=== PATIENT | male | born 1985 | race African-American/Black ===

== ENCOUNTER 2017-01-19 02:21 | Inpatient (IN) | payer BC ==
[2017-01-19] MEDS ORDERED: Nitroglycerin 0.4 MG TAB (25 Tab Bottle) ONE (02:57)
[2017-01-19 03:07] LABS: #Basophils 0.1 thou/uL (0.0-0.2); #Eosinphils 0.1 thou/uL (0.0-0.7); #Lymphocytes 1.9 thou/uL (1.20-3.40); #Monocytes 0.7 thou/uL (0.11-0.59); #Neutrophils 6.7 thou/uL (1.40-6.50); %Eosinophils 1.2 % (0.0-10.0); %Lymphocytes 19.7 % (21.0-51.0); %Monocytes 7.1 % (0.0-10.0); Hematocrit 46.8 % (42.0-52.0); Mean Platelet Volume 9.6 fL (7.4-10.4); White Blood Cell (WBC) Count 9.4 thou/uL (4.8-10.8)
[2017-01-19 03:28] LABS: ALT (SGPT) 50 U/L (8-55); AST (SGOT) 22 U/L (5-34); Alkaline Phosphatase 79 U/L (40-150); Anion Gap 8 mmol/L (10-20); BUN (Urea Nitrogen) 13 mg/dL (8.9-20.6); Bilirubin, Total 0.3 mg/dL (0.2-1.2); CK (CPK) 98 U/L (30-200); Calc. Creatinine Clearance 0 mL/min (70-130); Calcium 8.4 mg/dL (7.8-10.44); Carbon Dioxide 33 mmol/L (22-29); Chloride 99 mmol/L (98-107); Estimated GFR-MDRD Greater than 90; Globulin 3.1 g/dL (2.4-3.5); Lipase 34 U/L (8-78); Magnesium 1.1 mg/dL (1.6-2.6); Protein, Total 6.3 g/dL (6.0-8.3)
[2017-01-19 03:30] LABS: Troponin I 0.067 ng/mL (< 0.028)
[2017-01-19] MEDS ORDERED: Ondansetron HCl/PF 4 MG/2 ML Vial ONE (04:20)
[2017-01-19] MEDS ORDERED: Nitroglycerin 2% Ointment 1 INCH/1 GM Packet ONE (04:20)
[2017-01-19] MEDS ORDERED: Morphine 2 MG/ML SYRINGE ONE (04:20)
[2017-01-19] MEDS ORDERED: Labetalol HCl 100 MG/20 ML VIAL ONE (05:11)
[2017-01-19] MEDS ORDERED: hydrALAZINE 20 MG/ML VIAL ONE (06:16)
--- NOTE | 2017-01-19 06:25 | HP ---
DATE OF ADMISSION: 01/19/2017 PRIMARY CARE PHYSICIAN: Sharron head. CHIEF COMPLAINT: Chest pain and shortness of breath. HISTORY OF PRESENT ILLNESS: This is a 31-year-old -Palest[place] male, who presents to [facility] complaining of chest pain and shortness of breath over the last several days . Patient with a significant history of systolic congestive heart failure with ejection fraction in the 20%-25% range by 2D transthoracic echocardiogram in 2013. The patient previously had been plac ed on carvedilol, Lasix, and Zaroxolyn, and had been followed by the Heart Failure [facility] at [facility]. According to the girlfriend, patient has not been following up with the Heart Failure Clinic and actually he has been out of all of his medications over the last 4-5 months prior to thi s evaluation. The patient has noted increasing lower extremity swelling, increased shortness of niraj ath, and decreased exercise tolerance. 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 Patient admits to some chest pain, pressure-like in the central portion of the chest. No specific jaw or le ft arm discomfort. The patient denied any recent fever, chills, or travel history. Patient denies any specific change to his bowel habits, dysuria, recent trauma or injury. In the emergency room, t he patient underwent general evaluation including chest imaging showing cardiomegaly as well as pulm onary vascular congestion. The patient was also noted with mild elevated troponin I at 0.067. The patient received IV morphine sulfate, Zofran, topical nitroglycerin, as well as sublingual nitroglyc lee, intravenous normal saline x500 mL, and aspirin. The patient was referred to the Hospitalist Dory mitchell for admission. PAST MEDICAL HISTORY: 1. Systolic congestive heart failure with ejection fraction of 20%-25%. 2. Dilated cardiomyopathy. 3. Hypertension. 4. Morbid obesity. 5. Noncompliance. 6. History of undescended testicle. PAST SURGICAL HISTORY: 1. Status post orchiopexy for undescended testicle. 2. Status post inguinal hernia repair. 3. Status post circumcision. CURRENT MEDICATIONS: 1. Reviewed and negative. The patient previously was noted on aspirin 81 mg daily, carvedilol 12.5 mg p.o. b.i.d., Lasix 80 mg p.o. b.i.d. 2. Lisinopril 20 mg p.o. daily. 3. Zaroxolyn 5 mg p.o. daily. 4. Aldactone 25 mg p.o. daily. The patient currently out of all medications. ALLERGIES: No known drug allergies. FAMILY HISTORY: Positive for hypertension. SOCIAL HISTORY: The patient resides in the [facility] area. 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 Positive alcohol use every other week. No tobacco or illicit drug us e. REVIEW OF SYSTEMS: The following complete review of systems was negative, unless otherwise mentione d in the HPI or below: Constitutional: Weight loss or gain, ability to conduct usual activities. Skin: Rash, itching. Eyes: Double vision, pain. ENT/Mouth: Nose bleeding, neck stiffness, pain, tenderness. Cardiovascular: Palpitations, dyspnea on exertion, orthopnea. Respiratory: Shortnes s of breath, wheezing, cough, hemoptysis, fever or night sweats. Gastrointestinal: Poor appetite, abdominal pain, heartburn, nausea, vomiting, constipation, or diarrhea. Genitourinary: Urgency, fr equency, dysuria, nocturia. Musculoskeletal: Pain, swelling. Neurologic/Psychiatric: Anxiety, de pression. Allergy/Immunologic: Skin rash, bleeding tendency. PHYSICAL EXAMINATION: VITAL SIGNS: On admission, blood pressure 195/109, pulse 105, respiratory rate 24, temperature 98.5 degrees Fahrenheit, O2 saturation 88% on room air. GENERAL APPEARANCE: This is a 31-year-old -Palestinian male, morbidly obese, somnolent, but ope ns eyes to name and direct questioning. HEENT: Pupils are equal, round, and reactive to light and accommodation. Extraocular muscles are i ntact. No scleral icterus, no conjunctival injection. Nares patent. OP is clear. NECK: Supple, no cervical adenopathy, no thyromegaly, no JVD appreciated. Cervical spine with full active and passive range of motion. CHEST: Diminished breath sounds in the bases bilaterally. CARDIOVASCULAR: S1, S2 with distant heart sounds. ABDOMEN: Obese, landmarks are difficult to palpate due to patient's body habitus. No palpable mass , rebound, or guarding. EXTREMITIES: Pitting edema to the knees bilaterally. Pulses palpable distally at the dorsalis pedi s, posterior tibial, and popliteal arteries bilaterally. Capillary refill less than 2 seconds. NEUROLOGIC: Lethargic, but opens eyes to direct questioning and name. The rest of the cranial nerv es II through XII are grossly intact. No other focal or lateralizing signs appreciated. PERTINENT LABORATORY AND X-RAY FINDINGS: Sodium 136, potassium 3.9, chloride 99, CO2 of 33, anion g ap of 8, BUN 13, creatinine 1.09 with estimated GFR greater than 90, glucose 210, calcium 8.4, magne sium 1.1. LFTs within normal limits. Troponin I 0.067. BNP 78.4, lipase 34. CBC showed a white b lood cell count 9.4, hemoglobin 15, hematocrit 47, platelet count 172 with normal differential. Por table chest x-ray dated 01/19/2017 by my interpretation, shows pulmonary vascular congestion with ca rdiomegaly. EKG dated 01/19/2017 by my interpretation, shows a sinus mechanism and EKG dated 2016 by my interpretation, shows sinus mechanism with heart rates in the upper 90s. Attenuated R wa ves noted in the precordial leads. Right axis deviation noted. No acute ST-T wave changes apprecia carey. ASSESSMENT AND PLAN: 1. Chest pain. Questionable cardiac ischemia given elevated troponin I of 0.067. We will continue serial cardiac enzyme trending. Consult Cardiology service in the a.m. Continue aspirin 81 mg amari ly. Check fasting lipid profile in the a.m. The patient may need additional cardiac evaluation inc luding left heart catheterization given the patient's overall body habitus and difficulty with nucle ar imaging. 2. Acute systolic congestive heart failure with ejection fraction in the 25% range. We will contin ue Lasix 40 mg IV q.12 hours. Check 2D transthoracic echocardiogram for current ejection fraction. Cardiology consult pending. 3. Morbid obesity hypoventilation syndrome. Continue oxygen supplementation to maintain O2 saturat ions greater than or equal to 90%. Consider nocturnal CPAP. The patient may need additional outpat ient sleep study. 4. Hypertensive urgency. We will initiate Lasix 40 mg IV q.12 hours with additional lisinopril 2.5 mg p.o. daily. We will add hydralazine 10 mg IV every 4 hours p.r.n. systolic greater than 170. C ontinue to titrate antihypertensive regimen based on clinical response. 5. Prophylaxis. Sequential compression devices while in bed. Pepcid 20 mg p.o. b.i.d. 6. Code status is FULL. Surrogate medical decision maker is the patient's girlfriend.
[2017-01-19 06:30] LABS: Troponin I 0.061 ng/mL (< 0.028)
[2017-01-19] MEDS ORDERED: Ondansetron HCl/PF 4 MG/2 ML Vial IVP PRN ×2 (06:59→07:30)
[2017-01-19] MEDS ORDERED: Ondansetron ODT 4 MG TAB PO PRN ×2 (06:59→07:30)
[2017-01-19 07:29] VITALS: BMI 60.7
[2017-01-19] MEDS ORDERED: hydrALAZINE 20 MG/ML VIAL SLOW IVP PRN (07:30)
[2017-01-19] MEDS ORDERED: cloNIDine 0.1 MG TAB PO PRN (07:30)
[2017-01-19] MEDS ORDERED: Acetaminophen 500 MG TAB PO PRN (07:30)
[2017-01-19] MEDS ORDERED: Furosemide 40 MG/4 ML VIAL SLOW IVP SCH ×2 (07:30→08:00)
[2017-01-19] MEDS ORDERED: Nitroglycerin 0.4 MG TAB (25 Tab Bottle) SL PRN (07:30)
[2017-01-19] MEDS ORDERED: Magnesium Sulfate 2 GM in Sodium Chloride 0.9% 100 ML IVPB SCH (07:30)
[2017-01-19] MEDS ORDERED: Magnesium 2 GM/NS 0.9% 50 ML 2 GM in Premix Bag 1 BAG IVPB SCH (08:00)
--- NOTE | 2017-01-19 08:30 | PDOC.EVN ---
Event Note - Event Note Event Note: Pt seen during the rounds. Awaiting cardio input. Echo being done. will follow. Chest pain better. at bedside.
--- NOTE | 2017-01-19 08:44 | RAD ---
CHEST ONE VIEW: HISTORY: Chest pain. COMPARISON: 06/12/2015 and 11/04/2015 FINDINGS: Portable upright chest demonstrates an enlarged cardiac silhouette. The pulmonary vessels and hilum are normal. The costophrenic angles are clear. Hyperinflation without consolidation or mass. No pneumothorax or osseous abnormalities. IMPRESSION: 1. Limited evaluation due to motion and portable technique. 2. No acute cardiopulmonary process. 3. Cardiomegaly POS: [facility]
[2017-01-19 09:53] LABS: Troponin I 0.062 ng/mL (< 0.028)
[2017-01-19] MEDS: Lisinopril 2.5 MG TAB PO SCH (11:10)
[2017-01-19] MEDS: Famotidine 20 MG TAB PO SCH ×2 (11:11→19:56)
[2017-01-19] MEDS: Furosemide 40 MG/4 ML VIAL SLOW IVP SCH (15:07)
[2017-01-19] MEDS: Sodium Chloride 0.9% 1,000 ML IV SCH (19:22)
[2017-01-20] MEDS: Furosemide 40 MG/4 ML VIAL SLOW IVP SCH ×2 (05:34→14:26)
[2017-01-20 05:59] LABS: Anion Gap 9 mmol/L (10-20); BUN (Urea Nitrogen) 12 mg/dL (8.9-20.6); Calc. Creatinine Clearance 324 mL/min (70-130); Calcium 8.2 mg/dL (7.8-10.44); Carbon Dioxide 35 mmol/L (22-29); Chloride 95 mmol/L (98-107); Estimated GFR-MDRD Greater than 90; Magnesium 1.5 mg/dL (1.6-2.6)
[2017-01-20 06:35] LABS: Band 2 % (5-11); Hematocrit 46.7 % (42.0-52.0); Mean Platelet Volume 9.1 fL (7.4-10.4); Neutrophil 71 % (42-75); Reactive Lymphocytes 4 % (0-10); Red Blood Cell (RBC) Count 5.37 mill/uL (4.70-6.10); White Blood Cell (WBC) Count 9.9 thou/uL (4.8-10.8)
[2017-01-20] MEDS ORDERED: FLU VACC QS2017-18 36 mo. & older 0.5 ML SYRINGE IM ONE (09:00)
[2017-01-20] MEDS: Famotidine 20 MG TAB PO SCH ×2 (09:24→20:55)
[2017-01-20] MEDS: Lisinopril 2.5 MG TAB PO SCH (09:24)
--- NOTE | 2017-01-20 13:20 | PDOC.PN ---
- Subjective Encounter Start Date: 01/20/17 Encounter Start Time: 13:19 Patient seen and examined. No new complaints. No overnight events. feeling better. sob is much better. No chest pain or N/V. He was not taking any meds for the last 4-5 months. - Objective Resuscitation Status: Resuscitation Status FULL:Full Resuscitation MAR Reviewed: Yes Vital Signs & Weight: Vital Signs (12 hours) Temp Pulse Pulse Pulse Resp BP BP 01/20/17 12:15 01/20/17 11:30 98.2 F 106 H 18 01/20/17 10:00 98 105 H 141/102 H 170/111 H 01/20/17 09:24 101 H 01/20/17 08:05 98.3 F 101 H 18 01/20/17 07:15 98.3 F 101 H 18 01/20/17 04:20 01/20/17 03:25 98.5 F 96 20 BP Pulse Ox Pulse Ox Pulse Ox 01/20/17 12:15 207/117 H 01/20/17 11:30 93 L 01/20/17 10:00 88 L 95 01/20/17 09:24 01/20/17 08:05 01/20/17 07:15 142/91 H 94 L 01/20/17 04:20 95 01/20/17 03:25 130/94 H 92 L Weight Weight 429 lb 11.2 oz I&O: 01/19/17 01/20/17 01/21/17 06:59 06:59 06:59 Intake Total 1050 360 Output Total 1500 800 Balance -450 -440 Result Diagrams: 01/20/17 05:31 01/20/17 05:31 Phys Exam - Physical Examination Constitutional: NAD HEENT: sclera anicteric Neck: supple Respiratory: no wheezing, no rales Cardiovascular: RRR Gastrointestinal: soft Musculoskeletal: edema present Neurological: non-focal, moves all 4 limbs Psychiatric: normal affect, A&O x 3 Skin: no rash, normal turgor Dx/Plan (1) HTN (hypertension) Code(s): I10 - ESSENTIAL (PRIMARY) HYPERTENSION Status: Acute (2) Morbid obesity Code(s): E66.01 - MORBID (SEVERE) OBESITY DUE TO EXCESS CALORIES Status: Acute (3) Cardiomyopathy Code(s): I42.9 - CARDIOMYOPATHY, UNSPECIFIED Status: Active Comment: DILATED NONISCHEMIC (4) Chronic diastolic heart failure Code(s): I50.32 - CHRONIC DIASTOLIC (CONGESTIVE) HEART FAILURE Status: Active (5) Dyslipidemia Code(s): E78.5 - HYPERLIPIDEMIA, UNSPECIFIED Status: Active - Plan cont current plan of care, PT/OT, DVT proph w/heparin * . chest pain better. cardio consult pending continue lasix. Add procardia and monitor BP. AM labs.
[2017-01-20] MEDS ORDERED: NIFEdipine XL 30 MG TAB PO ONE (13:30)
[2017-01-20] MEDS ORDERED: Carvedilol 6.25 MG TAB PO SCH (18:30)
--- NOTE | 2017-01-20 22:54 | CON ---
DATE OF CONSULTATION: 01/20/2017 HISTORY OF PRESENT ILLNESS: Mr. Cochran is a 31-year-old black male who was hospitalized here in 03/2013 for congestive heart failure. He was found to have ejection fraction of 20-25%, and was placed on carvedilol, Lasix, and Zaroxolyn. He was then followed by Heart Failure Clinic until 10/2013. He has not had any repeat echocardiogram after the initial one with ejection fraction of 20-25%, until yesterday. Approximately 4 or 5 months ago, he ran out of his medications. He did state that he had some furosemide and took that until 2 or 3 months ago. He then began to notice increasing fatigue and shortness of breath as well as over the last 2 weeks increased peripheral edema. Also over the past several days, he has developed chest pressure. Initially, this would only occur when he was supine in bed. He would wake up at night coughing, but denied any shortness of breath. He then over the 48 hours prior to admission had the same chest pressure continuously without resolution. He ultimately came to the emergency room and was found to have blood pressure of 195/109 with room air saturation of 88%. In the emergency room, he was given sublingual nitroglycerin, aspirin 243 mg, 500 mL of normal saline, two more additional sublingual nitroglycerins, 1 inch nitro paste, Zofran 4 mg IV, morphine 4 mg IV, labetalol 10 mg IV x2, and hydralazine 20 mg IV. He states that his chest pressure has completely resolved and his breathing is much improved. PAST MEDICAL HISTORY: Dilated cardiomyopathy with ejection fraction of 20-25% in 03/2013, hypertension, morbid obesity, noncompliance. OPERATIONS PERFORMED: Orchiopexy for undescended left testicle, inguinal hernia repair, and circumcision. MEDICATIONS: At the present time are none. His previous medications were carvedilol 12.5 b.i.d., furosemide 80 b.i.d., aspirin 81 daily, lisinopril 20 daily, Zaroxolyn 5 mg daily, and Aldactone 25 daily. ALLERGIES: None. 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 He is finding increasingly difficult to work. He does not smoke. Occasionally drinks. FAMILY HISTORY: Negative for coronary artery disease. REVIEW OF SYSTEMS: Twelve-point review of systems unremarkable except as noted above. PHYSICAL EXAMINATION: GENERAL: Blood pressure 144/84, pulse of 106. HEENT: PERRL. NECK: Supple. CHEST: Clear. CARDIAC: S1 and S2 are normal, without any S3, S4 or murmurs. ABDOMEN: Obese, normal bowel sounds, no tenderness or organomegaly. EXTREMITIES: Revealed 1-2+ pretibial edema. NEUROLOGIC: Grossly intact. SKIN: Warm and dry. LABORATORY AND DIAGNOSTIC DATA: EKG revealed normal sinus rhythm, right axis deviation. CBC is unremarkable. There is no D-dimer. Sodium 135, potassium 4.0, chloride 95, carbon dioxide 35, BUN 12, creatinine 0.92, glucose 252. Magnesium 1.5. Cholesterol 112, triglycerides 72, HDL 31, LDL 67. Troponin I 0.067, CK-MB is normal. Chest x-ray revealed cardiomegaly with no acute process. Echocardiogram revealed normal left ventricular function with ejection fraction of 50-55%, normal diastolic function. IMPRESSION: 1. Noncompliance with medications. 2. Hypertension, poorly controlled. 3. History of dilated cardiomyopathy with ejection fraction of 20-25% in 2013 with improvement in his ejection fraction. 4. Obesity. 5. Atypical chest discomfort with constant chest pain for 48 hours and very minimally elevated troponin I. 6. Elevated troponin I, probably due to demand ischemia. PLAN: The patient will be restarted on carvedilol, but a lower dose and I would discontinue nifedipine. Continue lisinopril. His medication should be gradually resumed, although he probably may not need higher dose on his furosemide. We will continue to follow the patient with you. CORY
[2017-01-21 05:04] LABS: Anion Gap 8 mmol/L (10-20); BUN (Urea Nitrogen) 13 mg/dL (8.9-20.6); Calc. Creatinine Clearance 338 mL/min (70-130); Calcium 8.6 mg/dL (7.8-10.44); Carbon Dioxide 34 mmol/L (22-29); Chloride 96 mmol/L (98-107); Estimated GFR-MDRD Greater than 90
[2017-01-21] MEDS: Furosemide 40 MG/4 ML VIAL SLOW IVP SCH ×2 (05:09→15:10)
[2017-01-21 06:27] LABS: Hemoglobin A1c 9.9 % (4.0-6.0)
[2017-01-21 06:33] LABS: Magnesium 1.2 mg/dL (1.6-2.6)
[2017-01-21] MEDS: Famotidine 20 MG TAB PO SCH ×2 (08:33→20:23)
[2017-01-21] MEDS: Lisinopril 2.5 MG TAB PO SCH (08:34)
[2017-01-21] MEDS: Enoxaparin Sodium 40 MG/0.4 ML SYRINGE SC SCH (08:34)
[2017-01-21] MEDS: Carvedilol 6.25 MG TAB PO SCH ×2 (08:34→16:50)
[2017-01-21] MEDS ORDERED: NIFEdipine XL 30 MG TAB PO SCH (09:00)
[2017-01-21] MEDS ORDERED: NIFEdipine XL 60 MG TAB PO SCH (09:00)
--- NOTE | 2017-01-21 15:20 | PDOC.CTH ---
<Argelia Thornton - Last Filed: 01/21/17 15:30> Cardiology Progress Note - Subjective The pt seen and examined. No overnight events. No cardiac complaints. He snores and stops breathing during sleep. - Objective Vital Signs Temp Pulse Resp BP Pulse Ox 01/21/17 11:00 98.4 F 94 20 146/91 H 94 L 01/21/17 08:34 98.2 F 98 18 95 01/21/17 07:56 98.2 F 98 18 156/85 H 95 01/21/17 04:11 98.4 F 87 18 165/85 H 94 L Weight 427 lb 11.2 oz 01/20/17 01/21/17 01/22/17 06:59 06:59 06:59 Intake Total 1050 1200 Output Total 1500 800 350 Balance -450 400 -350 - Physical Examination General/Neuro: alert & oriented x3 Neck: no JVD present Lungs: CTA Heart: RRR Abdomen: soft Extremities: other: Other PE findings: 1+ pitting edema in BLE - Telemetry Telemetry Rhythm: SR 60s - Labs Result Diagrams: 01/20/17 05:31 01/21/17 04:06 Troponin/CKMB CK-MB (CK-2) 2.2 ng/mL (0-6.6) 01/19/17 02:50 Troponin I 0.062 ng/mL (< 0.028) H 01/19/17 09:10 - Assessment/Plan 1. Dilated CMY - EF of 20-25 in 2013 and 50-55% on 01/20/17; stable with Lasix IV 40mg BID, BBlocker, LUKAS, ASA, and Lovenox; Change Lasix from IV to PO 2. Elevated Trop - Due to demand Ischemia 3. HTN - Increase Lisinopril from 2.5mg to 5mg daily; cont. monitor 4. Sleep Apnea - Need outpt sleep study 5. Obese - strongly recommend weight management 6. DM type 2 - Hgb A1c today was 9.9. May start some med for his blood glucose. MAR reviewed Review of Systems - Review of Systems Constitutional: reports: no symptoms reported EENTM: reports: no symptoms reported Respiratory: reports: no symptoms reported Cardiac (ROS): reports: no symptoms reported ABD/GI: reports: no symptoms reported : reports: no symptoms reported Musculoskeletal: reports: no symptoms reported <Chaz Guzman - Last Filed: 01/21/17 19:36> Cardiology Progress Note - Objective Vital Signs Temp Pulse Resp BP Pulse Ox 01/21/17 19:11 98.8 F 96 20 142/70 H 96 01/21/17 16:50 167/94 H 01/21/17 15:00 98.4 F 91 24 H 182/106 H 93 L 01/21/17 11:00 98.4 F 94 20 146/91 H 94 L 01/21/17 08:34 98.2 F 98 18 95 01/21/17 07:56 98.2 F 98 18 156/85 H 95 Weight 427 lb 11.2 oz 01/20/17 01/21/17 01/22/17 06:59 06:59 06:59 Intake Total 1050 1200 100 Output Total 5006 355 2448 Balance -450 400 -2450 - Labs Result Diagrams: 01/20/17 05:31 01/21/17 04:06 Troponin/CKMB CK-MB (CK-2) 2.2 ng/mL (0-6.6) 01/19/17 02:50 Troponin I 0.062 ng/mL (< 0.028) H 01/19/17 09:10 - Assessment/Plan The pt. was seen and eval. by me. He has been noncompliant with his medical therapy. 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 He has improved with diuresis.
[2017-01-21] MEDS ORDERED: Magnesium Sulfate 4 GM in Sodium Chloride 0.9% 250 ML 250 ML IVPB SCH (15:30)
--- NOTE | 2017-01-21 16:14 | PDOC.PN ---
- Subjective Encounter Start Date: 01/21/17 Encounter Start Time: 15:30 Patient seen and examined. No new complaints. No overnight events. No CP. Feels better. - Objective Resuscitation Status: Resuscitation Status FULL:Full Resuscitation MAR Reviewed: Yes Vital Signs & Weight: Vital Signs (12 hours) Temp Pulse Resp BP Pulse Ox 01/21/17 15:00 98.4 F 91 24 H 182/106 H 93 L 01/21/17 11:00 98.4 F 94 20 146/91 H 94 L 01/21/17 08:34 98.2 F 98 18 95 01/21/17 07:56 98.2 F 98 18 156/85 H 95 Weight Weight 427 lb 11.2 oz I&O: 01/20/17 01/21/17 01/22/17 06:59 06:59 06:59 Intake Total 1050 1200 Output Total 1500 800 350 Balance -450 400 -350 Result Diagrams: 01/20/17 05:31 01/21/17 04:06 EKG Reviewed by me: Yes (Tele SR) Phys Exam - Physical Examination Constitutional: NAD Respiratory: no wheezing, no rhonchi Cardiovascular: RRR, no rub Gastrointestinal: soft, non-tender, positive bowel sounds Musculoskeletal: edema present Neurological: non-focal, moves all 4 limbs Dx/Plan (1) Acute on chronic systolic (congestive) heart failure Code(s): I50.23 - ACUTE ON CHRONIC SYSTOLIC (CONGESTIVE) HEART FAILURE Status : Acute (2) Chest pain Code(s): R07.9 - CHEST PAIN, UNSPECIFIED Status: Acute (3) Elevated troponin Code(s): R74.8 - ABNORMAL LEVELS OF OTHER SERUM ENZYMES Status: Acute (4) Hypomagnesemia Code(s): E83.42 - HYPOMAGNESEMIA Status: Acute (5) Dyslipidemia Code(s): E78.5 - HYPERLIPIDEMIA, UNSPECIFIED Status: Chronic (6) HTN (hypertension) Code(s): I10 - ESSENTIAL (PRIMARY) HYPERTENSION Status: Chronic (7) Morbid obesity with BMI of 50.0-59.9, adult Code(s): E66.01 - MORBID (SEVERE) OBESITY DUE TO EXCESS CALORIES; Z68.43 - BODY MASS INDEX (BMI) 50-59.9 , ADULT Status: Chronic (8) KAREEM (obstructive sleep apnea) Code(s): G47.33 - OBSTRUCTIVE SLEEP APNEA (ADULT) (PEDIATRIC) Status: Suspected - Plan cont current plan of care, DVT proph w/lovenox, DVT proph w/SCDs * Change Lasix to PO * ACEI dose increased * Add Fluid restriction * Has No PCP - Will setup with Dr Norris * Cont to monitor * DC planning * BP better. * Replace Mg Review of Systems - Review of Systems Respiratory: negative: Cough, Dry, Shortness of Breath, Hemoptysis, SOB with Excertion, Pleuritic Pain, Sputum, Wheezing Cardiovascular: negative: Chest Pain, Palpitations, Orthopnea, Paroxysmal Noc. Dyspnea, Edema, Light Headedness, Other Gastrointestinal: negative: Nausea, Vomiting, Abdominal Pain, Diarrhea, Constipation, Melena, Hematochezia, Other - Medications/Allergies Allergies/Adverse Reactions: Allergies Allergy/AdvReac Type Severity Reaction Status Date / Time No Known Allergies Allergy Verified 04/01/13 23:39 Medications: Current Medications Acetaminophen (Tylenol) 1,000 mg PO Q6H PRN PRN Reason: Headache/Fever or Mild Pain Last Admin: 01/19/17 19:56 Dose: 1,000 mg Aspirin (Aspirin Chewable) 81 mg PO DAILY [facility] Last Admin: 01/21/17 08:34 Dose: 81 mg Carvedilol (Coreg) 6.25 mg PO BID-[facility] Last Admin: 01/21/17 08:34 Dose: 6.25 mg Clonidine HCl (Catapres) 0.1 mg PO Q4H PRN PRN Reason: Systolic BP > 180 Last Admin: 01/20/17 12:30 Dose: 0.1 mg Enoxaparin Sodium (Lovenox) 40 mg SC 0900 [facility] Last Admin: 01/21/17 08:34 Dose: 40 mg Famotidine (Pepcid) 20 mg PO BID [facility] Last Admin: 01/21/17 08:33 Dose: 20 mg Furosemide (Lasix) 40 mg PO 0900,1400 [facility] Hydralazine HCl (Apresoline) 10 mg SLOW IVP Q4H PRN PRN Reason: Systolic BP > 180 Last Admin: 01/19/17 12:39 Dose: 10 mg Magnesium Sulfate 4 gm/ Sodium (Chloride) 258 mls @ 86 mls/hr IVPB NOW [facility] Stop: 01/21/17 18:29 Lisinopril (Zestril) 5 mg PO DAILY [facility] Nitroglycerin (Nitrostat) 0.4 mg SL Q5MIN PRN PRN Reason: Chest Pain Ondansetron HCl (Zofran Odt) 4 mg PO Q6H PRN PRN Reason: Nausea/Vomiting Ondansetron HCl (Zofran) 4 mg IVP Q6H PRN PRN Reason: Nausea/Vomiting Sodium Chloride (Flush - Normal Saline) 10 ml IVF Q12HR [facility] Last Admin: 01/21/17 08:35 Dose: 10 ml Sodium Chloride (Flush - Normal Saline) 10 ml IVF PRN PRN PRN Reason: Saline Flush Last Admin: 01/20/17 14:26 Dose: 10 ml
[2017-01-22 05:30] LABS: Anion Gap 9 mmol/L (10-20); BUN (Urea Nitrogen) 13 mg/dL (8.9-20.6); Calc. Creatinine Clearance 293 mL/min (70-130); Calcium 8.6 mg/dL (7.8-10.44); Carbon Dioxide 36 mmol/L (22-29); Chloride 94 mmol/L (98-107); Estimated GFR-MDRD Greater than 90; Magnesium 1.9 mg/dL (1.6-2.6)
[2017-01-22] MEDS ORDERED: Dextrose 50% Abboject 50 ML SYRINGE SLOW IVP PRN (06:13)
[2017-01-22] MEDS ORDERED: Insulin Regular 300 UNITS/3 ML VIAL SC PRN (06:13)
[2017-01-22] MEDS ORDERED: Dextrose 5% in Water 1,000 ML IV PRN (06:13)
--- NOTE | 2017-01-22 08:56 | PDOC.CTH ---
Cardiology Progress Note - Subjective The pt was seen and examined. No overnight events. No cardiac complaints. - Objective Vital Signs Temp Pulse Resp BP Pulse Ox 01/22/17 08:04 96 01/22/17 07:15 98.5 F 91 19 161/101 H 01/22/17 03:36 97.1 F L 92 20 153/72 H 93 L 01/21/17 23:04 97.8 F 93 20 138/56 L 94 L Weight 428 lb 3.2 oz 01/21/17 01/22/17 01/23/17 06:59 06:59 06:59 Intake Total 1200 100 Output Total 800 2550 Balance 400 -2450 - Physical Examination General/Neuro: alert & oriented x3 Neck: no JVD present Lungs: CTA Heart: RRR Abdomen: soft Extremities: other: (No edema) - Telemetry Telemetry Rhythm: SR - Labs Result Diagrams: 01/20/17 05:31 01/22/17 04:50 Troponin/CKMB CK-MB (CK-2) 2.2 ng/mL (0-6.6) 01/19/17 02:50 Troponin I 0.062 ng/mL (< 0.028) H 01/19/17 09:10 - Assessment/Plan 1. Dilated CMY - EF of 20-25 in 2013 and 50-55% on 01/20/17; stable with Lasix IV 40mg BID, BBlocker, LUKAS, ASA, and Lovenox; Change Lasix from IV to PO 2. Elevated Trop - Due to demand Ischemia 3. HTN - Increase Coreg from 6.25mg to 12.5mg BID; cont. monitor 4. Sleep Apnea - Need outpt sleep study 5. Obese - Weight management education given to the pt and family 6. DM type 2 - Hgb A1c today was 9.9. May start some med for his blood glucose. MAR reviewed Review of Systems - Review of Systems Constitutional: reports: no symptoms reported EENTM: reports: no symptoms reported Respiratory: reports: no symptoms reported Cardiac (ROS): reports: no symptoms reported ABD/GI: reports: no symptoms reported : reports: no symptoms reported Musculoskeletal: reports: no symptoms reported Skin: reports: no symptoms reported Neurological: reports: no symptoms reported
[2017-01-22] MEDS ORDERED: Carvedilol 6.25 MG TAB PO SCH (09:00)
[2017-01-22] MEDS ORDERED: Lisinopril 5 MG TAB PO SCH ×3 (09:00)
[2017-01-22] MEDS: Furosemide 40 MG TAB PO SCH ×2 (09:16→14:51)
[2017-01-22] MEDS: Enoxaparin Sodium 40 MG/0.4 ML SYRINGE SC SCH (09:16)
[2017-01-22] MEDS: Famotidine 20 MG TAB PO SCH (09:16)
[2017-01-22] MEDS: Carvedilol 6.25 MG TAB PO SCH (09:30)
[2017-01-22 11:42] VITALS: BP 128/89; TEMP 98.7
--- NOTE | 2017-01-23 09:24 | DIS ---
DATE OF ADMISSION: 01/19/2017 DATE OF DISCHARGE: 01/22/2017 DISCHARGE DISPOSITION: Home. FOLLOWUP: Follow up with Dr. Norris on Thursday at 1:30 p.m. (new primary care physician). Patient does not have a PCP at this time. A sleep study as outpatient is recommended. Primary care physician advised to follow. Two liter fl uid restriction along with daily weights was recommended. The patient stated understanding. ALLERGIES: No known drug allergies. DISCHARGE MEDICATIONS: Carvedilol 12.5 mg b.i.d., aspirin 81 mg at bedtime, Lasix 40 mg daily as ne eded, lisinopril/HCTZ 10/12.5 mg daily, clonidine 0.1 mg twice daily as needed for systolic more brooke n 180, metformin 500 mg b.i.d. Basic metabolic panel and BMP in 1 week are recommended. PCP to follow. BRIEF HOSPITAL COURSE: Patient is a 31-year-old male with morbid obesity, hypertension, and congest vipin heart failure with ejection fraction of 20%-25% in the past, presented to the hospital with ches t pain and shortness of breath. Please refer to the history and physical dated 01/19/2017 for furth er details. The patient was admitted to the telemetry unit with the diagnosis of chest pain with congestive hear t failure exacerbation. His troponins were in the indeterminate range at 0.067. He was started on IV diuretics. Patient was evaluated by Cardiology, Dr. Guzman. Echocardiogram this admission showed ejection fraction of 50%-55%. He was extensively counseled on heart failure. He will follow up [facility] as well as Dr. Guzman. His blood pressure on the day of discharge was 128/89. He was advised to monitor his blood pressure on the daily basis. His weight on admission was 436 p ounds and at discharge was 428 pounds. SIGNIFICANT LABORATORY DATA: 1. Magnesium 1.1 on admission and 1.9 at discharge. 2. Fasting lipid showed cholesterol 112, LDL 67. 3. Potassium on the day of discharge is 4.0. 4. Hemoglobin A1c 9.9. FINAL DIAGNOSES: 1. Chest discomfort with indeterminate troponins, probably secondary to congestive heart failure ex acerbation. 2. Acute on chronic systolic heart failure exacerbation. The ejection fraction has improved. 3. Indeterminate troponins, probably secondary to demand ischemia. 4. New diagnosis of diabetes mellitus type 2. His hemoglobin A1c was 9.9. He was started on metfo rmin. He will probably need insulin. The patient declined insulin at this time. 5. Dyslipidemia. 6. Hypertension. 7. Morbid obesity with body mass index 59.7. 8. Suspected obstructive sleep apnea. A sleep study as outpatient as recommended. 9. Hyponatremia. Plan of care was discussed with the patient. He stated understanding.
== END 2017-01-22 15:49 | disposition home or self-care (01) | DRG 292 ==
LOC: ERS 02:21 → 2SE 03:57
PROVIDERS: ADMIT Family Medicine; ATTEND Family Medicine
DX: I11.0 Hypertensive heart disease with heart failure (principal); Z68.44 Body mass index [BMI] 60.0-69.9, adult; I24.8 Other forms of acute ischemic heart disease; E87.1 Hypo-osmolality and hyponatremia; I42.0 Dilated cardiomyopathy; E66.2 Morbid (severe) obesity with alveolar hypoventilation; I50.23 Acute on chronic systolic (congestive) heart failure; E78.5 Hyperlipidemia, unspecified; E11.9 Type 2 diabetes mellitus without complications; Z91.14 Patient's other noncompliance with medication regimen; I16.0 Hypertensive urgency; T50.1X6A Underdosing of loop [high-ceiling] diuretics, initial encounter; T44.7X6A Underdosing of beta-adrenoreceptor antagonists, initial encounter; Z91.128 Patient's intentional underdosing of medication regimen for other reason; E83.42 Hypomagnesemia
CPT/HCPCS: 36415; 36416; 71010; 80048; 80053; 80061; 82553; 83036; 83690; 83735; 83880; 84100; 84484; 85007; 85025; 85027; 93005; 93306; 93798; 94760; 96361; 96374; 96375; A4216; J0360; J1650; J1940; J2270; J2405; J3475; J7050

== ENCOUNTER 2017-02-17 04:14 | Emergency (ER) | payer BC ==
[2017-02-17] MEDS ORDERED: predniSONE 20 MG TAB ONE (04:42)
== END 2017-02-17 05:07 | disposition home or self-care (01) ==
LOC: ERS 04:14
DX: J20.9 Acute bronchitis, unspecified (principal); E66.01 Morbid (severe) obesity due to excess calories; I11.0 Hypertensive heart disease with heart failure; I50.9 Heart failure, unspecified
CPT/HCPCS: 94640; J7506; J7620

== ENCOUNTER 2017-03-24 09:53 | Emergency (ER) | payer BC ==
--- NOTE | 2017-03-24 12:04 | RAD ---
FRONTAL VIEW CHEST: Comparison: 01-18-17 Indication: Cough. FINDINGS: Cardiac silhouette and pulmonary vasculature are enlarged. There is interstitial prominence of each l rogelio. Lung bases are incompletely assessed due to overlying soft tissues and decreased penetration. Po ssibility of small pleural fluid collection is not excluded. Chest is otherwise stable. IMPRESSION: Findings indicate fluid overload. Recommend clinical correlation as well as imaging follow up. POS: [facility]
[2017-03-24 12:28] LABS: #Eosinphils 0.1 thou/uL (0.0-0.7); #Lymphocytes 1.9 thou/uL (1.20-3.40); #Monocytes 0.5 thou/uL (0.11-0.59); #Neutrophils 5.3 thou/uL (1.40-6.50); %Basophils 0.5 % (0.0-1.0); %Eosinophils 0.7 % (0.0-10.0); %Monocytes 6.5 % (0.0-10.0); Hematocrit 49.6 % (42.0-52.0); Mean Platelet Volume 8.7 fL (7.4-10.4); Red Blood Cell (RBC) Count 5.59 mill/uL (4.70-6.10); White Blood Cell (WBC) Count 7.8 thou/uL (4.8-10.8)
[2017-03-24] MEDS ORDERED: Lidocaine 1% PF 5 ML VIAL ONE (12:35)
[2017-03-24] MEDS ORDERED: cefTRIAXone\\ROCEPHIN 500 MG VIAL ONE (12:35)
[2017-03-24 12:50] LABS: Anion Gap 11 mmol/L (10-20); BUN (Urea Nitrogen) 12 mg/dL (8.9-20.6); CK (CPK) 80 U/L (30-200); Calc. Creatinine Clearance 0 mL/min (70-130); Calcium 9.1 mg/dL (7.8-10.44); Carbon Dioxide 33 mmol/L (22-29); Chloride 97 mmol/L (98-107); Estimated GFR-MDRD Greater than 90
== END 2017-03-24 13:08 | disposition home or self-care (01) ==
LOC: ERS 09:53
DX: J40 Bronchitis, not specified as acute or chronic (principal); R04.2 Hemoptysis; I11.0 Hypertensive heart disease with heart failure; I50.9 Heart failure, unspecified; E66.01 Morbid (severe) obesity due to excess calories
CPT/HCPCS: 36415; 71010; 80048; 82550; 85025; 85379; 96372; J0696; J2001

== ENCOUNTER 2017-04-06 13:58 | Emergency (ER) | payer BC | END 2017-04-06 14:18 | disposition left against medical advice (07) | LOC: ERS 13:58 | DX: Z53.21 Procedure and treatment not carried out due to patient leaving prior to being seen by health care provider (principal) ==

== ENCOUNTER 2017-04-20 08:28 | Emergency (ER) | payer BC ==
[2017-04-20 09:07] LABS: #Basophils 0.1 thou/uL (0.0-0.2); #Eosinphils 0.1 thou/uL (0.0-0.7); #Lymphocytes 1.9 thou/uL (1.20-3.40); #Monocytes 0.6 thou/uL (0.11-0.59); #Neutrophils 5.7 thou/uL (1.40-6.50); %Eosinophils 0.9 % (0.0-10.0); %Lymphocytes 22.4 % (21.0-51.0); %Monocytes 7.3 % (0.0-10.0); %Neutrophils 68.4 % (42.0-75.0); Hemoglobin 15.9 g/dL (14.0-18.0); Mean Corpuscular HGB CONC 31.3 g/dL (32.0-36.0); Mean Corpuscular Hemoglobin 27.5 pg (27.0-31.0); Mean Corpuscular Volume 87.9 fl (80.0-94.0); Mean Platelet Volume 9.6 fL (7.4-10.4); Platelet Count 172 thou/uL (130-400); RBC Distribution Width 12.8 % (11.5-14.5); Red Blood Cell (RBC) Count 5.77 mill/uL (4.70-6.10); White Blood Cell (WBC) Count 8.3 thou/uL (4.8-10.8)
[2017-04-20 09:25] LABS: ALT (SGPT) 23 U/L (8-55); AST (SGOT) 16 U/L (5-34); Albumin 3.3 g/dL (3.5-5.0); Alkaline Phosphatase 75 U/L (40-150); Anion Gap 14 mmol/L (10-20); BUN (Urea Nitrogen) 13 mg/dL (8.9-20.6); Bilirubin, Total 0.3 mg/dL (0.2-1.2); CK (CPK) 52 U/L (30-200); Calc. Creatinine Clearance 0 mL/min (70-130); Calcium 8.6 mg/dL (7.8-10.44); Carbon Dioxide 29 mmol/L (22-29); Chloride 97 mmol/L (98-107); Estimated GFR-MDRD Greater than 90; Glucose 168 mg/dL (70-105); Potassium 4.2 mmol/L (3.5-5.1); Protein, Total 6.3 g/dL (6.0-8.3); Sodium 136 mmol/L (136-145)
[2017-04-20 09:29] LABS: CKMB 1.3 ng/mL (0-6.6); Troponin I 0.042 ng/mL (< 0.028)
== END 2017-04-20 09:57 | disposition home or self-care (01) ==
LOC: ERS 08:28
DX: R60.0 Localized edema (principal); I11.0 Hypertensive heart disease with heart failure; I50.9 Heart failure, unspecified; E66.9 Obesity, unspecified; F17.210 Nicotine dependence, cigarettes, uncomplicated; F41.9 Anxiety disorder, unspecified; Z79.899 Other long term (current) drug therapy; Z79.82 Long term (current) use of aspirin
CPT/HCPCS: 36415; 80053; 82553; 83880; 84484; 85025; 99283

== ENCOUNTER 2017-05-13 09:13 | Emergency (ER) | payer BC ==
--- NOTE | 2017-05-13 10:16 | RAD ---
PA AND LATERAL CHEST: History: Cough. FINDINGS: Comparison is made with exam of 03-24-17. The heart size is enlarged. The lungs are expanded without focal areas of consolidation, pneumothorax , nimco pulmonary edema or pleural effusions. No acute osseous abnormality is seen. IMPRESSION: Cardiomegaly. POS: [facility]
== END 2017-05-13 12:52 | disposition home or self-care (01) ==
LOC: ERS 09:13
DX: J40 Bronchitis, not specified as acute or chronic (principal); H66.92 Otitis media, unspecified, left ear; I11.0 Hypertensive heart disease with heart failure; I50.9 Heart failure, unspecified; E66.9 Obesity, unspecified; F17.210 Nicotine dependence, cigarettes, uncomplicated
CPT/HCPCS: 71046

== ENCOUNTER 2017-07-13 03:37 | Emergency (ER) | payer BC ==
[2017-07-13] MEDS ORDERED: Ketorolac Tromethamine 60 MG/2 ML VIAL ONE (04:11)
[2017-07-13] MEDS ORDERED: Acetaminophen 500 MG TAB ONE (04:11)
== END 2017-07-13 04:19 | disposition home or self-care (01) ==
LOC: ERS 03:37
DX: K02.9 Dental caries, unspecified (principal); K05.10 Chronic gingivitis, plaque induced; I11.0 Hypertensive heart disease with heart failure; I50.9 Heart failure, unspecified; E66.9 Obesity, unspecified; F41.9 Anxiety disorder, unspecified; F43.10 Post-traumatic stress disorder, unspecified; F17.210 Nicotine dependence, cigarettes, uncomplicated; Z71.6 Tobacco abuse counseling
CPT/HCPCS: 96372; 99406; J1885

== ENCOUNTER 2017-09-14 00:07 | Inpatient (IN) | payer BC ==
[2017-09-14] MEDS ORDERED: Furosemide 40 MG/4 ML VIAL ONE (00:38)
[2017-09-14 00:54] LABS: Anion Gap 13 mmol/L (10-20); BUN (Urea Nitrogen) 17 mg/dL (8.9-20.6); Calc. Creatinine Clearance 0 mL/min (70-130); Calcium 8.4 mg/dL (7.8-10.44); Carbon Dioxide 33 mmol/L (22-29); Chloride 94 mmol/L (98-107); Estimated GFR-MDRD 88; Glucose 159 mg/dL (70-105); Sodium 136 mmol/L (136-145)
[2017-09-14 00:55] LABS: Band 1 % (5-11); CKMB 1.1 ng/mL (0-6.6); Eosinophils 2 % (0-10); Hemoglobin 16.1 g/dL (14.0-18.0); Lymphocytes 42 % (21-51); MDiff Complete? YES; Mean Corpuscular Hemoglobin 27.9 pg (27.0-31.0); Mean Corpuscular Volume 87.1 fl (80.0-94.0); Mean Platelet Volume 9.6 fL (7.4-10.4); Monocytes 10 % (0-10); Neutrophil 45 % (42-75); PLT Morphology Comment Appears Adequate; Platelet Count 164 thou/uL (130-400); Red Blood Cell (RBC) Count 5.78 mill/uL (4.70-6.10); White Blood Cell (WBC) Count 6.9 thou/uL (4.8-10.8)
[2017-09-14] MEDS ORDERED: Ondansetron HCl/PF 4 MG/2 ML Vial IVP PRN (03:26)
[2017-09-14] MEDS ORDERED: Ondansetron ODT 4 MG TAB SL PRN (03:26)
[2017-09-14] MEDS ORDERED: Acetaminophen 325 MG TAB PO PRN (03:26)
[2017-09-14 05:37] LABS: Troponin I 0.036 ng/mL (< 0.028)
[2017-09-14] MEDS ORDERED: Albuterol Sulfate 1.25 MG/3 ML NEB NEB PRN (05:50)
[2017-09-14] MEDS ORDERED: HumaLOG 300 UNITS/3 ML VIAL SC PRN (05:59)
[2017-09-14] MEDS ORDERED: Dextrose 50% Abboject 50 ML SYRINGE SLOW IVP PRN (05:59)
[2017-09-14] MEDS ORDERED: Dextrose 5% in Water 1,000 ML IV PRN (05:59)
--- NOTE | 2017-09-14 06:30 | HP ---
CHIEF COMPLAINT: Syncope. HISTORY OF PRESENT ILLNESS: Patient is a 31-year-old morbidly obese male with a history of a signifi cant dilated cardiomyopathy who has been having some cough over the last several days. The patient h ad an episode on the evening. He presented to the emergency department of nausea. Patient's girlfri end reports that he went outside to vomit and subsequently had a brief syncopal episode. They theref ore called EMS, they found that the patient also had reported some chest pain, which has been occurri ng for the several days prior as well as cough. His cough has been productive and mostly a clear typ e sputum. Patient was given a dose of aspirin and Zofran by the EMS and had no further vomiting. Cu rrently, the patient actually in the emergency room, the patient was awake and alert and oriented, bu t he has been on most of the night and presently is very somnolent simply due to fatigue and his slee p apnea syndrome and unable to give much additional history. REVIEW OF SYSTEMS: Girlfriend reports no issues beyond what was reported in the history of present i llness. Patient is not giving much additional history. PAST MEDICAL HISTORY: Notable for systolic congestive heart failure with cardiomyopathy and an eject ion fraction of 20%-25%. However, the patient was admitted here in December and had an echocardiogram performed, which revealed an ejection fraction of 60%-65%. There were no significant wall motion ab normalities noted at that time. Patient also has a history of hypertension, morbid obesity, noncompl iance, undescended testicle requiring surgical intervention and fairly recent diagnosis of diabetes. He also has been told that he needs a sleep study, but has not followed up for that either. PAST SURGICAL HISTORY: Orchiopexy for undescended testicle, inguinal hernia repair. FAMILY HISTORY: Notable for hypertension. SOCIAL HISTORY: Patient works at the [employer]. He has some alcohol use socially, no tobacco or il licit drugs. ALLERGIES: None. HOME MEDICATIONS: Glipizide 10 mg p.o. daily, metolazone 10 mg p.o. daily, lisinopril 20 mg p.o. amari ly, Coreg 12.5 mg p.o. b.i.d., Lasix 20 mg p.o. daily. PHYSICAL EXAMINATION: GENERAL: The patient is morbidly obese. He is practically sitting upright in the bed, sleeping, and is very somnolent. He will awaken and make eye contact and go back to sleep. When he does have a c ough, his girlfriend asked him if he needs to spit out the sputum and he says yes and will spit it ou t when she also cup up to his mouth. Otherwise, he is not engaging me. HEENT: Pupils are reactive. NECK: There is no OP lesions. CARDIOVASCULAR: Faint regular with no murmurs audible. LUNGS: Have some scattered wheezing and generally diminished breath sounds, partly related to his sl eep apnea. ABDOMEN: Morbidly obese, soft, nontender, nondistended, positive bowel sounds. SKIN: Warm and dry without significant edema. LABORATORY DATA: White count 6.9, hemoglobin 16.1, platelets 164. Chemistries notable for CO2 of 33 , glucose 159, BUN 17, creatinine 1.18. Initial troponin is 0.04 subsequently 0.036. BNP 88.[address]. [address] x-ray reveals persistent substantial dilated cardiomyopathy with some apparent pulmonary edema; ho wever, his film appears to be somewhat under penetrated likely due to the patient's morbid obesity. ASSESSMENT AND PLAN: 1. Syncopal episode seems to be likely related to a vagal response to his vomiting. He does have so me minimally elevated troponins, but he has had this in the past associated with congestive heart skyler lure. We will consult Cardiology, given his significant history of the cardiomyopathy. 2. Elevated troponins. This patient has had these before even with higher levels secondary to conge stive heart failure. They are not trending upward. 3. Cardiomyopathy. Patient has a history of a significant dilated cardiomyopathy with an ejection f raction of 20%. His most recent echocardiogram performed in December revealed an ejection fraction of 55%. We will consult Cardiology, given the current situation and that may need to be repeated. 4. Congestive heart failure. The patient has a difficult x-ray to interpret just because of his bod y habitus. His exam does reveal some wheezing, which may be asthma or may be more related to pulmona ry edema. His BNP is quite low. He did receive a dose of Lasix in the emergency department. Jed t is to be on IV Lasix daily or supposed to be on p.o. Lasix daily. I will continue to treat with p. r.n. Lasix. 5. Obstructive sleep apnea. This patient clearly has some sleep apnea and likely has some hypoventi lation syndrome. If he needs to have a sleep study performed and likely will need CPAP. 6. Diabetes mellitus. Patient has recently been diagnosed with diabetes. We will follow Accu-Cheks and sliding-scale insulin and keep him on his usual medication and a diabetic diet.
[2017-09-14 06:49] LABS: Troponin I 0.043 ng/mL (< 0.028)
[2017-09-14] MEDS: Carvedilol 6.25 MG TAB PO SCH ×2 (08:11→20:04)
[2017-09-14] MEDS: glipiZIDE 10 MG TAB PO SCH (08:11)
--- NOTE | 2017-09-14 08:34 | RAD ---
ONE VIEW CHEST: HISTORY: Sepsis, chest pain. FINDINGS: AP view chest is obtained on 09/14/17. Comparison is made to previous exam from 03/24/17. AP view chest demonstrates cardiomegaly noted. Pulmonary vascular congestion is seen. No evidence o f effusions seen. No evidence of pneumonia or pneumothorax seen. IMPRESSION: Cardiomegaly and pulmonary vascular congestion. POS: [facility]
[2017-09-14] MEDS ORDERED: Lisinopril 20 MG TAB PO SCH (09:00)
[2017-09-14] MEDS ORDERED: Enoxaparin Sodium 40 MG/0.4 ML SYRINGE SC SCH (09:00)
[2017-09-14] MEDS ORDERED: Metolazone 5 MG TAB PO SCH (09:00)
[2017-09-14] MEDS ORDERED: Iopamidol 370 76% 100 ML VIAL ONE (09:40)
--- NOTE | 2017-09-14 10:23 | PDOC.PN ---
- Subjective Encounter Start Date: 09/14/17 Encounter Start Time: 10:21 Mr. Cochran was seen today in follow-up. He says he feels a little better today. He says the pain he experienced in his chest yesterday has improved. He denies shortness of breath. - Objective Resuscitation Status: Resuscitation Status FULL:Full Resuscitation MAR Reviewed: Yes Vital Signs & Weight: Vital Signs (12 hours) Temp Pulse Resp BP BP Pulse Ox 09/14/17 08:31 98.7 F 106 H 18 135/87 95 09/14/17 08:06 98.7 F 106 H 18 135/87 95 09/14/17 04:00 98.4 F 98 18 144/87 H 97 Weight Weight 408 lb 15.32 oz I&O: 09/13/17 09/14/17 09/15/17 06:59 06:59 06:59 Intake Total 300 Output Total 425 Balance -125 Result Diagrams: 09/14/17 00:15 09/14/17 00:15 Additional Labs: Accuchecks 09/14/17 09/14/17 07:41 04:18 POC Glucose 246 H 169 H Phys Exam - Physical Examination HEENT: PERRLA Respiratory: no wheezing, no rales, no rhonchi, clear to auscultation bilateral Cardiovascular: RRR, no significant murmur, no rub tachycardic Gastrointestinal: soft, non-tender, no distention, positive bowel sounds Musculoskeletal: edema present trace pedal edema Dx/Plan (1) Syncope Code(s): R55 - SYNCOPE AND COLLAPSE Status: Acute (2) DM2 (diabetes mellitus, type 2) Status: Acute Comment: new diagnosis (3) HTN (hypertension) Code(s): I10 - ESSENTIAL (PRIMARY) HYPERTENSION Status: Chronic (4) Morbid obesity with BMI of 50.0-59.9, adult Code(s): E66.01 - MORBID (SEVERE) OBESITY DUE TO EXCESS CALORIES; Z68.43 - BODY MASS INDEX (BMI) 50-59.9 , ADULT Status: Chronic (5) KAREEM (obstructive sleep apnea) Code(s): G47.33 - OBSTRUCTIVE SLEEP APNEA (ADULT) (PEDIATRIC) Status: Suspected - Plan * Syncope- suspect this is from a vagal response from coughing. However he has a baseline tachycardia, as well as obesity, and cough can be a sign of PE- will check a CTA of the chest * Possible CHF- Echo is pending * HTN- blood pressure is stable * DM- blood glucose is stable * Obesity Hypoventillation- agree with outpatient sleep study
--- NOTE | 2017-09-14 12:22 | CT ---
CT PULMONARY ANGIOGRAM WITH IV CONTRAST AND 3D POSTPROCESSING: Date: 09/14/17 HISTORY: Syncope. FINDINGS: Opacification of the pulmonary arterial vasculature is suboptimal. The main pulmonary artery has atte nuation values of less than 200 Hounsfield units (193 Hounsfield units). The main pulmonary artery, r ight and left pulmonary arteries demonstrate no definite significant filling defects. The pulmonary a rterial branches cannot be satisfactorily well evaluated due to inadequate opacification. No thoracic aortic aneurysm or dissection is seen. No pleural or pericardial effusions are identified. No pneumo thoraces, pleural or pericardial effusions are seen. There is patchy consolidation in the right lower lobe. No acute osseous abnormalities are seen. IMPRESSION: 1. No evidence of central pulmonary embolism. Peripheral pulmonary embolism cannot be excluded on th is study. 2. Patchy consolidation in the right lower lobe. Correlate for pneumonia. POS: [facility]
--- NOTE | 2017-09-14 13:53 | CON ---
DATE OF CONSULTATION: 09/14/2017 ADMITTING PHYSICIAN: Dr. Coates with the Hospitalist Service. CONSULTING PHYSICIAN: Dr. Villatoro, Cardiology. REASON FOR CONSULTATION: 1. Syncope. 2. Congestive heart failure. HISTORY OF PRESENT ILLNESS: Mr. Cochran is a pleasant 31-year-old male with a past medical history o f a nonischemic cardiomyopathy. He initially was seen by Dr. Guzman in 2013 following noncompliance wi th medications. At that time his EF was 20-25%. Medications were adjusted and he does not follow up as an outpatient. He represented to the hospital in 12/2016. Echocardiogram at that time showed hi s EF to be 50-55% with normal diastolic function. Stress test was negative for ischemia. He states that he has been compliant with his medications recently. In the last 3 days he developed a cough an d chest congestion. He felt the need to take a breathing treatment. Yesterday he admits to coughing so vigorously that he started to throw up. Somewhere in the midst of trying to vomit, he passed ou t. This was witnessed by his girlfriend. He quickly came to. He has no previous syncopal history. He does mention that he gets dizzy on a regular basis whenever he bends over, and stands up too quic kly. He felt this was related to his medication. Otherwise, he says he has been doing well. He denies any recent chest pain, shortness of breath, elana ma or volume overload. PAST MEDICAL HISTORY: 1. Morbid obesity. 2. Chronic systolic congestive heart failure. 3. Obstructive sleep apnea. 4. Hypertension. 5. History of noncompliance with medications. 6. Diabetes mellitus type 2. PAST SURGICAL HISTORY: Orchiopexy for undescended testicle and inguinal hernia repair. FAMILY HISTORY: Hypertension. SOCIAL HISTORY: Occasional alcohol use with no heavy drug use. ALLERGIES: None. AT HOME MEDICATIONS: Glipizide 10 mg daily, Zaroxolyn 10 mg daily, Lisinopril 20 mg daily, Coreg 12. 5 mg twice daily, Lasix 20 mg daily. REVIEW OF SYSTEMS: Ten point review of systems discussed with patient and is negative except for HPI and past medical history mentioned above. PHYSICAL EXAMINATION: GENERAL: This is a young male who is in no acute distress. He is lying in bed resting comfortably a nd conversing easily. NEUROLOGIC: He is alert and oriented x3. VITAL SIGNS: Temperature 98.6, respiratory rate is 16, pulse is 94-106, blood pressure is 135/87 wit h lowest blood pressure recorded 98/48. I&O's negative 125 mL and loss of one pound since admission. HEENT: Head is atraumatic, normocephalic. Mucous membranes are moist. NECK: Supple, it is very large. No masses can be palpated. Carotids are difficult to auscultate du e to significant fat pad. CHEST: Reveals minimal expiratory wheeze, shallow effort. CARDIOVASCULAR: Regular rate and rhythm with normal S1, S2, no murmurs, rubs or gallops. ABDOMEN: Soft and nontender to palpation, nondistended. EXTREMITIES: Showed no clubbing or cyanosis. He has mild bilateral lower extremity edema. SCDs are in place. LABORATORY: BNP was 88. Troponin, 0.043 and 0.036 and 0.043 respectively. MB is 1.1. BMP: Sodium 136, potassium 4.0, chloride 94, carbon dioxide 33, BUN 17, creatinine 1.18, glucose 159. CBC withi n normal limits. RADIOLOGIC STUDIES: Chest x-ray; overall hazy imaging and poor study. Cardiomegaly is noted, but no significant pulmonary vascular congestion noted. CT of the chest done today was negative for pulmon emanuel embolus. There is consolidation in the right lower lobe for possible pneumonia noted. Tele shows sinus rhythm to sinus tachycardia in the 90s to 106 beats a minute. A 12-lead EKG showed sinus rhythm with no ST segment changes consistent with ischemia. IMPRESSION: 1. Syncopal episode. 2. History of chronic systolic congestive heart failure. 3. Morbid obesity. 4. Obstructive sleep apnea. 5. Hypertension. 6. History of asthma. 7. Questionable pneumonia. PLAN: At this time, we will continue the patient's current medications. His syncope is most likely related to a vasovagal response from his vomiting. He does not appear to be significantly volume ove rloaded. Echocardiogram has been ordered to reassess ejection fraction. His recurrent dizziness cou ld be orthostatic in nature. We will review his medications and check orthostatic blood pressures. Otherwise, we will defer to the primary team for treatment of possible pneumonia. Overall, continue discussion on significant weight loss was discussed with patient as this will benefit him overall. Katie roman recommendations are pending hospital course.
[2017-09-14] MEDS: Azithromycin 500 MG in Sodium Chloride 0.9% 250 ML 250 ML IVPB SCH (14:18)
[2017-09-14] MEDS: cefTRIAXone\\ROCEPHIN 2 GM in Sodium Chloride 0.9% 100 ML IVPB SCH (16:24)
[2017-09-14 16:33] LABS: O2 Tension (PaO2) 56.2 mmHg (80.0-100.0); pH, Arterial 7.18 (7.35-7.45)
[2017-09-14 16:34] LABS: Actual Bicarbonate (HCO3a) 44.6 mEq/L (22-28); Hemoglobin (Hb) 16.3 g/dL (14.0-18.0)
[2017-09-14 16:35] LABS: Calcium, Ionized 1.1 mmol/L (1.12-1.30); Puncture Site LR
--- NOTE | 2017-09-15 00:53 | CON ---
DATE OF CONSULTATION: 09/14/2017 SERVICE: Pulmonary Medicine. REASON FOR CONSULTATION: Respiratory failure. HISTORY OF PRESENT ILLNESS: The patient is a 31-year-old -[place] male who has past medical history significant for morbid obesity and chronic systolic heart failure. He presented to the hospital with increasing lethargy and dyspnea. He also had a syncopal spell. This was being worked up. The patient became increasingly confused. An ABG was performed demonstrating a pH of 7.18, pCO2 of 124. He was awake and alert. He is cooperative. The patient has multiple features consistent with sleep apnea. He has never been worked up in the outpatient setting. He denied any current fevers, chills, nausea, or vomiting. He has been coughing. He had a little bit of nausea with some vomiting yesterday and today. He was subjectively code green. He was brought to the [facility] and initiated noninvasive therapy. He really enjoyed that. He felt exhausted and went to sleep. We woke him up from sleep and he was very awake and he was easy to understand and very clear headed. That being said, he wanted to take this opportunity to take a nap. I get the feeling that he has been extremely fatigued for a long period of time. PAST MEDICAL HISTORY: 1. Chronic systolic heart failure. 2. Hypertension. 3. Morbid obesity. 4. Dyslipidemia. 5. Medical noncompliance. PAST SURGICAL HISTORY: 1. Orchiopexy for undescended testicle. 2. Inguinal hernia repair. FAMILY HISTORY: Noncontributory. SOCIAL HISTORY: The patient works at the [employer]. He uses alcohol socially. He denies any illicit drugs or tobacco products. He has no exposure to chemicals, dust, asbestos, or tuberculosis. ALLERGIES: No known drug allergies. MEDICATIONS: List of his inpatient medications were reviewed. No specific updates were made at this time. REVIEW OF SYSTEMS: General, head, ears, eyes, nose, throat, cardiovascular, respiratory, GI, , musculoskeletal, neurologic and skin is negative except as mentioned in the HPI. PHYSICAL EXAMINATION: VITAL SIGNS: Afebrile with a T-max of 99.6, pulse 94, blood pressure 107/60, respirations 14, saturation 96% on 28% FiO2. GENERAL: Patient is awake. He is a little somnolent, but wakes up appropriately and answers questions appropriately. HEENT: Normocephalic, atraumatic. Sclerae are white, conjunctivae pink. Oral mucosa is moist without lesions. LUNGS: Decent air entry. There is no prolonged expiratory phase or wheezing appreciated. I cannot appreciate any rhonchi or crackles, but body habitus precludes evaluation. HEART: Normal rate, regular. ABDOMEN: Soft, nontender, nondistended. Bowel sounds are positive. MUSCULOSKELETAL: No cyanosis or clubbing. There is 1+ pitting in the bilateral lower extremities. NEUROLOGIC: Grossly nonfocal. LABORATORY DATA: WBC 6.9, hemoglobin 16.1, platelets 164,000. Band count is only 1%. PH 7.18, pCO2 of 122, pO2 of 156. Troponin is stable at 0.043. Glucose ranges from 95 to 246. Basic metabolic profile is essentially unremarkable. The bicarbonate is currently 33. Potassium 4.0, and creatinine 1.18. IMAGING: CTA of the chest demonstrates no evidence of a pulmonary embolism. There is a small infiltrate in the right basilar region. ASSESSMENT: 1. Acute on chronic hypoxic and hypercapnic respiratory failure. 2. Morbid obesity. 3. Obesity hypoventilation syndrome. 4. Obstructive sleep apnea, suspected. 5. Metabolic encephalopathy. PLAN: The patient will be initiated on BiPAP. I titrated the BiPAP here at bedside in order to extinguish obstructive events while the patient was sleeping. Ultimately, we arrived at 17/03. His biggest issue causing respiratory failure, however, is his weight resulting in obesity hypoventilation. Agree with antibiotics directed at a very small pneumonia ( which in him was large enough to cause the decompensation we see here). We make him n.p.o. for the next 24 hours. He will use his BiPAP all night. After this, he will use it on an as needed basis. We will watch him very closely in the IMCU. If he does not wake up from his nap within 2 hours easily, repeat ABG will be performed. If this shows deterioration in his acidosis, we will elect to intubate him. Pulmonary Critical Care to follow. CRITICAL CARE TIME: 45 minutes. CORY
[2017-09-15 05:22] LABS: CO2 Tension 86.2 mmHg (35.0-45.0); pH, Arterial 7.28 (7.35-7.45)
[2017-09-15 05:23] LABS: Actual Bicarbonate (HCO3a) 39.4 mEq/L (22-28); Base Excess (BEa) 8.5 mEq/L (-2.0 to +3.0); O2 Tension (PaO2) 39.4 mmHg (80.0-100.0)
[2017-09-15 05:24] LABS: Hemoglobin (Hb) 15.8 g/dL (14.0-18.0)
[2017-09-15 05:25] LABS: Calcium, Ionized 1.1 mmol/L (1.12-1.30); Puncture Site R WRIST
[2017-09-15 06:03] LABS: Anion Gap 12 mmol/L (10-20); BUN (Urea Nitrogen) 26 mg/dL (8.9-20.6); Calc. Creatinine Clearance 82 mL/min (70-130); Calcium 8.1 mg/dL (7.8-10.44); Carbon Dioxide 36 mmol/L (22-29); Chloride 91 mmol/L (98-107); Estimated GFR-MDRD 25; Glucose 180 mg/dL (70-105); Potassium 4.3 mmol/L (3.5-5.1); Sodium 135 mmol/L (136-145)
--- NOTE | 2017-09-15 08:15 | PDOC.PN ---
- Subjective Encounter Start Date: 09/15/17 Encounter Start Time: 08:13 Mr. Cochran was seen today in follow-up. He says that he can't hear. He says he wok up this morning, and has not been able to hear. His says it has been off and on this morning. He denies headache, no weakness in his extremities. He is not completely deaf, and can hear me speaking, and understand what I am sayng , but says it sounds like a radio or like he is in a bubble. - Objective Resuscitation Status: Resuscitation Status FULL:Full Resuscitation MAR Reviewed: Yes Vital Signs & Weight: Vital Signs (12 hours) Temp Pulse Resp BP Pulse Ox 09/15/17 07:35 98.5 F 87 18 104/68 90 L 09/15/17 04:34 98.5 F 89 22 H 109/63 90 L 09/15/17 04:30 81 L 09/15/17 00:00 98.4 F 88 18 111/64 87 L Weight Admit Weight 409 lb Weight 416 lb 8 oz I&O: 09/14/17 09/15/17 09/16/17 06:59 06:59 06:59 Intake Total 300 120 Output Total 425 Balance -125 120 Result Diagrams: 09/14/17 00:15 09/15/17 05:25 Additional Labs: Accuchecks 09/15/17 09/14/17 09/14/17 05:56 20:29 16:58 POC Glucose 186 H 112 H 95 09/14/17 11:35 POC Glucose 299 H Phys Exam - Physical Examination HEENT: PERRLA, sclera anicteric, TM's clear Respiratory: no wheezing, no rales, no rhonchi, clear to auscultation bilateral Cardiovascular: RRR, no significant murmur, no rub Gastrointestinal: soft, non-tender, positive bowel sounds Musculoskeletal: edema present 1+ edema Dx/Plan (1) Syncope Code(s): R55 - SYNCOPE AND COLLAPSE Status: Acute (2) DM2 (diabetes mellitus, type 2) Status: Acute Comment: new diagnosis (3) HTN (hypertension) Code(s): I10 - ESSENTIAL (PRIMARY) HYPERTENSION Status: Chronic (4) Morbid obesity with BMI of 50.0-59.9, adult Code(s): E66.01 - MORBID (SEVERE) OBESITY DUE TO EXCESS CALORIES; Z68.43 - BODY MASS INDEX (BMI) 50-59.9 , ADULT Status: Chronic (5) KAREEM (obstructive sleep apnea) Code(s): G47.33 - OBSTRUCTIVE SLEEP APNEA (ADULT) (PEDIATRIC) Status: Suspected - Plan * Acute respiratory failure with hypercapnea- His blood geoffrey has improved after BiPAP, and he is more alert, but periodically falls asleep while I am talking to him- Continue as per Pulmonary. - Out patient sleep study * Hearing loss- ? due to Loop diuretic- this will be held, and will re-evaluate in a day or so, if it does not improved, then will consider ENT or Neurology evaluation * Acute renal failure- this may be due to pre-renal azotemia, as well as receiving contrast yesterday for the CTA- will again hold Metolazone, and give some fluid back, and consult Nephrology- check renal ultrasound. Stop Lisinopril for now * HTN- continue carvediolol * DM- will hold Glipizide for now, and substitute with Lantus, until his renal function improves, continue sliding scale- If his renal function recovers, then re-start Glipizide * Obesity- Life threatening- with BMI 0f 58- discussed that he will need to loose weight
[2017-09-15] MEDS: glipiZIDE 10 MG TAB PO SCH (08:46)
[2017-09-15] MEDS: Carvedilol 6.25 MG TAB PO SCH ×2 (09:07→20:15)
[2017-09-15] MEDS: Heparin 5,000 UNITS/ML VIAL SC SCH ×3 (09:07→20:18)
[2017-09-15] MEDS: Insulin Glargine 20 UNITS in Pre-Filled Syringe 1 EACH SC SCH ×2 (09:23→20:18)
--- NOTE | 2017-09-15 11:30 | ULT ---
RENAL ULTRASOUND: 09/15/2017 HISTORY: A 31-year-old male with acute renal failure. COMPARISON: None. TECHNIQUE: Multiplanar tyson-scale sonographic imaging of the kidneys and urinary bladder obtained. FINDINGS: Secondary to patient body habitus, the kidneys are difficult to visualize. Detailed assessment of th e kidneys is quite limited. The right kidney measures approximately 10.4 cm in craniocaudal dimensio n, and the left kidney measures approximately 8.5 cm in craniocaudal dimension. No obvious hydroneph rosis. The urinary bladder is grossly unremarkable. IMPRESSION: 1. Limited assessment of the kidneys secondary to body habitus. 2. No obvious hydronephrosis seen. POS: [facility]
[2017-09-15] MEDS ORDERED: Sodium Chloride 0.9% 1,000 ML IV SCH (12:45)
[2017-09-15] MEDS: cefTRIAXone\\ROCEPHIN 2 GM in Sodium Chloride 0.9% 100 ML IVPB SCH (15:19)
[2017-09-15] MEDS: Azithromycin 500 MG in Sodium Chloride 0.9% 250 ML 250 ML IVPB SCH (15:19)
[2017-09-15] MEDS ORDERED: Sodium Chloride 0.9% 500 ML IV SCH (15:45)
--- NOTE | 2017-09-15 16:31 | PRG ---
DATE OF SERVICE: 09/15/2017 SERVICE: Pulmonary Medicine. INTERVAL HISTORY: The patient is doing fine from a respiratory standpoint. He wakes up comfortably. He will answer some simple questions and go back to sleep. He denies any current chest pain, nausea, vomiting, fevers or chills. His ABG demonstrated significant improvement in his acidosis. PHYSICAL EXAMINATION: VITAL SIGNS: Afebrile, pulse 95, blood pressure 95/49, respirations 19, saturation 97% on 1 liter nasal cannula. GENERAL: The patient is awake and alert. He is in no apparent distress. HEENT: Normocephalic, atraumatic. Sclerae are white, conjunctivae pink. Oral mucosa is moist without lesions. LUNGS: Decent air entry. There is no prolonged expiratory phase or wheezing present. HEART: Normal rate, regular. ABDOMEN: Soft, nontender, nondistended. Bowel sounds are positive. MUSCULOSKELETAL: No cyanosis or clubbing. There is no pitting in the bilateral lower extremities. NEUROLOGIC: Grossly nonfocal. LABORATORY: A pH 7.28, pCO2 of 86, pO2 of 39. This was on a VBG. Creatinine 3.47, above the 1.18. BUN 26. Bicarbonate 36, chloride 91, sodium 135. IMAGIN. Ultrasound of the kidneys demonstrates limited assessment secondary to body habitus, but no obvious hydronephrosis is identified. 2. Echocardiogram demonstrates a reduced ejection fraction of 40%-45% with an enlarged right ventricular cavity, left atrium is moderately dilated, and mild mitral regurgitation is present. ASSESSMENT: 1. Acute on chronic hypoxic and hypercapnic respiratory failure. 2. Morbid obesity. 3. Community-acquired pneumonia. 4. Obesity hypoventilation syndrome. 5. Obstructive sleep apnea, suspected. 6. Metabolic encephalopathy. DISCUSSION AND PLAN: I will continue using BiPAP on and off. I prefer that he uses it during sleep. Clinically, he is dehydrated. We will give him a liter of fluids, and initiate some gentle hydration, particularly because the patient' s p.o., has been a little reduced over the last 24 hours. We have actually had to increases expiratory pressure at touch to 15 in order to minimize obstructive events. He will need to remain in the IMCU for the time being. Ultimately, when he gets out of the hospital, we will need to arrange for the patient to get a non-invasive form of ventilation. We will watch urine output through time. My hope is that his elevated creatinine is a function of prerenal azotemia. MTDD
[2017-09-15] MEDS: Sodium Chloride 0.9% 1,000 ML IV SCH ×2 (20:11→20:12)
--- NOTE | 2017-09-15 22:11 | CON ---
DATE OF CONSULTATION: 09/15/2017 CONSULTING PHYSICIAN: Laura Pratt M.D. REQUESTING PHYSICIAN: Khoa Coates M.D. REASON FOR CONSULTATION: Acute kidney injury. IMPRESSION: 1. Acute kidney injury. This is likely multifactorial including the following potential etiologies. a. contrast nephropathy compounded by use of diuretics with a baseline cardiorenal syndrome. 2. Respiratory acidosis likely chronic from hypoventilation syndrome due to body habitus. 3. Morbid obesity. PLAN: 1. Discontinue diuretics. 2. Gentle rehydration. 3. I do agree with holding lisinopril for now. 4. Renally dose all medications by low GFR. 5. Further management will be dependent on the clinical course. At this point, there is no indicati on for renal replacement therapy. HISTORY OF PRESENT ILLNESS: History is that of a 31-year-old, morbidly obese gentleman who presented here status post nausea and vomiting with chest pain and on presentation noted with dilated cardiomy opathy with ejection fraction of about 20%-25% with a recent ejection fraction of about 60%-65%. Gloria ybarra presented with a creatinine of about 1, however, in order to evaluate this patient's pulmonary s tatus, a CT angio of the pulmonary vasculature was carried out about 24 hours ago. At this time of d ictation, creatinine has gone above 3. The patient seems not to be making much of any urine. The cielo mantilla has been placed on some diuretics with regular, no response. Clinically, the patient seems to be intravascularly depleted, would not be able to get much of any history from this patient who is on BiPAP. PAST MEDICAL HISTORY: Signification for orchiopexy for undescended testicles and inguinal hernia. FAMILY HISTORY: Significant for multiple members with kidney failure including the father. SOCIAL HISTORY: Denies alcohol, tobacco or illicit drug use according to the fiance. ALLERGIES: No known drug allergies. MEDICATIONS: Medications have been reviewed and as documented on [employer]. REVIEW OF SYSTEMS: Could not be obtained from this patient, who is on BiPAP. LABORATORY INVESTIGATIONS: Significant for the following, chemistry that showed creatinine of 3.47 w ith a BUN of 26. PHYSICAL EXAMINATION: GENERAL: The patient was found to be morbidly obese, noted with the following vital signs. VITAL SIGNS: Afebrile, temperature 97.9, pulse 86, respiratory rate of 16, O2 sat of 87%-92% with a blood pressure 160/73. HEENT: On admission, remarkable for BiPAP mask in place. CARDIOVASCULAR SYSTEM: First and second heart sounds were heard. RESPIRATORY SYSTEM: Reveals a lot of transmitted sounds. DIGESTIVE SYSTEMS: revealed an obese abdomen with positive bowel sounds. EXTREMITIES: No peripheral edema. SKIN EXAMINATION: No new gross rash. LYMPHATICS: No peripheral lymphadenopathy. SUMMARY: A 31-year-old gentleman who presented here with chest pain, nausea, and vomiting, now exper iencing renal function decline, status post contrast exposure. Thank you for this consultation. We will follow with you.
--- NOTE | 2017-09-15 23:56 | PDOC.CTH ---
Cardiology Progress Note - Subjective Patient overall doing much better on BiPap. Family at bedside. TOV 1710 - ROS shortness of breath - Objective Vital Signs Temp Pulse Resp BP BP Pulse Ox 09/15/17 20:15 101/79 09/15/17 19:28 98.2 F 92 20 106/85 91 L 09/15/17 18:58 94 09/15/17 15:31 99.0 F 95 19 95/49 L 97 Admit Weight 409 lb Weight 416 lb 8 oz 09/14/17 09/15/17 09/16/17 06:59 06:59 06:59 Intake Total 300 120 Output Total 425 Balance -125 120 - Physical Examination General/Neuro: alert & oriented x3 Lungs: CTA Heart: RRR Abdomen: NT/ND - Telemetry Telemetry Rhythm: SR - Labs Result Diagrams: 09/14/17 00:15 09/15/17 05:25 Troponin/CKMB CK-MB (CK-2) 1.1 ng/mL (0-6.6) 09/14/17 00:15 Troponin I 0.043 ng/mL (< 0.028) H 09/14/17 06:11 - Assessment/Plan 1. Acute respiratory failure - secondary to hypercapnia 2. Chronic systolic CHF - EF 40-45%. Not significantly volume overloaded 3. Morbid Obesity - discussed need for weight loss at length. Continue respiratory support. No changes to meds.
[2017-09-16] MEDS: Sodium Chloride 0.9% 1,000 ML IV SCH ×2 (04:14→21:14)
[2017-09-16 05:43] LABS: Anion Gap 14 mmol/L (10-20); BUN (Urea Nitrogen) 24 mg/dL (8.9-20.6); Calc. Creatinine Clearance 180 mL/min (70-130); Calcium 8.2 mg/dL (7.8-10.44); Carbon Dioxide 32 mmol/L (22-29); Chloride 95 mmol/L (98-107); Estimated GFR-MDRD 61; Glucose 107 mg/dL (70-105); Magnesium 1.2 mg/dL (1.6-2.6); Phosphorus 2.5 mg/dL (2.3-4.7); Potassium 3.5 mmol/L (3.5-5.1); Sodium 137 mmol/L (136-145)
--- NOTE | 2017-09-16 09:35 | PDOC.PN ---
- Subjective Encounter Start Date: 09/16/17 Encounter Start Time: 09:34 Mr. Cochran was seen today in follow-up. He is feeling much better today. He hearing has returned. He denies feeling short of breath. - Objective Resuscitation Status: Resuscitation Status FULL:Full Resuscitation MAR Reviewed: Yes Vital Signs & Weight: Vital Signs (12 hours) Temp Pulse Resp BP BP Pulse Ox 09/16/17 07:38 98.3 F 87 14 92 L 09/16/17 07:33 98.3 F 87 14 142/83 H 93 L 09/16/17 04:49 89 09/16/17 03:46 98.5 F 85 16 132/85 92 L 09/16/17 00:43 88 09/16/17 00:01 98.4 F 90 19 110/70 92 L Weight Admit Weight 409 lb Weight 418 lb 6 oz I&O: 09/15/17 09/16/17 09/17/17 06:59 06:59 06:59 Intake Total 120 2100 Output Total 950 Balance 120 1150 Result Diagrams: 09/14/17 00:15 09/16/17 04:41 Additional Labs: Accuchecks 09/16/17 09/15/17 09/15/17 05:38 20:05 16:27 POC Glucose 101 155 H 144 H 09/15/17 10:31 POC Glucose 177 H Phys Exam - Physical Examination HEENT: PERRLA Respiratory: no rales, no rhonchi, wheezing present, clear to auscultation bilateral Cardiovascular: RRR, no significant murmur, no rub Gastrointestinal: soft, non-tender, positive bowel sounds Musculoskeletal: edema present trace pedal edema Dx/Plan (1) Syncope Code(s): R55 - SYNCOPE AND COLLAPSE Status: Acute (2) DM2 (diabetes mellitus, type 2) Status: Acute Comment: new diagnosis (3) HTN (hypertension) Code(s): I10 - ESSENTIAL (PRIMARY) HYPERTENSION Status: Chronic (4) Morbid obesity with BMI of 50.0-59.9, adult Code(s): E66.01 - MORBID (SEVERE) OBESITY DUE TO EXCESS CALORIES; Z68.43 - BODY MASS INDEX (BMI) 50-59.9 , ADULT Status: Chronic (5) KAREEM (obstructive sleep apnea) Code(s): G47.33 - OBSTRUCTIVE SLEEP APNEA (ADULT) (PEDIATRIC) Status: Suspected - Plan * Severe Obesity Hypoventillation Syndrome- continue empiric BiPAP as per Pulmonary * HTN- blood pressure is stable * DM- blood glucose is stable. * Pneumonia- likely can de-escalate antibiotics soon * Acute renal failure- improved- creatinine is back down to 1.6 today * Disposition as per Pulmonary
[2017-09-16] MEDS: Insulin Glargine 20 UNITS in Pre-Filled Syringe 1 EACH SC SCH ×2 (10:15→21:18)
[2017-09-16] MEDS ORDERED: Potassium Chloride 20 MEQ TAB PO SCH (10:15)
[2017-09-16] MEDS: Carvedilol 6.25 MG TAB PO SCH ×2 (10:15→21:17)
[2017-09-16] MEDS: Heparin 5,000 UNITS/ML VIAL SC SCH ×3 (10:16→21:18)
--- NOTE | 2017-09-16 10:27 | PRG ---
DATE OF SERVICE: 09/16/2017 SERVICE: Pulmonary Medicine INTERVAL HISTORY: The patient is doing outstanding from a respiratory standpoint. He really loves wearing his BiPAP. It is allowing him to be more alert during the daytime, and it gives him better, more refreshing sleep. In addition to that, he is no longer as hypercapnic as he was before. Otherwise, there were no events overnight. PHYSICAL EXAMINATION: VITAL SIGNS: Afebrile, pulse 87, blood pressure 142/83, respirations 14, saturation 92% on 1 liter nasal cannula. HEENT: Normocephalic, atraumatic. Sclerae are white, conjunctivae pink. Oral mucosa is moist without lesions. LUNGS: Decent air entry with no prolonged expiratory phase, wheezing, rhonchi or crackles. HEART: Normal rate, regular. ABDOMEN: Soft, nontender, nondistended. Bowel sounds are positive. MUSCULOSKELETAL: No cyanosis or clubbing. There is no pitting in the bilateral lower extremities. NEUROLOGIC: Grossly nonfocal. LABORATORY DATA: Creatinine 1.61 and beautifully down trending. BUN 24. Basic metabolic profile is otherwise unremarkable with potassium of 3.5. Magnesium 1.2. ASSESSMENT: 1. Acute on chronic hypoxic and hypercapnic respiratory failure. 2. Morbid obesity. 3. Community-acquired pneumonia. 4. Obesity hypoventilation syndrome. 5. Metabolic encephalopathy, resolved. 6. Obstructive sleep apnea as a small component of the patient's respiratory issues. DISCUSSION AND PLAN: This patient has horrendous hypercapnic respiratory failure secondary to obesity hypoventilation syndrome. He also has a little bit of sleep apnea, superimposed on top of that. Because of the severity of his hypercapnic failure, I am going to order volume ventilation for nocturnal and as needed daytime management of his chronic respiratory failure. The traditional home BiPAP is going to be insufficient due to the severity of his disease process. Obesity hypoventilation is the major contributing factor to the patient's chronic respiratory failure. Once his home ventilator is arranged , he can be discharged from the hospital. Pulmonary Critical Care will continue to follow along while he remains in house. If for some reason, we are not able to set him up with this equipment on discharge from the hospital, we will have to pursue an outpatient polysomnogram to get him on BiPAP. Delay in therapy, however, may introduce significant risk to the patient given the severity of his hypercapnia. I will replace magnesium and potassium today. CORY
[2017-09-16] MEDS ORDERED: Magnesium Sulfate 4 GM in Sodium Chloride 0.9% 250 ML 250 ML IVPB SCH (10:30)
--- NOTE | 2017-09-16 11:16 | PQF ---
DATE: 09-16-17 ATTN: DR. VANDANA EWING Please exercise your independent, professional judgment in responding to the clarification form. Clinical indicators are provided on the bottom of this form for your review Please check appropriate box(s): [ X ] Demand Ischemia [ ] ME (Type: ) [ ] Other diagnosis [ ] Unable to determine In addition, please specify: Present on Admission (POA): [ X ] Yes [ ] No [ ] Unable to determine CLINICAL INDICATORS - SIGNS / SYMPTOMS / LABS TROPONIN: 09-14-17: 0.040 0.036 0.043 H&P: HX OF SIGNIFICANT DILATED CARDIOMYOPATHY, CHIEF COMPLAINT OF SYNCOPE WHEN PT WENT OUTSIDE TO VOMIT, HX OF NOTABLE FOR SYSTOLIC CONGESTIVE HEART FAILURE, HTN , MORBID OBESITY, SMOKER, DM 2 RISKS: H&P: HX OF SIGNIFICANT DILATED CARDIOMYOPATHY, CHIEF COMPLAINT OF SYNCOPE WHEN PT WENT OUTSIDE TO VOMIT, HX OF NOTABLE FOR SYSTOLIC CONGESTIVE HEART FAILURE, HTN, MORBID OBESITY, SMOKER, DM 2 TREATMENTS: CARDIOLOGY CONSULT ECHO PENDING (This form is maintained as a part of the permanent medical record) 2014 [employer]. All Rights Reserved KRYSTIN [email or web address] Office: [phone] [facility]ALTH CENTERKaitlyn
[2017-09-16] MEDS: cefTRIAXone\\ROCEPHIN 2 GM in Sodium Chloride 0.9% 100 ML IVPB SCH (15:45)
[2017-09-16] MEDS: Azithromycin 500 MG in Sodium Chloride 0.9% 250 ML 250 ML IVPB SCH (15:45)
--- NOTE | 2017-09-16 18:11 | PRG ---
DATE OF SERVICE: 09/16/2017 SUBJECTIVE: The patient was seen and examined, seems to be doing much better. Noted with the follow ing vital signs. OBJECTIVE: VITAL SIGNS: Afebrile with temperature 98.5, pulse 87, respiratory rate of 18, O2 sat of 95% with a blood pressure 122/94. HEENT: Unremarkable with moist oral mucosa. No conjunctival injection or icterus. NECK: Supple. CARDIOVASCULAR SYSTEM: First and second heart sounds were heard. RESPIRATORY SYSTEM: Clear to auscultation. DIGESTIVE SYSTEM: Revealed a benign abdomen with positive bowel sounds. EXTREMITIES: No peripheral edema. SKIN: No new gross rash. LYMPHATICS: No peripheral lymphadenopathy. IMPRESSION: 1. Acute kidney injury, which seems to have responded to the current treatment. 2. Morbid obesity. PLAN: 1. Discontinue IV fluid. 2. Continue other renal supportive measures. 3. Further management to be dependent on the clinical course.
--- NOTE | 2017-09-16 19:09 | PRG ---
DATE OF SERVICE: 09/16/2017 SUBJECTIVE: Ms. Mosqueda was recently transferred to the [facility] due to hypercapnia, hypoxia, and decreas ed consciousness. He was placed on BiPAP with significant improvement. He currently states he has n o current complaints. OBJECTIVE: VITAL SIGNS: Blood pressure 114/81, pulse 72, temperature 98.7. LUNGS: Clear to auscultation. HEART: Regular rate and rhythm. ABDOMEN: Obese, nontender, nondistended. EXTREMITIES: 2+ to 3+ pitting edema. PERTINENT LABORATORY DATA: Hemoglobin 16.1, hematocrit 50.4. IMPRESSION: 1. Cor pulmonale. 2. Severe obstructive sleep apnea. 3. Hypercapnia. 4. Mild to moderate cardiomyopathy. RECOMMENDATIONS: Mr. Cochran's overall LVEF does appear mild to moderately depressed. This is likel y related to dyskinesis of the right ventricle from markedly elevated right ventricular pressures. A t this point, I did discuss the importance of weight loss in addition to sleep study and BiPAP. Nonc ompliance seems to be a major issue. Otherwise, I have no recommendations.
[2017-09-17] MEDS: Sodium Chloride 0.9% 1,000 ML IV SCH ×2 (01:19→11:42)
[2017-09-17 05:35] LABS: Anion Gap 11 mmol/L (10-20); BUN (Urea Nitrogen) 16 mg/dL (8.9-20.6); Calc. Creatinine Clearance 293 mL/min (70-130); Calcium 8.9 mg/dL (7.8-10.44); Carbon Dioxide 33 mmol/L (22-29); Chloride 95 mmol/L (98-107); Estimated GFR-MDRD Greater than 90; Glucose 102 mg/dL (70-105); Magnesium 1.6 mg/dL (1.6-2.6); Potassium 3.3 mmol/L (3.5-5.1); Sodium 136 mmol/L (136-145)
--- NOTE | 2017-09-17 09:17 | PDOC.CTH ---
Cardiology Progress Note - Subjective Patient without complaints. Denies any CP/SOB. Awaiting at home arrangements for CPAP. BP currently elevated, but stable in last 24 hours. - Objective Vital Signs Temp Pulse Resp BP BP Pulse Ox 09/17/17 08:07 97.4 F L 82 19 95 09/17/17 07:35 97.4 F L 82 19 146/97 H 95 09/17/17 05:04 88 09/17/17 04:01 97.2 F L 85 15 112/80 94 L 09/17/17 01:19 84 09/17/17 00:05 98.0 F 89 21 H 118/76 95 09/16/17 21:17 141/85 H Admit Weight 409 lb Weight 420 lb 8 oz 09/16/17 09/17/17 09/18/17 06:59 06:59 06:59 Intake Total 2100 750 Output Total 950 1750 Balance 1150 -1000 - Physical Examination General/Neuro: alert & oriented x3 Neck: no JVD present Lungs: CTA Heart: RRR Abdomen: NT/ND Extremities: other: (no edema) - Telemetry Telemetry Rhythm: SR - Labs Result Diagrams: 09/14/17 00:15 09/17/17 04:03 Troponin/CKMB CK-MB (CK-2) 1.1 ng/mL (0-6.6) 09/14/17 00:15 Troponin I 0.043 ng/mL (< 0.028) H 09/14/17 06:11 - Assessment/Plan 1. Acute hypercapnic respiratory failure 2. Severe KAREEM 3. Morbid Obesity 4. HTN Stable from a cardiac standpoint. Stressed need for weight loss. Ok for discharge once arrangements made for at home therapies. F/U with Dr. Guzman in one month.
[2017-09-17] MEDS ORDERED: Magnesium Sulfate 2 GM in Sodium Chloride 0.9% 100 ML IVPB SCH (09:30)
--- NOTE | 2017-09-17 09:43 | PRG ---
DATE OF SERVICE: 09/17/2017 SERVICE: Pulmonary Medicine. INTERVAL HISTORY: The patient is doing fine from a respiratory standpoint. He is breathing comfortably. He is able to get up and walk around the room on his own strength. He denies any chest pain, nausea, vomiting, fevers or chills. His mentation is back to baseline. PHYSICAL EXAMINATION: VITAL SIGNS: Afebrile, pulse 82, blood pressure 146/97, respirations 19, saturation 95% on room air. GENERAL: The patient is awake, alert, no apparent distress. LUNGS: Decent air entry. There is no prolonged expiratory phase, wheezing, rhonchi or crackles. HEART: Normal rate, regular. ABDOMEN: Soft, nontender and nondistended. Bowel sounds are positive. MUSCULOSKELETAL: No cyanosis or clubbing. There is no pitting in the bilateral lower extremities. NEUROLOGIC: Grossly nonfocal. LABORATORY DATA: Creatinine has beautifully down trended to 0.99. Magnesium and phosphorus fall within the normal limits. Potassium 3.3. Bicarbonate is 33 , which is probably his baseline. ASSESSMENT: 1. Acute on chronic hypoxic and hypercapnic respiratory failure. 2. Morbid obesity. 3. Community-acquired pneumonia. 4. Obesity hypoventilation syndrome. 5. Metabolic encephalopathy. 6. Obstructive sleep apnea. DISCUSSION AND PLAN: At this point, the patient is stable for transition out of the hospital provided that he has his home noninvasive ventilation setup. Potassium and magnesium will be replaced. Pulmonary or Critical Care will continue to follow along while he remains inhouse, but from my perspective, he is stable for transition to the medical unit or for discharge today. He will need to complete a 7-day course of antibiotics. He can be switched to p.o. azithromycin and Omnicef to complete that course. I will see him is clinic in 2 months with a download off his new device. CORY
[2017-09-17] MEDS ORDERED: Magnesium 2 GM/NS 0.9% 100 ML 2 GM in Premix Bag 1 BAG IVPB SCH (09:45)
--- NOTE | 2017-09-17 09:56 | PDOC.PN ---
- Subjective Encounter Start Date: 09/17/17 Encounter Start Time: 09:54 Mr. Cochran was seen today in follow-up. He is feeling better, and breathing better. He was able to ambulate some in the halls. - Objective Resuscitation Status: Resuscitation Status FULL:Full Resuscitation MAR Reviewed: Yes Vital Signs & Weight: Vital Signs (12 hours) Temp Pulse Resp BP Pulse Ox 09/17/17 08:07 97.4 F L 82 19 95 09/17/17 07:35 97.4 F L 82 19 146/97 H 95 09/17/17 05:04 88 09/17/17 04:01 97.2 F L 85 15 112/80 94 L 09/17/17 01:19 84 09/17/17 00:05 98.0 F 89 21 H 118/76 95 Weight Admit Weight 409 lb Weight 420 lb 8 oz I&O: 09/16/17 09/17/17 09/18/17 06:59 06:59 06:59 Intake Total 2100 750 Output Total 950 1750 Balance 1150 -1000 Result Diagrams: 09/14/17 00:15 09/17/17 04:03 Additional Labs: Accuchecks 09/17/17 09/16/17 09/16/17 06:02 19:57 16:47 POC Glucose 130 H 186 H 181 H 09/16/17 10:42 POC Glucose 140 H Phys Exam - Physical Examination HEENT: PERRLA Respiratory: no wheezing, no rales, no rhonchi, clear to auscultation bilateral Cardiovascular: RRR, no significant murmur, no rub Gastrointestinal: soft, non-tender, positive bowel sounds Musculoskeletal: edema present Dx/Plan (1) Syncope Code(s): R55 - SYNCOPE AND COLLAPSE Status: Acute (2) DM2 (diabetes mellitus, type 2) Status: Acute Comment: new diagnosis (3) HTN (hypertension) Code(s): I10 - ESSENTIAL (PRIMARY) HYPERTENSION Status: Chronic (4) Morbid obesity with BMI of 50.0-59.9, adult Code(s): E66.01 - MORBID (SEVERE) OBESITY DUE TO EXCESS CALORIES; Z68.43 - BODY MASS INDEX (BMI) 50-59.9 , ADULT Status: Chronic (5) KAREEM (obstructive sleep apnea) Code(s): G47.33 - OBSTRUCTIVE SLEEP APNEA (ADULT) (PEDIATRIC) Status: Suspected - Plan * Severe Hypercapnic Respiratory failure- improved- Continue BiPAP * Pneumonia- will change his antibiotics to oral * Acute renal failure- improved * HTN- blood pressure is stable * DM- blood glucose is stable
[2017-09-17] MEDS: Insulin Glargine 20 UNITS in Pre-Filled Syringe 1 EACH SC SCH ×2 (10:07→20:59)
[2017-09-17] MEDS: Carvedilol 6.25 MG TAB PO SCH ×2 (10:07→21:18)
[2017-09-17] MEDS: Heparin 5,000 UNITS/ML VIAL SC SCH ×3 (10:08→21:18)
[2017-09-17] MEDS: Potassium Chloride 20 MEQ TAB PO SCH ×2 (11:10→13:54)
[2017-09-17 12:11] VITALS: BMI 58.8
--- NOTE | 2017-09-17 15:27 | PRG ---
DATE OF SERVICE: 09/17/2017 SUBJECTIVE: The patient was seen and examined, seems to be doing much better. PHYSICAL EXAMINATION: VITAL SIGNS: Afebrile with temperature 97.4, pulse 101, respiratory 18, O2 sat 95% with a blood pres sure 163/101. HEENT: Unremarkable. CARDIOVASCULAR: First and second heart sounds were heard. RESPIRATORY: Clear to auscultation. DIGESTIVE: Revealed a benign abdomen with positive bowel sounds. EXTREMITIES: No peripheral edema. SKIN: No new gross rash. LYMPHATICS: No peripheral lymphadenopathy. LABORATORY INVESTIGATIONS: Showed a potassium of 3.3, creatinine down to 0.9. IMPRESSION: 1. Acute kidney injury, which seems to have resolved. 2. Hypokalemia. PLAN: 1. Replete potassium. 2. Continue renal supportive measures. 3. Further management to be dependent on the clinical course.
[2017-09-17] MEDS: Magnesium Oxide 400 MG TAB PO SCH (21:17)
[2017-09-18 07:47] VITALS: BP 109/73
[2017-09-18] MEDS ORDERED: Azithromycin 250 MG TAB PO SCH (09:00)
[2017-09-18] MEDS ORDERED: Cefdinir 300 MG CAP PO SCH (09:00)
[2017-09-18] MEDS: Heparin 5,000 UNITS/ML VIAL SC SCH ×2 (10:47→15:22)
[2017-09-18] MEDS: Magnesium Oxide 400 MG TAB PO SCH (10:47)
[2017-09-18] MEDS: Carvedilol 6.25 MG TAB PO SCH (10:48)
[2017-09-18] MEDS: Insulin Glargine 20 UNITS in Pre-Filled Syringe 1 EACH SC SCH (10:50)
--- NOTE | 2017-09-18 13:04 | PRG ---
DATE OF SERVICE: 09/18/2017 SERVICE: Pulmonary Medicine. INTERVAL HISTORY: The patient is doing fine from a respiratory standpoint. He denies any current sh ortness of breath, chest discomfort, nausea, vomiting, fevers or chills. There have been no overnigh t events. Hopefully, the patient will be going home today with his noninvasive ventilator. PHYSICAL EXAMINATION: VITAL SIGNS: Afebrile, pulse 83, blood pressure 109/73, respirations 18, saturation 94% on room air. GENERAL: The patient is awake, alert, no apparent distress. LUNGS: Excellent air entry. There is no prolonged expiratory phase, wheezing, rhonchi or crackles. HEART: Normal rate, regular. ABDOMEN: Soft, nontender, nondistended. Bowel sounds are positive. MUSCULOSKELETAL: No cyanosis or clubbing. There is trace pitting in the bilateral lower extremities . NEUROLOGIC: Nonfocal. ASSESSMENT: 1. Acute on chronic hypoxic and hypercapnic respiratory failure. 2. Community-acquired pneumonia, small. 3. Obesity hypoventilation syndrome. 4. Morbid obesity. 5. Metabolic encephalopathy, resolved. 6. Obstructive sleep apnea. DISCUSSION AND PLAN: The patient is doing absolutely fantastic from a respiratory standpoint. From my perspective, he is stable for transition out of the hospital. Hopefully, we will be able to set u p the noninvasive ventilator on discharge. If we cannot, we will try to expedite in-lab polysomnogra m as soon as possible. That being said, his respiratory failure is primarily secondary to his obesit y hypoventilation syndrome. He has a small amount of sleep apnea that is superimposed on top of this , but from my perspective, this should not prevent him from going home on an noninvasive ventilator.
[2017-09-18 14:39] VITALS: TEMP 97.9
--- NOTE | 2017-09-19 00:38 | DIS ---
DATE OF ADMISSION: 09/14/2017 DATE OF DISCHARGE: 09/18/2017 CONSULTANTS: Dr. Delano Flores, Pulmonary Service; Dr. Sanchez, Nephrology; Dr. Villatoro, [facility]. HOSPITAL COURSE: The patient is a 31-year-old -[place] male with morbid obesity, past medica l history significant for dilated cardiomyopathy who presented to the emergency room with cough, some vomiting episode and syncopal episode which happened after that he was brought by EMS. He was evalu ated in the emergency room. We knew that his LVEF is 20% and he has history of cardiomyopathy. At t he time of ER evaluation, his white cell count was 6.9, hemoglobin 16.1, platelet count 164, glucose 159, BUN 17, creatinine 1.18. Initial troponin was 0.04, subsequent 0.036 and BNP was 88.3. Chest x -ray showed persistent substantial dilated cardiomyopathy with some apparent pulmonary edema. The cielo mantilla was admitted to the hospital. Cardiology was consulted regarding associated congestive heart f ailure. He was given Lasix IV and it was felt that he had hypoventilation syndrome with some CO2 ret ention which was affecting his mental condition. His diabetic medications were oral medications were stopped and he was placed on sliding scale and long-acting insulin, Lantus injection once a day. He was seen by Dr. Flores for Pulmonary consultation. He recommended to titrate his BiPAP and the fin al setting was 17/03. He agreed with antibiotic treatment for very small pneumonia. Also, the patie nt was seen by Cardiology Service, Dr. Villatoro and his team. He recommended to continue the regime n. He felt that this syncope was most likely related to vasovagal response from his vomiting and his recurrent dizziness was orthostatic in nature most likely. The patient was treated for pneumonia. His follow up echocardiogram came back with improved LVEF at 40%-45%, but this was a difficult study. Also, he had moderately enlarged right ventricle cavity with moderately dilated left atrium and inc reased RV pressure. He gradually improved. His kidney function was assessed by Dr. Sanchez, neph rologist and he felt that this acute kidney injury was multifactorial and he recommended to discontin ue diuretics. He recommended to gently rehydrate the patient and his general condition improved. To the point that Dr. Flores agreed to discharge him home today on his noninvasive ventilation device, which was obtained and to be used at home. We will put him on Omnicef 300 mg x2 for the next 5 days . Also, he will be restarting his glipizide 10 mg once a day, lisinopril 20 mg once a day, and furos emide 20 mg once a day, along with his carvedilol, which was used while he was hospitalized, the dose will be 12.5 mg twice a day. He will follow up with Dr. Flores, he will call his office to set up followup appointment. He will follow up with Dr. Guzman in 3-4 weeks and he will continue with [facility] and cardiac rehabilitation outside. He is seen and examined before his d ischarge and discharge time is more than 30 minutes and activities as tolerated and cardiac diet at t he time of discharge.
== END 2017-09-18 15:24 | disposition home or self-care (01) | DRG 189 ==
LOC: ERS 00:07 → 2NO 02:54 → OBSVTOIN 02:54 → INTOOBSV 02:54 → IMCU/EMU 17:04 → ONC 09-17 11:54
PROVIDERS: ADMIT Internal Medicine; ATTEND Internal Medicine
DX: J18.2 Hypostatic pneumonia, unspecified organism (principal); J96.22 Acute and chronic respiratory failure with hypercapnia; J96.21 Acute and chronic respiratory failure with hypoxia; I42.0 Dilated cardiomyopathy; Z68.43 Body mass index [BMI] 50.0-59.9, adult; N17.9 Acute kidney failure, unspecified; E66.2 Morbid (severe) obesity with alveolar hypoventilation; E87.2 Acidosis; I50.22 Chronic systolic (congestive) heart failure; I11.0 Hypertensive heart disease with heart failure; Z71.3 Dietary counseling and surveillance; R55 Syncope and collapse; E11.9 Type 2 diabetes mellitus without complications; Z91.14 Patient's other noncompliance with medication regimen; J45.909 Unspecified asthma, uncomplicated; Z79.4 Long term (current) use of insulin; F17.210 Nicotine dependence, cigarettes, uncomplicated
CPT/HCPCS: 36415; 36416; 71045; 71275; 76770; 80048; 82553; 82805; 83735; 83880; 84100; 84484; 85025; 90471; 90732; 93005; 93306; 93798; 94640; 94660; 96374; 99406; A4216; G0009; J0456; J0696; J1644; J1650; J1940; J3475; J7050; J7620; Q0162

== ENCOUNTER 2017-10-06 11:21 | Emergency (ER) | payer BC | END 2017-10-06 12:52 | disposition home or self-care (01) | LOC: ERS 11:21 | DX: M54.32 Sciatica, left side (principal); I11.0 Hypertensive heart disease with heart failure; I50.9 Heart failure, unspecified; E11.9 Type 2 diabetes mellitus without complications; E66.9 Obesity, unspecified; F41.9 Anxiety disorder, unspecified; F17.210 Nicotine dependence, cigarettes, uncomplicated; Z79.84 Long term (current) use of oral hypoglycemic drugs; Z79.899 Other long term (current) drug therapy | CPT/HCPCS: 99283 ==

== ENCOUNTER 2017-10-27 06:18 | Emergency (ER) | payer BC ==
--- NOTE | 2017-10-27 09:23 | RAD ---
FRONTAL RADIOGRAPH PELVIS: 10/27/2017 HISTORY: Left leg pain and hip pain. COMPARISON: None. FINDINGS: There is mild joint space narrowing involving the bilateral hips, superiorly. The pelvic ring is int act. There is no widening of the sacroiliac joints or pubic symphysis. No displaced fracture noted. IMPRESSION: No acute osseous abnormality. POS: [facility]
== END 2017-10-27 08:09 | disposition home or self-care (01) ==
LOC: ERS 06:18
DX: G57.12 Meralgia paresthetica, left lower limb (principal); M25.552 Pain in left hip; I11.0 Hypertensive heart disease with heart failure; I50.9 Heart failure, unspecified; E66.9 Obesity, unspecified; E11.9 Type 2 diabetes mellitus without complications; Z87.891 Personal history of nicotine dependence
CPT/HCPCS: 72170

== ENCOUNTER 2017-12-08 23:15 | Emergency (ER) | payer BC ==
[2017-12-09 00:14] LABS: #Basophils 0.1 thou/uL (0.0-0.2); #Eosinphils 0.1 thou/uL (0.0-0.7); #Monocytes 0.6 thou/uL (0.11-0.59); #Neutrophils 5.9 thou/uL (1.40-6.50); %Basophils 0.8 % (0.0-1.0); %Monocytes 6.6 % (0.0-10.0); %Neutrophils 68.6 % (42.0-75.0); Hemoglobin 13.6 g/dL (14.0-18.0); Mean Corpuscular HGB CONC 33.8 g/dL (32.0-36.0); Mean Corpuscular Hemoglobin 29.1 pg (27.0-31.0); Mean Platelet Volume 10.4 fL (7.4-10.4); Platelet Count 170 thou/uL (130-400); RBC Distribution Width 12.9 % (11.5-14.5); Red Blood Cell (RBC) Count 4.67 mill/uL (4.70-6.10); White Blood Cell (WBC) Count 8.6 thou/uL (4.8-10.8)
[2017-12-09] MEDS ORDERED: Furosemide 40 MG/4 ML VIAL ONE (00:35)
[2017-12-09] MEDS ORDERED: Nitroglycerin 2% Ointment 1 INCH/1 GM Packet ONE (00:35)
[2017-12-09 00:36] LABS: CKMB 1.2 ng/mL (0-6.6); Troponin I 0.028 ng/mL (< 0.028)
[2017-12-09 01:56] LABS: Anion Gap 13 mmol/L (10-20); BUN (Urea Nitrogen) 16 mg/dL (8.9-20.6); CK (CPK) 110 U/L (30-200); Calc. Creatinine Clearance 0 mL/min (70-130); Calcium 8.8 mg/dL (7.8-10.44); Carbon Dioxide 28 mmol/L (22-29); Chloride 101 mmol/L (98-107); Estimated GFR-MDRD Greater than 90; Glucose 194 mg/dL (70-105); Potassium 3.9 mmol/L (3.5-5.1); Sodium 138 mmol/L (136-145)
--- NOTE | 2017-12-09 07:55 | CT ---
PRELIMINARY REPORT/[facility]/EMERGENTY AFTER-HOURS PROCEDURE CT Angiography Chest With Intravenous Contrast CLINICAL HISTORY: 32 years old, male; Signs and symptoms; Dyspnea and shortness of breath; Patient HX: M31 w/ HX of chf and is suppose to use cpap at home, but does not due to mask not fitting, presented to ed C/O SOB on set 3 - 4 days ago. Pt reports he stopped taking lasix two weeks ago and does not know his dose. Pt does not have a pcp. TECHNIQUE: Axial computed tomographic angiography images of the chest with intravenous contrast using pulmonary embolism protocol. MIP reconstructed images were created and reviewed. COMPARISON: No relevant prior studies available. FINDINGS: Pulmonary arteries: No pulmonary embolism. Aorta: No acute findings. Lungs: Normal. Pleural space: Normal. No significant effusion. No pneumothorax. Heart: Normal. Bones/joints: No acute fracture. No dislocation. Soft tissues: Mild bilateral gynecomastia. Lymph nodes: Normal. IMPRESSION: 1. No pulmonary embolism. 2. Incidental/non-acute findings are described above. Thank you for allowing us to participate in the care of your patient. Dictated and Authenticated by: Cedric Sanches MD 12/09/2017 2:35 AM Central Time ([place] & [place]) FINAL REPORT CT PULMONARY ANGIOGRAM WITH IV CONTRAST AND 3D POSTPROCESSING: I agree with the preliminary report given by Dr. Cedric Sanches of [email or web address] POS: [facility]
--- NOTE | 2017-12-09 08:01 | RAD ---
PORTABLE CHEST 1 VIEW: DATE: 12/09/17. TIME: 12:19 a.m. HISTORY: Shortness of breath. FINDINGS: Comparison is made with the exam of 09/14/17. The heart size is enlarged. The lungs are expanded without focal areas of consolidation, pneumothora x, nimco pulmonary edema, or pleural effusions. IMPRESSION: Cardiomegaly. POS: [facility]
[2017-12-09] MEDS ORDERED: ISOVUE-370 76%-LOCM 1 ML ONE (08:05)
== END 2017-12-09 03:11 | disposition home or self-care (01) ==
LOC: ERS 23:15
DX: I11.0 Hypertensive heart disease with heart failure (principal); I50.9 Heart failure, unspecified; E11.9 Type 2 diabetes mellitus without complications; E66.9 Obesity, unspecified; G47.30 Sleep apnea, unspecified; Z87.891 Personal history of nicotine dependence
CPT/HCPCS: 36415; 71045; 71275; 80048; 82553; 83880; 84484; 85025; 93005; 96374; J1940

== ENCOUNTER 2018-04-21 10:57 | Emergency (ER) | payer BC, SELFPAY ==
[2018-04-21 11:44] LABS: #Basophils 0.1 thou/uL (0.0-0.2); #Lymphocytes 1.4 thou/uL (1.20-3.40); #Monocytes 0.5 thou/uL (0.11-0.59); #Neutrophils 4.5 thou/uL (1.40-6.50); %Basophils 0.9 % (0.0-1.0); %Eosinophils 0.8 % (0.0-10.0); %Lymphocytes 21.4 % (21.0-51.0); %Monocytes 7.9 % (0.0-10.0); %Neutrophils 69.1 % (42.0-75.0); Hemoglobin 14.9 g/dL (14.0-18.0); Mean Corpuscular HGB CONC 29.9 g/dL (32.0-36.0); Mean Corpuscular Volume 87.2 fL (78.0-98.0); Mean Platelet Volume 9.9 fL (7.4-10.4); Platelet Count 174 thou/uL (130-400); RBC Distribution Width 12.6 % (11.5-14.5); Red Blood Cell (RBC) Count 5.74 mill/uL (4.70-6.10); White Blood Cell (WBC) Count 6.6 thou/uL (4.8-10.8)
[2018-04-21 12:09] LABS: ALT (SGPT) 36 U/L (8-55); AST (SGOT) 19 U/L (5-34); Albumin 3.4 g/dL (3.5-5.0); Alkaline Phosphatase 89 U/L (40-150); Anion Gap 10 mmol/L (10-20); BUN (Urea Nitrogen) 15 mg/dL (8.9-20.6); Bilirubin, Total 0.3 mg/dL (0.2-1.2); CK (CPK) 84 U/L (30-200); Calc. Creatinine Clearance 0 mL/min (70-130); Carbon Dioxide 36 mmol/L (22-29); Chloride 97 mmol/L (98-107); Estimated GFR-MDRD 84; Globulin 3.2 g/dL (2.4-3.5); Glucose 309 mg/dL (70-105); MDiff Complete? YES; Platelet Morphology Comment Appears Adequate; Polychromasia SLIGHT = 2-3 cells (100X) (0-2/hpf); Potassium 4.5 mmol/L (3.5-5.1); Protein, Total 6.6 g/dL (6.0-8.3); Sodium 138 mmol/L (136-145)
--- NOTE | 2018-04-21 12:14 | RAD ---
AP CHEST: Date: 04/21/18 HISTORY: Dyspnea. COMPARISON: 12/09/17. FINDINGS: Cardiomegaly again noted. Lungs appear clear. The vascular markings are upper normal, but stable. No effusion or infiltrate seen. IMPRESSION: Cardiomegaly. No acute lung process. No interval change apparent. POS: [facility]
[2018-04-21 12:38] LABS: CKMB 1.4 ng/mL (0-6.6)
--- NOTE | 2018-04-21 13:15 | ULT ---
BILATERAL LOWER EXTREMITY VENOUS DOPPLER ULTRASOUND: Date: 04/21/18 HISTORY: Bilateral lower extremity edema and pain. TECHNIQUE: Dubose scale ultrasound with color flow and spectral Doppler imaging of the deep venous systems of the lower extremities was performed bilaterally. FINDINGS: There is good flow and compression in the common femoral, femoral, deep femoral, popliteal, posterior tibial, and greater saphenous veins. Augmentation could not be satisfactorily obtained due to subopt imal visualization of the vessels. IMPRESSION: No definite evidence of deep venous thrombosis in either lower extremity. POS: [facility]
[2018-04-21] MEDS ORDERED: Furosemide 100 MG/10 ML VIAL ONE (14:04)
--- NOTE | 2018-04-21 14:45 | CON ---
DATE OF CONSULTATION: Consultation to the emergency room physician, Dr. Umu Kevin. The patient referred for abnormal troponin and swelling in his legs. The patient with a long history of morbid obesity, nonischemic cardiomyopathy. He has a history of hypertension, noncompliance. He came in complaining of discomfort in his legs and swelling in his legs. He noted to have an elevated troponin and Sound was called. He gives no history of orthopnea or paroxysmal nocturnal dyspnea. No chest pain. PAST MEDICAL HISTORY: As mentioned before, nonischemic cardiomyopathy, hypertension, morbid obesity, noncompliance, diabetes mellitus type 2. PAST SURGICAL HISTORY: Orchiopexy for undescended testicle and inguinal hernia repair. FAMILY HISTORY: Notable for hypertension. SOCIAL HISTORY: No tobacco or illicit drugs. Some alcohol use. ALLERGIES: NONE. HOME MEDICATIONS: 1. Coreg 12.5 mg twice a day. 2. Lasix 80 mg a day. 3. Glipizide 2.5 mg a day. 4. Lisinopril 20 mg a day. 5. Metolazone 2.5 mg a day. REVIEW OF SYSTEMS: CONSTITUTIONAL: No dizziness or fainting. No fever or chills. HEENT: Eyes, no double vision, blurred vision, or flashing lights. Ears, nose, and throat; no ear pain, drainage, nasal bleeding, or trouble swallowing. CARDIAC: No chest pain, orthopnea, or paroxysmal nocturnal dyspnea. LUNGS: No cough, wheezing, or asthma. GASTROINTESTINAL: No nausea, vomiting, diarrhea, or constipation. GENITOURINARY: No hematuria or dysuria. MUSCULOSKELETAL: Long-term swelling in his legs. NEUROLOGIC: No strokes, seizures, or focal weakness. PSYCHIATRIC: No history of anxiety or depression. SKIN: No bruising, bleeding, or rash. HEME/LYMPH: No tender or swollen lymph nodes in the axilla, inguinal, or cervical area. PHYSICAL EXAMINATION: GENERAL: The patient is morbidly obese, alert, in no distress. VITAL SIGNS: Respiratory rate 22 to 20, O2 saturation 96% on room air, blood pressure 146/86, pulse 100 plus or minus. HEENT: Examination of his head, eyes, ears, nose, and throat revealed pupils are equal, round, and reactive to light. Extraocular movements are intact. Sclerae are white. Tympanic membranes are clear. Nose is clear. Oral mucous membranes are wet. NECK: No jugular venous distention, adenopathy, or thyromegaly. CHEST: Distant breath sounds, but is clear with no wheezing or rales. HEART: Had a regular rate and rhythm. First and second heart sounds are clear with no murmurs or gallops. ABDOMEN: Soft. Bowel sounds are normal. No hepatosplenomegaly. No masses or rebound palpable. EXTREMITIES: 4+ lymphedema. Pulses; carotid, radial, and femoral pulses intact. Pedal pulses obscured with lymphedema. NEUROLOGIC: Moves all extremities. Cranial nerves 2 through 12 are intact. Deep tendon reflexes grossly symmetric. LYMPHATIC SURVEY: No tender or swollen lymph nodes in the axilla, inguinal, or cervical area. DIAGNOSTIC DATA: EKG regular sinus rhythm. No acute ST-T abnormality. Chest x-ray, clear lung richter. No cardiomegaly. Both chest x-ray and EKG were read by me. LABORATORY DATA: CBC; white count 6.6, hemoglobin 14.9, and platelet count 174,000. Chemistries; sodium 138, potassium 4.5, chloride 97, CO2 of 36. Renal function normal. Blood sugar 309, creatinine 0.047. BNP 29.1. The patient is morbidly obese with cardiomegaly with no evidence of decompensation. He does have lymphedema, which is not amenable to diuresis. His troponin is consistent with troponins in the hospital 6 months ago. His BNP is normal. RECOMMENDATIONS: 1. Lasix 80 mg IV. 2. Have the patient see PCP in followup as soon as possible. I see no reason for hospitalization. Job ID: [id number]
--- NOTE | 2018-04-24 23:34 | EKG ---
Test Reason : Blood Pressure : / mmHG Vent. Rate : 105 BPM Atrial Rate : 105 BPM P-R Int : 186 ms QRS Dur : 104 ms QT Int : 356 ms P-R-T Axes : 051 115 029 degrees QTc Int : 470 ms Sinus tachycardia Possible Left atrial enlargement Right axis deviation Abnormal ECG Confirmed by EVA TORRES DO ([id number]), photographic editor LUIS ENRIQUE THOMAS ([id number]) on 04/24/2018 11:33:27 PM Referred By: Confirmed By:EVA TORRES DO
== END 2018-04-21 15:02 | disposition home or self-care (01) ==
LOC: ERS 10:57
DX: S81.811A Laceration without foreign body, right lower leg, initial encounter (principal); M79.89 Other specified soft tissue disorders; R79.89 Other specified abnormal findings of blood chemistry; I11.0 Hypertensive heart disease with heart failure; I50.9 Heart failure, unspecified; E11.9 Type 2 diabetes mellitus without complications; G47.30 Sleep apnea, unspecified; Z87.891 Personal history of nicotine dependence; Z79.891 Long term (current) use of opiate analgesic; Z79.899 Other long term (current) drug therapy; X58.XXXA Exposure to other specified factors, initial encounter
CPT/HCPCS: 36415; 71045; 80053; 82550; 82553; 83880; 84484; 85025; 93005; 93970; 94760; 96374; J1940

== ENCOUNTER 2018-05-03 04:28 | Emergency (ER) | payer SELFPAY ==
[2018-05-03 05:15] LABS: #Eosinphils 0.1 thou/uL (0.0-0.7); #Lymphocytes 1.8 thou/uL (1.20-3.40); #Monocytes 0.6 thou/uL (0.11-0.59); #Neutrophils 5.3 thou/uL (1.40-6.50); %Basophils 0.4 % (0.0-1.0); %Eosinophils 0.9 % (0.0-10.0); %Lymphocytes 23.3 % (21.0-51.0); %Monocytes 7.4 % (0.0-10.0); %Neutrophils 67.9 % (42.0-75.0); Mean Corpuscular HGB CONC 31.6 g/dL (32.0-36.0); Mean Corpuscular Hemoglobin 27.7 pg (27.0-31.0); Mean Corpuscular Volume 87.7 fL (78.0-98.0); Mean Platelet Volume 10.1 fL (7.4-10.4); Platelet Count 176 thou/uL (130-400); RBC Distribution Width 12.9 % (11.5-14.5); Red Blood Cell (RBC) Count 5.43 mill/uL (4.70-6.10); White Blood Cell (WBC) Count 7.8 thou/uL (4.8-10.8)
[2018-05-03 05:41] LABS: ALT (SGPT) 38 U/L (8-55); AST (SGOT) 22 U/L (5-34); Albumin 3.4 g/dL (3.5-5.0); Alkaline Phosphatase 93 U/L (40-150); Anion Gap 10 mmol/L (10-20); BUN (Urea Nitrogen) 13 mg/dL (8.9-20.6); Bilirubin, Total 0.4 mg/dL (0.2-1.2); Calc. Creatinine Clearance 0 mL/min (70-130); Calcium 8.6 mg/dL (7.8-10.44); Carbon Dioxide 36 mmol/L (22-29); Chloride 95 mmol/L (98-107); Estimated GFR-MDRD Greater than 90; Globulin 3.2 g/dL (2.4-3.5); Glucose 251 mg/dL (70-105); Lipase 52 U/L (8-78); Potassium 3.9 mmol/L (3.5-5.1); Protein, Total 6.6 g/dL (6.0-8.3); Sodium 137 mmol/L (136-145)
[2018-05-03 05:55] LABS: CKMB 1.3 ng/mL (0-6.6)
[2018-05-03] MEDS ORDERED: Nitroglycerin 2% Ointment 1 INCH/1 GM Packet ONE (06:17)
[2018-05-03] MEDS ORDERED: Aspirin Chewable 81 MG TAB ONE (06:17)
--- NOTE | 2018-05-03 08:15 | RAD ---
SINGLE VIEW CHEST: Date: 05/03/18 COMPARISON: 04/21/18. HISTORY: Bilateral leg swelling for 3 weeks. CHF. FINDINGS: Single view of chest shows enlarged but stable cardiomediastinal silhouette. There is no evidence of consolidation, mass, or pleural effusion. IMPRESSION: Stable cardiomegaly. POS: [facility]
== END 2018-05-03 08:41 | disposition home or self-care (01) ==
LOC: ERS 04:28
DX: R60.0 Localized edema (principal); I11.0 Hypertensive heart disease with heart failure; I50.9 Heart failure, unspecified; E11.9 Type 2 diabetes mellitus without complications; G47.30 Sleep apnea, unspecified; Z79.82 Long term (current) use of aspirin; Z79.899 Other long term (current) drug therapy
CPT/HCPCS: 36415; 71045; 80053; 82553; 83690; 83880; 84484; 85025; 93005

== ENCOUNTER 2018-12-20 07:24 | Emergency (ER) | payer SELFPAY ==
[2018-12-20 07:55] LABS: #Basophils 0.1 thou/uL (0.0-0.2); #Eosinphils 0.1 thou/uL (0.0-0.7); #Lymphocytes 1.7 thou/uL (1.20-3.40); #Monocytes 0.6 thou/uL (0.11-0.59); #Neutrophils 5.8 thou/uL (1.40-6.50); %Basophils 0.8 % (0.0-1.0); %Eosinophils 1.1 % (0.0-10.0); %Lymphocytes 20.2 % (21.0-51.0); %Monocytes 7.8 % (0.0-10.0); %Neutrophils 70.1 % (42.0-75.0); Mean Corpuscular HGB CONC 32.6 g/dL (32.0-36.0); Mean Platelet Volume 10.3 fL (7.4-10.4); Platelet Count 149 thou/uL (130-400); RBC Distribution Width 12.4 % (11.5-14.5); Red Blood Cell (RBC) Count 5.37 mill/uL (4.70-6.10); White Blood Cell (WBC) Count 8.3 thou/uL (4.8-10.8)
[2018-12-20] MEDS ORDERED: Furosemide 40 MG/4 ML VIAL ONE (07:55)
[2018-12-20] MEDS ORDERED: Nitroglycerin 2% Ointment 1 INCH/1 GM Packet ONE (07:55)
--- NOTE | 2018-12-20 08:01 | RAD ---
Chest AP view INDICATION: Chest pain and shortness of breath COMPARISON: May 03, 2018 FINDINGS: Lungs:The lungs are clear Cardiac silhouette:There is stable mild cardiomegaly Pulmonary vasculature:Normal Pleural spaces:No pleural effusion or pneumothorax is demonstrated. Upper abdomen:No abnormality seen. Osseous structures: No acute osseous abnormality. Additional findings:None. IMPRESSION: Stable mild cardiomegaly.
[2018-12-20 08:20] LABS: ALT (SGPT) 32 U/L (8-55); AST (SGOT) 17 U/L (5-34); Albumin 3.5 g/dL (3.5-5.0); Alkaline Phosphatase 85 U/L (40-150); Anion Gap 13 mmol/L (10-20); BUN (Urea Nitrogen) 17 mg/dL (8.9-20.6); Bilirubin, Total 0.2 mg/dL (0.2-1.2); CK (CPK) 68 U/L (30-200); Calc. Creatinine Clearance 0 mL/min (70-130); Calcium 8.5 mg/dL (7.8-10.44); Carbon Dioxide 32 mmol/L (22-29); Chloride 97 mmol/L (98-107); Estimated GFR-MDRD 76; Globulin 2.7 g/dL (2.4-3.5); Glucose 216 mg/dL (70-105); Lipase 41 U/L (8-78); Potassium 4.6 mmol/L (3.5-5.1); Protein, Total 6.2 g/dL (6.0-8.3); Sodium 137 mmol/L (136-145)
[2018-12-20 08:40] LABS: CKMB 1.6 ng/mL (0-6.6)
[2018-12-20 10:05] LABS: Troponin I 0.056 ng/mL (< 0.028)
== END 2018-12-20 10:32 | disposition home or self-care (01) ==
LOC: ERS 07:24
DX: I11.0 Hypertensive heart disease with heart failure (principal); I50.9 Heart failure, unspecified; E11.9 Type 2 diabetes mellitus without complications; G47.30 Sleep apnea, unspecified
CPT/HCPCS: 36415; 71045; 80053; 82550; 82553; 83690; 83880; 84484; 85025; 93005; 96374; J1940

== ENCOUNTER 2019-02-14 15:31 | Inpatient (IN) | payer SELFPAY ==
--- NOTE | 2019-02-14 15:56 | RAD ---
FRONTAL VIEW CHEST: Comparison: 12-19-18 Clinical history: Cough. FINDINGS: There is enlargement of the cardiac silhouette and prominence of the pulmonary vasculature. Left lung base is obscured. There are leads overlying the chest. IMPRESSION: 1. Marked cardiomegaly with vascular congestion. 2. Left lung base is obscured. The possibility of underlying pleural/parenchymal disease is not exclu ded. Consider continued imaging follow up in this regard. POS: [facility]
[2019-02-14 16:03] LABS: Hemoglobin 14.7 g/dL (14.0-18.0); Mean Corpuscular HGB CONC 30.9 g/dL (32.0-36.0); Mean Corpuscular Volume 87.4 fL (78.0-98.0); Mean Platelet Volume 10.5 fL (7.4-10.4); Platelet Count 151 thou/uL (130-400); RBC Distribution Width 13.4 % (11.5-14.5); Red Blood Cell (RBC) Count 5.45 mill/uL (4.70-6.10); White Blood Cell (WBC) Count 9.2 thou/uL (4.8-10.8)
[2019-02-14 16:19] LABS: Band 13 % (5-11); Lymphocytes 8 % (21-51); MDiff Complete? YES; Monocytes 7 % (0-10); Neutrophil 67 % (42-75); Platelet Morphology Comment Appears Adequate; RBC Morphology Normal; Reactive Lymphocytes 5 % (0-10)
[2019-02-14 16:31] LABS: ALT (SGPT) 25 U/L (8-55); AST (SGOT) 19 U/L (5-34); Albumin 3.2 g/dL (3.5-5.0); Alkaline Phosphatase 55 U/L (40-110); BUN (Urea Nitrogen) 12 mg/dL (8.9-20.6); Bilirubin, Total 0.5 mg/dL (0.2-1.2); CK (CPK) 125 U/L (30-200); Calc. Creatinine Clearance 0 mL/min (70-130); Calcium 8.4 mg/dL (7.8-10.44); Estimated GFR-MDRD 61; Globulin 3.1 g/dL (2.4-3.5); Glucose 160 mg/dL (70-105); Protein, Total 6.3 g/dL (6.0-8.3)
[2019-02-14] MEDS ORDERED: Senokot S 8.6-50 MG TAB PO PRN (16:33)
[2019-02-14 16:40] LABS: Anion Gap 13 mmol/L (10-20); Carbon Dioxide 34 mmol/L (22-29); Chloride 95 mmol/L (98-107); Potassium 4.1 mmol/L (3.5-5.1); Sodium 138 mmol/L (136-145)
[2019-02-14] MEDS ORDERED: Azithromycin 500 MG VIAL ONE (16:41)
[2019-02-14] MEDS ORDERED: cefTRIAXone\\ROCEPHIN 2 GM VIAL ONE ×2 (16:41→16:42)
[2019-02-14] MEDS ORDERED: Enoxaparin Sodium 100 MG/ML SYRINGE ONE (16:41)
[2019-02-14] MEDS ORDERED: Aspirin Chewable 81 MG TAB ONE (16:51)
[2019-02-14 17:13] LABS: Actual Bicarbonate (HCO3a) 35.4 mEq/L (22-28); Analyzer IN Cardio ER; Base Excess (BEa) 6.4 mEq/L (-2.0 to +3.0); Carboxyhemoglobin (COHb) 1.4 gm% (0.0-3.0); Hemoglobin (Hb) 15.6 g/dL (14.0-18.0); Potassium - ABG Lab 4.15 mmol/L (3.70-5.30); pH, Arterial 7.32 (7.35-7.45)
[2019-02-14 17:14] LABS: CO2 Tension 70.7 mmHg (35.0-45.0)
[2019-02-14 17:15] LABS: Puncture Site RRA
[2019-02-14 17:16] LABS: ALV-art Gradient 10.355 (0-20)
[2019-02-14] MEDS ORDERED: Ondansetron PF 4 MG/2 ML Vial ONE (17:23)
[2019-02-14] MEDS ORDERED: Sodium Chloride 0.9% 500 ML IV SCH (17:45)
--- NOTE | 2019-02-14 17:55 | RAD ---
Radiograph abdomen one view: DATE: 02/14/2019 Time: 5:12 PM HISTORY: 33-year-old male with hematemesis. FINDINGS: 2 AP images centered at the diaphragm, showing the uppermost portion of the abdomen, are submitted. B ecause of extremely large body habitus, there is not only magnification of the cardiac shadow, but poor visualization of upper bowel loops. No obvious severely dilated air-filled bowel loops are visua lized in the upper abdomen. The mid and lower abdomen are not included. IMPRESSION: Very limited study. No grossly dilated bowel loops identified in the upper abdomen. The rest of the a bdomen is not included on the image.
[2019-02-14] MEDS ORDERED: cefTRIAXone\\ROCEPHIN 2 GM in Sodium Chloride 0.9% 100 ML IVPB SCH (18:00)
--- NOTE | 2019-02-14 18:08 | RAD ---
RADIOGRAPH CHEST 1 VIEW: DATE: 02/14/2019 TIME: 5:10 PM HISTORY: 33-year-old male with nausea, vomiting, and hematemesis. Concern for aspiration. COMPARISON: 02/14/2019 3:26 PM FINDINGS: Because of extremely large body habitus, this study is very limited. There is apparent cardiomegaly, but it is uncertain how much of this is due to magnification because of body habitus. The retrocardiac portion of left lower lobe is obscured by the heart shadow, and cannot be evaluated. Mil d haziness of right lower lung zone could be due to overlying soft tissues, but early infiltrate cannot be excluded. This is the only interval change. IMPRESSION: 1. Very limited study because of body habitus. 2. The left lower lobe is obscured by the heart. 3. Questionable minimal infiltrate in right lower lobe. Recommend follow-up.
[2019-02-14 19:10] LABS: Actual Bicarbonate (HCO3a) 29.5 mEq/L (22-28); Analyzer IN Cardio ER; Base Excess (BEa) -3.3 mEq/L (-2.0 to +3.0); Calcium, Ionized 1.31 mmol/L (1.12-1.30); Carboxyhemoglobin (COHb) 0.9 gm% (0.0-3.0); Hemoglobin (Hb) 16.5 g/dL (14.0-18.0); O2 Tension (PaO2) 93.3 mmHg (80.0-100.0); Potassium - ABG Lab 5.56 mmol/L (3.70-5.30)
[2019-02-14 19:19] LABS: Troponin I 0.155 ng/mL (< 0.028)
[2019-02-14 19:30] LABS: pH, Arterial 7.11 (7.35-7.45)
[2019-02-14 19:31] LABS: ALV-art Gradient 145.075 (0-20); CO2 Tension 94.5 mmHg (35.0-45.0); Puncture Site RRA
[2019-02-14] MEDS ORDERED: Ipratropium Bromide 2.5 ml Neb NEB PRN (19:50)
[2019-02-14 20:04] LABS: Actual Bicarbonate (HCO3a) 36.5 mEq/L (22-28); Analyzer IN Cardio ER; Base Excess (BEa) 3.6 mEq/L (-2.0 to +3.0); Calcium, Ionized 1.14 mmol/L (1.12-1.30); Carboxyhemoglobin (COHb) 1.3 gm% (0.0-3.0); Hemoglobin (Hb) 16.4 g/dL (14.0-18.0); Potassium - ABG Lab 4.82 mmol/L (3.70-5.30)
[2019-02-14 20:15] LABS: O2 Tension (PaO2) 57.2 mmHg (80.0-100.0); Puncture Site RRA; pH, Arterial 7.17 (7.35-7.45)
[2019-02-14] MEDS ORDERED: Sodium Chloride 0.9% 1,000 ML IV SCH ×2 (21:15)
[2019-02-14] MEDS ORDERED: Propofol 1,000 MG/100 ML VIAL IV ONE ×2 (22:21→22:57)
[2019-02-14] MEDS ORDERED: Succinylcholine Chloride 20 MG/ML 10 ml SYRINGE FS ONE (22:21)
[2019-02-14] MEDS ORDERED: Propofol BOLUS 1,000 MG/100 ML VIAL IV PRN (23:06)
[2019-02-14] MEDS ORDERED: Morphine 2 MG/ML SYRINGE SLOW IVP PRN (23:06)
[2019-02-14] MEDS ORDERED: Fentanyl BOLUS 250 ML IVPB PRN (23:06)
[2019-02-14] MEDS ORDERED: DISCONTINUE PREVIOUS NARCOTIC PAIN MEDICATIONS AND BENZODIAZEPINES FS SCH (23:06)
--- NOTE | 2019-02-14 23:24 | RAD ---
Exam: Chest one view: HISTORY: Post intubation COMPARISON: 02/14/2019 FINDINGS: Persistent marked cardiomegaly and bilateral vascular congestion. Placement of an endotracheal tube a nd NG tube in satisfactory location. Exam limited by very large body habitus. Continued short-term follow-up. IMPRESSION: NG tube and endotracheal tube placement in satisfactory location. Stable cardiomegaly and vascular co ngestion. Continued short-term follow-up.
[2019-02-14] MEDS: Ipratropium Bromide 2.5 ml Neb NEB SCH (23:53)
[2019-02-15 00:06] LABS: Actual Bicarbonate (HCO3a) 30.4 mEq/L (22-28); Base Excess (BEa) 2.4 mEq/L (-2.0 to +3.0); Calcium, Ionized 1.05 mmol/L (1.12-1.30); Carboxyhemoglobin (COHb) 1.9 gm% (0.0-3.0); Hemoglobin (Hb) 15.1 g/dL (14.0-18.0); O2 Tension (PaO2) 68.1 mmHg (80.0-100.0); Potassium - ABG Lab 5.43 mmol/L (3.70-5.30); pH, Arterial 7.31 (7.35-7.45)
[2019-02-15 00:23] LABS: CO2 Tension 61.4 mmHg (35.0-45.0); Puncture Site L BRACHIAL
[2019-02-15] MEDS: Azithromycin 500 MG in Sodium Chloride 0.9% 250 ML 250 ML IVPB SCH ×2 (01:06→16:59)
[2019-02-15] MEDS: Piperacillin/Tazobactam 3.375 GM in Sodium Chloride 0.9% 100 ML IVPB SCH ×5 (01:20→22:49)
[2019-02-15 02:46] LABS: Actual Bicarbonate (HCO3a) 40.1 mEq/L (22-28); Analyzer IN Cardio ER; Base Excess (BEa) 3.6 mEq/L (-2.0 to +3.0); Calcium, Ionized 1.15 mmol/L (1.12-1.30); Carboxyhemoglobin (COHb) 1.3 gm% (0.0-3.0); Potassium - ABG Lab 5.97 mmol/L (3.70-5.30)
[2019-02-15 02:53] LABS: pH, Arterial 7.07 (7.35-7.45)
[2019-02-15 02:54] LABS: CO2 Tension 140.8 mmHg (35.0-45.0); O2 Tension (PaO2) 51.5 mmHg (80.0-100.0); Puncture Site RRA
--- NOTE | 2019-02-15 02:57 | HP ---
CHIEF COMPLAINT: Shortness of breath. HISTORY OF PRESENT ILLNESS: The patient is a 33-year-old morbidly obese patient, who presents to the ER with worsening shortness of breath. EMS found the patient to be hypoxic in the 70s at that time. He was given DuoNeb and given some Solu-Medrol and was brought into the hospital. Here, he was put on BiPAP. The patient states that he has been having a cough with fevers for the past 2 to 3 days. He did have nausea and vomiting x2 bouts at home per patient's . When I went to see the patient, patient appeared to be very obtunded at this time. He did wake up on stimulation, however, appeared to be very drowsy. We did a blood gas on this patient. However, before getting the blood gas, the patient had a large bout of emesis at which point we removed him from the BiPAP and patient was more awake and stated that he felt better after vomiting. At this time, an ABG was done which showed hypercapnic hypoxic respiratory failure with a pH of 7.3, which appeared to be around his baseline. The patient then was put back on the BiPAP and his oxygenation was titrated to keep it at least above 90. The patient then appeared to be more obtunded. This time, another ABG was done an hour after, which indicated a worsening pH of 7.1 with a pCO2 of 94 and PO2 of 93. At this time, we had called the cloth shrinking machine operator earlier, left a message. We called the cloth shrinking machine operator again, who recommended to turn down the oxygenation given the fact that he had hypoventilating syndrome, so we spoke with Respiratory Therapy, drove his oxygenation down to his normal baseline, which is baseline hypoxic and we will repeat an ABG. PAST MEDICAL HISTORY: The patient has history of morbid obesity. He is a diabetic. He has hypertension. He has heart failure, EF of 40% to 45%, and sleep apnea. PAST SURGICAL HISTORY: Hernia repair, circumcision and testicle surgery. SOCIAL HISTORY: He drinks socially. Denies any drug use, smoking history. He is a full code and he lives with his girlfriend. ALLERGIES: NO KNOWN DRUG ALLERGIES. MEDICATIONS: He is on: 1. Lasix 40 mg daily. 2. Lisinopril 20 mg daily. 3. Metoprolol 25 mg daily. PHYSICAL EXAMINATION: VITAL SIGNS: Temperature of 98.8, his respirations are 20, his pulse is about 120, blood pressure 160/100. He is currently 93% on 40% FiO2. GENERAL: The patient is awake, alert, and oriented x3, however, is drowsy, easily arousable. HEENT: Normocephalic, atraumatic. No lymphadenopathy noted. Pupils are equal and reactive to light. CV: S1 and S2 present. No murmurs, rubs, or gallops. He is tachycardic. Multiple EKGs indicated sinus tach. LUNGS: Diminished breath sounds. Mild expiratory wheezing. ABDOMEN: Obese. Bowel sounds are present x2. EXTREMITIES: Bilateral +2 lower extremity edema. NEUROVASCULAR: He is able to move all 4 extremities. SKIN: No cuts, lesions or bruises noted. He does have tattooing all over. LABORATORY RESULTS: His WBCs are 9.2, hemoglobin of 14.7, hematocrit of 47.6, his platelets of 151. He does have 13 bands. Chemistry; sodium 138, potassium of 4.1, BUN of 12, creatinine of 1.61. His troponins are mildly elevated. ProBNP of 501. Chest x-ray, it is overpenetrated. Could not really tell, but it looks like possible left lower lobe infiltrate. It is very difficult to say due to body habitus. EKG indicates sinus tach. ASSESSMENT AND PLAN: The patient is a 33-year-old male, who presents to the hospital with shortness of breath. 1. Acute hypoxic hypercapnic respiratory failure, possibly due to his underlying pneumonia. His flu swab was negative. We will start him on broad-spectrum antibiotics, especially that he threw up. We will also cover for anaerobic coverage. I will get an echocardiogram since his last echocardiogram was in 2018, which indicated an EF of 40% to 45%. If this patient's ABGs worse, we will have to intubate this patient. I will also start him on some DuoNeb and IV steroids. 2. Acute on chronic systolic heart failure. The patient's proBNP is elevated but however, he also has chronic kidney disease. He has mild troponin elevation also. This is most likely secondary to type 2 demand related. We will continue to monitor. We will get an echocardiogram. EKG shows sinus tachycardia. 3. Chronic kidney disease stage 3. Again, we will continue to monitor. 4. Sepsis. He does meet some of the criteria for sepsis. He has bandemia. He was pretty tachypneic and he was hypoxic. He had a fever, most likely possible lung source, unclear etiology at this time. 5. Deep venous thrombosis prophylaxis. We will put the patient on SCDs and subcu Lovenox. I have updated the patient's family member about his guarded prognosis. Job ID: [id number]
[2019-02-15] MEDS: Ipratropium Bromide 2.5 ml Neb NEB SCH ×2 (03:17→07:03)
--- NOTE | 2019-02-15 03:41 | CON ---
DATE OF CONSULTATION: HISTORY OF PRESENT ILLNESS: Mr. Cochran is a 33-year-old male with severe obstructive sleep apnea. His does not think he has had a sleep study. He does have CPAP at home that he wears. 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 When she came back to pick him up, an ambulance was there. Apparently, he complained that he was not feeling well, so EMS was called. His saturations were in the 70s. He was placed on BiPAP, presented into the emergency room and ended up vomiting in the emergency room. His 1st blood gas showed a pH of 7.32. He was placed back on BiPAP and a repeat blood gas showed his pH 7.11, CO2 94, PO2 93. I was consulted at this time. I recommended they decrease airway pressures and decrease FiO2. I just spent approximately 35 minutes with him in the emergency room and his pH is up to 7.17, CO2 is 102, his PO2 is 57. Because of his acidemia, his oximetry is under reading with saturations in the low 70s. He is currently on 13/01 with a backup rate of 20 and an FiO2 of 30%. I recommended that we keep these settings and he will be admitted to the critical care unit. PAST MEDICAL HISTORY: 1. Remarkable for multiple emergency department visits. His says he is compliant with his prescription drugs. 2. He has a history of suspected diastolic dysfunction. Echocardiogram in August showed an ejection fraction of 40% to 45%, but it was a very poor quality study , as expected, he had an enlarged right ventricle. 3. Other problems include his obesity, hypertension, diabetes as well as orchiopexy for an undescended testicle and inguinal hernia repair in the past. FAMILY HISTORY: Positive for hypertension. SOCIAL HISTORY: His says he never used drugs, just sold drugs and was arrested for that. REVIEW OF SYSTEMS: Not accurately obtainable. He will awake, but then quickly goes back to sleep. PHYSICAL EXAMINATION: GENERAL: He is in no distress. His exhaled tidal volumes fluctuate between about 280 mL and 420 mL with the above settings. VITAL SIGNS: His blood pressure and pulse are stable. HEAD AND NECK: Remarkable for obesity. LUNGS: Distant and clear. HEART: Regular rhythm. Distant S1 and S2. ABDOMEN: Massive and soft. EXTREMITIES: With stasis changes. LABORATORY DATA: White count is 9.2, hemoglobin 14.7, platelets 151,000. Sodium 138, potassium 4.1, chloride 95, bicarb 34, BUN 12, and creatinine 1.61. IMPRESSION: 1. Obesity hypoventilation syndrome. 2. History of CPAP being prescribed at home. It is unclear whether or not this is auto titrating. His does not think he has ever been to see Dr. Flores in the office, did see him in the hospital last summer. It is impossible to know whether or not he has a retrocardiac infiltrate or infiltrate in his right base. A quality x-ray is impossible given his size. I suspect with current noninvasive ventilatory settings, he will gradually improve. Blood gas can be repeated in the morning. Minute volume is 4-6 L a minute at this time which gave him the blood gas recently dictated with a pH of 7.17, which is up from 7.11. I do not feel at this time he needs to be intubated. Critical care time 45 minutes Job ID: [id number] MTDD
[2019-02-15] MEDS: Propofol 1,000 MG/100 ML VIAL IV PRN ×6 (03:46→22:49)
[2019-02-15 05:22] LABS: #Basophils 0.1 thou/uL (0.0-0.2); #Lymphocytes 0.6 thou/uL (1.20-3.40); #Monocytes 0.7 thou/uL (0.11-0.59); #Neutrophils 5.7 thou/uL (1.40-6.50); %Basophils 1.5 % (0.0-1.0); %Eosinophils 0.2 % (0.0-10.0); %Lymphocytes 8.8 % (21.0-51.0); %Monocytes 9.3 % (0.0-10.0); %Neutrophils 80.3 % (42.0-75.0); Hemoglobin 13.5 g/dL (14.0-18.0); Mean Corpuscular HGB CONC 31.1 g/dL (32.0-36.0); Mean Corpuscular Hemoglobin 26.9 pg (27.0-31.0); Mean Corpuscular Volume 86.5 fL (78.0-98.0); Mean Platelet Volume 9.8 fL (7.4-10.4); Platelet Count 149 thou/uL (130-400); RBC Distribution Width 13.3 % (11.5-14.5); Red Blood Cell (RBC) Count 5.02 mill/uL (4.70-6.10); White Blood Cell (WBC) Count 7.1 thou/uL (4.8-10.8)
--- NOTE | 2019-02-15 05:41 | PDOC.BPN ---
- Brief Progress Note called to evaluate abg result of patient at 10pm 02/14/19 , poc02 up to 140 with ph at 7.07. pt obtunded , on bipap , unaable to arouse even with sternal rub , urgent intubation done with Dr Skaggs help and started on vent , improved follow pco2 to 61 now . s/p transient hypotension with propofol start and improved with IVF boluses
[2019-02-15 05:54] LABS: Bilirubin Negative (Negative); Blood, Urine 2+ (Negative); Clarity Turbid (Clear); Glucose, Urine (Dipstick) Normal (Negative); Leukocyte Negative Leu/uL (Negative); Mucous/LPF Rare LPF (<2+); Nitrite Negative (Negative); Protein, Urine (Dipstick) 300 mg/dL (Neg-Trace); RBC/HPF Greater than 50 HPF (0-3); Squamous Epithelial 0-3 HPF (0-3); Urobilinogen 3 mg/dL (Less than 2)
[2019-02-15 06:05] LABS: Bacteria/HPF 1+ HPF (None Seen); Sperm/HPF Rare HPF (None Seen)
[2019-02-15 06:06] LABS: Unclassified Crystals 3+ HPF (None Seen); Urine Culture Reflex Yes Yes
[2019-02-15 07:49] LABS: Actual Bicarbonate (HCO3a) 29.8 mEq/L (22-28); Base Excess (BEa) 5.1 mEq/L (-2.0 to +3.0); Hemoglobin (Hb) 14.7 g/dL (14.0-18.0); Potassium - ABG Lab 3.83 mmol/L (3.70-5.30); pH, Arterial 7.45 (7.35-7.45)
[2019-02-15 07:50] LABS: O2 Tension (PaO2) 59.7 mmHg (80.0-100.0); Puncture Site RRA
[2019-02-15] MEDS: Enoxaparin Sodium 40 MG/0.4 ML SYRINGE SC SCH (08:36)
[2019-02-15] MEDS ORDERED: Aspirin 300 MG Suppository PR SCH (09:00)
[2019-02-15] MEDS ORDERED: methylPREDNISolone Sod Succ 40 MG VIAL IVP SCH (09:00)
[2019-02-15] MEDS ORDERED: Sodium Chloride 0.9% 1,000 ML IV SCH (09:10)
[2019-02-15] MEDS ORDERED: Furosemide 40 MG/4 ML VIAL SLOW IVP SCH ×2 (09:15→18:00)
[2019-02-15] MEDS ORDERED: Aspirin 81 mg Enteric Coated Tablet PO SCH (09:15)
--- NOTE | 2019-02-15 09:24 | PRG ---
DATE OF SERVICE: 02/15/2019 SERVICE: Pulmonary Medicine. INTERVAL HISTORY: The patient is doing poorly from respiratory standpoint. Oxygen requirements remain quite elevated. He has a very prolonged expiratory phase. Otherwise, there has been no interval change to his condition. He is requiring sedation and cannot provide me with any additional elements of the history. PHYSICAL EXAMINATION: VITAL SIGNS: Afebrile currently. Pulse 88, blood pressure 116/73, respirations 14, saturation 94% on 30% FiO2 on bilevel. GENERAL: The patient is intubated and sedated. HEENT: Normocephalic and atraumatic. Sclerae white. Conjunctivae pink. Oral mucosa is moist without lesions. LUNGS: There is very good air entry and a very prolonged expiratory phase. Extensive wheezing is present. There is also dependent crackles noted. HEART: Normal rate regular. ABDOMEN: Soft, nontender, nondistended, bowel sounds are positive. MUSCULOSKELETAL: No cyanosis or clubbing. There is diffuse 2+ pitting throughout. NEUROLOGIC: Grossly nonfocal. LABORATORY DATA: WBC 7.1, hemoglobin 13.5, platelets 149,000. Neutrophils are 83%. Band count on presentation was 13%. PH 7.45, pCO2 44, PO2 60. This corresponds to a saturation of 92%. Creatinine 1.61, above baseline. Liver function studies are unremarkable. Troponin is gently downtrending to 0.11, BNP 501. Urinalysis is positive for red blood cells and white blood cells with 1+ bacteria. Respiratory virus panel is positive for respiratory syncytial virus A. Blood cultures x2 and influenza are otherwise unremarkable. ASSESSMENT: 1. Acute on chronic hypoxic and hypercapnic respiratory failure. 2. Acute on chronic systolic and diastolic heart failure. 3. Morbid obesity. 4. Obesity hypoventilation syndrome. 5. Acute bronchitis secondary to RSV. DISCUSSION AND PLAN: The patient has a very prolonged expiratory phase and is volume overloaded. We are going to aggressively diurese him. We will continue steroids, nebulized medications, and antibiotics. Begun antibiotics at this time. At this point, his respiratory failure is severe enough that he cannot be considered for liberation from mechanical ventilation. He will likely remain in the ICU for 24 to 48 hours until his fluid status is optimized and the acute bronchitis is treated for another 24 to 48 hours. CRITICAL CARE TIME: 30 minutes. Job ID: [id number]
[2019-02-15] MEDS: methylPREDNISolone Sod Succ 40 MG VIAL IVP SCH ×2 (10:14→19:52)
--- NOTE | 2019-02-15 18:42 | PDOC.HOSPP ---
- Subjective Encounter Date: 02/15/19 Encounter Time: 10:30 non-verbal Subjective: Patient seen and examined for resp failure - on Vent. No overnight events - Objective Vital Signs & Weight: Vital Signs (12 hours) Temp Pulse Resp BP Pulse Ox 02/15/19 16:00 98.7 F 02/15/19 15:33 103 H 86/49 L 02/15/19 13:58 94 02/15/19 12:00 99.3 F 14 02/15/19 10:37 99 115/77 02/15/19 08:00 94 L 02/15/19 07:19 104 H 02/15/19 07:03 88 02/15/19 07:00 98.8 F Weight Admit Weight 429 lb 14.422 oz Weight 429 lb 14.422 oz Most Recent Monitor Data Heart Rate from ECG 110 NIBP 112/73 NIBP BP-Mean 86 Respiration from ECG 15 SpO2 98 I&O: 02/14/19 02/15/19 02/16/19 06:59 06:59 06:59 Intake Total 596 790 Output Total 610 1281 Balance -14 -491 Result Diagrams: 02/15/19 04:56 02/14/19 15:34 Radiology Reviewed by me: Yes (CXR - no infiltrate) EKG Reviewed by me: Yes (Tele SR) Hospitalist ROS - Review of Systems ROS unobtainable: due to mental status - Medication Medications: Active Medications Generic Name Dose Route Start Last Admin Trade Name Freq PRN Reason Stop Dose Admin Albuterol/Ipratropium 3 ml 02/15/19 13:00 02/15/19 13:58 Duoneb NEB 3 ml [id number] BAYLEE Administration Enoxaparin Sodium 40 mg 02/15/19 09:00 02/15/19 08:36 Lovenox SC 40 mg 0900 BAYLEE Administration Furosemide 40 mg 02/15/19 18:00 02/15/19 17:00 Lasix SLOW IVP 02/15/19 20:00 40 mg 1800 BAYLEE Administration Azithromycin 500 mg/ Sodium 250 mls @ 250 mls/hr 02/14/19 17:00 02/15/19 16: 59 Chloride IVPB 250 mls Q24HR BAYLEE Administration Piperacillin Sod/Tazobactam 100 mls @ 200 mls/hr 02/14/19 23:59 02/15/19 17: 00 Sod 3.375 gm/ Sodium Chloride IVPB 100 mls Q6HR BAYLEE Administration Methylprednisolone Sodium Succinate 40 mg 02/15/19 09:15 02/15/19 10:14 Solu-Medrol IVP Not Given Q12H BAYLEE Propofol 1,000 mg 02/14/19 23:06 02/15/19 15:16 Diprivan IV 03/16/19 23:06 1,000 mg INF PRN Administration TO ACHIEVE GOAL RASS Protocol - Exam General Appearance: NAD Heart: RRR, no gallops, no rubs Respiratory: normal chest expansion, rales, rhonchi, wheezes Gastrointestinal: soft, normal bowel sounds, no guarding, no rigidity Extremities: no cyanosis Hosp A/P - Plan DVT proph w/lovenox, DVT proph w/SCDs Acute hypoxic hypercapneic resp failure Acute on chronic systolic/diastolic HF Sepsis due to RSV bronchitis Morbid Obesity BMI 56.7 CKD 3 Type 2 MD Obesity hypoventilation syndrome PLAN: Cont IV Steroids/Lasix Cont Atbx AM labs Cont Vent support Cont other meds
[2019-02-15] MEDS: Famotidine 20 MG TAB PO SCH (19:51)
[2019-02-15] MEDS ORDERED: FLU VACC QS2019-20(6MOS UP)/PF 60 MCG/0.5 ML SYRINGE IM ONE (21:00)
[2019-02-16] MEDS: Lorazepam 2 MG/ML VIAL SLOW IVP PRN ×5 (01:19→14:17)
[2019-02-16] MEDS: Propofol 1,000 MG/100 ML VIAL IV PRN ×8 (01:40→23:59)
[2019-02-16 04:13] LABS: #Lymphocytes 0.4 thou/uL (1.20-3.40); #Neutrophils 9.8 thou/uL (1.40-6.50); %Eosinophils 0.1 % (0.0-10.0); %Lymphocytes 3.9 % (21.0-51.0); Hemoglobin 13.3 g/dL (14.0-18.0); Mean Corpuscular HGB CONC 30.4 g/dL (32.0-36.0); Mean Corpuscular Hemoglobin 26.8 pg (27.0-31.0); Mean Corpuscular Volume 88.1 fL (78.0-98.0); Mean Platelet Volume 10.2 fL (7.4-10.4); Platelet Count 170 thou/uL (130-400); RBC Distribution Width 13.7 % (11.5-14.5); Red Blood Cell (RBC) Count 4.99 mill/uL (4.70-6.10); White Blood Cell (WBC) Count 11.2 thou/uL (4.8-10.8)
[2019-02-16 04:39] LABS: Anion Gap 18 mmol/L (10-20); BUN (Urea Nitrogen) 31 mg/dL (8.9-20.6); Calc. Creatinine Clearance 113 mL/min (70-130); Calcium 8.2 mg/dL (7.8-10.44); Carbon Dioxide 29 mmol/L (22-29); Chloride 98 mmol/L (98-107); Estimated GFR-MDRD 35; Glucose 183 mg/dL (70-105); Magnesium 1.6 mg/dL (1.6-2.6); Phosphorus 6.8 mg/dL (2.3-4.7); Potassium 4.9 mmol/L (3.5-5.1); Sodium 140 mmol/L (136-145)
[2019-02-16] MEDS: Piperacillin/Tazobactam 3.375 GM in Sodium Chloride 0.9% 100 ML IVPB SCH ×4 (05:07→23:28)
[2019-02-16] MEDS: Furosemide 40 MG/4 ML VIAL SLOW IVP SCH (05:08)
[2019-02-16] MEDS ORDERED: Famotidine/PF 20 mg/2ml Vial SLOW IVP SCH (09:00)
[2019-02-16] MEDS: methylPREDNISolone Sod Succ 40 MG VIAL IVP SCH ×2 (09:40→20:47)
[2019-02-16] MEDS: Aspirin Chewable 81 MG TAB PER TUBE SCH (09:41)
[2019-02-16] MEDS: Famotidine 20 MG TAB PO SCH (09:42)
[2019-02-16] MEDS: Enoxaparin Sodium 40 MG/0.4 ML SYRINGE SC SCH (09:42)
--- NOTE | 2019-02-16 14:07 | PRG ---
DATE OF SERVICE: 02/16/2019 SERVICE: Pulmonary Medicine. INTERVAL HISTORY: The patient is doing okay from a respiratory standpoint. His oxygen requirements remained quite elevated. He has significant dyssynchrony on the mechanical ventilator on the high/low. Otherwise, there has been no interval change to his condition. PHYSICAL EXAMINATION: VITAL SIGNS: Afebrile with a T-max of 99.9, pulse 112, blood pressure 101/65, respirations 13, and saturation 91% on 31% of FiO2 and a PEEP of 7. GENERAL: The patient is intubated, sedated. HEENT: Normocephalic and atraumatic. Sclerae white. Conjunctivae pink. Oral mucosa is moist without lesions. LUNGS: There is a slightly improved air entry, although prolonged expiratory phase remains. Polyphonic wheezing is noted as well as dependent crackles. HEART: Normal rate, regular. ABDOMEN: Soft, nontender, and nondistended. Bowel sounds are positive. MUSCULOSKELETAL: No cyanosis or clubbing. There is 1+ to 2+ pitting in bilateral lower extremities. NEUROLOGIC: Grossly nonfocal. LABORATORY DATA: WBC 11.2, hemoglobin 13.3, and platelets 170,000. Creatinine 2.59 and gently up trending. Basic metabolic profile is otherwise unremarkable. Phosphorus 6.8, magnesium 1.6. TSH falls within normal limits at 0.8. Respiratory syncytial virus is present on the respiratory virus panel. Influenza A and B, blood cultures x2, and urine culture remain negative. IMAGING STUDIES: Echocardiogram demonstrates reduced ejection fraction and diastolic dysfunction. ASSESSMENT: 1. Acute on chronic hypoxic and hypercapnic respiratory failure. 2. Acute on chronic systolic and diastolic heart failure. 3. Acute bronchitis secondary to respiratory syncytial virus. 4. Obesity hypoventilation syndrome. DISCUSSION AND PLAN: The patient is requiring way too much ventilator support in order to even consider extubation. We will continue steroids, nebulized medications, antibiotics while we aggressively diurese him through time. His creatinine has gone up, though I believe his kidney function has improved significantly as his urine output is starting to pear picker. As such, I do think that we will continue with his daily doses of Lasix. Our goal will be to get him net negative 1 to 2 L over the next 24 hours. Pulmonary/Critical Care will follow very closely. CRITICAL CARE TIME: 30 minutes. Job ID: [id number]
[2019-02-16] MEDS: fentaNYL Citrate/PF 2,000 MCG in Sodium Chloride 0.9% 60 ML IV SCH (14:52)
[2019-02-16] MEDS ORDERED: Acetaminophen 325 MG/10.15 ML UDCUP PER TUBE PRN (14:54)
[2019-02-16] MEDS ORDERED: Rocuronium Bromide 50 MG/5 ML VIAL ONE (16:13)
[2019-02-16] MEDS ORDERED: Rocuronium Bromide 50 MG/5 ML VIAL IVP SCH (16:30)
[2019-02-16] MEDS: Azithromycin 500 MG in Sodium Chloride 0.9% 250 ML 250 ML IVPB SCH (16:55)
--- NOTE | 2019-02-16 17:42 | PDOC.HOSPP ---
- Subjective Encounter Date: 02/16/19 Encounter Time: 17:40 non-verbal (intubated) Subjective: Intubated and sedated, discussed with nursing who reports requiring increasing doses of propofol and likely second agent, biting down on tube occasionally. Vitals tachycardic, otherwise no acute issues today. Patient and all problems new to me. - Objective Vital Signs & Weight: Vital Signs (12 hours) Temp Pulse Resp BP Pulse Ox 02/16/19 14:48 114 H 117/64 02/16/19 14:00 13 02/16/19 13:02 109 H 101/65 02/16/19 13:01 112 H 13 91 L 02/16/19 12:00 99.9 F H 02/16/19 10:24 112 H 104/62 02/16/19 10:00 13 02/16/19 08:00 13 93 L 02/16/19 07:00 99.3 F 96 103/62 02/16/19 06:58 95 13 93 L 02/16/19 06:00 13 Weight Admit Weight 429 lb 14.422 oz Weight 429 lb 14.422 oz Most Recent Monitor Data Heart Rate from ECG 110 NIBP 101/59 NIBP BP-Mean 73 Respiration from ECG 6 SpO2 91 I&O: 02/15/19 02/16/19 02/17/19 06:59 06:59 06:59 Intake Total 596 2033 100 Output Total 610 2536 1035 [facility]14 -503 -935 Result Diagrams: 02/16/19 04:04 02/16/19 04:04 Hospitalist ROS - Medication Medications: Active Medications Generic Name Dose Route Start Last Admin Trade Name Onesimoq PRN Reason Stop Dose Admin Aspirin 81 mg 02/16/19 09:00 02/16/19 09:41 Aspirin Chewable PER TUBE 81 mg DAILY BAYLEE Administration Enoxaparin Sodium 40 mg 02/15/19 09:00 02/16/19 09:42 Lovenox SC 40 mg 0900 BAYLEE Administration Furosemide 40 mg 02/16/19 06:00 02/16/19 05:08 Lasix SLOW IVP 40 mg 0600 BAYLEE Administration Azithromycin 500 mg/ Sodium 250 mls @ 250 mls/hr 02/14/19 17:00 02/15/19 16: 59 Chloride IVPB 250 mls Q24HR BAYLEE Administration Piperacillin Sod/Tazobactam 100 mls @ 200 mls/hr 02/14/19 23:59 02/16/19 13: 36 Sod 3.375 gm/ Sodium Chloride IVPB 100 mls Q6HR BAYLEE Administration Fentanyl Citrate 2,000 mcg/ 100 mls @ 0 mls/hr 02/14/19 23:06 02/16/19 14:52 Sodium Chloride IV 03/16/19 23:06 100 mls INF BAYLEE Administration Protocol Per Protocol Sodium Chloride 1,000 mls @ 0 mls/hr 02/15/19 09:10 02/16/19 14:18 Normal Saline 0.9% IV 1,000 mls .Q0M BAYLEE Administration KVO Lorazepam 2 mg 02/14/19 23:06 02/16/19 14:17 Ativan SLOW IVP 03/16/19 23:06 2 mg Q1H PRN Administration Breakthrough agitation Methylprednisolone Sodium Succinate 40 mg 02/15/19 09:15 02/16/19 09:40 Solu-Medrol IVP 40 mg Q12H BAYLEE Administration Propofol 1,000 mg 02/14/19 23:06 02/16/19 15:05 Diprivan IV 03/16/19 23:06 1,000 mg INF PRN Administration TO ACHIEVE GOAL RASS Protocol Rocuronium Alva 50 mg 02/16/19 16:30 02/16/19 16:27 Zemuron IVP 02/16/19 18:30 Not Given NOW BAYLEE - Exam General - other findings: intubated, sedated, RAAS -2 Eye: PERRL ENT: normocephalic atraumatic, moist mucosa ENT - other findings: ET tube in place Neck: supple, no JVD Neck - other findings: exam limited by habitus somewhat Heart - other findings: tachycardic, regular Respiratory: CTAB, no wheezes, no rales, no ronchi Gastrointestinal: soft, non-tender, non-distended, normal bowel sounds Extremities: no cyanosis, no clubbing, no edema Skin: no lesions, no rashes Neurological - other findings: sedated, brainstem reflexes intact Psychiatric - other findings: unable to evaluate Hosp A/P - Plan Patient is a 33 year old male being treated for: # acute hypoxic and hypercapneic respitatory failure - likely precipitated by RSV infection in the setting of below chronic comorbidities - appreciate pulmonology/critical care assistance with ventilator management, required paralytics for ?bronchospasm - continue diuresis, antibiotics, steroids, neb treatments # acute and chronic systolic and diastolic heart failure - echo reviewed, LA/RA/RV dilation with mild regurgitation, EF 30-40%, continue diuresis # sepsis due to RSV bronchiolitis - PCR negative for flu, positive for RSV A, continue supportive measures as above # CHIVO on CKD III - Cr increased overnight, pulmonlogy believes will recover with diuresis, trend Cr daily and consult nephrology if continues to worsen # type 2 OR - Cr downtrending # morbid obesity, suspected obesity hypoventilation syndrome - noted, manage as above # DVT/GI ppx
[2019-02-16] MEDS: Albuterol Sulfate 2.5 mg/3 ml Neb NEB SCH (18:32)
[2019-02-16] MEDS: Rocuronium Bromide 50 MG/5 ML VIAL IVP PRN ×2 (18:39→22:10)
[2019-02-16] MEDS: Famotidine/PF 20 mg/2ml Vial SLOW IVP SCH (20:49)
[2019-02-17] MEDS: Albuterol Sulfate 2.5 mg/3 ml Neb NEB SCH ×4 (00:20→18:57)
[2019-02-17] MEDS: Propofol 1,000 MG/100 ML VIAL IV PRN ×5 (03:16→20:21)
[2019-02-17 04:06] LABS: #Lymphocytes 0.5 thou/uL (1.20-3.40); #Monocytes 0.9 thou/uL (0.11-0.59); %Basophils 0.1 % (0.0-1.0); %Eosinophils 0.1 % (0.0-10.0); %Lymphocytes 6.2 % (21.0-51.0); %Monocytes 10.3 % (0.0-10.0); %Neutrophils 83.4 % (42.0-75.0); Hemoglobin 13.4 g/dL (14.0-18.0); Mean Corpuscular HGB CONC 30.1 g/dL (32.0-36.0); Mean Corpuscular Hemoglobin 26.7 pg (27.0-31.0); Mean Corpuscular Volume 88.7 fL (78.0-98.0); Mean Platelet Volume 9.9 fL (7.4-10.4); Platelet Count 163 thou/uL (130-400); RBC Distribution Width 13.6 % (11.5-14.5); Red Blood Cell (RBC) Count 5.02 mill/uL (4.70-6.10); White Blood Cell (WBC) Count 8.4 thou/uL (4.8-10.8)
[2019-02-17] MEDS: Rocuronium Bromide 50 MG/5 ML VIAL IVP PRN ×5 (04:14→11:56)
[2019-02-17 04:19] LABS: Phosphorus 5.6 mg/dL (2.3-4.7)
[2019-02-17 04:21] LABS: BUN (Urea Nitrogen) 39 mg/dL (8.9-20.6); Calc. Creatinine Clearance 128 mL/min (70-130); Calcium 8.5 mg/dL (7.8-10.44); Estimated GFR-MDRD 41; Glucose 182 mg/dL (70-105)
[2019-02-17 04:32] LABS: Anion Gap 15 mmol/L (10-20); Carbon Dioxide 34 mmol/L (22-29); Chloride 97 mmol/L (98-107); Potassium 4.8 mmol/L (3.5-5.1); Sodium 141 mmol/L (136-145)
[2019-02-17] MEDS: Furosemide 40 MG/4 ML VIAL SLOW IVP SCH (05:41)
[2019-02-17] MEDS: Piperacillin/Tazobactam 3.375 GM in Sodium Chloride 0.9% 100 ML IVPB SCH ×3 (05:41→17:47)
[2019-02-17 08:11] LABS: Actual Bicarbonate (HCO3a) 36.9 mEq/L (22-28); Base Excess (BEa) 7.8 mEq/L (-2.0 to +3.0); Calcium, Ionized 1.14 mmol/L (1.12-1.30); Carboxyhemoglobin (COHb) 1.9 gm% (0.0-3.0); Hemoglobin (Hb) 14.2 g/dL (14.0-18.0); O2 Tension (PaO2) 77.5 mmHg (80.0-100.0); Potassium - ABG Lab 4.45 mmol/L (3.70-5.30); pH, Arterial 7.32 (7.35-7.45)
[2019-02-17 08:14] LABS: Puncture Site LRA
[2019-02-17] MEDS ORDERED: Propofol 1,000 MG/100 ML VIAL IV ONE (08:28)
[2019-02-17] MEDS ORDERED: Vecuronium 10 MG VIAL ONE (08:29)
[2019-02-17] MEDS: Aspirin Chewable 81 MG TAB PER TUBE SCH (08:37)
[2019-02-17] MEDS: Enoxaparin Sodium 40 MG/0.4 ML SYRINGE SC SCH (08:37)
[2019-02-17] MEDS: Famotidine/PF 20 mg/2ml Vial SLOW IVP SCH (08:37)
[2019-02-17] MEDS: methylPREDNISolone Sod Succ 40 MG VIAL IVP SCH ×2 (08:43→22:01)
[2019-02-17] MEDS: fentaNYL Citrate/PF 2,000 MCG in Sodium Chloride 0.9% 60 ML IV SCH (09:32)
[2019-02-17] MEDS ORDERED: EPINEPHrine 1 MG/10 ML Abboject SYRINGE ONE (10:36)
[2019-02-17] MEDS ORDERED: Sodium Chloride 0.9% (PF) 10 ML VIAL FS PRN (11:27)
[2019-02-17] MEDS: Vecuronium Bromide 50 MG in Sodium Chloride 0.9% 250 ML 250 ML IV SCH ×2 (11:57→17:47)
[2019-02-17] MEDS ORDERED: Pantoprazole 40 MG VIAL IVP SCH ×2 (12:45→21:00)
[2019-02-17] MEDS ORDERED: Acetaminophen 650 MG/20.3 ML UDCUP PER TUBE PRN (14:30)
[2019-02-17] MEDS ORDERED: Magnesium Sulfate 4 GM in Sodium Chloride 0.9% 250 ML 250 ML IVPB SCH (14:30)
--- NOTE | 2019-02-17 14:31 | PRG ---
DATE OF SERVICE: 02/17/2019 SERVICE: Pulmonary Medicine. INTERVAL HISTORY: Overnight, the patient had to be paralyzed on multiple different occasions. It lasted about 2 to 3 hours. As soon as he wakes up from the paralytic, he starts finding the ventilator, no volumes go in. His saturations fall off into the 50s. Additionally, he started having some bloody material come from the NG tube. He cannot provide any additional elements of the history as he is currently sedated and paralyzed. PHYSICAL EXAMINATION: VITAL SIGNS: T-max 100.1, pulse 108, blood pressure 124/82, respirations 11, saturation 93% on 35% FiO2 and a PEEP of 9. GENERAL: The patient is intubated and sedated. He is also paralyzed. HEENT: Normocephalic and atraumatic. Sclerae white. Conjunctivae pink. Oral mucosa is moist without lesions. LUNGS: Decreased air entry. Extensive expiratory wheezing is present. No crackles or rhonchi appreciated today. HEART: Normal rate, regular. ABDOMEN: Soft, nontender, nondistended. Bowel sounds are positive. MUSCULOSKELETAL: No cyanosis or clubbing. There is bilateral 1+ pitting, which is improving slightly. NEUROLOGIC: Grossly nonfocal. LABORATORY DATA: WBC 8.4, hemoglobin 13.4, and platelets 163,000. PH 7.32, pCO2 of 74, and pO2 of 77. Creatinine 2.28, gently downtrending, BUN 39. Basic metabolic profile is otherwise unremarkable/stable. His bicarb has jumped up significantly. Magnesium and phosphorous fall within normal limits. TSH is normal. Respiratory virus panel is positive for RSV. Otherwise, urine culture, blood cultures x2, influenza A and B are negative. ASSESSMENT: 1. Acute on chronic hypoxic and hypercapnic respiratory failure. 2. Acute on chronic systolic and diastolic heart failure. 3. Acute bronchitis secondary to RSV. 4. Obesity hypoventilation syndrome. 5. Gastrointestinal blood loss. DISCUSSION AND PLAN: I will repeat hemoglobin and hematocrit this afternoon to make certain he is not significantly falling off. We will also type and screen him. Protonix will be initiated twice daily and I will place the GI consultation. This is likely NG tube trauma. I will put him on a twice daily Protonix. At this point, we are going to need to initiate a paralytic drip. We will monitor a train of fours. My suspicion is that it is going to take several days for us to recover his lungs. At that point, he will likely be deconditioned to the point of not being able to liberate from mechanical ventilator. The likelihood that he gets through this without a tracheostomy is actually quite low. Multiple adjustments have been made to the ventilator once again. We will continue antibiotics, nebulized medications, and steroids and hopefully within 24 to 48 hours, will be in a better position. Critical care time: 30 minutes. Job ID: [id number] CORY
[2019-02-17 14:59] LABS: Hemoglobin 12.2 g/dL (14.0-18.0)
[2019-02-17] MEDS: Pantoprazole 80 MG, Admixture Fee 1 EACH in Sodium Chloride 0.9% 100 ML IVPB SCH (16:27)
--- NOTE | 2019-02-17 17:03 | OP ---
DATE OF PROCEDURE: 02/17/2019 PROFESSOR COMPUTER SCIENCE SURGEON: None. PROCEDURE PERFORMED: Esophagogastroduodenoscopy with control of hemorrhage. INDICATION: Hematemesis. MEDICATIONS: The patient is on propofol and vecuronium drips, mechanically intubated and pharmacologically sedated and paralyzed in the ICU. FINDINGS: After discussion of the risks, benefits, and alternatives of the procedure, informed consent was obtained and verified. Pre-endoscopic cardiopulmonary examination was satisfactory. Time-out was performed before the procedure started. The procedure was performed at bedside in the intensive care unit. Due to the patient's size, we elected for him to remain in the supine position for the procedure. A Pentax adult therapeutic upper endoscope was placed into the oropharynx and passed through the cricopharyngeus under direct visualization. There was a large amount of fresh blood refluxing up the esophagus. With suction and irrigation, I was able to examine the entire esophagus. The esophageal mucosa appeared normal throughout with a normal-appearing Z-line. There was no evidence of any esophageal varices. The endoscope was advanced into the stomach, where there was a large amount of fresh blood and clot filling up the entire gastric fundus as well as much of the gastric antrum. I spent a long time extensively irrigating and suctioning and attempting to remove all the blood and clots from the stomach. I had some partial with success with this. I was able to completely clear the gastric antrum and most of the gastric body. However, there was a large amount of fresh blood and clot material within the gastric fundus, which simply cannot be suctioned out. Therefore, I was unable to clear the gastric fundus. I was able to examine most of the gastric body and antrum. In the antrum in the pre-pyloric area, there is a deep ulceration with a large visible vessel. This was oozing somewhat and this is felt to be a likely candidate for his significant recent bleeding. I injected around the vessel in 4 quadrant fashion with 10 mL of submucosal epinephrine, with good blanching effect. I then used a 10-[place] bipolar cautery probe to cauterize the visible vessel and the ulcer base. This was accomplished, with good hemostasis achieved. The endoscope was advanced down the pylorus and into the first and second portions of the duodenum, which appeared normal. I then further attempted for some time to clear more clots out of the gastric fundus, but ultimately was unsuccessful, and was unable to clear the fundus. However, there did not appear to be any new active bleeding from within the gastric antrum or body. The upper endoscope was then completely withdrawn and the patient allowed to recover. The patient tolerated the procedure well. There were no immediate postprocedure complications. IMPRESSION: 1. Deep ulceration in the pre-pyloric stomach, with large visible vessel and active oozing. Injected with 10 mL epinephrine and treated with bipolar cautery, with good hemostasis achieved. 2. Gastric fundus full of fresh blood and clots. Unable to completely evacuate clots to clear the gastric fundus. 3. Normal esophagus. 4. Normal duodenum. RECOMMENDATIONS: 1. IV pantoprazole drip. 2. Leave the nasogastric tube out. 3. Trend the hemoglobin and hematocrit, and transfuse as needed. 4. Plan for repeat esophagogastroduodenoscopy in 2 to 3 days, to hopefully clear the gastric fundus and re-evaluate the ulcer site. Job ID: [id number]
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
[2019-02-17] MEDS: Azithromycin 500 MG in Sodium Chloride 0.9% 250 ML 250 ML IVPB SCH (18:18)
--- NOTE | 2019-02-17 18:33 | PDOC.HOSPP ---
- Subjective Encounter Date: 02/17/19 Encounter Time: 10:00 non-verbal Subjective: intubated and sedated. per nursing requiring paralytic drip for agitation despite sedation. Upper GI bleed in NGT this AM, GI did EGD and cauterized a bleeding ulcer. - Objective Vital Signs & Weight: Vital Signs (12 hours) Temp Pulse Resp BP Pulse Ox 02/17/19 18:00 11 L 02/17/19 16:00 99.3 F 11 L 02/17/19 15:56 107 H 127/61 02/17/19 15:52 108 H 11 L 98 02/17/19 14:00 11 L 02/17/19 13:14 111 H 122/80 02/17/19 13:10 109 H 11 L 93 L 02/17/19 12:00 99.8 F H 11 L 02/17/19 11:01 108 H 124/82 02/17/19 10:58 108 H 11 L 97 02/17/19 10:00 11 L 02/17/19 08:01 99 141/78 H 02/17/19 08:00 13 95 02/17/19 07:59 100 13 93 L 02/17/19 07:00 99.0 F Weight Admit Weight 429 lb 14.422 oz Weight 429 lb 14.422 oz Most Recent Monitor Data Heart Rate from ECG 101 NIBP 118/56 NIBP BP-Mean 76 Respiration from ECG 0 SpO2 91 I&O: 02/16/19 02/17/19 02/18/19 06:59 06:59 06:59 Intake Total 2033 1407.7 765 Output Total 3801 1707 0705 [facility]503 -851.3 -2765 Result Diagrams: 02/17/19 23:11 02/17/19 03:41 Hospitalist ROS - Medication Medications: Active Medications Generic Name Dose Route Start Last Admin Trade Name Freq PRN Reason Stop Dose Admin Albuterol Sulfate 2.5 mg 02/16/19 19:00 02/17/19 13:10 Ventolin NEB 2.5 mg [id number] BAYLEE Administration Albuterol/Ipratropium 3 ml 02/16/19 22:00 02/17/19 15:52 Duoneb NEB 3 ml 0400,1000,1600,2200 BAYLEE Administration Azithromycin 500 mg/ Sodium 250 mls @ 250 mls/hr 02/14/19 17:00 02/17/19 18: 18 Chloride IVPB 250 mls Q24HR BAYLEE Administration Piperacillin Sod/Tazobactam 100 mls @ 200 mls/hr 02/14/19 23:59 02/17/19 17: 47 Sod 3.375 gm/ Sodium Chloride IVPB 100 mls Q6HR BAYLEE Administration Fentanyl Citrate 2,000 mcg/ 100 mls @ 0 mls/hr 02/14/19 23:06 02/17/19 09:32 Sodium Chloride IV 03/16/19 23:06 100 mls INF BAYLEE Administration Protocol Per Protocol Sodium Chloride 1,000 mls @ 0 mls/hr 02/15/19 09:10 02/16/19 14:18 Normal Saline 0.9% IV 1,000 mls .Q0M BAYLEE Administration KVO Vecuronium [place] 50 mg/ 250 mls @ 0 mls/hr 02/17/19 11:30 02/17/19 17:47 Sodium Chloride IV 250 mls INF BAYLEE Administration As Directed Pantoprazole Sodium 80 mg/ 100 mls @ 10 mls/hr 02/17/19 15:30 02/17/19 16:27 Miscellaneous Medication 1 IVPB 100 mls each/ Sodium Chloride INF BAYLEE Administration Lorazepam 2 mg 02/14/19 23:06 02/16/19 14:17 Ativan SLOW IVP 03/16/19 23:06 2 mg Q1H PRN Administration Breakthrough agitation Methylprednisolone Sodium Succinate 40 mg 02/15/19 09:15 02/17/19 08:43 Solu-Medrol IVP 40 mg Q12H BAYLEE Administration Propofol 1,000 mg 02/14/19 23:06 02/17/19 17:24 Diprivan IV 03/16/19 23:06 1,000 mg INF PRN Administration TO ACHIEVE GOAL RASS Protocol Rocuronium [place] 50 mg 02/17/19 00:15 02/17/19 11:56 Zemuron IVP 50 mg Q2H PRN Administration .SPONTANEOUS MOVEMENT - Exam General - other findings: intubated, sedated Eye: PERRL ENT: normocephalic atraumatic, moist mucosa ENT - other findings: ET tube in place Neck - other findings: limited by habitus Heart - other findings: tachycardic, regular Respiratory: CTAB, no wheezes, no rales, no ronchi Gastrointestinal: soft, non-tender, non-distended, normal bowel sounds Extremities: no cyanosis, no clubbing Skin: no lesions, no rashes Neurological - other findings: sedated, paralyzed Psychiatric - other findings: unable to eval Hosp A/P - Plan Patient is a 33 year old male being treated for: # acute hypoxic and hypercapneic respitatory failure - likely precipitated by RSV infection in the setting of below chronic comorbidities - appreciate pulmonology/critical care assistance with ventilator management, required paralytics for ?bronchospasm - continue diuresis, antibiotics, steroids, neb treatments # upper GI bleed secondary to gastric ulcer - s/p EGD by Dr Arana 02/17/19, gastric ulcer bleeding and treated with epi and cautery and acheived hemostasis , NGT out, on IV BID PPI # 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
[2019-02-17 23:18] LABS: Hemoglobin 12.6 g/dL (14.0-18.0)
[2019-02-18] MEDS: Propofol 1,000 MG/100 ML VIAL IV PRN ×11 (00:10→23:53)
[2019-02-18] MEDS: Piperacillin/Tazobactam 3.375 GM in Sodium Chloride 0.9% 100 ML IVPB SCH ×5 (00:10→23:53)
[2019-02-18] MEDS: Albuterol Sulfate 2.5 mg/3 ml Neb NEB SCH ×4 (00:37→18:25)
[2019-02-18] MEDS: Pantoprazole 80 MG, Admixture Fee 1 EACH in Sodium Chloride 0.9% 100 ML IVPB SCH ×3 (02:33→20:56)
[2019-02-18] MEDS: fentaNYL Citrate/PF 2,000 MCG in Sodium Chloride 0.9% 60 ML IV SCH ×2 (05:24→22:35)
[2019-02-18 06:32] LABS: Phosphorus 5.1 mg/dL (2.3-4.7)
[2019-02-18 06:33] LABS: Anion Gap 13 mmol/L (10-20); BUN (Urea Nitrogen) 51 mg/dL (8.9-20.6); Calc. Creatinine Clearance 156 mL/min (70-130); Calcium 8.4 mg/dL (7.8-10.44); Carbon Dioxide 35 mmol/L (22-29); Chloride 102 mmol/L (98-107); Estimated GFR-MDRD 51; Glucose 191 mg/dL (70-105); Potassium 5.7 mmol/L (3.5-5.1); Sodium 144 mmol/L (136-145)
[2019-02-18] MEDS: Vecuronium Bromide 50 MG in Sodium Chloride 0.9% 250 ML 250 ML IV SCH ×3 (06:36→20:55)
[2019-02-18 06:44] LABS: #Lymphocytes 0.8 thou/uL (1.20-3.40); #Neutrophils 7.2 thou/uL (1.40-6.50); %Basophils 0.2 % (0.0-1.0); %Eosinophils 0.3 % (0.0-10.0); %Lymphocytes 9.3 % (21.0-51.0); %Monocytes 10.5 % (0.0-10.0); %Neutrophils 79.6 % (42.0-75.0); Hemoglobin 12.5 g/dL (14.0-18.0); Mean Corpuscular Hemoglobin 27.2 pg (27.0-31.0); Mean Corpuscular Volume 90.9 fL (78.0-98.0); Mean Platelet Volume 9.6 fL (7.4-10.4); Platelet Count 169 thou/uL (130-400); RBC Distribution Width 13.5 % (11.5-14.5); Red Blood Cell (RBC) Count 4.58 mill/uL (4.70-6.10); White Blood Cell (WBC) Count 9.1 thou/uL (4.8-10.8)
[2019-02-18] MEDS: methylPREDNISolone Sod Succ 40 MG VIAL IVP SCH ×2 (09:22→20:55)
--- NOTE | 2019-02-18 09:40 | PRG ---
DATE OF SERVICE: 02/18/2019 SUBJECTIVE: No acute events overnight. He passed another melenic stool. His hemoglobin has remained stable, currently at 12.5 after only 1 unit RBC transfusion yesterday. He remains on the ventilator. OBJECTIVE: VITAL SIGNS: Temperature 98.7, pulse 110, blood pressure 127/91, and 98% oxygen saturation on ventilator. GENERAL: Critically ill, on ventilator. HEART: Regular, tachycardia. LUNGS: Clear to auscultation bilaterally. ABDOMEN: Nondistended. Bowel sounds present. EXTREMITIES: No peripheral edema. LABORATORY STUDIES: Hemoglobin 12.5, WBC 9.1, platelets 169. Sodium 144, potassium 5.7, BUN 51, creatinine 1.87, phosphorus 5.1. ASSESSMENT AND PLAN: 1. Gastric ulcer with hemorrhage, status post endoscopic therapy with epinephrine injection and bipolar cautery performed yesterday. 2. Anemia, stable today. 3. Respiratory failure secondary to RSV and obesity hypoventilation syndrome. From a GI bleeding perspective, the patient is doing well this morning. I see no evidence of recurrent bleeding either hemodynamically or with hemoglobin trend. I would keep him on the IV pantoprazole drip for the next day, could transition to 40 mg IV q.12 hours tomorrow if still stable. Given his overall clinical status, if there is no further evidence of overt bleeding going forward, then I think we can probably avoid putting him through the risk of repeat EGD. GI can continue to follow. Job ID: [id number]
--- NOTE | 2019-02-18 12:48 | PRG ---
DATE OF SERVICE: 02/18/2019 SERVICE: Pulmonary Medicine. INTERVAL HISTORY: The patient is doing poorly from respiratory standpoint. He is requiring continuous paralytic drip. He is overbreathing on a train of four and stacks his breath. When he rides on the ventilator, he does not have significant respiratory issues. That being said, he tends to breath stacking and becomes unstable hemodynamically, and from an oxygen standpoint whenever he breathes faster. He cannot provide any additional elements of the history in his current state. Other than intermittent respiratory events , there were no significant overnight events. Yesterday, he had significant blood loss. We have been following his hemoglobins through time, which are remarkably stable. PHYSICAL EXAMINATION: VITAL SIGNS: Afebrile currently. Pulse 113, blood pressure 133/80, respirations 9, saturation 91% on a FiO2 of 40% and PEEP of 9. GENERAL: The patient is intubated and sedated and paralyzed. HEENT: Normocephalic and atraumatic. Sclerae white. Conjunctivae pink. Oral mucosa is moist without lesions. LUNGS: There is poor air entry. There is a very prolonged expiratory phase with rhonchorous sounds. Wheezing is present. No crackles are appreciated. HEART: Normal rate, regular. ABDOMEN: Soft, nontender, nondistended, bowel sounds are positive. MUSCULOSKELETAL: No cyanosis or clubbing. There is no pitting in the bilateral lower extremities. NEUROLOGIC: Grossly nonfocal. LABORATORY DATA: Hemoglobin 12.5 and roughly stable. CBC is otherwise unremarkable. Creatinine 1.87 and gently downtrending, BUN 51, potassium 5.7. Basic metabolic profile is otherwise unremarkable. Phosphorus is 5.1. Respiratory virus panel is positive for RSV. Blood cultures x2, influenza, and urine culture negative to date. ASSESSMENT: 1. Acute on chronic hypoxic and hypercapnic respiratory failure. 2. Acute on chronic systolic and diastolic heart failure (30% EF). 3. Acute bronchitis secondary to RSV. 4. Acute blood loss anemia secondary to bleeding peptic ulcer. 5. Obesity hypoventilation syndrome. 6. Acute kidney injury, improving. DISCUSSION AND PLAN: I believe the BUN is elevated because of GI blood. I do believe the patient remains a touch volume overloaded. I will repeat hemoglobin at 2 o'clock this afternoon. If he demonstrates stability, I will continue in my efforts at diuresing this patient. We are using permissive hypercapnia as a ventilation strategy. As such, heavy sedation and continuous paralytic drip are required. Pulmonary/Critical Care will continue to follow. This patient remains critically ill, and has yet to fully turn the corner. I will continue to follow while the patient remains inhouse. Critical care time: 30 minutes. Job ID: [id number] MTDD
[2019-02-18 14:57] LABS: Hemoglobin 12.6 g/dL (14.0-18.0); Platelet Count 174 thou/uL (130-400)
[2019-02-18] MEDS ORDERED: Furosemide 40 MG/4 ML VIAL SLOW IVP SCH (16:00)
[2019-02-18] MEDS: Azithromycin 500 MG in Sodium Chloride 0.9% 250 ML 250 ML IVPB SCH (16:51)
--- NOTE | 2019-02-18 17:41 | PDOC.HOSPP ---
- Objective Vital Signs & Weight: Vital Signs (12 hours) Temp Pulse Resp Pulse Ox 02/18/19 16:12 120 H 9 L 89 L 02/18/19 16:00 99.9 F H 9 L 02/18/19 14:23 117 H 02/18/19 14:00 9 L 02/18/19 12:56 115 H 9 L 92 L 02/18/19 12:00 99.8 F H 9 L 02/18/19 10:19 114 H 9 L 91 L 02/18/19 10:00 9 L 02/18/19 08:00 98.7 F 9 L 90 L 02/18/19 06:50 107 H 02/18/19 06:00 11 L Weight Admit Weight 429 lb 14.422 oz Weight 429 lb 14.422 oz Most Recent Monitor Data Heart Rate from ECG 120 NIBP 145/76 NIBP BP-Mean 99 Respiration from ECG 9 SpO2 88 I&O: 02/17/19 02/18/19 02/19/19 06:59 06:59 06:59 Intake Total 1407.7 2122 Output Total 2259 4496 960 Balance -851.3 -2374 -960 Result Diagrams: 02/18/19 14:37 02/18/19 05:57 Hospitalist ROS - Medication Medications: Active Medications Generic Name Dose Route Start Last Admin Trade Name Rea PRN Reason Stop Dose Admin Albuterol Sulfate 2.5 mg 02/16/19 19:00 02/18/19 12:56 Ventolin NEB 2.5 mg [id number] BAYLEE Administration Albuterol/Ipratropium 3 ml 02/16/19 22:00 02/18/19 16:12 Duoneb NEB 3 ml 0400,1000,1600,2200 BAYLEE Administration Furosemide 40 mg 02/18/19 16:00 02/18/19 16:45 Lasix SLOW IVP 02/18/19 18:00 40 mg NOW BAYLEE Administration Azithromycin 500 mg/ Sodium 250 mls @ 250 mls/hr 02/14/19 17:00 02/18/19 16: 51 Chloride IVPB 250 mls Q24HR BAYLEE Administration Piperacillin Sod/Tazobactam 100 mls @ 200 mls/hr 02/14/19 23:59 02/18/19 16: 39 Sod 3.375 gm/ Sodium Chloride IVPB 100 mls Q6HR BAYLEE Administration Fentanyl Citrate 2,000 mcg/ 100 mls @ 0 mls/hr 02/14/19 23:06 02/18/19 05:24 Sodium Chloride IV 03/16/19 23:06 100 mls INF BAYLEE Administration Protocol Per Protocol Sodium Chloride 1,000 mls @ 0 mls/hr 02/15/19 09:10 02/16/19 14:18 Normal Saline 0.9% IV 1,000 mls .Q0M BAYLEE Administration KVO Vecuronium [place] 50 mg/ 250 mls @ 0 mls/hr 02/17/19 11:30 02/18/19 11:55 Sodium Chloride IV 250 mls INF BAYLEE Administration As Directed Pantoprazole Sodium 80 mg/ 100 mls @ 10 mls/hr 02/17/19 15:30 02/18/19 11:56 Miscellaneous Medication 1 IVPB 100 mls each/ Sodium Chloride INF BAYLEE Administration Lorazepam 2 mg 02/14/19 23:06 02/16/19 14:17 Ativan SLOW IVP 03/16/19 23:06 2 mg Q1H PRN Administration Breakthrough agitation Methylprednisolone Sodium Succinate 40 mg 02/15/19 09:15 02/18/19 09:22 Solu-Medrol IVP 40 mg Q12H BAYLEE Administration Propofol 1,000 mg 02/14/19 23:06 02/18/19 16:40 Diprivan IV 03/16/19 23:06 1,000 mg INF PRN Administration TO ACHIEVE GOAL RASS Protocol Rocuronium [place] 50 mg 02/17/19 00:15 02/17/19 11:56 Zemuron IVP 50 mg Q2H PRN Administration .SPONTANEOUS MOVEMENT Hosp A/P - Plan Patient is a 33 year old male being treated for: # acute hypoxic and hypercapneic respitatory failure - likely precipitated by RSV infection in the setting of below chronic comorbidities - appreciate pulmonology/critical care assistance with ventilator management, required paralytics for ?bronchospasm - continue diuresis, antibiotics, steroids, neb treatments # upper GI bleed secondary to gastric ulcer - s/p EGD by Dr Arana 02/17/19, gastric ulcer bleeding and treated with epi and cautery and acheived hemostasis , NGT out, on IV BID PPI # 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
--- NOTE | 2019-02-18 18:53 | PDOC.HOSPP ---
- Subjective Encounter Date: 02/18/19 Encounter Time: 18:51 Subjective: CC: respiratory failure intubated and sedated - Objective Vital Signs & Weight: Vital Signs (12 hours) Temp Pulse Resp BP Pulse Ox 02/18/19 18:27 120 H 136/72 02/18/19 18:25 120 H 9 L 90 L 02/18/19 18:00 9 L 02/18/19 16:12 120 H 9 L 89 L 02/18/19 16:00 99.9 F H 9 L 02/18/19 14:23 117 H 02/18/19 14:00 9 L 02/18/19 12:56 115 H 9 L 92 L 02/18/19 12:00 99.8 F H 9 L 02/18/19 10:19 114 H 9 L 91 L 02/18/19 10:00 9 L 02/18/19 08:00 98.7 F 9 L 90 L Weight Admit Weight 429 lb 14.422 oz Weight 429 lb 14.422 oz Most Recent Monitor Data Heart Rate from ECG 120 NIBP 120/68 NIBP BP-Mean 85 Respiration from ECG 6 SpO2 87 I&O: 02/17/19 02/18/19 02/19/19 06:59 06:59 06:59 Intake Total 1407.7 2122 1735 Output Total 2259 7636 1410 Balance -851.3 -2374 325 Result Diagrams: 02/18/19 14:37 02/18/19 05:57 Hospitalist ROS - Medication Medications: Active Medications Generic Name Dose Route Start Last Admin Trade Name Freq PRN Reason Stop Dose Admin Albuterol Sulfate 2.5 mg 02/16/19 19:00 02/18/19 18:25 Ventolin NEB 2.5 mg [id number] BAYLEE Administration Albuterol/Ipratropium 3 ml 02/16/19 22:00 02/18/19 16:12 Duoneb NEB 3 ml 0400,1000,1600,2200 BAYLEE Administration Azithromycin 500 mg/ Sodium 250 mls @ 250 mls/hr 02/14/19 17:00 02/18/19 16: 51 Chloride IVPB 250 mls Q24HR BAYLEE Administration Piperacillin Sod/Tazobactam 100 mls @ 200 mls/hr 02/14/19 23:59 02/18/19 16: 39 Sod 3.375 gm/ Sodium Chloride IVPB 100 mls Q6HR BAYLEE Administration Fentanyl Citrate 2,000 mcg/ 100 mls @ 0 mls/hr 02/14/19 23:06 02/18/19 05:24 Sodium Chloride IV 03/16/19 23:06 100 mls INF BAYLEE Administration Protocol Per Protocol Sodium Chloride 1,000 mls @ 0 mls/hr 02/15/19 09:10 02/16/19 14:18 Normal Saline 0.9% IV 1,000 mls .Q0M BAYLEE Administration KVO Vecuronium [place] 50 mg/ 250 mls @ 0 mls/hr 02/17/19 11:30 02/18/19 11:55 Sodium Chloride IV 250 mls INF BAYLEE Administration As Directed Pantoprazole Sodium 80 mg/ 100 mls @ 10 mls/hr 02/17/19 15:30 02/18/19 11:56 Miscellaneous Medication 1 IVPB 100 mls each/ Sodium Chloride INF BAYLEE Administration Lorazepam 2 mg 02/14/19 23:06 02/16/19 14:17 Ativan SLOW IVP 03/16/19 23:06 2 mg Q1H PRN Administration Breakthrough agitation Methylprednisolone Sodium Succinate 40 mg 02/15/19 09:15 02/18/19 09:22 Solu-Medrol IVP 40 mg Q12H BAYLEE Administration Propofol 1,000 mg 02/14/19 23:06 02/18/19 16:40 Diprivan IV 03/16/19 23:06 1,000 mg INF PRN Administration TO ACHIEVE GOAL RASS Protocol Rocuronium [place] 50 mg 02/17/19 00:15 02/17/19 11:56 Zemuron IVP 50 mg Q2H PRN Administration .SPONTANEOUS MOVEMENT - Exam General - other findings: intubated, sedated Eye: PERRL ENT - other findings: tube in place Neck: supple (limited ex) Neck - other findings: limited exam due to habitus Heart: no murmur, no gallops, no rubs Heart - other findings: regular, tachycardic Respiratory: CTAB, no wheezes, no rales, no ronchi Gastrointestinal: soft, non-tender, non-distended, normal bowel sounds Extremities: no cyanosis, no clubbing Skin: no lesions, no rashes Neurological - other findings: sedated Musculoskeletal: normal tone Psychiatric - other findings: unable to evaluate Hosp A/P - Plan Patient is a 33 year old male being treated for: # acute hypoxic and hypercapneic respitatory failure - likely precipitated by RSV infection in the setting of below chronic comorbidities - appreciate pulmonology/critical care assistance with ventilator management, required paralytics for ?bronchospasm - continue diuresis, antibiotics, steroids, neb treatments - requiring paralytic w/ permissive hypecapnea to encourage diuresis. condition guarded. # upper GI bleed secondary to gastric ulcer - s/p EGD by Dr Arana 02/17/19, gastric ulcer bleeding and treated with epi and cautery and acheived hemostasis , on protonix drip, some melena today # acute and chronic systolic and diastolic heart failure - echo reviewed, LA/RA/RV dilation with mild regurgitation, EF 30-40%, continue diuresis # sepsis due to RSV bronchiolitis - PCR negative for flu, positive for RSV A, continue supportive measures as above # CHIVO on CKD III - Cr improving, appreciate pulmonary interventions # type 2 [place] - troponin downtrending # morbid obesity, suspected obesity hypoventilation syndrome - noted, manage as above # hyperphosphatemia - improving, trend # hyperkalemia - mild, trend daily,consider nephrology consult # DVT/GI ppx
[2019-02-19] MEDS: Albuterol Sulfate 2.5 mg/3 ml Neb NEB SCH ×4 (00:30→18:20)
[2019-02-19] MEDS: Propofol 1,000 MG/100 ML VIAL IV PRN ×8 (00:53→22:57)
[2019-02-19] MEDS: Vecuronium Bromide 50 MG in Sodium Chloride 0.9% 250 ML 250 ML IV SCH ×3 (04:22→21:22)
[2019-02-19 05:25] LABS: #Lymphocytes 1.1 thou/uL (1.20-3.40); #Monocytes 1.4 thou/uL (0.11-0.59); #Neutrophils 8.7 thou/uL (1.40-6.50); %Basophils 0.1 % (0.0-1.0); %Eosinophils 0.2 % (0.0-10.0); %Lymphocytes 9.5 % (21.0-51.0); %Monocytes 12.1 % (0.0-10.0); Hemoglobin 11.9 g/dL (14.0-18.0); Mean Corpuscular HGB CONC 29.9 g/dL (32.0-36.0); Mean Corpuscular Hemoglobin 27.3 pg (27.0-31.0); Mean Corpuscular Volume 91.1 fL (78.0-98.0); Mean Platelet Volume 9.9 fL (7.4-10.4); Platelet Count 190 thou/uL (130-400); RBC Distribution Width 13.5 % (11.5-14.5); Red Blood Cell (RBC) Count 4.37 mill/uL (4.70-6.10); White Blood Cell (WBC) Count 11.1 thou/uL (4.8-10.8)
[2019-02-19 05:30] LABS: Anion Gap 14 mmol/L (10-20); BUN (Urea Nitrogen) 71 mg/dL (8.9-20.6); Calc. Creatinine Clearance 105 mL/min (70-130); Calcium 8.9 mg/dL (7.8-10.44); Carbon Dioxide 34 mmol/L (22-29); Chloride 104 mmol/L (98-107); Estimated GFR-MDRD 32; Glucose 196 mg/dL (70-105); Potassium 5.8 mmol/L (3.5-5.1); Sodium 146 mmol/L (136-145)
[2019-02-19 05:32] LABS: Phosphorus 5.2 mg/dL (2.3-4.7)
[2019-02-19] MEDS: Piperacillin/Tazobactam 3.375 GM in Sodium Chloride 0.9% 100 ML IVPB SCH ×3 (05:35→17:57)
[2019-02-19] MEDS: Furosemide 20 MG/2 ML VIAL IVP SCH (05:35)
[2019-02-19] MEDS: methylPREDNISolone Sod Succ 40 MG VIAL IVP SCH ×2 (08:56→21:22)
[2019-02-19] MEDS ORDERED: Acetaminophen 1,000 MG in Premix Bag 1 BAG IVPB PRN ×2 (09:10→10:03)
--- NOTE | 2019-02-19 09:12 | PDOC.HOSPP ---
- Subjective Encounter Date: 02/19/19 Encounter Time: 09:11 Subjective: CC: respiratory failure Subjective: patient intubated and sedated, on vecuronium drip, had fever overnight to 101. - Objective Vital Signs & Weight: Vital Signs (12 hours) Temp Pulse Resp BP Pulse Ox 02/19/19 08:00 9 L 90 L 02/19/19 07:00 101 F H 02/19/19 06:59 118 H 02/19/19 06:58 118 H 9 L 89 L 02/19/19 06:00 9 L 02/19/19 04:00 100.4 F H 119 H 9 L 87 L 02/19/19 02:34 122 H 112/62 02/19/19 02:00 9 L 02/19/19 00:30 120 H 9 L 88 L 02/19/19 00:00 9 L 02/18/19 23:55 99.9 F H 02/18/19 22:15 122 H 117/59 L 02/18/19 22:11 122 H 9 L 89 L 02/18/19 22:00 9 L Weight Admit Weight 429 lb 14.422 oz Weight 429 lb 14.422 oz Most Recent Monitor Data Heart Rate from ECG 115 NIBP 85/38 NIBP BP-Mean 53 Respiration from ECG 3 SpO2 89 I&O: 02/18/19 02/19/19 02/20/19 06:59 06:59 06:59 Intake Total 2122 3233.7 Output Total 4496 1868 20 Balance -2374 1365.7 -20 Result Diagrams: 02/19/19 05:00 02/19/19 05:00 Hospitalist ROS - Medication Medications: Active Medications Generic Name Dose Route Start Last Admin Trade Name Freq PRN Reason Stop Dose Admin Albuterol Sulfate 2.5 mg 02/16/19 19:00 02/19/19 06:58 Ventolin NEB 2.5 mg [id number] BAYLEE Administration Albuterol/Ipratropium 3 ml 02/16/19 22:00 02/19/19 04:00 Duoneb NEB 3 ml 0400,1000,1600,2200 BAYLEE Administration Furosemide 20 mg 02/19/19 06:00 02/19/19 05:35 Lasix IVP 20 mg 0600 BAYLEE Administration Azithromycin 500 mg/ Sodium 250 mls @ 250 mls/hr 02/14/19 17:00 02/18/19 16: 51 Chloride IVPB 250 mls Q24HR BAYLEE Administration Piperacillin Sod/Tazobactam 100 mls @ 200 mls/hr 02/14/19 23:59 02/19/19 05: 35 Sod 3.375 gm/ Sodium Chloride IVPB 100 mls Q6HR BAYLEE Administration Fentanyl Citrate 2,000 mcg/ 100 mls @ 0 mls/hr 02/14/19 23:06 02/18/19 22:35 Sodium Chloride IV 03/16/19 23:06 100 mls INF BAYLEE Administration Protocol Per Protocol Sodium Chloride 1,000 mls @ 0 mls/hr 02/15/19 09:10 02/16/19 14:18 Normal Saline 0.9% IV 1,000 mls .Q0M BAYLEE Administration KVO Vecuronium [place] 50 mg/ 250 mls @ 0 mls/hr 02/17/19 11:30 02/19/19 04:22 Sodium Chloride IV 250 mls INF BAYLEE Administration As Directed Pantoprazole Sodium 80 mg/ 100 mls @ 10 mls/hr 02/17/19 15:30 02/18/19 20:56 Miscellaneous Medication 1 IVPB 100 mls each/ Sodium Chloride INF BAYLEE Administration Lorazepam 2 mg 02/14/19 23:06 02/16/19 14:17 Ativan SLOW IVP 03/16/19 23:06 2 mg Q1H PRN Administration Breakthrough agitation Methylprednisolone Sodium Succinate 40 mg 02/15/19 09:15 02/19/19 08:56 Solu-Medrol IVP 40 mg Q12H BAYLEE Administration Propofol 1,000 mg 02/14/19 23:06 02/19/19 04:22 Diprivan IV 03/16/19 23:06 1,000 mg INF PRN Administration TO ACHIEVE GOAL RASS Protocol Rocuronium [place] 50 mg 02/17/19 00:15 02/17/19 11:56 Zemuron IVP 50 mg Q2H PRN Administration .SPONTANEOUS MOVEMENT - Exam General - other findings: intubated and sedated Eye: PERRL, anicteric sclera ENT: normocephalic atraumatic, moist mucosa ENT - other findings: ET tube in place Neck: supple Neck - other findings: exam limited by habitus Heart: no murmur, no gallops, no rubs Heart - other findings: tachycardic Respiratory: CTAB, no wheezes, no rales, no ronchi Gastrointestinal: soft, non-tender, non-distended, normal bowel sounds Extremities: no cyanosis, no clubbing Skin: no lesions, no rashes Neurological - other findings: sedated and paralyzed Psychiatric - other findings: unable to evaluate Hosp A/P - Plan Patient is a 33 year old male being treated for: # acute hypoxic and hypercapneic respitatory failure - likely precipitated by RSV infection in the setting of below chronic comorbidities - appreciate pulmonology/critical care assistance with ventilator management - continue diuresis, antibiotics, steroids, neb treatments - requiring paralytic w/ permissive hypercapnea to encourage diuresis. condition guarded. # fever - repeat blood cultures, CXR ordered, IV tylenol due to melena and upper GI bleed leaving poor options to give po or pr # upper GI bleed secondary to gastric ulcer - s/p EGD by Dr Arana 02/17/19, gastric ulcer bleeding and treated with epi and cautery and acheived hemostasis , on protonix drip, some melena reported afterwards, hgb stable # acute and chronic systolic and diastolic heart failure - echo reviewed, LA/RA/RV dilation with mild regurgitation, EF 30-40%, continue diuresis # sepsis due to RSV bronchiolitis - PCR negative for flu, positive for RSV A, continue supportive measures as above # CHIVO on CKD III - Cr improving, appreciate pulmonary interventions # type 2 [place] - troponin downtrending on last check # morbid obesity, suspected obesity hypoventilation syndrome - noted, manage as above # hyperphosphatemia - continues around 5.1-5.2, trend, can discuss nephrology consult with critical care medicine # hyperkalemia - mild, trend daily, consider nephrology consult if pulmonology agrees # hypernatremia - mild, appreciate pulmonology assistance with managing respiratory status # DVT/GI ppx
--- NOTE | 2019-02-19 09:35 | RAD ---
EXAM: XR Chest 1 View PROVIDED CLINICAL HISTORY: Fever COMPARISON: 02/14/2019 FINDINGS: Cardiac silhouette remains enlarged. Endotracheal tube is again seen, tip of which terminates in the region of the thoracic inlet. Enteric catheter is not definitely visualized. New right basilar pleural-parenchymal opacity. No evidence for pneumothorax. IMPRESSION: Development of right basilar pleural and/or parenchymal opacity. Correlate with concerns for pneumoni a.
[2019-02-19] MEDS: Pantoprazole 80 MG, Admixture Fee 1 EACH in Sodium Chloride 0.9% 100 ML IVPB SCH ×2 (09:36→18:10)
[2019-02-19] MEDS: fentaNYL Citrate/PF 2,000 MCG in Sodium Chloride 0.9% 60 ML IV SCH (12:07)
[2019-02-19 12:48] LABS: Actual Bicarbonate (HCO3a) 43.7 mEq/L (22-28); Base Excess (BEa) 8.2 mEq/L (-2.0 to +3.0); Calcium, Ionized 1.26 mmol/L (1.12-1.30); Carboxyhemoglobin (COHb) 2.9 gm% (0.0-3.0); Potassium - ABG Lab 5.72 mmol/L (3.70-5.30)
[2019-02-19 12:59] LABS: pH, Arterial 7.06 (7.35-7.45)
[2019-02-19 13:00] LABS: ALV-art Gradient 83.435 (0-20); CO2 Tension 157.1 mmHg (35.0-45.0); O2 Tension (PaO2) 55.3 mmHg (80.0-100.0); Puncture Site RRAD
[2019-02-19] MEDS ORDERED: Sodium Bicarb 50 MEQ/50 ML VIAL IVP SCH (13:15)
[2019-02-19] MEDS: Sodium Chloride 0.9% 1,000 ML IV SCH (13:34)
--- NOTE | 2019-02-19 13:36 | CON ---
DATE OF CONSULTATION: REASON FOR CONSULTATION: Hyperkalemia. HISTORY OF PRESENT ILLNESS: This is a very pleasant 33-year-old gentleman, who was admitted on February 14 with hypoventilation and respiratory failure. The patient's creatinine was 1.3 on December 20, which increased to 1.6 on February 14. On February 18, it was 1.8, and today it has increased to 2.7. The patient is on IV Lasix. His potassium has also risen. The patient has been hypotensive and tachycardic. The patient is intubated, can give no further history. PAST MEDICAL HISTORY: Significant for respiratory failure, diastolic dysfunction, obstructive sleep apnea, multiple hospitalizations. SOCIAL HISTORY: No alcohol or drug use. FAMILY HISTORY: Negative for ESRD. REVIEW OF SYSTEMS: Unobtainable. PHYSICAL EXAMINATION: CONSTITUTIONAL: The patient is resting, intubated. VITAL SIGNS: Afebrile. Pulse 75, breathing 16, blood pressure was 88/64. GENERAL APPEARANCE AND MENTAL STATUS: Fair. HEAD/NECK: Normocephalic. Atraumatic. EYES: EOMI. No deformity. EARS: Clear. No ulcers. NOSE: Intact. No lesions. MOUTH: Clear. No discharge. THROAT: Clear. No exudate. LUNGS: Clear. No crackles. CARDIAC: S1, S2. No rub. ABDOMEN: Benign. Bowel sounds positive. GENITALIA/RECTUM: The patient has a Rodriguez catheter present. BACK/EXTREMITIES: Edema 4+. NEUROLOGICAL: Could not be obtained. SKIN: LYMPHATICS: LABORATORY DATA: Showed creatinine is 2.7, potassium 5.8, sodium 146. ASSESSMENT AND RECOMMENDATION: 1. Acute kidney injury with chronic kidney disease, most likely due to decreased effective arterial blood volume. We will start the patient on normal saline. 2. Hyperkalemia. We will fix the respiratory acidosis and then decide if the patient will need dialysis. 3. Anemia, stable. Medication based on GFR, appropriate. 4. Multiorgan failure. Overall prognosis is poor. This was discussed with the patient's primary team. Job ID: [id number]
--- NOTE | 2019-02-19 14:16 | PRG ---
DATE OF SERVICE: 02/19/2019 SUBJECTIVE: This is a cross coverage for Dr. Khoa Arana. This is a 33-year-old male, morbidly obese with respiratory failure. He is on the ventilator. He had an EGD done because of GI bleeding. Endoscopy found a large ulceration in the gastric antrum with bleeding. This was controlled with BICAP therapy. He has done well overnight. He is not having any nausea or vomiting. He is passing some stool. The stool is actually more greenish than blackish. Blood culture is stable. Vital signs are actually stable. He had an NG tube before the bleeding and the NG tube is not replaced. He was placed on IV fluids. PHYSICAL EXAMINATION: GENERAL: He is morbidly obese, on the ventilator. VITAL SIGNS: Pulse is 110 per minute. Blood pressure is 92/52. CARDIOVASCULAR: First and second heart sounds are normal. LUNGS: Good air entry on both sides. ABDOMEN: Distended. Firm. Nontender. He has hyperactive bowel sounds. LABORATORY DATA: The lab data today from this morning at 5, hemoglobin is 11.9, hematocrit 39.8, WBC count 11,100. His Chem-7 shows normal lytes, BUN is 71, mostly likely from bleeding, creatinine is 2.78, glucose 196. RECOMMENDATIONS: 1. Continue followup hemoglobin and hematocrit. 2. Continue IV PPI. 3. May replace NG tube . Job ID: [id number]
[2019-02-19 14:34] LABS: Actual Bicarbonate (HCO3a) 39.6 mEq/L (22-28); Calcium, Ionized 1.18 mmol/L (1.12-1.30); Carboxyhemoglobin (COHb) 2.5 gm% (0.0-3.0); Hemoglobin (Hb) 11.2 g/dL (14.0-18.0); Potassium - ABG Lab 4.98 mmol/L (3.70-5.30); pH, Arterial 7.28 (7.35-7.45)
[2019-02-19 14:36] LABS: CO2 Tension 86.6 mmHg (35.0-45.0); Puncture Site RRAD
[2019-02-19] MEDS: Azithromycin 500 MG in Sodium Chloride 0.9% 250 ML 250 ML IVPB SCH (18:01)
[2019-02-19 18:11] LABS: Potassium 4.3 mmol/L (3.5-5.1)
--- NOTE | 2019-02-19 18:21 | PRG ---
DATE OF SERVICE: 02/19/2019 SUBJECTIVE: German Cochran remains mechanically ventilated and paralyzed. He would actually do best if he was in reverse Trendelenburg. Consider the size of his abdomen, but he slides to the bottom of the bed if this is tried. His expiratory phase was a little bit shorter today. OBJECTIVE: LUNGS: Still remarkable for diffuse wheezes. HEART: Regular rhythm. ABDOMEN: Soft. EXTREMITIES: Without any new findings. He has severe lower extremity stasis changes. LABORATORY DATA: A pH this morning was 7.06, CO2 of 157, and pO2 of 55. He was given 3 amps of bicarb after this and his rate has been successfully increased without air trapping. Followup blood gas shows pH of 7.28, CO2 of 86, and pO2 of 61. Potassium is 5.8. As expected with his change in his pH, his potassium went down to 4.9. His white count is 11.1, hemoglobin 11.9, and platelets 190,000. IMPRESSION: 1. Life-threatening obesity. 2. Life-threatening sleep apnea. 3. Renal insufficiency, likely secondary to diuresis in the face of pulmonary hypertension. He will tolerate administration of IV fluids at this point. 4. Chronic systolic and diastolic heart failure. 5. Asthmatic bronchitis. 6. Blood loss anemia, felt to be secondary to ulcer disease. I really cannot see how he is going to do well [facility] without a tracheostomy. He may improve to a point where he can wean without a tracheostomy, but given the severity of his sleep apnea and his life-threatening obesity, a Bovana long tracheostomy tube is probably the best option to help facilitate survival once he is a little more stable. Job ID: [id number]
[2019-02-20] MEDS: Piperacillin/Tazobactam 3.375 GM in Sodium Chloride 0.9% 100 ML IVPB SCH ×5 (00:22→23:51)
[2019-02-20] MEDS: Albuterol Sulfate 2.5 mg/3 ml Neb NEB SCH ×4 (00:31→18:23)
[2019-02-20] MEDS: fentaNYL Citrate/PF 2,000 MCG in Sodium Chloride 0.9% 60 ML IV SCH ×2 (01:23→13:37)
[2019-02-20] MEDS: Propofol 1,000 MG/100 ML VIAL IV PRN ×9 (01:29→23:51)
[2019-02-20] MEDS: Sodium Chloride 0.9% 1,000 ML IV SCH ×2 (04:21→10:07)
[2019-02-20] MEDS: Vecuronium Bromide 50 MG in Sodium Chloride 0.9% 250 ML 250 ML IV SCH ×3 (06:00→22:34)
[2019-02-20] MEDS: Pantoprazole 80 MG, Admixture Fee 1 EACH in Sodium Chloride 0.9% 100 ML IVPB SCH ×2 (06:00→15:11)
[2019-02-20] MEDS: Furosemide 20 MG/2 ML VIAL IVP SCH (06:00)
[2019-02-20 07:03] LABS: Anion Gap 14 mmol/L (10-20); BUN (Urea Nitrogen) 81 mg/dL (8.9-20.6); Calc. Creatinine Clearance 96 mL/min (70-130); Calcium 8.4 mg/dL (7.8-10.44); Carbon Dioxide 32 mmol/L (22-29); Chloride 107 mmol/L (98-107); Estimated GFR-MDRD 29; Glucose 164 mg/dL (70-105); Phosphorus 4.3 mg/dL (2.3-4.7); Potassium 4.2 mmol/L (3.5-5.1); Sodium 149 mmol/L (136-145)
[2019-02-20 07:14] LABS: Actual Bicarbonate (HCO3a) 29.8 mEq/L (22-28); Base Excess (BEa) 3.7 mEq/L (-2.0 to +3.0); CO2 Tension 52.8 mmHg (35.0-45.0); Carboxyhemoglobin (COHb) 1.2 gm% (0.0-3.0); Hemoglobin (Hb) 10.8 g/dL (14.0-18.0); O2 Tension (PaO2) 67.8 mmHg (80.0-100.0); Potassium - ABG Lab 3.96 mmol/L (3.70-5.30); pH, Arterial 7.37 (7.35-7.45)
[2019-02-20 07:29] LABS: #Eosinphils 0.1 thou/uL (0.0-0.7); #Lymphocytes 1.7 thou/uL (1.20-3.40); #Neutrophils 9.5 thou/uL (1.40-6.50); %Basophils 0.1 % (0.0-1.0); %Eosinophils 0.7 % (0.0-10.0); %Lymphocytes 13.4 % (21.0-51.0); %Monocytes 8.5 % (0.0-10.0); %Neutrophils 77.3 % (42.0-75.0); Hemoglobin 11.1 g/dL (14.0-18.0); Mean Corpuscular HGB CONC 31.6 g/dL (32.0-36.0); Mean Corpuscular Hemoglobin 27.7 pg (27.0-31.0); Mean Corpuscular Volume 87.7 fL (78.0-98.0); Mean Platelet Volume 9.5 fL (7.4-10.4); Platelet Count 192 thou/uL (130-400); RBC Distribution Width 13.7 % (11.5-14.5); White Blood Cell (WBC) Count 12.3 thou/uL (4.8-10.8)
[2019-02-20 07:52] LABS: Puncture Site RRAD
[2019-02-20] MEDS: methylPREDNISolone Sod Succ 40 MG VIAL IVP SCH ×2 (08:14→21:02)
--- NOTE | 2019-02-20 12:18 | EKG ---
Test Reason : Blood Pressure : / mmHG Vent. Rate : 128 BPM Atrial Rate : 128 BPM P-R Int : 152 ms QRS Dur : 100 ms QT Int : 306 ms P-R-T Axes : 047 130 025 degrees QTc Int : 446 ms Sinus tachycardia Possible Left atrial enlargement Right axis deviation Abnormal ECG Confirmed by LEAH DAVID (2) on 02/20/2019 12:17:32 PM Referred By: LISHA Confirmed By:LEAH DAVID
[2019-02-20] MEDS: Dextrose 5% in Water 1,000 ML IV SCH (12:41)
--- NOTE | 2019-02-20 14:41 | PRG ---
DATE OF SERVICE: 02/20/2019 SUBJECTIVE: A 33-year-old gentleman being seen for acute kidney injury. The patient is intubated. OBJECTIVE: See above. CONSTITUTIONAL: The patient is resting. VITAL SIGNS: Afebrile. Pulse 65, breathing 16, blood pressure 154/110. GENERAL APPEARANCE AND MENTAL STATUS: Fair. HEAD/NECK: Normocephalic. Atraumatic. EYES: EOMI. No deformity. EARS: Clear. No ulcers. NOSE: Intact. No lesions. MOUTH: Clear. No discharge. THROAT: Clear. No exudate. LUNGS: Clear. No crackles. CARDIAC: S1, S2. No rub. ABDOMEN: Benign. Bowel sounds positive. GENITALIA/RECTUM: Rodriguez absent. BACK/EXTREMITIES: Edema 0+. NEUROLOGICAL: Alert and motor intact. SKIN: LYMPHATICS: LABORATORY DATA: Labs show hemoglobin 11. Potassium is 4.2, sodium 149, creatinine 3.0. ASSESSMENT AND PLAN: 1. Acute kidney injury on chronic kidney disease, most likely due to decreased effective arterial blood volume. Continue hydration. 2. Hypernatremia, continue hydration. 3. Hyperkalemia, resolved. No indication for dialysis at this time. Job ID: [id number]
--- NOTE | 2019-02-20 15:46 | PDOC.HOSPP ---
- Subjective Subjective: Seen and examined. Intubated, sedated, paralyzed. No family at bedside this a.m. - Objective Vital Signs & Weight: Vital Signs (12 hours) Temp Pulse Resp Pulse Ox 02/20/19 12:54 95 14 93 L 02/20/19 12:00 98.5 F 14 02/20/19 10:21 88 02/20/19 10:20 89 18 88 L 02/20/19 10:00 18 02/20/19 08:00 98.5 F 18 88 L 02/20/19 07:50 89 13 96 02/20/19 06:00 18 02/20/19 04:00 98.5 F 18 02/20/19 03:56 90 18 94 L Weight Admit Weight 429 lb 14.422 oz Weight 429 lb 14.422 oz Most Recent Monitor Data Heart Rate from ECG 99 NIBP 156/104 NIBP BP-Mean 121 Respiration from ECG 14 SpO2 94 I&O: 02/19/19 02/20/19 02/21/19 06:59 06:59 06:59 Intake Total 3233.7 4445 535 Output Total 1868 3425 3085 Balance 1365.7 1020 -2550 Result Diagrams: 02/20/19 07:23 02/20/19 06:42 Radiology Reviewed by me: Yes Hospitalist ROS - Review of Systems ROS unobtainable: due to endotracheal tube - Medication Medications: Active Medications Generic Name Dose Route Start Last Admin Trade Name Freq PRN Reason Stop Dose Admin Albuterol Sulfate 2.5 mg 02/16/19 19:00 02/20/19 12:54 Ventolin NEB 2.5 mg [id number] BAYLEE Administration Albuterol/Ipratropium 3 ml 02/16/19 22:00 02/20/19 10:20 Duoneb NEB 3 ml 0400,1000,1600,2200 BAYLEE Administration Furosemide 20 mg 02/19/19 06:00 02/20/19 06:00 Lasix IVP 20 mg 0600 BAYLEE Administration Azithromycin 500 mg/ Sodium 250 mls @ 250 mls/hr 02/14/19 17:00 02/19/19 18: 01 Chloride IVPB 250 mls Q24HR BAYLEE Administration Piperacillin Sod/Tazobactam 100 mls @ 200 mls/hr 02/14/19 23:59 02/20/19 11: 30 Sod 3.375 gm/ Sodium Chloride IVPB 100 mls Q6HR BAYLEE Administration Fentanyl Citrate 2,000 mcg/ 100 mls @ 0 mls/hr 02/14/19 23:06 02/20/19 13:37 Sodium Chloride IV 03/16/19 23:06 100 mls INF BAYLEE Administration Protocol Per Protocol Vecuronium [place] 50 mg/ 250 mls @ 0 mls/hr 02/17/19 11:30 02/20/19 14:43 Sodium Chloride IV 250 mls INF BAYLEE Administration As Directed Pantoprazole Sodium 80 mg/ 100 mls @ 10 mls/hr 02/17/19 15:30 02/20/19 15:11 Miscellaneous Medication 1 IVPB 100 mls each/ Sodium Chloride INF BAYLEE Administration Dextrose/Water 1,000 mls @ 50 mls/hr 02/20/19 12:45 02/20/19 12:41 D5w IV 1,000 mls .Q20H BAYLEE Administration Lorazepam 2 mg 02/14/19 23:06 02/16/19 14:17 Ativan SLOW IVP 03/16/19 23:06 2 mg Q1H PRN Administration Breakthrough agitation Methylprednisolone Sodium Succinate 40 mg 02/15/19 09:15 02/20/19 08:14 Solu-Medrol IVP 40 mg Q12H BAYLEE Administration Propofol 1,000 mg 02/14/19 23:06 02/20/19 15:10 Diprivan IV 03/16/19 23:06 1,000 mg INF PRN Administration TO ACHIEVE GOAL RASS Protocol Rocuronium [place] 50 mg 02/17/19 00:15 02/17/19 11:56 Zemuron IVP 50 mg Q2H PRN Administration .SPONTANEOUS MOVEMENT - Exam Eye: PERRL ENT: normocephalic atraumatic, dry oral mucosa Neck: supple, symmetric, no lymphadenopathy Heart: RRR, no murmur, no gallops, no rubs Respiratory: CTAB, no wheezes, no rales, rhonchi (Few scattered course breath sounds) Gastrointestinal: soft, non-tender, non-distended, no guarding, no rigidity Gastrointestinal - other findings: Obese Extremities: 2+ LE edema Skin: no rashes Neurological - other findings: Limited secondary to sedation/ paralytic agent Musculoskeletal: no muscle wasting Psychiatric: not oriented Psychiatric - other findings: Intubated, sedated, paralyzed Hosp A/P (1) Gastric ulcer with hemorrhage Code(s): K25.4 - CHRONIC OR UNSPECIFIED GASTRIC ULCER WITH HEMORRHAGE Status: Acute (2) Acute respiratory failure Code(s): J96.00 - ACUTE RESPIRATORY FAILURE, UNSP W HYPOXIA OR HYPERCAPNIA Status: Acute (3) Acute on chronic systolic (congestive) heart failure Code(s): I50.23 - ACUTE ON CHRONIC SYSTOLIC (CONGESTIVE) HEART FAILURE Status : Acute (4) DM2 (diabetes mellitus, type 2) Status: Acute (5) Elevated troponin Code(s): R74.8 - ABNORMAL LEVELS OF OTHER SERUM ENZYMES Status: Acute (6) HTN (hypertension) Code(s): I10 - ESSENTIAL (PRIMARY) HYPERTENSION Status: Chronic (7) Morbid obesity with BMI of 50.0-59.9, adult Code(s): E66.01 - MORBID (SEVERE) OBESITY DUE TO EXCESS CALORIES; Z68.43 - BODY MASS INDEX (BMI) 50.0-59.9, ADULT Status: Chronic (8) KAREEM (obstructive sleep apnea) Code(s): G47.33 - OBSTRUCTIVE SLEEP APNEA (ADULT) (PEDIATRIC) Status: Suspected - Plan Plan: Intensive care unit pulmonology/critical-care consultation, recommendations appreciated gastroenterology consultation, recommendations appreciated nephrology consultation, recommendations appreciated vent management breathing trial as able morbid obesity is currently life-threatening, patient will likely require tracheostomy PPI drip per G.I., transition to IV push versus OG when able caution for volume overload continue home medications as able blood pressure control DVT prophylaxis with SCDs no anticoagulation/antiplatelet in the setting of G.I. bleeding
[2019-02-20] MEDS: Azithromycin 500 MG in Sodium Chloride 0.9% 250 ML 250 ML IVPB SCH (16:08)
--- NOTE | 2019-02-20 20:08 | PRG ---
DATE OF SERVICE: 02/20/2019 SUBJECTIVE: This is a 33-year-old black male, who is morbidly obese with respiratory failure. He is on the ventilator. An EGD done by Dr. Khoa Arana two days ago because of GI bleeding. Following the large gastric ulcer, which was controlled with BICAP therapy, he has done well since the procedure. Blood count is very stable. Not passing black tarry stool. He is still on the ventilator, sedated. OBJECTIVE: GENERAL: A morbidly obese, black male, on the vent. VITAL SIGNS: Pulse is 93, blood pressure is 137/93. CARDIOVASCULAR: First and second heart sounds are normal. LUNGS: A few scattered rhonchi. ABDOMEN: Markedly tender, however, it is soft and nontender. LABORATORY DATA: From today CBC; WBC 12,300, hemoglobin 11.1, hematocrit 35, MCV is 87.7. Chem-7 is normal, BUN is 81 and creatinine is 3.04. IMPRESSION: 1. Obesity. 2. Sleep apnea. 3. Respiratory failure. 4. Gastric ulcer bleeding, status post cautery. RECOMMENDATIONS: 1. Continue PPI. 2. May re-put an NG tube hopefully tomorrow on top of the feeding. Job ID: [id number]
--- NOTE | 2019-02-20 21:40 | PRG ---
Critical Care time 30 minutes DATE OF SERVICE: 02/20/2019 SUBJECTIVE: German Cochran remains mechanically ventilated. OBJECTIVE: VITAL SIGNS: He is afebrile. Respiratory rate ranges from 18 to 14 this morning, oximetry is 93, and blood pressure is 148/95. LUNGS: Remarkable for expiratory wheezes diffusely. HEART: Regular rhythm. ABDOMEN: Soft and massive. EXTREMITIES: With stasis changes. LABORATORY DATA: White count is 12.3, hemoglobin 11.1, and platelets 192. Sodium 149, potassium 4.2, chloride 107, bicarb 32, BUN 81, and creatinine 3.04. IMPRESSION: 1. Respiratory failure. 2. Probably inadequately treated sleep apnea. 3. Reactive airways. 4. Acute on chronic kidney disease with a creatinine that went from 1.87 on the to 3.04 today. I suspect this is related to diuresis over the 3 days between the , , and . He has had a positive fluid balance to the total of 2385 mL in the last 2 days. I am hoping his creatinine will stabilize. There is no indication for dialysis. His potassium came down with bicarb and IV fluids yesterday. We will continue to follow. At some point in time, he will likely need a tracheostomy. Job ID: [id number] [facility]
[2019-02-21] MEDS: Pantoprazole 80 MG, Admixture Fee 1 EACH in Sodium Chloride 0.9% 100 ML IVPB SCH ×2 (00:20→09:24)
[2019-02-21] MEDS: Albuterol Sulfate 2.5 mg/3 ml Neb NEB SCH ×3 (00:26→14:04)
[2019-02-21] MEDS: Propofol 1,000 MG/100 ML VIAL IV PRN ×8 (03:08→22:25)
[2019-02-21] MEDS: fentaNYL Citrate/PF 2,000 MCG in Sodium Chloride 0.9% 60 ML IV SCH ×2 (03:56→19:07)
[2019-02-21 04:34] LABS: Anion Gap 12 mmol/L (10-20); BUN (Urea Nitrogen) 70 mg/dL (8.9-20.6); Calc. Creatinine Clearance 130 mL/min (70-130); Calcium 8.7 mg/dL (7.8-10.44); Carbon Dioxide 35 mmol/L (22-29); Chloride 108 mmol/L (98-107); Estimated GFR-MDRD 41; Glucose 210 mg/dL (70-105); Potassium 5.8 mmol/L (3.5-5.1); Sodium 149 mmol/L (136-145)
[2019-02-21 05:13] LABS: Band 2 % (5-11); Hemoglobin 11.5 g/dL (14.0-18.0); Lymphocytes 9 % (21-51); MDiff Complete? YES; Mean Corpuscular HGB CONC 33.8 g/dL (32.0-36.0); Mean Corpuscular Hemoglobin 30.1 pg (27.0-31.0); Mean Platelet Volume 9.9 fL (7.4-10.4); Monocytes 8 % (0-10); Neutrophil 81 % (42-75); Platelet Count 184 thou/uL (130-400); RBC Distribution Width 13.8 % (11.5-14.5); Red Blood Cell (RBC) Count 3.82 mill/uL (4.70-6.10); White Blood Cell (WBC) Count 13.3 thou/uL (4.8-10.8)
[2019-02-21] MEDS: Vecuronium Bromide 50 MG in Sodium Chloride 0.9% 250 ML 250 ML IV SCH ×2 (06:01→08:24)
[2019-02-21] MEDS: Furosemide 20 MG/2 ML VIAL IVP SCH (06:01)
[2019-02-21] MEDS: Piperacillin/Tazobactam 3.375 GM in Sodium Chloride 0.9% 100 ML IVPB SCH ×2 (06:02→11:05)
[2019-02-21] MEDS: methylPREDNISolone Sod Succ 40 MG VIAL IVP SCH ×2 (08:23→20:35)
[2019-02-21] MEDS: Dextrose 5% in Water 1,000 ML IV SCH ×3 (08:23→16:47)
[2019-02-21 09:51] LABS: Actual Bicarbonate (HCO3a) 36.3 mEq/L (22-28); Carboxyhemoglobin (COHb) 1.2 gm% (0.0-3.0); O2 Tension (PaO2) 66.8 mmHg (80.0-100.0); Potassium - ABG Lab 4.48 mmol/L (3.70-5.30); pH, Arterial 7.28 (7.35-7.45)
[2019-02-21 09:52] LABS: CO2 Tension 79.8 mmHg (35.0-45.0); Puncture Site RRA
--- NOTE | 2019-02-21 12:10 | PRG ---
DATE OF SERVICE: 02/21/2019 SUBJECTIVE: A 33-year-old gentleman being seen for acute kidney injury . OBJECTIVE: CONSTITUTIONAL: VITAL SIGNS: , breathing 16, blood pressure . GENERAL APPEARANCE AND MENTAL STATUS: Fair. HEAD/NECK: Normocephalic. Atraumatic. EYES: EOMI. No deformity. EARS: Clear. No ulcers. NOSE: Intact. No lesions. MOUTH: Clear. No discharge. THROAT: Clear. No exudate. LUNGS: Clear. No crackles. CARDIAC: S1, S2. No rub. ABDOMEN: Benign. Bowel sounds positive. GENITALIA/RECTUM: Rodriguez absent. BACK/EXTREMITIES: Edema 0+. NEUROLOGICAL: Alert and motor intact. SKIN: LYMPHATICS: LABORATORY DATA: Hemoglobin 11.5, potassium . ASSESSMENT AND PLAN: 1. . 2. Hypernatremia. Continue D5 water. We will increase . No urgent indication for dialysis. 3. Hyperkalemia . 4. Medication based on GFR appropriate. Job ID: [id number]
--- NOTE | 2019-02-21 13:05 | PRG ---
DATE OF SERVICE: 02/21/2019 SUBJECTIVE: Mr. Cochran had orogastric tube placed. There was a bit of pink-tinged fluid on suctioning. No evidence of melena. Hemoglobin has been stable all weekend. He remains on ventilator, now with some degree of renal failure. OBJECTIVE: VITAL SIGNS: Temperature 97.8, pulse 103, blood pressure 150/90, and 93% oxygen saturation on ventilator. GENERAL: Critically ill, intubated, and sedated. HEART: Regular, tachycardia. LUNGS: Clear to auscultation bilaterally. ABDOMEN: Nontender to palpation. EXTREMITIES: No peripheral edema. LABORATORY STUDIES: Hemoglobin stable at 11.5, WBC 13.3, platelets 184. Sodium 149, potassium 5.8, BUN 70, creatinine 2.25. ASSESSMENT AND PLAN: 1. Gastric ulcer with hemorrhage, status post epinephrine injection and bipolar cautery of visible vessel 4 days ago on 02/17/2019. 2. Anemia, stable. 3. Respiratory failure secondary to RSV, still on ventilator. 4. Acute kidney injury. The patient has had no evidence of significant bleeding since EGD 4 days ago. Continue on IV PPI while intubated, can be at 40 mg IV twice daily. If he is able to be extubated at some point, could transition to oral dosing twice daily. Orogastric tube has been placed, okay to proceed with feeds per dietitian recommendations. GI will sign off, but please call back anytime with questions or concerns. Job ID: [id number]
[2019-02-21] MEDS ORDERED: Albuterol Sulfate 2.5 mg/3 ml Neb NEB PRN ×2 (13:10→14:10)
--- NOTE | 2019-02-21 13:33 | PRG ---
DATE OF SERVICE: 02/21/2019 SERVICE: Pulmonary Medicine. INTERVAL HISTORY: The patient is doing a little bit better from respiratory standpoint. His expiratory time is decreasing significantly. That being said, he still has significant airway obstruction. He cannot provide any additional elements of the history and he has been paralyzed, and sedated overnight. PHYSICAL EXAMINATION: VITAL SIGNS: Afebrile. Blood pressure 153/98, respirations 13, saturation 92% on 41% FiO2 and PEEP of 7. GENERAL: The patient is intubated and sedated. He is also paralyzed. HEENT: Normocephalic and atraumatic. Sclerae white. Conjunctivae pink. Oral mucosa is moist without lesions. LUNGS: Decent air entry. Extensive rhonchi are present today. There is a very prolonged expiratory phase with polyphonic wheezing. Dependent crackles are once again present. HEART: Normal rate and regular. ABDOMEN: Soft, nontender, nondistended. Bowel sounds are positive. MUSCULOSKELETAL: No cyanosis or clubbing. There is diffuse pitting throughout. NEUROLOGIC: Grossly nonfocal. LABORATORY DATA: WBC 13.3, hemoglobin 11.5, platelets 184,000. PH 7.28, pCO2 of 80, PO2 of 66. Creatinine has improved to 2.25, BUN 70. Sodium 149, chloride 108. Urinalysis is unremarkable. All cultures remain negative to date. ASSESSMENT: 1. Acute on chronic hypoxic and hypercapnic respiratory failure. 2. Acute on chronic systolic and diastolic heart failure. 3. Acute bronchitis secondary to RSV. 4. Acute blood loss anemia secondary to peptic ulcer disease. 5. Obesity hypoventilation syndrome. 6. Acute kidney injury. DISCUSSION AND PLAN: The patient is hypernatremic. We will start giving him free water. His free water deficit is over 5 L based on my calculation. I will give him 125 an hour and will make some modifications to this. He remains volume up and will need to continue to diurese him as tolerated through time. At this point, his obstructive airflow limitation is improving. We will see if we can minimize our paralytics and turn a touch of work of breathing over to the patient, though would not surprise me if he does not tolerate this well. Critical care time: 30 minutes. Job ID: [id number] [facility]
--- NOTE | 2019-02-21 16:06 | RAD ---
TREY: Date: 02/21/19 HISTORY: NG tube placement. FINDINGS: This film only includes the upper abdomen. It shows a NG tube which would be in the region of the bod y of the stomach. IMPRESSION: NG tube with tip in body region of the stomach. POS: DELROY
--- NOTE | 2019-02-21 17:50 | PDOC.HOSPP ---
- Subjective Encounter Date: 02/21/19 Encounter Time: 17:45 Subjective: f/u for acute/chronic resp failure, CHF on [facility] ventilation. Remains [facility] ventilated and not weanable. - Objective Vital Signs & Weight: Vital Signs (12 hours) Temp Pulse Resp BP Pulse Ox 02/21/19 16:00 98.4 F 13 02/21/19 14:35 112 H 179/125 H 02/21/19 13:57 13 02/21/19 13:14 100 153/98 H 02/21/19 12:59 13 02/21/19 12:00 14 02/21/19 11:00 97.8 F 02/21/19 10:53 103 H 141/99 H 02/21/19 10:00 14 02/21/19 07:54 14 90 L 02/21/19 07:46 14 02/21/19 07:44 109 H 157/111 H 02/21/19 07:00 97.8 F 02/21/19 06:00 14 Weight Admit Weight 429 lb 14.422 oz Weight 429 lb 14.422 oz Most Recent Monitor Data Heart Rate from ECG 108 NIBP 162/104 NIBP BP-Mean 123 Respiration from ECG 13 SpO2 95 I&O: 02/20/19 02/21/19 02/22/19 06:59 06:59 06:59 Intake Total 4445 3757.0 402 Output Total 3425 5355 3190 Balance 1020 -1598.0 -2788 Result Diagrams: 02/21/19 03:54 02/21/19 03:54 Additional Labs: Microbiology 02/18/19 09:56 Urine feliciano catheter Urine Culture - Final NO GROWTH AT 48 HOURS 02/15/19 06:06 Urine feliciano catheter Urine Culture - Final NO GROWTH AT 36 HOURS 02/14/19 20:10 Nasopharyngeal swab Respiratory Virus Panel (PCR) - Final 02/14/19 16:54 Nasal swab Influenza Types A,B Direct EIA - Final 02/14/19 15:42 Venous blood - Left Arm Blood Culture - Final NO GROWTH IN 5 DAYS 02/14/19 15:34 Venous blood - Right Hand Blood Culture - Final NO GROWTH IN 5 DAYS 02/19/19 09:31 Venous blood - Right Arm Blood Culture - Preliminary NO GROWTH AT 48 HOURS 02/19/19 09:31 Venous blood - Left Hand Blood Culture - Preliminary NO GROWTH AT 48 HOURS Laboratory Tests 02/18/19 02/19/19 02/19/19 05:57 05:00 05:00 WBC 11.1 H Hgb 11.9 L Neutrophils % 78.0 H Neutrophils % (Manual) Sodium 146 H Potassium 5.8 H BUN 71 H Creatinine 2.78 H Phosphorus 5.1 H 02/19/19 02/19/19 02/20/19 05:00 17:47 06:42 WBC Hgb Neutrophils % Neutrophils % (Manual) Sodium 149 H Potassium 4.3 4.2 BUN 81 H Creatinine 3.04 H Phosphorus 5.2 H 4.3 02/20/19 02/21/19 07:23 03:54 WBC 12.3 H Hgb 11.1 L Neutrophils % 77.3 H Neutrophils % (Manual) 81 H Sodium Potassium BUN Creatinine Phosphorus Radiology Reviewed by me: Yes (ABD x-ray - tip of feeding tube in stomach) EKG Reviewed by me: Yes (Tele - sinus tachycardia) Hospitalist ROS - Medication Medications: Active Medications Generic Name Dose Route Start Last Admin Trade Name Freq PRN Reason Stop Dose Admin Furosemide 20 mg 02/19/19 06:00 02/21/19 06:01 Lasix IVP 20 mg 0600 BAYLEE Administration Fentanyl Citrate 2,000 mcg/ 100 mls @ 0 mls/hr 02/14/19 23:06 02/21/19 03:56 Sodium Chloride IV 03/16/19 23:06 100 mls INF BAYLEE Administration Protocol Per Protocol Vecuronium [place] 50 mg/ 250 mls @ 0 mls/hr 02/17/19 11:30 02/21/19 08:24 Sodium Chloride IV 250 mls INF BAYLEE Administration As Directed Dextrose/Water 1,000 mls @ 125 mls/hr 02/21/19 13:16 02/21/19 16:47 D5w IV 1,000 mls .Q8H BAYLEE Administration Lorazepam 2 mg 02/14/19 23:06 02/16/19 14:17 Ativan SLOW IVP 03/16/19 23:06 2 mg Q1H PRN Administration Breakthrough agitation Methylprednisolone Sodium Succinate 40 mg 02/15/19 09:15 02/21/19 08:23 Solu-Medrol IVP 40 mg Q12H BAYLEE Administration Propofol 1,000 mg 02/14/19 23:06 02/21/19 16:46 Diprivan IV 03/16/19 23:06 1,000 mg INF PRN Administration TO ACHIEVE GOAL RASS Protocol Rocuronium [place] 50 mg 02/17/19 00:15 02/17/19 11:56 Zemuron IVP 50 mg Q2H PRN Administration .SPONTANEOUS MOVEMENT - Exam General - other findings: sedate on mech ventilation Eye - other findings: ETT/OGT in place ENT: normocephalic atraumatic, no oropharyngeal lesions Neck: supple, symmetric, no JVD, no thyromegaly Heart: no murmur, no rubs, normal peripheral pulses Heart - other findings: tachycardia, S1, S2 Respiratory - other findings: diminished bilat Gastrointestinal: soft, non-distended, normal bowel sounds, no palpable masses Gastrointestinal - other findings: obese Extremities: no cyanosis, 1+ LE edema Skin: normal turgor, no lesions Neurological - other findings: sedate on mech ventilation Psychiatric: somnolent, lethargic Hosp A/P (1) Acute on chronic respiratory failure with hypoxia and hypercapnia Code(s): J96.21 - ACUTE AND CHRONIC RESPIRATORY FAILURE WITH HYPOXIA; J96.22 - ACUTE AND CHRONIC RESPIRATORY FAILURE WITH HYPERCAPNIA Status: Acute Plan: Continue SIMV per Pulmonology, not weanable currently (2) RSV bronchitis Code(s): J20.5 - ACUTE BRONCHITIS DUE TO RESPIRATORY SYNCYTIAL VIRUS Status: Acute Plan: Continue Solumedrol, mech ventilation (3) Gastric ulcer with hemorrhage Code(s): K25.4 - CHRONIC OR UNSPECIFIED GASTRIC ULCER WITH HEMORRHAGE Status: Acute Plan: s/p Epi injections/cautery, continue Protonix IV, avoid anticoagulation/NSAIDs (4) Acute on chronic systolic (congestive) heart failure Code(s): I50.23 - ACUTE ON CHRONIC SYSTOLIC (CONGESTIVE) HEART FAILURE Status : Acute Plan: Continue Lasix IV, monitor daily weights, I/O's, EF 35-40%, hold LUKAS-i due CHIVO (5) CHIVO (acute kidney injury) Code(s): N17.9 - ACUTE KIDNEY FAILURE, UNSPECIFIED Status: Acute Plan: Avoid nephrotoxic meds and limit contrast exposure, serial monitoring, hold LUKAS- i - Plan continue antibiotics, criminal justice social worker, respiratory therapy, DVT proph w/SCDs Continue critical support Continue Zosyn Continue Solumedrol Start Coreg 12.5mg BID Add Lopressor 5mg IV PRN BP control Starting TF's with Nepro 15ml/h Serial Accuchecks Continue Protonix 40mg IV BID AM lab: BMP, CBC, Mg++, PO3
[2019-02-21] MEDS: Pantoprazole 40 MG VIAL IVP SCH (20:35)
[2019-02-21] MEDS: Carvedilol 6.25 MG TAB PO SCH (20:35)
[2019-02-22] MEDS: Propofol 1,000 MG/100 ML VIAL IV PRN ×8 (01:19→22:54)
[2019-02-22] MEDS: Dextrose 5% in Water 1,000 ML IV SCH ×5 (02:00→22:56)
[2019-02-22 04:52] LABS: Anion Gap 11 mmol/L (10-20); BUN (Urea Nitrogen) 55 mg/dL (8.9-20.6); Calc. Creatinine Clearance 171 mL/min (70-130); Calcium 9.1 mg/dL (7.8-10.44); Carbon Dioxide 36 mmol/L (22-29); Chloride 109 mmol/L (98-107); Estimated GFR-MDRD 57; Glucose 243 mg/dL (70-105); Magnesium 2.1 mg/dL (1.6-2.6); Potassium 5.7 mmol/L (3.5-5.1); Sodium 150 mmol/L (136-145)
[2019-02-22 05:02] LABS: Phosphorus 3.6 mg/dL (2.3-4.7)
[2019-02-22 05:59] LABS: Band 3 % (5-11); Lymphocytes 16 % (21-51); MDiff Complete? YES; Mean Corpuscular Hemoglobin 27.4 pg (27.0-31.0); Mean Corpuscular Volume 88.3 fL (78.0-98.0); Mean Platelet Volume 10.1 fL (7.4-10.4); Monocytes 6 % (0-10); Neutrophil 75 % (42-75); Platelet Count 205 thou/uL (130-400); Red Blood Cell (RBC) Count 4.39 mill/uL (4.70-6.10)
[2019-02-22] MEDS: Furosemide 20 MG/2 ML VIAL IVP SCH (05:59)
[2019-02-22] MEDS: Pantoprazole 40 MG VIAL IVP SCH ×2 (08:07→20:14)
[2019-02-22] MEDS: methylPREDNISolone Sod Succ 40 MG VIAL IVP SCH ×2 (08:07→20:15)
[2019-02-22] MEDS: Carvedilol 6.25 MG TAB PO SCH ×2 (08:07→20:15)
[2019-02-22] MEDS ORDERED: Dextrose 50% Abboject 50 ML SYRINGE SLOW IVP PRN (10:57)
[2019-02-22] MEDS ORDERED: Dextrose 5% in Water 1,000 ML IV PRN (10:57)
[2019-02-22] MEDS: fentaNYL Citrate/PF 2,000 MCG in Sodium Chloride 0.9% 60 ML IV SCH (12:11)
[2019-02-22] MEDS: HumaLOG 300 UNITS/3 ML VIAL SC PRN ×3 (12:35→20:15)
--- NOTE | 2019-02-22 12:38 | PRG ---
DATE OF SERVICE: 02/22/2019 SERVICE: Pulmonary Medicine. INTERVAL HISTORY: The patient is doing a little better from respiratory standpoint. His expiratory flow disease seems to be improving a little bit. He was successfully weaned off paralytic. He cannot provide any additional elements of the history and he is currently fairly heavily sedated. PHYSICAL EXAMINATION: VITAL SIGNS: Afebrile, pulse rate 88, blood pressure 139/92, respirations are 13, saturation 92% on 41% FiO2 and a PEEP of 5. GENERAL: The patient is intubated and sedated. HEENT: Normocephalic and atraumatic. Sclerae are white. Conjunctivae pink. Oral mucosa is moist without lesions. LUNGS: Decent air entry. There is rhonchi and wheezing both present. Dependent crackles are noted. HEART: Normal rate, regular. ABDOMEN: Soft, nontender, and nondistended. Bowel sounds are positive. MUSCULOSKELETAL: No cyanosis or clubbing. No pitting in the bilateral lower extremities. NEUROLOGIC: Grossly nonfocal. LABORATORY DATA: WBC 19.0, hemoglobin 12.0, and platelets are 205,000. Sodium 150, potassium 5.7 and gently downtrending, chloride 109, and bicarb 36. Creatinine has improved to 1.71 and BUN is downtrending to 55. Magnesium and phosphorous fall within the normal limits. Urinalysis is positive for some white blood cells. All culture results remain negative to date. Respiratory virus panel is positive for respiratory syncytial virus. IMAGING DATA: Abdominal x-ray demonstrates NG tube with tip in good position. ASSESSMENT: 1. [id number] hypoxic and hypercapnic respiratory failure. 2. Njagr-fg-[id number] systolic and diastolic heart failure. 3. Acute bronchitis secondary to RSV. 4. Acute blood loss anemia, secondary to peptic ulcer bleed. 5. Obesity hypoventilation syndrome. 6. Acute kidney injury, improving. 7. Hypernatremia, improving. DISCUSSION AND PLAN: The patient remains significantly volume up. As such, we will need to continue to diurese him, but in order to prevent excessive hypernatremia, we will also need to replace free water through time. We were successfully getting him negative 1 to 1.5 L over the last 24 hours. Hopefully, this trend will continue through time. Starting tomorrow, we will consider additional dose of Lasix in the early afternoon, particularly if his sodium start to come back into the normal range. At this point, his oxygen requirements prevent us from extubating him. My fear is that if we are not able to get the tube out within the next 2 to 3 days, he may be too weak to successfully extubate and tracheostomy may be in his near future in early next week. Hopefully, we can avoid that. CRITICAL CARE TIME: 30 minutes. Job ID: [id number]
--- NOTE | 2019-02-22 13:58 | PDOC.HOSPP ---
- Subjective Subjective: Seen and examined. Clinically unchanged. Intubated sedated. Case discussed briefly with door slinger. No family available at bedside this AM. - Objective Vital Signs & Weight: Vital Signs (12 hours) Temp Pulse Resp BP Pulse Ox 02/22/19 13:09 86 139/89 02/22/19 12:00 13 02/22/19 11:00 97.7 F 02/22/19 10:36 93 149/100 H 02/22/19 09:55 13 02/22/19 08:07 141/93 H 02/22/19 07:36 13 92 L 02/22/19 07:20 92 162/110 H 02/22/19 07:00 98.4 F 02/22/19 06:00 13 02/22/19 04:00 98.4 F 13 02/22/19 02:57 91 02/22/19 02:00 13 Weight Admit Weight 429 lb 14.422 oz Weight 429 lb 14.422 oz Most Recent Monitor Data Heart Rate from ECG 85 NIBP 138/90 NIBP BP-Mean 106 Respiration from ECG 13 SpO2 91 I&O: 02/21/19 02/22/19 02/23/19 06:59 06:59 06:59 Intake Total 3757.0 3933 430 Output Total 5355 5245 1790 Balance -1598.0 -1312 -1360 Result Diagrams: 02/22/19 04:30 02/22/19 04:30 Additional Labs: Accuchecks 02/22/19 02/22/19 02/22/19 12:37 09:51 05:52 POC Glucose 228 H 184 H 204 H 02/21/19 20:41 POC Glucose 207 H Radiology Reviewed by me: Yes Hospitalist ROS - Review of Systems ROS unobtainable: due to endotracheal tube - Medication Medications: Active Medications Generic Name Dose Route Start Last Admin Trade Name Freq PRN Reason Stop Dose Admin Albuterol/Ipratropium 3 ml 02/21/19 19:00 02/22/19 13:09 Duoneb NEB 3 ml [id number] BAYLEE Administration Carvedilol 12.5 mg 02/21/19 21:00 02/22/19 08:07 Coreg PO 12.5 mg BID BAYLEE Administration Furosemide 20 mg 02/19/19 06:00 02/22/19 05:59 Lasix IVP 20 mg 0600 BAYLEE Administration Fentanyl Citrate 2,000 mcg/ 100 mls @ 0 mls/hr 02/14/19 23:06 02/22/19 12:11 Sodium Chloride IV 03/16/19 23:06 100 mls INF BAYLEE Administration Protocol Per Protocol Dextrose/Water 1,000 mls @ 150 mls/hr 02/22/19 10:15 02/22/19 10:32 D5w IV Not Given .Q6H40M [facility] Insulin Human Lispro 0 units 02/22/19 10:57 02/22/19 12:35 Humalog SC 3 units .MILD SLIDING SCALE PRN Administration Mild Correctional Scale Lorazepam 2 mg 02/14/19 23:06 02/16/19 14:17 Ativan SLOW IVP 03/16/19 23:06 2 mg Q1H PRN Administration Breakthrough agitation Methylprednisolone Sodium Succinate 40 mg 02/15/19 09:15 02/22/19 08:07 Solu-Medrol IVP 40 mg Q12H BAYLEE Administration Pantoprazole Sodium 40 mg 02/21/19 21:00 02/22/19 08:07 Protonix IVP 40 mg Q12HR BAYLEE Administration Propofol 1,000 mg 02/14/19 23:06 02/22/19 12:11 Diprivan IV 03/16/19 23:06 1,000 mg INF PRN Administration TO ACHIEVE GOAL RASS Protocol Rocuronium [place] 50 mg 02/17/19 00:15 02/17/19 11:56 Zemuron IVP 50 mg Q2H PRN Administration .SPONTANEOUS MOVEMENT - Exam General Appearance: NAD Eye: anicteric sclera ENT: normocephalic atraumatic, moist mucosa Neck: supple, symmetric, no lymphadenopathy Heart: no murmur, no gallops, no rubs Respiratory: no rales, rhonchi (faint), wheezes (few scattered). negative: normal chest expansion (Decreased chest expansion secondary to body habitus) Gastrointestinal: soft, non-tender, non-distended, no guarding, no rigidity Extremities: no clubbing, no edema Skin: no lesions, no rashes Neurological: cranial nerve grossly intact, no focal deficits Musculoskeletal: normal tone, no muscle wasting Psychiatric: not oriented Hosp A/P (1) Gastric ulcer with hemorrhage Code(s): K25.4 - CHRONIC OR UNSPECIFIED GASTRIC ULCER WITH HEMORRHAGE Status: Acute (2) Acute respiratory failure Code(s): J96.00 - ACUTE RESPIRATORY FAILURE, UNSP W HYPOXIA OR HYPERCAPNIA Status: Acute (3) Acute on chronic systolic (congestive) heart failure Code(s): I50.23 - ACUTE ON CHRONIC SYSTOLIC (CONGESTIVE) HEART FAILURE Status : Acute (4) DM2 (diabetes mellitus, type 2) Status: Acute (5) Elevated troponin Code(s): R74.8 - ABNORMAL LEVELS OF OTHER SERUM ENZYMES Status: Acute (6) HTN (hypertension) Code(s): I10 - ESSENTIAL (PRIMARY) HYPERTENSION Status: Chronic (7) Morbid obesity with BMI of 50.0-59.9, adult Code(s): E66.01 - MORBID (SEVERE) OBESITY DUE TO EXCESS CALORIES; Z68.43 - BODY MASS INDEX (BMI) 50.0-59.9, ADULT Status: Chronic (8) KAREEM (obstructive sleep apnea) Code(s): G47.33 - OBSTRUCTIVE SLEEP APNEA (ADULT) (PEDIATRIC) Status: Suspected - Plan Plan: Intensive care unit pulmonology/critical-care consultation, recommendations appreciated gastroenterology consultation, recommendations appreciated nephrology consultation, recommendations appreciated vent management breathing trial as able morbid obesity is currently life-threatening, if unable to safely liberate from vent would require tracheostomy PPI IV BID with protonix WBC up, likely secondary to steroids Afebrile for greater than 48 hours caution for volume overload, in the setting of hypernatremia CHIVO improved continue home medications as able blood pressure control DVT prophylaxis with SCDs no anticoagulation/antiplatelet in the setting of G.I. bleeding
[2019-02-22 16:30] LABS: Anion Gap 11 mmol/L (10-20); BUN (Urea Nitrogen) 48 mg/dL (8.9-20.6); Calc. Creatinine Clearance 177 mL/min (70-130); Calcium 9.1 mg/dL (7.8-10.44); Carbon Dioxide 37 mmol/L (22-29); Chloride 104 mmol/L (98-107); Estimated GFR-MDRD 59; Glucose 249 mg/dL (70-105); Potassium 5.1 mmol/L (3.5-5.1); Sodium 147 mmol/L (136-145)
--- NOTE | 2019-02-22 17:50 | PRG ---
DATE OF SERVICE: 02/22/2019 SUBJECTIVE: A 33-year-old gentleman, being seen for acute kidney injury. The patient remains intubated. OBJECTIVE: VITAL SIGNS: Pulse 95, breathing 16, blood pressure 141/86. GENERAL APPEARANCE AND MENTAL STATUS: Fair. HEAD/NECK: Normocephalic. Atraumatic. EYES: EOMI. No deformity. EARS: Clear. No ulcers. NOSE: Intact. No lesions. MOUTH: Clear. No discharge. THROAT: Clear. No exudate. LUNGS: Clear. No crackles. CARDIAC: S1, S2. No rub. ABDOMEN: Benign. Bowel sounds positive. GENITALIA/RECTUM: Rodriguez absent. BACK/EXTREMITIES: Edema 0+. NEUROLOGICAL: Alert and motor intact. SKIN: LYMPHATICS: LABORATORY DATA: Hemoglobin 12. Sodium 147, potassium 5.1, creatinine 1.6. ASSESSMENT AND PLAN: 1. Acute kidney injury due to acute tubular necrosis, improved. 2. Hypertension, stable. 3. Anemia, stable. 4. Hypernatremia. Continue free water. 5. Hyperkalemia, resolved. 6. No indication for dialysis. We will follow closely. Job ID: [id number]
[2019-02-23] MEDS: HumaLOG 300 UNITS/3 ML VIAL SC PRN ×6 (00:23→20:27)
[2019-02-23] MEDS: Lorazepam 2 MG/ML VIAL SLOW IVP PRN ×2 (01:31→05:33)
[2019-02-23] MEDS: Propofol 1,000 MG/100 ML VIAL IV PRN ×7 (01:55→20:25)
[2019-02-23 04:37] LABS: Phosphorus 3.5 mg/dL (2.3-4.7)
[2019-02-23 04:40] LABS: BUN (Urea Nitrogen) 44 mg/dL (8.9-20.6); Calc. Creatinine Clearance 195 mL/min (70-130); Estimated GFR-MDRD 66; Glucose 262 mg/dL (70-105); Magnesium 1.7 mg/dL (1.6-2.6)
[2019-02-23 04:51] LABS: Anion Gap 14 mmol/L (10-20); Carbon Dioxide 36 mmol/L (22-29); Chloride 101 mmol/L (98-107); Potassium 4.8 mmol/L (3.5-5.1); Sodium 146 mmol/L (136-145)
[2019-02-23] MEDS: Furosemide 20 MG/2 ML VIAL IVP SCH (05:00)
[2019-02-23] MEDS ORDERED: Magnesium 2 GM/50 ML 2 GM in Premix Bag 1 BAG IVPB SCH (05:30)
[2019-02-23 05:31] LABS: Band 7 % (5-11); Hemoglobin 10.8 g/dL (14.0-18.0); Hypochromia SLIGHT = 6-15 cells (100X) (0-5/hpf); Lymphocytes 6 % (21-51); MDiff Complete? YES; Mean Corpuscular HGB CONC 30.8 g/dL (32.0-36.0); Mean Corpuscular Hemoglobin 27.3 pg (27.0-31.0); Mean Corpuscular Volume 88.7 fL (78.0-98.0); Mean Platelet Volume 9.9 fL (7.4-10.4); Monocytes 9 % (0-10); Neutrophil 78 % (42-75); Platelet Count 194 thou/uL (130-400); RBC Distribution Width 13.8 % (11.5-14.5); Red Blood Cell (RBC) Count 3.94 mill/uL (4.70-6.10); White Blood Cell (WBC) Count 14.6 thou/uL (4.8-10.8)
[2019-02-23] MEDS: Scopolamine 1.5 mg/72 hour Patch TD SCH (05:38)
[2019-02-23] MEDS: Dextrose 5% in Water 1,000 ML IV SCH ×3 (05:39→20:25)
--- NOTE | 2019-02-23 06:20 | PRG ---
DATE OF SERVICE: 02/23/2019 SERVICE: Pulmonary Medicine. INTERVAL HISTORY: The patient is doing very well from respiratory standpoint. His expiratory limitation is actually profoundly improved. That being said, whenever we hold sedation, he has significant coughing and sputum. It is severe enough to cause the intermittent desaturation. He cannot provide any additional elements of the history. The profuse watery bowel movements that he has been having are starting to slow down a little bit. Otherwise, there were no significant events. PHYSICAL EXAMINATION: VITAL SIGNS: Afebrile, pulse 104, respirations 17, and saturation 96%, currently on 41% FiO2 and a PEEP of 5. GENERAL: The patient is intubated and sedated. HEENT: Normocephalic and atraumatic. Sclerae white. Conjunctivae pink. Oral mucosa is moist without lesions. LUNGS: Decent air entry. There is a prolonged expiratory phase, which has improved dramatically. HEART: Normal rate. Regular. ABDOMEN: Soft, nontender, and nondistended. Bowel sounds are positive. MUSCULOSKELETAL: No cyanosis or clubbing. There remains diffuse pitting throughout. NEUROLOGIC: Grossly nonfocal. LABORATORY DATA: Sodium is gently downtrending to 146. Creatinine 1.5. Basic metabolic profile is otherwise unremarkable. Magnesium 1.7, phosphorus 3.5. Urinalysis is unremarkable except for hematuria. All culture results are negative, except for the respiratory virus panel. ASSESSMENT: 1. Acute on chronic hypoxic and hypercapnic respiratory failure. 2. Acute on chronic systolic and diastolic heart failure. 3. Acute bronchitis secondary to RSV. 4. Acute blood loss anemia secondary to peptic ulcer disease. 5. Obesity hypoventilation with morbid obesity. 6. Acute kidney injury, improving. 7. Hypernatremia, improving. DISCUSSION AND PLAN: We will continue to diurese the patient slowly through time. I will give him an additional dose of Lasix this afternoon. I will put a scopolamine patch on him. Hopefully, this will drive some secretions. In 24 to 48 hours, his lungs will likely be in a position, where we can consider extubation , but the big question is going to be whether or not he is strong enough to extubate. If he is not, he will likely have a tracheostomy in his near future. Hopefully, we can avoid this, but time will tell. CRITICAL CARE TIME: 30 minutes. Job ID: [id number] [facility]
[2019-02-23] MEDS: fentaNYL Citrate/PF 2,000 MCG in Sodium Chloride 0.9% 60 ML IV SCH (08:26)
[2019-02-23] MEDS: methylPREDNISolone Sod Succ 40 MG VIAL IVP SCH ×2 (10:05→20:28)
[2019-02-23] MEDS: Pantoprazole 40 MG VIAL IVP SCH ×2 (10:05→20:25)
[2019-02-23] MEDS: Carvedilol 6.25 MG TAB PO SCH ×2 (10:05→20:26)
--- NOTE | 2019-02-23 11:30 | PRG ---
DATE OF SERVICE: 02/23/2019 SUBJECTIVE: A 33-year-old gentleman being seen for acute kidney injury. The patient remains intubated. OBJECTIVE: GENERAL: The patient is resting. VITAL SIGNS: breathing 16, blood pressure 145/97. GENERAL APPEARANCE AND MENTAL STATUS: Fair. HEAD/NECK: Normocephalic. Atraumatic. EYES: EOMI. No deformity. EARS: Clear. No ulcers. NOSE: Intact. No lesions. MOUTH: Clear. No discharge. THROAT: Clear. No exudate. LUNGS: Clear. No crackles. CARDIAC: S1, S2. No rub. ABDOMEN: Benign. Bowel sounds positive. GENITALIA/RECTUM: Rodriguez absent. BACK/EXTREMITIES: Edema 0+. NEUROLOGICAL: Alert and motor intact. SKIN: LYMPHATICS: LABORATORY DATA: Hemoglobin of 10.8. Creatinine 1.5. ASSESSMENT AND PLAN: 1. Acute kidney injury due to acute tubular necrosis, improved. 2. Hypertension, stable. 3. Anemia, stable. 4. Hypernatremia. Continue free water. 5. Hyperkalemia, resolved. I will sign off on this patient. Please reconsult as needed. Job ID: [id number]
[2019-02-23] MEDS ORDERED: Furosemide 20 MG/2 ML VIAL SLOW IVP SCH (14:00)
--- NOTE | 2019-02-23 14:13 | PDOC.HOSPP ---
- Subjective Subjective: Seen and examined. Clinically unchanged. Remains on the ventilator intubated and sedated. Discuss case with nursing staff. - Objective Vital Signs & Weight: Vital Signs (12 hours) Temp Pulse Resp BP Pulse Ox 02/23/19 12:00 98.9 F 13 02/23/19 10:31 108 H 145/97 H 02/23/19 10:05 141/94 H 02/23/19 10:00 13 02/23/19 08:00 99.9 F H 13 96 02/23/19 07:09 112 H 26 H 92 L 02/23/19 07:01 105 H 152/95 H 02/23/19 06:00 15 02/23/19 04:00 99.8 F H 13 02/23/19 02:15 93 137/90 Weight Admit Weight 429 lb 14.422 oz Weight 429 lb 14.422 oz Most Recent Monitor Data Heart Rate from ECG 93 NIBP 121/80 NIBP BP-Mean 93 Respiration from ECG 13 SpO2 97 I&O: 02/22/19 02/23/19 02/24/19 06:59 06:59 06:59 Intake Total 3933 5525 Output Total 5218 2674 1611 Balance -6398 091 -1454 Result Diagrams: 02/23/19 03:30 02/23/19 03:30 Additional Labs: Accuchecks 02/23/19 02/23/19 02/23/19 12:21 08:44 03:59 POC Glucose 221 H 204 H 241 H 02/23/19 02/22/19 02/22/19 00:17 19:54 15:36 POC Glucose 206 H 178 H 234 H Radiology Reviewed by me: Yes Hospitalist ROS - Review of Systems ROS unobtainable: due to endotracheal tube - Medication Medications: Active Medications Generic Name Dose Route Start Last Admin Trade Name Freq PRN Reason Stop Dose Admin Albuterol/Ipratropium 3 ml 02/21/19 19:00 02/23/19 07:09 Duoneb NEB 3 ml [id number] BAYLEE Administration Carvedilol 12.5 mg 02/21/19 21:00 02/23/19 10:05 Coreg PO 12.5 mg BID BAYLEE Administration Furosemide 20 mg 02/19/19 06:00 02/23/19 05:00 Lasix IVP 20 mg 0600 BAYLEE Administration Furosemide 20 mg 02/23/19 14:00 02/23/19 13:33 Lasix SLOW IVP 02/23/19 16:00 20 mg 1400 BAYLEE Administration Fentanyl Citrate 2,000 mcg/ 100 mls @ 0 mls/hr 02/14/19 23:06 02/23/19 08:26 Sodium Chloride IV 03/16/19 23:06 100 mls INF BAYLEE Administration Protocol Per Protocol Dextrose/Water 1,000 mls @ 150 mls/hr 02/22/19 10:15 02/23/19 13:32 D5w IV 1,000 mls .Q6H40M BAYLEE Administration Insulin Human Lispro 0 units 02/22/19 10:57 02/23/19 12:23 Humalog SC 3 units .MILD SLIDING SCALE PRN Administration Mild Correctional Scale Lorazepam 2 mg 02/14/19 23:06 02/23/19 05:33 Ativan SLOW IVP 03/16/19 23:06 2 mg Q1H PRN Administration Breakthrough agitation Methylprednisolone Sodium Succinate 40 mg 02/15/19 09:15 02/23/19 10:05 Solu-Medrol IVP 40 mg Q12H BAYLEE Administration Pantoprazole Sodium 40 mg 02/21/19 21:00 02/23/19 10:05 Protonix IVP 40 mg Q12HR BAYLEE Administration Propofol 1,000 mg 02/14/19 23:06 02/23/19 13:32 Diprivan IV 03/16/19 23:06 1,000 mg INF PRN Administration TO ACHIEVE GOAL RASS Protocol Scopolamine 1.5 mg 02/23/19 05:30 02/23/19 05:38 Transderm Scop TD 1.5 mg Q3D BAYLEE Administration - Exam General Appearance: ill appearing Eye: PERRL ENT: normocephalic atraumatic, moist mucosa Neck: supple, symmetric, no lymphadenopathy Heart: no murmur, no gallops, no rubs Heart - other findings: Sinus tachycardia Respiratory: no rales, no tachypnea, rhonchi, wheezes Respiratory - other findings: Decreased pulmonary excursion secondary to body habitus Gastrointestinal: soft, non-tender, no guarding, no rigidity Extremities: 2+ LE edema Skin: no rashes Neurological: cranial nerve grossly intact, no focal deficits Neurological - other findings: Limited secondary to sedation Psychiatric: not oriented Hosp A/P (1) Gastric ulcer with hemorrhage Code(s): K25.4 - CHRONIC OR UNSPECIFIED GASTRIC ULCER WITH HEMORRHAGE Status: Acute (2) Acute respiratory failure Code(s): J96.00 - ACUTE RESPIRATORY FAILURE, UNSP W HYPOXIA OR HYPERCAPNIA Status: Acute (3) Acute on chronic systolic (congestive) heart failure Code(s): I50.23 - ACUTE ON CHRONIC SYSTOLIC (CONGESTIVE) HEART FAILURE Status : Acute (4) DM2 (diabetes mellitus, type 2) Status: Acute (5) Elevated troponin Code(s): R74.8 - ABNORMAL LEVELS OF OTHER SERUM ENZYMES Status: Acute (6) HTN (hypertension) Code(s): I10 - ESSENTIAL (PRIMARY) HYPERTENSION Status: Chronic (7) Morbid obesity with BMI of 50.0-59.9, adult Code(s): E66.01 - MORBID (SEVERE) OBESITY DUE TO EXCESS CALORIES; Z68.43 - BODY MASS INDEX (BMI) 50.0-59.9, ADULT Status: Chronic (8) KAREEM (obstructive sleep apnea) Code(s): G47.33 - OBSTRUCTIVE SLEEP APNEA (ADULT) (PEDIATRIC) Status: Suspected - Plan Plan: Intensive care unit pulmonology/critical-care consultation, recommendations appreciated gastroenterology consultation, recommendations appreciated nephrology consultation, recommendations appreciated vent management breathing trial as able morbid obesity is currently life-threatening, if unable to safely liberate from vent would require tracheostomy PPI IV BID with protonix WBC up, likely secondary to steroids Afebrile for greater than 48 hours caution for volume overload, in the setting of hypernatremia Hypernatremia improving CHIVO improving continue home medications as able blood pressure control DVT prophylaxis with SCDs no anticoagulation/antiplatelet in the setting of G.I. bleeding
[2019-02-24] MEDS: Dextrose 5% in Water 1,000 ML IV SCH ×2 (04:06→14:22)
[2019-02-24] MEDS: HumaLOG 300 UNITS/3 ML VIAL SC PRN ×2 (04:13)
[2019-02-24] MEDS: Furosemide 20 MG/2 ML VIAL IVP SCH (05:08)
[2019-02-24] MEDS: Propofol 1,000 MG/100 ML VIAL IV PRN ×5 (05:10→17:54)
[2019-02-24 05:24] LABS: BUN (Urea Nitrogen) 42 mg/dL (8.9-20.6); Calc. Creatinine Clearance 205 mL/min (70-130); Calcium 8.9 mg/dL (7.8-10.44); Estimated GFR-MDRD 69; Glucose 272 mg/dL (70-105)
[2019-02-24 05:34] LABS: Anion Gap 6 mmol/L (10-20); Chloride 95 mmol/L (98-107); Potassium 4.6 mmol/L (3.5-5.1); Sodium 143 mmol/L (136-145)
[2019-02-24 05:36] LABS: Carbon Dioxide 47 mmol/L (22-29)
[2019-02-24 05:49] LABS: Mean Corpuscular HGB CONC 31.1 g/dL (32.0-36.0); Mean Corpuscular Hemoglobin 27.6 pg (27.0-31.0); Mean Corpuscular Volume 88.6 fL (78.0-98.0); Mean Platelet Volume 10.7 fL (7.4-10.4); Platelet Count 183 thou/uL (130-400); RBC Distribution Width 13.6 % (11.5-14.5); Red Blood Cell (RBC) Count 3.98 mill/uL (4.70-6.10); White Blood Cell (WBC) Count 14.5 thou/uL (4.8-10.8)
[2019-02-24 05:50] LABS: Band 17 % (5-11); Lymphocytes 8 % (21-51); MDiff Complete? YES; Monocytes 7 % (0-10); Neutrophil 68 % (42-75)
[2019-02-24] MEDS: Pantoprazole 40 MG VIAL IVP SCH ×2 (08:08→20:55)
[2019-02-24] MEDS: methylPREDNISolone Sod Succ 40 MG VIAL IVP SCH ×2 (08:08→20:56)
[2019-02-24] MEDS: Carvedilol 6.25 MG TAB PO SCH ×2 (08:08→20:55)
[2019-02-24] MEDS: Insulin Regular 300 UNITS/3 ML VIAL SC PRN ×3 (11:49→21:06)
--- NOTE | 2019-02-24 12:19 | PDOC.HOSPP ---
- Subjective Subjective: Seen and examined. Intubated sedated. No significant clinical change. - Objective Vital Signs & Weight: Vital Signs (12 hours) Temp Pulse Resp BP 02/24/19 11:00 99.7 F H 02/24/19 10:11 96 02/24/19 10:00 13 02/24/19 08:00 13 02/24/19 07:36 99.9 F H 02/24/19 06:31 106 H 02/24/19 06:00 13 02/24/19 04:00 99.8 F H 13 02/24/19 02:20 98 142/105 H 02/24/19 02:00 13 Weight Admit Weight 429 lb 14.422 oz Weight 429 lb 14.422 oz Most Recent Monitor Data Heart Rate from ECG 96 NIBP 135/80 NIBP BP-Mean 98 Respiration from ECG 13 SpO2 95 I&O: 02/23/19 02/24/19 02/25/19 06:59 06:59 06:59 Intake Total 5525 4719.3 143.9 Output Total 5140 5450 1020 Balance 385 -730.7 -876.1 Result Diagrams: 02/24/19 03:55 02/24/19 03:55 Additional Labs: Accuchecks 02/24/19 02/24/19 02/23/19 04:03 00:02 20:27 POC Glucose 254 H 207 H 245 H 02/23/19 02/23/19 15:57 12:21 POC Glucose 247 H 221 H Radiology Reviewed by me: Yes Hospitalist ROS - Review of Systems ROS unobtainable: due to endotracheal tube - Medication Medications: Active Medications Generic Name Dose Route Start Last Admin Trade Name Freq PRN Reason Stop Dose Admin Albuterol/Ipratropium 3 ml 02/21/19 19:00 02/24/19 06:30 Duoneb NEB 3 ml [id number] BAYLEE Administration Carvedilol 12.5 mg 02/21/19 21:00 02/24/19 08:08 Coreg PO 12.5 mg BID BAYLEE Administration Furosemide 20 mg 02/19/19 06:00 02/24/19 05:08 Lasix IVP 20 mg 0600 BAYLEE Administration Fentanyl Citrate 2,000 mcg/ 100 mls @ 0 mls/hr 02/14/19 23:06 02/23/19 08:26 Sodium Chloride IV 12/18/19 23:06 100 mls INF BAYLEE Administration Protocol Per Protocol Dextrose/Water 1,000 mls @ 150 mls/hr 02/22/19 10:15 02/24/19 04:06 D5w IV 1,000 mls .Q6H40M BAYLEE Administration Insulin Human Regular 0 units 02/24/19 08:59 02/24/19 11:49 Humulin R SC 4 unit .MODERATE SLIDING SC PRN Administration Moderate Correctional Scale Lorazepam 2 mg 02/14/19 23:06 02/23/19 05:33 Ativan SLOW IVP 03/16/19 23:06 2 mg Q1H PRN Administration Breakthrough agitation Methylprednisolone Sodium Succinate 40 mg 02/15/19 09:15 02/24/19 08:08 Solu-Medrol IVP 40 mg Q12H BAYLEE Administration Pantoprazole Sodium 40 mg 02/21/19 21:00 02/24/19 08:08 Protonix IVP 40 mg Q12HR BAYLEE Administration Propofol 1,000 mg 02/14/19 23:06 02/24/19 09:25 Diprivan IV 03/16/19 23:06 1,000 mg INF PRN Administration TO ACHIEVE GOAL RASS Protocol Scopolamine 1.5 mg 02/23/19 05:30 02/23/19 05:38 Transderm Scop TD 1.5 mg Q3D BAYLEE Administration - Exam General Appearance: ill appearing Eye: PERRL ENT: normocephalic atraumatic, no oropharyngeal lesions, moist mucosa Neck: supple Heart: no murmur, no gallops, no rubs Heart - other findings: Sinus tachycardia Respiratory: no rales, no tachypnea, rhonchi, wheezes Respiratory - other findings: Decreased pulm excursion secondary to body habitus Gastrointestinal: soft, normal bowel sounds, no guarding, no rigidity Extremities: 2+ LE edema Skin: no lesions, no rashes Neurological: cranial nerve grossly intact, no weakness Musculoskeletal: no muscle wasting Psychiatric: not oriented Hosp A/P (1) Gastric ulcer with hemorrhage Code(s): K25.4 - CHRONIC OR UNSPECIFIED GASTRIC ULCER WITH HEMORRHAGE Status: Acute (2) Acute respiratory failure Code(s): J96.00 - ACUTE RESPIRATORY FAILURE, UNSP W HYPOXIA OR HYPERCAPNIA Status: Acute (3) Acute on chronic systolic (congestive) heart failure Code(s): I50.23 - ACUTE ON CHRONIC SYSTOLIC (CONGESTIVE) HEART FAILURE Status : Acute (4) DM2 (diabetes mellitus, type 2) Status: Acute (5) Elevated troponin Code(s): R74.8 - ABNORMAL LEVELS OF OTHER SERUM ENZYMES Status: Acute (6) HTN (hypertension) Code(s): I10 - ESSENTIAL (PRIMARY) HYPERTENSION Status: Chronic (7) Morbid obesity with BMI of 50.0-59.9, adult Code(s): E66.01 - MORBID (SEVERE) OBESITY DUE TO EXCESS CALORIES; Z68.43 - BODY MASS INDEX (BMI) 50.0-59.9, ADULT Status: Chronic (8) KAREEM (obstructive sleep apnea) Code(s): G47.33 - OBSTRUCTIVE SLEEP APNEA (ADULT) (PEDIATRIC) Status: Suspected - Plan Plan: Intensive care unit pulmonology/critical-care consultation, recommendations appreciated gastroenterology consultation, recommendations appreciated nephrology consultation, recommendations appreciated vent management breathing trial as able morbid obesity is currently life-threatening, if unable to safely liberate from vent would require tracheostomy PPI IV BID with protonix WBC up, likely secondary to steroids Afebrile for greater than 48 hours caution for volume overload, in the setting of hypernatremia Hypernatremia improving CHIVO improving continue home medications as able Blood sugar control - increase sliding scale - Intermediate blood pressure control DVT prophylaxis with SCDs no anticoagulation/antiplatelet in the setting of G.I. bleeding
[2019-02-24] MEDS: Lorazepam 2 MG/ML VIAL SLOW IVP PRN ×2 (14:07→22:29)
[2019-02-24] MEDS: Sodium Chloride 0.45% 1,000 ML IV SCH (14:22)
--- NOTE | 2019-02-24 16:32 | PRG ---
DATE OF SERVICE: 02/24/2019 SUBJECTIVE: German Cochran remains hemodynamically stable. OBJECTIVE: VITAL SIGNS: He is afebrile, heart rate is 102, respiratory rates in the 30s, blood pressure 132/79. LUNGS: Distant, clear. HEART: Regular rhythm. ABDOMEN: Soft. LABORATORY DATA: White count 14.5, hemoglobin 11.0, platelets 183. Sodium 143, potassium 4.6, chloride 95, bicarb 47, BUN 42, creatinine 1.43. There is no recent blood gas. IMPRESSION: 1. Obesity hypoventilation syndrome. 2. Asthmatic bronchitis, likely triggered by viral illness. 3. Life-threatening obesity. 4. Deconditioning. PLAN: Continue supportive care. He is currently not weanable in my opinion. Critical care time is 35 minutes. Job ID: [id number] [facility]
[2019-02-24] MEDS: fentaNYL Citrate/PF 2,000 MCG in Sodium Chloride 0.9% 60 ML IV SCH (23:52)
[2019-02-25] MEDS: Propofol 1,000 MG/100 ML VIAL IV PRN ×3 (00:52→08:51)
[2019-02-25] MEDS: Insulin Regular 300 UNITS/3 ML VIAL SC PRN ×4 (01:33→20:30)
[2019-02-25] MEDS: Sodium Chloride 0.45% 1,000 ML IV SCH (05:01)
[2019-02-25 05:27] LABS: BUN (Urea Nitrogen) 42 mg/dL (8.9-20.6); Calc. Creatinine Clearance 214 mL/min (70-130); Calcium 9.2 mg/dL (7.8-10.44); Estimated GFR-MDRD 73; Glucose 216 mg/dL (70-105)
[2019-02-25 05:35] LABS: Band 4 % (5-11); Hemoglobin 10.9 g/dL (14.0-18.0); Hypochromia SLIGHT = 6-15 cells (100X) (0-5/hpf); Lymphocytes 5 % (21-51); MDiff Complete? YES; Mean Corpuscular HGB CONC 30.7 g/dL (32.0-36.0); Mean Corpuscular Hemoglobin 26.9 pg (27.0-31.0); Mean Corpuscular Volume 87.8 fL (78.0-98.0); Mean Platelet Volume 10.7 fL (7.4-10.4); Monocytes 2 % (0-10); Neutrophil 89 % (42-75); Platelet Count 165 thou/uL (130-400); Platelet Morphology Comment Appears Adequate; RBC Distribution Width 13.4 % (11.5-14.5); Red Blood Cell (RBC) Count 4.03 mill/uL (4.70-6.10)
[2019-02-25 05:41] LABS: Anion Gap 8 mmol/L (10-20); Chloride 95 mmol/L (98-107); Potassium 4.5 mmol/L (3.5-5.1); Sodium 142 mmol/L (136-145)
[2019-02-25 05:43] LABS: Carbon Dioxide 44 mmol/L (22-29)
[2019-02-25] MEDS: Furosemide 20 MG/2 ML VIAL IVP SCH (06:15)
[2019-02-25] MEDS: Carvedilol 6.25 MG TAB PO SCH ×2 (07:52→20:25)
[2019-02-25] MEDS: methylPREDNISolone Sod Succ 40 MG VIAL IVP SCH ×2 (07:53→20:28)
[2019-02-25] MEDS: Pantoprazole 40 MG VIAL IVP SCH ×2 (07:53→20:25)
[2019-02-25] MEDS: Lorazepam 2 MG/ML VIAL SLOW IVP PRN (09:08)
--- NOTE | 2019-02-25 09:15 | PRG ---
DATE OF SERVICE: 02/25/2019 TIME SPENT: 35 minutes of critical care time. SUBJECTIVE: This patient remains intubated on mechanical ventilation. There have been no acute changes overnight. OBJECTIVE: VITAL SIGNS: On exam, his temperature is 99.1, pulse 111, blood pressure 167/138, and O2 saturation 97%. Intake for 24 hours 3448, output 3290. HEENT: Unremarkable. NECK: No adenopathy or JVD. LUNGS: Crackles bilaterally. CARDIAC: S1 and S2. Distant. ABDOMEN: Morbidly obese. EXTREMITIES: Severely obese. LABORATORY DATA: White blood cell count 18, hematocrit 35.4, and platelet count 165. Sodium 142, potassium 4.5, chloride 95, CO2 of 44, BUN 42, creatinine 1.3, and glucose 216. ASSESSMENT: 1. Acute respiratory failure, requiring mechanical ventilation. 2. RSV. 3. Obesity hypoventilation syndrome. 4. Developing metabolic alkalosis. PLAN: I will stop the furosemide and put him on Diamox. I will also stop to half-normal saline for the time being. In all likelihood, this patient is going to need a tracheostomy. I will defer this decision to Dr. Flores until Thursday. Job ID: [id number]
[2019-02-25] MEDS: acetaZOLAMIDE Sodium 500 MG in Sodium Chloride 0.9% 50 ML IVPB SCH (10:25)
--- NOTE | 2019-02-25 11:35 | PDOC.PALCO ---
Palliative Care Consult - Consult Details Requesting Physician: Dr Landrum Reason for Consult: goals of care, family support Family Members Present: Rafiq significant other "Alison" - Pertinent HPI Prior to admission to hospital girlfriend states patient had a "common cold" and increase in shortness of breath. When he presented to his probation appointment he had increase in shortness of breath and ems was called and he was transported to [facility]. Place on Bi pap at the emergency room, emesis, and increase in lethargy. Admitted for medical management, and secondary to respiratory distress was eventually intubated. - Pertinent PMH Morbid obesity, diabetic, hypertension, heart failure, sleep apnea. - Social History Smoking Status: Unknown if ever smoked Smoking: no tobacco exposure Alcohol Use: none Drug Use History: none Living Situation: with partner (Lives with girlfrienjosette Rosas) - Medications MAR Reviewed: Yes - Allergies Allergies/Adverse Reactions: Allergies Allergy/AdvReac Type Severity Reaction Status Date / Time No Known Allergies Allergy Verified 02/15/19 01:47 - Subjective Intubated and sedated, unable to perform a ROS - Objective Vital Signs: Vital Signs - Most Recent Temp Pulse Resp BP Pulse Ox 99.1 F 93 13 138/91 H 98 02/25/19 07:00 02/25/19 10:29 02/25/19 10:00 02/25/19 02:18 02/25/19 07:02 - Physical Exam Constitutional: encephalitic, ill appearing HEENT: moist MMs, sclera anicteric Deviation from normal: mechanical ventilation, difficult to ascultate lung sounds, adventicious up Cardiovascular: RRR Gastrointestinal: soft, incontinent Deviation from normal: obese Genitourinary: feliciano catheter Musculoskeletal: edema present Deviation from normal: sedated Skin: cap refill <2 seconds, no rash Deviation from normal: sedated - Problem List (1) Palliative care encounter Code(s): Z51.5 - ENCOUNTER FOR PALLIATIVE CARE Current Visit: Yes Status: Acute (2) Respiratory failure requiring intubation Code(s): J96.90 - RESPIRATORY FAILURE, UNSP, UNSP W HYPOXIA OR HYPERCAPNIA Current Visit: Yes Status: Acute (3) Encephalopathy Code(s): G93.40 - ENCEPHALOPATHY, UNSPECIFIED Current Visit: Yes Status: Acute (4) Acute on chronic systolic (congestive) heart failure Code(s): I50.23 - ACUTE ON CHRONIC SYSTOLIC (CONGESTIVE) HEART FAILURE Current Visit: No Status: Acute (5) Morbid obesity with BMI of 50.0-59.9, adult Code(s): E66.01 - MORBID (SEVERE) OBESITY DUE TO EXCESS CALORIES; Z68.43 - BODY MASS INDEX (BMI) 50.0-59.9, ADULT Current Visit: No Status: Chronic (6) KAREEM (obstructive sleep apnea) Code(s): G47.33 - OBSTRUCTIVE SLEEP APNEA (ADULT) (PEDIATRIC) Current Visit: No Status: Suspected - Plan/Recommendations Plan: Initial contact with patient by Palliative Care. Visited with patient significant other, general history. Patient mother will also part of patient care, and since patietn not and has no children will be decision maker. *Discussed possibility of Trach and PEG *Discussed rehab with TRACH and need for LTAC *Initiated conversation in relation to if patient had ever expressed his wishes *Supportive/therapeutic listening Nicko Warner RNfamily assessment worker also following patient. [60] minutes spent on this encounter with >50% of the time in counseling and coordination of care. Thank you for this very appropriate consult.
--- NOTE | 2019-02-25 12:23 | PDOC.HOSPP ---
- Subjective Subjective: Seen and examined. Clinically and change. Remains intubated, sedated. - Objective Vital Signs & Weight: Vital Signs (12 hours) Temp Pulse Resp BP Pulse Ox 02/25/19 12:00 99.9 F H 15 02/25/19 10:29 93 02/25/19 10:00 13 02/25/19 07:02 96 13 98 02/25/19 07:00 99.1 F 02/25/19 04:00 99.1 F 02/25/19 02:18 98 138/91 H Weight Admit Weight 429 lb 14.422 oz Weight 429 lb 14.422 oz Most Recent Monitor Data Heart Rate from ECG 100 NIBP 137/80 NIBP BP-Mean 99 Respiration from ECG 20 SpO2 96 I&O: 02/24/19 02/25/19 02/26/19 06:59 06:59 06:59 Intake Total 4719.3 3448.8 120 Output Total 5450 3290 1265 Balance -730.7 158.8 -1145 Result Diagrams: 02/25/19 05:00 02/25/19 05:00 Additional Labs: Accuchecks 02/25/19 02/25/19 02/24/19 10:35 01:34 21:05 POC Glucose 159 H 225 H 195 H 02/24/19 02/24/19 15:12 11:41 POC Glucose 234 H 239 H Hospitalist ROS - Review of Systems ROS unobtainable: due to endotracheal tube - Medication Medications: Active Medications Generic Name Dose Route Start Last Admin Trade Name Freq PRN Reason Stop Dose Admin Albuterol/Ipratropium 3 ml 02/21/19 19:00 02/25/19 07:02 Duoneb NEB 3 ml [id number] BAYLEE Administration Carvedilol 12.5 mg 02/21/19 21:00 02/25/19 07:52 Coreg PO 12.5 mg BID BAYLEE Administration Fentanyl Citrate 2,000 mcg/ 100 mls @ 0 mls/hr 02/14/19 23:06 02/24/19 23:52 Sodium Chloride IV 03/16/19 23:06 100 mls INF BAYLEE Administration Protocol Per Protocol Acetazolamide Sodium 500 mg/ 50 mls @ 100 mls/hr 02/25/19 09:00 02/25/19 10: 25 Sodium Chloride IVPB 50 mls DAILY BAYLEE Administration Insulin Human Regular 0 units 02/24/19 08:59 02/25/19 06:13 Humulin R SC 4 unit .MODERATE SLIDING SC PRN Administration Moderate Correctional Scale Lorazepam 2 mg 02/14/19 23:06 02/25/19 09:08 Ativan SLOW IVP 03/16/19 23:06 2 mg Q1H PRN Administration Breakthrough agitation Methylprednisolone Sodium Succinate 40 mg 02/15/19 09:15 02/25/19 07:53 Solu-Medrol IVP 40 mg Q12H BAYLEE Administration Morphine Sulfate 2 mg 02/14/19 23:06 02/25/19 07:53 Morphine SLOW IVP 03/16/19 23:06 2 mg Q1H PRN Administration BREAKTHROUGH PAIN/Agitation Pantoprazole Sodium 40 mg 02/21/19 21:00 02/25/19 07:53 Protonix IVP 40 mg Q12HR BAYLEE Administration Propofol 1,000 mg 02/14/19 23:06 02/25/19 08:51 Diprivan IV 03/16/19 23:06 1,000 mg INF PRN Administration TO ACHIEVE GOAL RASS Protocol Scopolamine 1.5 mg 02/23/19 05:30 02/23/19 05:38 Transderm Scop TD 1.5 mg Q3D BAYLEE Administration - Exam General Appearance: NAD Eye: PERRL ENT: normocephalic atraumatic, moist mucosa Neck: supple, symmetric, no lymphadenopathy Heart: no murmur, no gallops, no rubs Heart - other findings: Sinus tachycardia Respiratory: CTAB, no rales, no ronchi (scattered), no tachypnea, wheezes (few) Gastrointestinal: soft, non-tender Gastrointestinal - other findings: Obese Extremities: 2+ LE edema Skin: no lesions, no rashes Neurological: cranial nerve grossly intact, no focal deficits Musculoskeletal: generalized weakness Psychiatric: not oriented Hosp A/P (1) Gastric ulcer with hemorrhage Code(s): K25.4 - CHRONIC OR UNSPECIFIED GASTRIC ULCER WITH HEMORRHAGE Status: Acute (2) Acute respiratory failure Code(s): J96.00 - ACUTE RESPIRATORY FAILURE, UNSP W HYPOXIA OR HYPERCAPNIA Status: Acute (3) Acute on chronic systolic (congestive) heart failure Code(s): I50.23 - ACUTE ON CHRONIC SYSTOLIC (CONGESTIVE) HEART FAILURE Status : Acute (4) DM2 (diabetes mellitus, type 2) Status: Acute (5) Elevated troponin Code(s): R74.8 - ABNORMAL LEVELS OF OTHER SERUM ENZYMES Status: Acute (6) HTN (hypertension) Code(s): I10 - ESSENTIAL (PRIMARY) HYPERTENSION Status: Chronic (7) Morbid obesity with BMI of 50.0-59.9, adult Code(s): E66.01 - MORBID (SEVERE) OBESITY DUE TO EXCESS CALORIES; Z68.43 - BODY MASS INDEX (BMI) 50.0-59.9, ADULT Status: Chronic (8) KAREEM (obstructive sleep apnea) Code(s): G47.33 - OBSTRUCTIVE SLEEP APNEA (ADULT) (PEDIATRIC) Status: Suspected - Plan Plan: Intensive care unit pulmonology/critical-care consultation, recommendations appreciated gastroenterology consultation, recommendations appreciated nephrology consultation, recommendations appreciated vent management breathing trial as able morbid obesity is currently life-threatening, if unable to safely liberate from vent would require tracheostomy PPI IV BID with protonix continue home medications as able Blood sugar control - increase sliding scale - Intermediate blood pressure control DVT prophylaxis with SCDs no anticoagulation/antiplatelet in the setting of G.I. bleeding
[2019-02-25] MEDS: Acetaminophen 325 MG TAB PO PRN ×2 (16:01→20:24)
[2019-02-25] MEDS: Ondansetron PF 4 MG/2 ML Vial IVP PRN (20:25)
[2019-02-25] MEDS: Meropenem 2 GM, Admixture Fee 1 EACH in Sodium Chloride 0.9% 100 ML IVPB SCH (22:15)
--- NOTE | 2019-02-25 23:12 | RAD ---
RADIOGRAPH CHEST 1 VIEW: DATE: 02/25/2019 TIME: 10:56 PM HISTORY: 33-year-old male with fever COMPARISON: 02/19/2019 FINDINGS: Magnification of cardiac shadow due to extremely large body habitus. There may or may not be true car diomegaly. Endotracheal tube distal tip remains at mid thoracic trachea. Interval worsening of alveolar densities opacifying most of right lower lobe, now involving right midlung zone. Mild hazine ss of left perihilar region. No large pneumothorax identified. IMPRESSION: . Interval worsening of aeration of much of the right lung. This could be increasing right pleural ef fusion, worsening right pneumonia, or atelectasis. Given the history of fever, pneumonia is suspected.
[2019-02-26] MEDS: Acetaminophen 325 MG TAB PO PRN ×3 (00:13→22:46)
[2019-02-26] MEDS: Lorazepam 2 MG/ML VIAL SLOW IVP PRN ×2 (00:13→18:51)
[2019-02-26] MEDS: Insulin Regular 300 UNITS/3 ML VIAL SC PRN ×6 (00:14→21:40)
[2019-02-26] MEDS: Ondansetron PF 4 MG/2 ML Vial IVP PRN (02:24)
[2019-02-26] MEDS: Meropenem 2 GM, Admixture Fee 1 EACH in Sodium Chloride 0.9% 100 ML IVPB SCH ×3 (06:08→21:24)
[2019-02-26] MEDS: Scopolamine 1.5 mg/72 hour Patch TD SCH (06:08)
[2019-02-26 07:25] LABS: Actual Bicarbonate (HCO3a) 34.3 mEq/L (22-28); Base Excess (BEa) 4.5 mEq/L (-2.0 to +3.0); Calcium, Ionized 1.21 mmol/L (1.12-1.30); Carboxyhemoglobin (COHb) 3.1 gm% (0.0-3.0); Hemoglobin (Hb) 11.9 g/dL (14.0-18.0); O2 Tension (PaO2) 66.6 mmHg (80.0-100.0); pH, Arterial 7.23 (7.35-7.45)
[2019-02-26 07:26] LABS: Puncture Site RRAD
[2019-02-26] MEDS: methylPREDNISolone Sod Succ 40 MG VIAL IVP SCH ×2 (08:56→21:25)
[2019-02-26] MEDS: acetaZOLAMIDE Sodium 500 MG in Sodium Chloride 0.9% 50 ML IVPB SCH (08:56)
[2019-02-26] MEDS: Carvedilol 6.25 MG TAB PO SCH ×2 (08:57→20:08)
[2019-02-26] MEDS: Pantoprazole 40 MG VIAL IVP SCH ×2 (08:57→20:09)
--- NOTE | 2019-02-26 09:23 | PRG ---
DATE OF SERVICE: 02/26/2019 TIME SPENT: Thirty five minutes of critical care time. SUBJECTIVE: The patient is about the same. There was a question of whether he had an episode of VFib last night. I cannot find any rhythm strip that confirms that. He did not require any type of cardioversion. OBJECTIVE: VITAL SIGNS: Temperature 99.4, pulse 94, blood pressure 110/47. A 24-hour intake 1874, output 4945. HEENT: Unremarkable. NECK: No adenopathy or JVD. LUNGS: Coarse breath sounds bilaterally. CARDIOVASCULAR: S1, S2. Distant. ABDOMEN: Obese, soft, nontender. EXTREMITIES: Edematous. LABORATORY DATA: White blood cell count 18, hematocrit 35.4, and platelet count 165. No x-ray was done today. ASSESSMENT: 1. Acute hypoxic respiratory failure, requiring mechanical ventilation. 2. Respiratory syncytial virus. 3. Probable obesity hypoventilation syndrome. 4. Metabolic alkalosis. PLAN: 1. I will go ahead and have his labs repeated tomorrow, also repeat his chest x-ray tomorrow. He is not weanable at this time. I would anticipate that he would probably need a trach and PEG. 2. He was re-cultured last night and empirically started meropenem because he continues to have fevers. We will change his antibiotics based on the results of his cultures. Job ID: [id number]
--- NOTE | 2019-02-26 10:07 | PDOC.HOSPP ---
- Subjective Subjective: Seen and examined. Clinically unchanged this a.m. Patient's girlfriend/fiance is at bedside, all questions answered in detail. Patient with possible rhythm change overnight however not sustained this AM. - Objective Vital Signs & Weight: Vital Signs (12 hours) Temp Pulse Resp BP Pulse Ox 02/26/19 08:57 110/47 L 02/26/19 08:00 99.4 F 17 02/26/19 07:28 108 H 17 92 L 02/26/19 06:00 101.3 F H 13 02/26/19 04:00 101.1 F H 13 02/26/19 03:00 99.6 F 02/26/19 02:25 93 125/57 L 02/26/19 02:00 100.1 F H 13 02/26/19 01:00 100.5 F H 02/26/19 00:00 101.1 F H 13 02/25/19 23:54 96 131/70 02/25/19 23:00 101.8 F H 02/25/19 22:23 97 112/48 L Weight Admit Weight 429 lb 14.422 oz Weight 429 lb 14.422 oz Most Recent Monitor Data Heart Rate from ECG 86 NIBP 110/47 NIBP BP-Mean 68 Respiration from ECG 17 SpO2 95 I&O: 02/25/19 02/26/19 02/27/19 06:59 06:59 06:59 Intake Total 3448.8 1874.9 100 Output Total 3290 4945 220 Balance 158.8 -3070.1 -120 Result Diagrams: 02/25/19 05:00 02/25/19 05:00 Additional Labs: Accuchecks 02/26/19 02/26/19 02/26/19 08:27 04:56 00:09 POC Glucose 210 H 262 H 203 H 02/25/19 02/25/19 02/25/19 20:33 16:31 10:35 POC Glucose 203 H 212 H 159 H Radiology Reviewed by me: Yes Hospitalist ROS - Review of Systems ROS unobtainable: due to endotracheal tube - Medication Medications: Active Medications Generic Name Dose Route Start Last Admin Trade Name Freq PRN Reason Stop Dose Admin Acetaminophen 650 mg 02/14/19 16:33 02/26/19 06:10 Tylenol PO 650 mg Q4H PRN Administration Headache/Fever/Mild Pain (1-3) Albuterol/Ipratropium 3 ml 02/21/19 19:00 02/26/19 07:28 Duoneb NEB 3 ml [id number] BAYLEE Administration Carvedilol 12.5 mg 02/21/19 21:00 02/26/19 08:57 Coreg PO 12.5 mg BID BAYLEE Administration Fentanyl Citrate 2,000 mcg/ 100 mls @ 0 mls/hr 02/14/19 23:06 02/24/19 23:52 Sodium Chloride IV 03/16/19 23:06 100 mls INF BAYLEE Administration Protocol Per Protocol Acetazolamide Sodium 500 mg/ 50 mls @ 100 mls/hr 02/25/19 09:00 02/26/19 08: 56 Sodium Chloride IVPB 50 mls DAILY BAYLEE Administration Dexmedetomidine HCl 400 mcg/ 100 mls @ 0 mls/hr 02/25/19 14:30 02/26/19 00:12 Sodium Chloride IVPB 100 mls INF BAYLEE Administration Protocol Titrate Meropenem 2 gm/ Miscellaneous 100 mls @ 200 mls/hr 02/25/19 22:00 02/26/19 06 :08 Medication 1 each/ Sodium IVPB 100 mls Chloride Q8HR BAYLEE Administration Insulin Human Regular 0 units 02/24/19 08:59 02/26/19 08:56 Humulin R SC 4 unit .MODERATE SLIDING SC PRN Administration Moderate Correctional Scale Lorazepam 2 mg 02/14/19 23:06 02/26/19 00:13 Ativan SLOW IVP 03/16/19 23:06 2 mg Q1H PRN Administration Breakthrough agitation Methylprednisolone Sodium Succinate 40 mg 02/15/19 09:15 02/26/19 08:56 Solu-Medrol IVP 40 mg Q12H BAYLEE Administration Morphine Sulfate 2 mg 02/14/19 23:06 02/25/19 07:53 Morphine SLOW IVP 03/16/19 23:06 2 mg Q1H PRN Administration BREAKTHROUGH PAIN/Agitation Ondansetron HCl 4 mg 02/14/19 18:05 02/26/19 02:24 Zofran IVP 4 mg Q6H PRN Administration Nausea/Vomiting Pantoprazole Sodium 40 mg 02/21/19 21:00 02/26/19 08:57 Protonix IVP 40 mg Q12HR BAYLEE Administration Propofol 1,000 mg 02/14/19 23:06 02/25/19 08:51 Diprivan IV 03/16/19 23:06 1,000 mg INF PRN Administration TO ACHIEVE GOAL RASS Protocol Scopolamine 1.5 mg 02/23/19 05:30 02/26/19 06:08 Transderm Scop TD 1.5 mg Q3D BAYLEE Administration Sodium Chloride 10 ml 02/26/19 09:00 02/26/19 08:57 Flush - Normal Saline IVF 10 ml Q12HR BAYLEE Administration - Exam General Appearance: ill appearing Eye: PERRL ENT: normocephalic atraumatic, moist mucosa Neck: supple, symmetric, no lymphadenopathy Heart: no murmur, no gallops, no rubs Respiratory: no rales, normal chest expansion, no tachypnea, rhonchi, wheezes Gastrointestinal: soft, non-tender, no hepatomegaly, no guarding, no rigidity Gastrointestinal - other findings: Obese Extremities: 2+ LE edema Skin: no lesions, no rashes Neurological: cranial nerve grossly intact, normal sensation to touch, no focal deficits Musculoskeletal: normal tone Psychiatric: not oriented Psychiatric - other findings: sedated Hosp A/P (1) Gastric ulcer with hemorrhage Code(s): K25.4 - CHRONIC OR UNSPECIFIED GASTRIC ULCER WITH HEMORRHAGE Status: Acute (2) Acute respiratory failure Code(s): J96.00 - ACUTE RESPIRATORY FAILURE, UNSP W HYPOXIA OR HYPERCAPNIA Status: Acute (3) Acute on chronic systolic (congestive) heart failure Code(s): I50.23 - ACUTE ON CHRONIC SYSTOLIC (CONGESTIVE) HEART FAILURE Status : Acute (4) DM2 (diabetes mellitus, type 2) Status: Acute (5) Elevated troponin Code(s): R74.8 - ABNORMAL LEVELS OF OTHER SERUM ENZYMES Status: Acute (6) HTN (hypertension) Code(s): I10 - ESSENTIAL (PRIMARY) HYPERTENSION Status: Chronic (7) Morbid obesity with BMI of 50.0-59.9, adult Code(s): E66.01 - MORBID (SEVERE) OBESITY DUE TO EXCESS CALORIES; Z68.43 - BODY MASS INDEX (BMI) 50.0-59.9, ADULT Status: Chronic (8) KAREEM (obstructive sleep apnea) Code(s): G47.33 - OBSTRUCTIVE SLEEP APNEA (ADULT) (PEDIATRIC) Status: Suspected - Plan Plan: Intensive care unit pulmonology/critical-care consultation, recommendations appreciated gastroenterology consultation, recommendations appreciated nephrology consultation, recommendations appreciated vent management breathing trial as able morbid obesity is currently life-threatening, if unable to safely liberate from vent would require tracheostomy PPI IV BID with protonix IV ABX De escalate to culture and sensitivity as able continue home medications as able Blood sugar control - increase sliding scale - Intermediate blood pressure control DVT prophylaxis with SCDs no anticoagulation/antiplatelet in the setting of G.I. bleeding
[2019-02-26 10:45] LABS: Anion Gap 13 mmol/L (10-20); BUN (Urea Nitrogen) 78 mg/dL (8.9-20.6); Calc. Creatinine Clearance 162 mL/min (70-130); Calcium 8.8 mg/dL (7.8-10.44); Carbon Dioxide 35 mmol/L (22-29); Chloride 103 mmol/L (98-107); Estimated GFR-MDRD 53; Glucose 187 mg/dL (70-105); Potassium 4.9 mmol/L (3.5-5.1); Sodium 146 mmol/L (136-145)
[2019-02-26 11:16] LABS: Hemoglobin 8.9 g/dL (14.0-18.0); Mean Corpuscular HGB CONC 31.2 g/dL (32.0-36.0); Mean Corpuscular Hemoglobin 27.3 pg (27.0-31.0); Mean Corpuscular Volume 87.7 fL (78.0-98.0); Mean Platelet Volume 11.7 fL (7.4-10.4); Platelet Count 156 thou/uL (130-400); RBC Distribution Width 13.2 % (11.5-14.5); Red Blood Cell (RBC) Count 3.27 mill/uL (4.70-6.10); White Blood Cell (WBC) Count 17.8 thou/uL (4.8-10.8)
[2019-02-26 11:40] LABS: Band 1 % (5-11); Hypochromia SLIGHT = 6-15 cells (100X) (0-5/hpf); Large Platelets SLIGHT; Lymphocytes 8 % (21-51); MDiff Complete? YES; Monocytes 6 % (0-10); Neutrophil 84 % (42-75); Platelet Morphology Comment Appears Adequate; Reactive Lymphocytes 1 % (0-10)
[2019-02-26] MEDS: Metoprolol Tartrate 5 MG/5 ML VIAL IVP PRN (22:46)
[2019-02-27] MEDS: Insulin Regular 300 UNITS/3 ML VIAL SC PRN ×7 (00:07→23:52)
[2019-02-27] MEDS: Lorazepam 2 MG/ML VIAL SLOW IVP PRN ×6 (00:52→23:41)
[2019-02-27] MEDS: Acetaminophen 325 MG TAB PO PRN ×4 (04:46→23:52)
[2019-02-27 04:47] LABS: #Neutrophils 11.9 thou/uL (1.40-6.50); %Basophils 0.2 % (0.0-1.0); %Eosinophils 0.1 % (0.0-10.0); %Lymphocytes 6.9 % (21.0-51.0); %Monocytes 7.2 % (0.0-10.0); %Neutrophils 85.7 % (42.0-75.0); Hemoglobin 8.7 g/dL (14.0-18.0); Mean Corpuscular HGB CONC 31.1 g/dL (32.0-36.0); Mean Corpuscular Hemoglobin 26.9 pg (27.0-31.0); Mean Corpuscular Volume 86.6 fL (78.0-98.0); Mean Platelet Volume 11.7 fL (7.4-10.4); Platelet Count 161 thou/uL (130-400); RBC Distribution Width 13.6 % (11.5-14.5); Red Blood Cell (RBC) Count 3.21 mill/uL (4.70-6.10); White Blood Cell (WBC) Count 13.9 thou/uL (4.8-10.8)
[2019-02-27 05:13] LABS: BUN (Urea Nitrogen) 72 mg/dL (8.9-20.6); Calc. Creatinine Clearance 161 mL/min (70-130); Calcium 8.8 mg/dL (7.8-10.44); Estimated GFR-MDRD 53; Glucose 277 mg/dL (70-105)
[2019-02-27] MEDS: Meropenem 2 GM, Admixture Fee 1 EACH in Sodium Chloride 0.9% 100 ML IVPB SCH ×3 (05:17→21:34)
[2019-02-27 05:22] LABS: Anion Gap 12 mmol/L (10-20); Carbon Dioxide 36 mmol/L (22-29); Chloride 102 mmol/L (98-107); Potassium 4.5 mmol/L (3.5-5.1); Sodium 145 mmol/L (136-145)
--- NOTE | 2019-02-27 08:15 | RAD ---
CHEST 1 VIEW: INDICATION: Pneumonia. COMPARISON: Prior exam dated 02/25/2019. IMPRESSION: There is marked cardiomegaly. There is improvement in the central edema pattern. Bilateral pleural effusions persist. Infrahilar airspace opacities persist likely related to residual edema or atelect asis. No pneumothorax is grossly evident. Osseous structures are unchanged. The patient remains in tubated with gastric catheter placement. The endotracheal tube tip is seen above the level of the th oracic inlet. Advancement of the endotracheal tube tip 7 cm would put the catheter approximately 3 c m above the level of the tameka. Findings called to the CCU nurse caring for this patient at 5:10 a.m. on 02/27/2019. CODE CR POS: BH
[2019-02-27] MEDS: Carvedilol 6.25 MG TAB PO SCH ×2 (08:35→20:25)
[2019-02-27] MEDS: acetaZOLAMIDE Sodium 500 MG in Sodium Chloride 0.9% 50 ML IVPB SCH (08:35)
[2019-02-27] MEDS: Pantoprazole 40 MG VIAL IVP SCH ×2 (08:36→20:26)
[2019-02-27] MEDS: methylPREDNISolone Sod Succ 40 MG VIAL IVP SCH ×3 (08:38→21:07)
--- NOTE | 2019-02-27 09:45 | PRG ---
DATE OF SERVICE: 02/27/2019 TIME SPENT: Thirty minutes of critical care time. SUBJECTIVE: The patient remains intubated on mechanical ventilation, there has not been much in the way of change overnight. OBJECTIVE: VITAL SIGNS: Temperature 98.6 with T-max of 100.9, pulse 87, blood pressure 135/79, 24-hour intake 2588, output 4425. HEENT: Unremarkable. NECK: No adenopathy or JVD. LUNGS: Poor air movement bilaterally. CARDIAC: S1, S2. Regular. ABDOMEN: Obese, soft, nontender. EXTREMITIES: Edematous. LABORATORY DATA: White blood cell count 13.9, hematocrit 27.8, and platelet count 161. Sodium 145, potassium 4.5, chloride 102, CO2 of 36, BUN 72, creatinine 1.8, glucose 277. ASSESSMENT: 1. Acute respiratory failure requiring mechanical ventilation. 2. Respiratory syncytial virus. 3. Probable obesity hypoventilation syndrome. 4. Slightly improved metabolic alkalosis with the Diamox. PLAN: 1. Given that his BUN and creatinine are slowly increasing, I will go ahead and back off the diuretics. He remains with severe neuromuscular weakness, which is probably going to be a deterrent to him weaning. I think he will probably need a tracheostomy. 2. Empiric antibiotics were started day before yesterday for fever. He is growing gram-positive cocci out of venous blood culture in clusters. I will go ahead and add vancomycin until the organisms identified. Job ID: [id number]
--- NOTE | 2019-02-27 11:21 | PDOC.HOSPP ---
- Subjective Subjective: Seen and examined. Clinically unchanged. Intubated, sedated. Patient with dark stools and maroon output from OG tube for nursing staff. Gastroenterology on case. - Objective Vital Signs & Weight: Vital Signs (12 hours) Temp Pulse Resp BP Pulse Ox 02/27/19 10:21 98 02/27/19 10:00 19 02/27/19 08:35 121/82 02/27/19 08:00 22 H 97 02/27/19 07:17 95 17 96 02/27/19 07:00 98.6 F 02/27/19 06:00 17 02/27/19 04:00 100.6 F H 20 02/27/19 03:14 96 02/27/19 02:00 18 02/27/19 00:00 99.8 F H 17 Weight Admit Weight 429 lb 14.422 oz Weight 429 lb 14.422 oz Most Recent Monitor Data Heart Rate from ECG 98 NIBP 148/80 NIBP BP-Mean 102 Respiration from ECG 23 SpO2 98 I&O: 02/26/19 02/27/19 02/28/19 06:59 06:59 06:59 Intake Total 1874.9 2588 225 Output Total 4945 4425 1220 [facility] -3070.1 -1837 -995 Result Diagrams: 02/27/19 04:35 02/27/19 04:35 Additional Labs: Accuchecks 02/27/19 02/26/19 02/26/19 04:39 23:58 21:23 POC Glucose 272 H 224 H 231 H 02/26/19 02/26/19 16:02 12:13 POC Glucose 244 H 196 H Radiology Reviewed by me: Yes Hospitalist ROS - Review of Systems ROS unobtainable: due to endotracheal tube - Medication Medications: Active Medications Generic Name Dose Route Start Last Admin Trade Name Freq PRN Reason Stop Dose Admin Acetaminophen 650 mg 02/14/19 16:33 02/27/19 04:46 Tylenol PO 650 mg Q4H PRN Administration Headache/Fever/Mild Pain (1-3) Albuterol/Ipratropium 3 ml 02/21/19 19:00 02/27/19 07:17 Duoneb NEB 3 ml [id number] BAYLEE Administration Carvedilol 12.5 mg 02/21/19 21:00 02/27/19 08:35 Coreg PO 12.5 mg BID BAYLEE Administration Fentanyl Citrate 2,000 mcg/ 100 mls @ 0 mls/hr 02/14/19 23:06 02/24/19 23:52 Sodium Chloride IV 03/16/19 23:06 100 mls INF BAYLEE Administration Protocol Per Protocol Dexmedetomidine HCl 400 mcg/ 100 mls @ 0 mls/hr 02/25/19 14:30 02/27/19 08:47 Sodium Chloride IVPB 100 mls INF BAYLEE Administration Protocol Titrate Meropenem 2 gm/ Miscellaneous 100 mls @ 200 mls/hr 02/25/19 22:00 02/27/19 05 :17 Medication 1 each/ Sodium IVPB 100 mls Chloride Q8HR BAYLEE Administration Insulin Human Regular 0 units 02/26/19 16:48 02/27/19 08:42 Humulin R SC 9 units .AGGRESSIVE SLIDING PRN Administration AGGRESSIVE SLIDING SCALE Protocol Lorazepam 2 mg 02/14/19 23:06 02/27/19 05:29 Ativan SLOW IVP 03/16/19 23:06 2 mg Q1H PRN Administration Breakthrough agitation Methylprednisolone Sodium Succinate 20 mg 02/27/19 10:00 02/27/19 10:57 Solu-Medrol IVP Not Given Q12H [facility] Metoprolol Tartrate 5 mg 02/21/19 18:13 02/26/19 22:46 Lopressor IVP 5 mg Q6H PRN Administration SBP Greater Than 170 Morphine Sulfate 2 mg 02/14/19 23:06 02/25/19 07:53 Morphine SLOW IVP 03/16/19 23:06 2 mg Q1H PRN Administration BREAKTHROUGH PAIN/Agitation Ondansetron HCl 4 mg 02/14/19 18:05 02/26/19 02:24 Zofran IVP 4 mg Q6H PRN Administration Nausea/Vomiting Pantoprazole Sodium 40 mg 02/21/19 21:00 02/27/19 08:36 Protonix IVP 40 mg Q12HR BAYLEE Administration Propofol 1,000 mg 02/14/19 23:06 02/25/19 08:51 Diprivan IV 03/16/19 23:06 1,000 mg INF PRN Administration TO ACHIEVE GOAL RASS Protocol Scopolamine 1.5 mg 02/23/19 05:30 02/26/19 06:08 Transderm Scop TD 1.5 mg Q3D BAYLEE Administration Sodium Chloride 10 ml 02/26/19 09:00 02/27/19 08:36 Flush - Normal Saline IVF 10 ml Q12HR BAYLEE Administration - Exam General Appearance: NAD Eye: PERRL ENT: normocephalic atraumatic, moist mucosa Neck: supple, symmetric, no lymphadenopathy Heart: RRR, no murmur, no gallops, no rubs Respiratory: CTAB, no rales, no tachypnea, rhonchi, wheezes. negative: normal chest expansion (decreased pulmonary excursion secondary to body habitus) Gastrointestinal: soft, non-tender, non-distended, no guarding, no rigidity Extremities: 2+ LE edema Skin: no lesions, no rashes Neurological: cranial nerve grossly intact, no focal deficits Musculoskeletal: generalized weakness Psychiatric: not oriented Hosp A/P (1) Gastric ulcer with hemorrhage Code(s): K25.4 - CHRONIC OR UNSPECIFIED GASTRIC ULCER WITH HEMORRHAGE Status: Acute (2) Acute respiratory failure Code(s): J96.00 - ACUTE RESPIRATORY FAILURE, UNSP W HYPOXIA OR HYPERCAPNIA Status: Acute (3) Acute on chronic systolic (congestive) heart failure Code(s): I50.23 - ACUTE ON CHRONIC SYSTOLIC (CONGESTIVE) HEART FAILURE Status : Acute (4) DM2 (diabetes mellitus, type 2) Status: Acute (5) Elevated troponin Code(s): R74.8 - ABNORMAL LEVELS OF OTHER SERUM ENZYMES Status: Acute (6) HTN (hypertension) Code(s): I10 - ESSENTIAL (PRIMARY) HYPERTENSION Status: Chronic (7) Morbid obesity with BMI of 50.0-59.9, adult Code(s): E66.01 - MORBID (SEVERE) OBESITY DUE TO EXCESS CALORIES; Z68.43 - BODY MASS INDEX (BMI) 50.0-59.9, ADULT Status: Chronic (8) KAREEM (obstructive sleep apnea) Code(s): G47.33 - OBSTRUCTIVE SLEEP APNEA (ADULT) (PEDIATRIC) Status: Suspected - Plan Plan: Intensive care unit pulmonology/critical-care consultation, recommendations appreciated gastroenterology consultation, recommendations appreciated nephrology consultation, recommendations appreciated vent management breathing trial as able morbid obesity is currently life-threatening, if unable to safely liberate from vent would require tracheostomy PPI IV BID with protonix IV ABX De escalate to culture and sensitivity as able Preliminary culture with staph continue home medications as able Blood sugar control - increase sliding scale - Intermediate blood pressure control DVT prophylaxis with SCDs no anticoagulation/antiplatelet in the setting of G.I. bleeding
[2019-02-27] MEDS: Metoprolol Tartrate 5 MG/5 ML VIAL IVP PRN (11:56)
[2019-02-27] MEDS: Vancomycin HCl 1 GM in Premix Bag 1 BAG IVPB SCH (20:25)
[2019-02-27] MEDS: Sodium Chloride 0.9% (PF) 10 ML VIAL FS PRN (20:26)
[2019-02-28] MEDS: Metoprolol Tartrate 5 MG/5 ML VIAL IVP PRN (01:05)
[2019-02-28] MEDS: Lorazepam 2 MG/ML VIAL SLOW IVP PRN ×2 (02:14→03:54)
[2019-02-28] MEDS ORDERED: hydrALAZINE 20 MG/ML VIAL SLOW IVP SCH (02:45)
[2019-02-28] MEDS: Insulin Regular 300 UNITS/3 ML VIAL SC PRN ×5 (03:56→20:14)
[2019-02-28] MEDS: Acetaminophen 325 MG TAB PO PRN ×3 (04:21→21:54)
[2019-02-28 05:25] LABS: #Eosinphils 0.1 thou/uL (0.0-0.7); #Lymphocytes 1.4 thou/uL (1.20-3.40); #Monocytes 1.7 thou/uL (0.11-0.59); #Neutrophils 11.1 thou/uL (1.40-6.50); %Basophils 0.3 % (0.0-1.0); %Eosinophils 0.6 % (0.0-10.0); %Lymphocytes 9.8 % (21.0-51.0); %Monocytes 11.8 % (0.0-10.0); %Neutrophils 77.4 % (42.0-75.0); Hemoglobin 9.3 g/dL (14.0-18.0); Mean Corpuscular Hemoglobin 27.7 pg (27.0-31.0); Mean Corpuscular Volume 86.6 fL (78.0-98.0); Mean Platelet Volume 11.6 fL (7.4-10.4); Platelet Count 127 thou/uL (130-400); Red Blood Cell (RBC) Count 3.35 mill/uL (4.70-6.10); White Blood Cell (WBC) Count 14.4 thou/uL (4.8-10.8)
[2019-02-28 05:37] LABS: Anion Gap 12 mmol/L (10-20); BUN (Urea Nitrogen) 61 mg/dL (8.9-20.6); Calc. Creatinine Clearance 167 mL/min (70-130); Calcium 9.1 mg/dL (7.8-10.44); Carbon Dioxide 29 mmol/L (22-29); Chloride 110 mmol/L (98-107); Estimated GFR-MDRD 55; Glucose 292 mg/dL (70-105); Potassium 4.6 mmol/L (3.5-5.1); Sodium 146 mmol/L (136-145)
[2019-02-28 05:48] LABS: Actual Bicarbonate (HCO3a) 30.7 mEq/L (22-28); Analyzer IN Cardio OR; Base Excess (BEa) 5.7 mEq/L (-2.0 to +3.0); CO2 Tension 46.7 mmHg (35.0-45.0); Calcium, Ionized 1.21 mmol/L (1.12-1.30); Carboxyhemoglobin (COHb) 1.1 gm% (0.0-3.0); Hemoglobin (Hb) 9.3 g/dL (14.0-18.0); O2 Tension (PaO2) 61.7 mmHg (80.0-100.0); Potassium - ABG Lab 3.77 mmol/L (3.70-5.30); pH, Arterial 7.44 (7.35-7.45)
[2019-02-28 05:50] LABS: Puncture Site R RADIAL
[2019-02-28 05:52] LABS: ALV-art Gradient 115.215 (0-20)
[2019-02-28] MEDS: Meropenem 2 GM, Admixture Fee 1 EACH in Sodium Chloride 0.9% 100 ML IVPB SCH ×3 (06:05→22:50)
--- NOTE | 2019-02-28 08:55 | RAD ---
CHEST 1 VIEW PORTABLE: HISTORY: Respiratory insufficiency. FINDINGS: NG tube and endotracheal tubes are noted to be present. Cardiomegaly with bilateral pleural effusion s and mild vascular congestion showing little change from prior study. The distal tip of the NG tube is poorly seen and may overlie the cardiac silhouette. If that is a concern, a followup KUB exam mi ght be of benefit to document NG tube location. IMPRESSION: Cardiomegaly with bilateral vascular congestion. Nasogastric tube tip poorly defined. It could poss ibly overlie the cardiac silhouette. POS: [facility]
[2019-02-28] MEDS: Vancomycin HCl 1 GM in Premix Bag 1 BAG IVPB SCH ×2 (09:42→20:04)
[2019-02-28] MEDS: Carvedilol 6.25 MG TAB PO SCH ×2 (09:43→20:03)
[2019-02-28] MEDS: Pantoprazole 40 MG VIAL IVP SCH ×2 (09:44→20:03)
[2019-02-28] MEDS: methylPREDNISolone Sod Succ 40 MG VIAL IVP SCH (09:46)
--- NOTE | 2019-02-28 12:01 | PRG ---
DATE OF SERVICE: 02/28/2019 SERVICE: Pulmonary Medicine. INTERVAL HISTORY: The patient is doing actually quite well from respiratory standpoint. His wheezing has completely resolved. He has no complaints of chills, nausea, or vomiting. He is following simple commands with sedation holiday. PHYSICAL EXAMINATION: VITAL SIGNS: Afebrile currently with a maximum temperature of 102.3. Pulse 99, blood pressure 132/76, respirations 15, and saturation 91% on 33% FiO2 and a PEEP of 5. GENERAL: The patient is intubated and sedated. HEENT: Normocephalic and atraumatic. Sclerae white. Conjunctivae pink. Oral mucosa is moist without lesions. LUNGS: Decent air entry. Crackles and rhonchi are not present. There is no prolonged expiratory phase or wheezing today. HEART: Normal rate. Regular. ABDOMEN: Soft, nontender, and nondistended. Bowel sounds are positive. MUSCULOSKELETAL: No cyanosis or clubbing. There is no pitting in the bilateral lower extremities. NEUROLOGIC: Grossly nonfocal. LABORATORY DATA: WBC 14.4, hemoglobin 9.3, platelets 127,000 and gently downtrending. Neutrophil count is 77%. Lymphocyte and monocyte count seemed to be rebounding. A pH 7.44, pCO2 of 46, pO2 of 61. Creatinine 1.75 and roughly stable, sodium 146 and gently up trending. Microbiology includes negative blood cultures in 05/01. Respiratory culture from the is growing MRSA with good sensitivities to vancomycin. Coag-negative staph. IMAGING: Chest x-ray demonstrates endotracheal tube with the tip in good position. There is cardiomegaly and soft tissue attenuation. I can see whether or not there is a suggestion in pulmonary vascular congestion. Enteric catheter courses midline, but I cannot see the tip. ASSESSMENT: 1. Acute on chronic hypoxic and hypercapnic respiratory failure. 2. Acute on chronic systolic and diastolic heart failure. 3. Acute bronchitis secondary to respiratory syncytial virus. 4. Healthcare-associated pneumonia secondary to methicillin-resistant Staphylococcus aureus. 5. Acute blood loss anemia secondary to peptic ulcer disease, stable. 6. Obesity hypoventilation with morbid obesity. 7. Acute kidney injury on chronic kidney disease, stage 3. 8. Hypernatremia. DISCUSSION AND PLAN: Once again, I will introduce a little bit of free water. I will put him on a spontaneous breathing trial at 5/. If he meets criteria, extubation will strongly be considered. Because of his prolonged requirements for mechanical ventilator, it would not surprise me if he fails extubation, requires repeat intubation and subsequent tracheostomy. That being said, we would like to give him the opportunity to go without that intervention if possible. Critical Care will follow. Critical care time: 30 minutes. Job ID: [id number] MTDD
[2019-02-28] MEDS ORDERED: VANCOMYCIN IVPB PRN (12:47)
--- NOTE | 2019-02-28 16:44 | PDOC.HOSPP ---
- Subjective non-verbal - Objective Vital Signs & Weight: Vital Signs (12 hours) Temp Pulse Resp BP Pulse Ox 02/28/19 16:00 99.5 F 18 02/28/19 14:58 105 H 02/28/19 14:00 100.2 F H 26 H 02/28/19 13:28 90 19 95 02/28/19 13:00 100.7 F H 02/28/19 12:00 100.7 F H 25 H 02/28/19 11:18 19 02/28/19 10:28 90 02/28/19 10:00 20 02/28/19 09:43 148/95 H 02/28/19 08:00 100.2 F H 17 95 02/28/19 06:46 94 02/28/19 06:45 94 22 H 95 02/28/19 06:00 26 H Weight Admit Weight 429 lb 14.422 oz Weight 429 lb 14.422 oz Most Recent Monitor Data Heart Rate from ECG 104 NIBP 124/80 NIBP BP-Mean 94 Respiration from ECG 26 SpO2 92 I&O: 02/27/19 02/28/19 03/01/19 06:59 06:59 06:59 Intake Total 2588 2738 300 Output Total 4425 4980 1520 [facility] -5004 -2242 -1220 Result Diagrams: 02/28/19 05:16 02/28/19 05:16 Additional Labs: Accuchecks 02/28/19 02/28/19 02/28/19 16:20 12:06 09:39 POC Glucose 218 H 223 H 212 H 02/28/19 02/27/19 02/27/19 03:50 23:55 21:09 POC Glucose 264 H 215 H 205 H Hospitalist ROS - Medication Medications: Active Medications Generic Name Dose Route Start Last Admin Trade Name Freq PRN Reason Stop Dose Admin Acetaminophen 650 mg 02/14/19 16:33 02/28/19 12:05 Tylenol PO 650 mg Q4H PRN Administration Headache/Fever/Mild Pain (1-3) Albuterol/Ipratropium 3 ml 02/21/19 19:00 02/28/19 13:28 Duoneb NEB 3 ml [id number] BAYLEE Administration Carvedilol 12.5 mg 02/21/19 21:00 02/28/19 09:43 Coreg PO 12.5 mg BID BAYLEE Administration Dexmedetomidine HCl 400 mcg/ 100 mls @ 0 mls/hr 02/25/19 14:30 02/28/19 15:44 Sodium Chloride IVPB 100 mls INF BAYLEE Administration Protocol Titrate Meropenem 2 gm/ Miscellaneous 100 mls @ 200 mls/hr 02/25/19 22:00 02/28/19 15 :44 Medication 1 each/ Sodium IVPB 100 mls Chloride Q8HR BAYLEE Administration Vancomycin HCl 1 gm/ Device 200 mls @ 200 mls/hr 02/27/19 21:00 02/28/19 09: 42 IVPB 200 mls Q12HR BAYLEE Administration Insulin Human Regular 0 units 02/26/19 16:48 02/28/19 16:29 Humulin R SC 6 units .AGGRESSIVE SLIDING PRN Administration AGGRESSIVE SLIDING SCALE Protocol Metoprolol Tartrate 5 mg 02/21/19 18:13 02/28/19 01:05 Lopressor IVP 5 mg Q6H PRN Administration SBP Greater Than 170 Ondansetron HCl 4 mg 02/14/19 18:05 02/26/19 02:24 Zofran IVP 4 mg Q6H PRN Administration Nausea/Vomiting Pantoprazole Sodium 40 mg 02/21/19 21:00 02/28/19 09:44 Protonix IVP 40 mg Q12HR BAYLEE Administration Scopolamine 1.5 mg 02/23/19 05:30 02/26/19 06:08 Transderm Scop TD 1.5 mg Q3D BAYLEE Administration Sodium Chloride 10 ml 02/21/19 13:18 02/27/19 20:26 Normal Saline Pf FS 10 ml PRN PRN Administration RECONSTITUTION Sodium Chloride 10 ml 02/26/19 09:00 02/28/19 09:44 Flush - Normal Saline IVF 10 ml Q12HR BAYLEE Administration - Exam General Appearance: NAD General - other findings: Intubated, sedated. Heart: RRR, no murmur, no gallops, no rubs, normal peripheral pulses Respiratory - other findings: scattered rales. Gastrointestinal: soft, non-distended, normal bowel sounds Extremities: no clubbing, no edema Skin: normal turgor Hosp A/P (1) MRSA pneumonia Code(s): J15.212 - PNEUMONIA DUE TO METHICILLIN RESISTANT STAPHYLOCOCCUS AUREUS Status: Acute (2) CHIVO (acute kidney injury) Code(s): N17.9 - ACUTE KIDNEY FAILURE, UNSPECIFIED Status: Acute (3) Acute on chronic respiratory failure with hypoxia and hypercapnia Code(s): J96.21 - ACUTE AND CHRONIC RESPIRATORY FAILURE WITH HYPOXIA; J96.22 - ACUTE AND CHRONIC RESPIRATORY FAILURE WITH HYPERCAPNIA Status: Acute (4) Gastric ulcer with hemorrhage Code(s): K25.4 - CHRONIC OR UNSPECIFIED GASTRIC ULCER WITH HEMORRHAGE Status: Acute (5) RSV bronchitis Code(s): J20.5 - ACUTE BRONCHITIS DUE TO RESPIRATORY SYNCYTIAL VIRUS Status: Acute (6) Respiratory failure requiring intubation Code(s): J96.90 - RESPIRATORY FAILURE, UNSP, UNSP W HYPOXIA OR HYPERCAPNIA Status: Acute (7) Acute on chronic systolic (congestive) heart failure Code(s): I50.23 - ACUTE ON CHRONIC SYSTOLIC (CONGESTIVE) HEART FAILURE Status : Acute (8) DM2 (diabetes mellitus, type 2) Status: Acute (9) Dyslipidemia Code(s): E78.5 - HYPERLIPIDEMIA, UNSPECIFIED Status: Chronic (10) HTN (hypertension) Code(s): I10 - ESSENTIAL (PRIMARY) HYPERTENSION Status: Chronic (11) Morbid obesity with BMI of 50.0-59.9, adult Code(s): E66.01 - MORBID (SEVERE) OBESITY DUE TO EXCESS CALORIES; Z68.43 - BODY MASS INDEX (BMI) 50.0-59.9, ADULT Status: Chronic (12) KAREEM (obstructive sleep apnea) Code(s): G47.33 - OBSTRUCTIVE SLEEP APNEA (ADULT) (PEDIATRIC) Status: Suspected (13) Anemia Code(s): D64.9 - ANEMIA, UNSPECIFIED Status: Acute - Plan RSV bronchitis, MRSA pneumonia with acute on chronic hypoxic and hypercapneic resp failure with vent dependence. Treating underlying infections. Pulm following. Hoping to attempt extubation before fully declaring the need for trach if that is possible. Enlarged RV supports chronicity of the resp failure. GFR has not returned to baseline, but stable.
[2019-02-28] MEDS: Dextrose 5% in Water 1,000 ML IV SCH (17:50)
[2019-02-28] MEDS: Sodium Chloride 0.9% (PF) 10 ML VIAL FS PRN (20:03)
[2019-03-01] MEDS: Insulin Regular 300 UNITS/3 ML VIAL SC PRN ×6 (01:09→20:32)
[2019-03-01] MEDS: Metoprolol Tartrate 5 MG/5 ML VIAL IVP PRN ×2 (04:03→23:33)
[2019-03-01] MEDS: Scopolamine 1.5 mg/72 hour Patch TD SCH (04:30)
[2019-03-01 05:23] LABS: #Basophils 0.1 thou/uL (0.0-0.2); #Eosinphils 0.1 thou/uL (0.0-0.7); #Lymphocytes 2.1 thou/uL (1.20-3.40); #Monocytes 1.4 thou/uL (0.11-0.59); #Neutrophils 8.6 thou/uL (1.40-6.50); %Basophils 0.5 % (0.0-1.0); %Eosinophils 1.2 % (0.0-10.0); %Lymphocytes 16.9 % (21.0-51.0); %Monocytes 11.6 % (0.0-10.0); %Neutrophils 69.8 % (42.0-75.0); Hemoglobin 9.3 g/dL (14.0-18.0); Mean Corpuscular HGB CONC 31.3 g/dL (32.0-36.0); Mean Corpuscular Hemoglobin 27.3 pg (27.0-31.0); Mean Corpuscular Volume 87.4 fL (78.0-98.0); Mean Platelet Volume 11.2 fL (7.4-10.4); Platelet Count 164 thou/uL (130-400); Red Blood Cell (RBC) Count 3.41 mill/uL (4.70-6.10); White Blood Cell (WBC) Count 12.3 thou/uL (4.8-10.8)
[2019-03-01 05:33] LABS: Phosphorus 2.7 mg/dL (2.3-4.7)
[2019-03-01 05:34] LABS: Anion Gap 9 mmol/L (10-20); BUN (Urea Nitrogen) 49 mg/dL (8.9-20.6); Calc. Creatinine Clearance 199 mL/min (70-130); Calcium 8.5 mg/dL (7.8-10.44); Carbon Dioxide 32 mmol/L (22-29); Chloride 112 mmol/L (98-107); Estimated GFR-MDRD 67; Glucose 209 mg/dL (70-105); Magnesium 1.5 mg/dL (1.6-2.6); Potassium 3.6 mmol/L (3.5-5.1); Sodium 149 mmol/L (136-145)
[2019-03-01] MEDS ORDERED: hydrALAZINE 20 MG/ML VIAL SLOW IVP PRN (05:42)
[2019-03-01] MEDS: Meropenem 2 GM, Admixture Fee 1 EACH in Sodium Chloride 0.9% 100 ML IVPB SCH ×3 (06:22→23:07)
[2019-03-01] MEDS: Vancomycin HCl 1 GM in Premix Bag 1 BAG IVPB SCH (08:24)
[2019-03-01] MEDS: Carvedilol 6.25 MG TAB PO SCH ×2 (08:24→20:31)
[2019-03-01] MEDS: Pantoprazole 40 MG VIAL IVP SCH ×2 (08:25→20:31)
[2019-03-01] MEDS: Dextrose 5% in Water 1,000 ML IV SCH ×3 (08:26→20:43)
[2019-03-01] MEDS ORDERED: Magnesium 2 GM/50 ML 2 GM in Premix Bag 1 BAG IVPB SCH (09:15)
[2019-03-01] MEDS ORDERED: Furosemide 40 MG/4 ML VIAL SLOW IVP SCH (09:15)
[2019-03-01] MEDS: Acetaminophen 325 MG TAB PO PRN (09:33)
--- NOTE | 2019-03-01 09:42 | PRG ---
DATE OF SERVICE: 03/01/2019 SERVICE: Pulmonary Medicine. INTERVAL HISTORY: The patient did pretty well overnight. He did spike one fever. Fever profile seems to be improving. He did not have any other events. Otherwise, there has been no interval change to his condition. PHYSICAL EXAMINATION: VITAL SIGNS: Afebrile currently. His T-max overnight was 101 degrees, pulse 104, blood pressure 145/94, respirations 20, saturation 96%, currently on 33% FiO2 and a PEEP of 5. GENERAL: The patient is intubated. He is under the influence of some sedation. HEENT: Normocephalic and atraumatic. Sclerae white. Conjunctivae pink. Oral mucosa is moist without lesions. ' LUNGS: Slightly prolonged expiratory phase. Extensive rhonchi are present. I do not appreciate any wheezing or crackles. HEART: Normal rate regular. ABDOMEN: Soft, nontender, nondistended. Bowel sounds are positive. MUSCULOSKELETAL: No cyanosis or clubbing. There is trace 1+ pitting in the bilateral lower extremities. NEUROLOGIC: Grossly nonfocal. LABORATORY DATA: Sodium uptrending to 149, potassium 3.6. Creatinine 1.47 and gently downtrending, BUN improved to 49. Magnesium 1.5, phosphorus 2.7. MRSA is growing of the respiratory culture. Urine culture is negative to date. ASSESSMENT: 1. Acute on chronic hypoxic and hypercapnic respiratory failure. 2. Acute bronchitis secondary to respiratory syncytial virus. 3. Healthcare associated pneumonia, secondary to MRSA, status post 4 days of antibiotics. 4. Acute on chronic systolic and diastolic heart failure. 5. Acute blood loss anemia secondary to peptic ulcer disease, stable. 6. Obesity hypoventilation syndrome with morbid obesity. 7. Acute kidney injury on chronic kidney disease 3. 8. Hypernatremia. DISCUSSION AND PLAN: I will increase our free water to 100 an hour. I will give him a dose of Lasix today. Potassium, magnesium will be replaced. I am going to extubate him directly to BiPAP. Hopefully, we will be able to wean this through time and he will demonstrate an excellent strength. If he does not, repeat intubation and tracheostomy will be considered in short order. CRITICAL CARE TIME: 30 minutes. Job ID: [id number]
--- NOTE | 2019-03-01 16:51 | PDOC.HOSPP ---
- Subjective Subjective: Non-verbal. Extubated and on BiPAP. - Objective Vital Signs & Weight: Vital Signs (12 hours) Temp Pulse Pulse Pulse Resp BP BP 03/01/19 16:00 99.0 F 03/01/19 15:42 99 03/01/19 14:12 96 103 H 115/66 03/01/19 14:00 22 H 03/01/19 13:05 103 H 22 H 03/01/19 12:00 30 H 03/01/19 11:00 100.2 F H 03/01/19 09:55 129 H 32 H 03/01/19 08:24 138/107 H 03/01/19 08:00 101.2 F H 25 H 03/01/19 07:01 100 03/01/19 06:33 95 03/01/19 06:00 25 H BP Pulse Ox Pulse Ox Pulse Ox 03/01/19 16:00 03/01/19 15:42 03/01/19 14:12 121/102 H 97 98 03/01/19 14:00 03/01/19 13:05 100 03/01/19 12:00 03/01/19 11:00 03/01/19 09:55 95 03/01/19 08:24 03/01/19 08:00 95 03/01/19 07:01 03/01/19 06:33 03/01/19 06:00 Weight Admit Weight 429 lb 14.422 oz Weight 429 lb 14.422 oz Most Recent Monitor Data Heart Rate from ECG 107 NIBP 124/97 NIBP BP-Mean 106 Respiration from ECG 22 SpO2 95 I&O: 02/28/19 03/01/19 03/02/19 06:59 06:59 06:59 Intake Total 6118 2241 60 Output Total 1001 2060 2160 [facility] -2242 -1279 -2100 Result Diagrams: 03/01/19 05:11 03/01/19 05:11 Additional Labs: Accuchecks 03/01/19 03/01/19 03/01/19 11:53 08:06 04:31 POC Glucose 222 H 199 H 187 H 03/01/19 02/28/19 01:11 19:58 POC Glucose 191 H 193 H Hospitalist ROS - Medication Medications: Active Medications Generic Name Dose Route Start Last Admin Trade Name Freq PRN Reason Stop Dose Admin Acetaminophen 650 mg 02/14/19 16:33 03/01/19 09:33 Tylenol PO 650 mg Q4H PRN Administration Headache/Fever/Mild Pain (1-3) Albuterol/Ipratropium 3 ml 02/21/19 19:00 03/01/19 13:05 Duoneb NEB 3 ml [id number] BAYLEE Administration Carvedilol 12.5 mg 02/21/19 21:00 03/01/19 08:24 Coreg PO 12.5 mg BID BAYLEE Administration Hydralazine HCl 5 mg 03/01/19 05:42 03/01/19 06:33 Apresoline SLOW IVP 5 mg Q6H PRN Administration SBP Greater Than 180 Meropenem 2 gm/ Miscellaneous 100 mls @ 200 mls/hr 02/25/19 22:00 03/01/19 15 :05 Medication 1 each/ Sodium IVPB 100 mls Chloride Q8HR BAYLEE Administration Dextrose/Water 1,000 mls @ 100 mls/hr 03/01/19 09:15 03/01/19 09:37 D5w IV 1,000 mls .Q10H BAYLEE Administration Insulin Human Regular 0 units 02/26/19 16:48 03/01/19 12:42 Humulin R SC 6 units .AGGRESSIVE SLIDING PRN Administration AGGRESSIVE SLIDING SCALE Protocol Metoprolol Tartrate 5 mg 02/21/19 18:13 03/01/19 04:03 Lopressor IVP 5 mg Q6H PRN Administration SBP Greater Than 170 Ondansetron HCl 4 mg 02/14/19 18:05 02/26/19 02:24 Zofran IVP 4 mg Q6H PRN Administration Nausea/Vomiting Pantoprazole Sodium 40 mg 02/21/19 21:00 03/01/19 08:25 Protonix IVP 40 mg Q12HR BAYLEE Administration Sodium Chloride 10 ml 02/21/19 13:18 02/28/19 20:03 Normal Saline Pf FS 10 ml PRN PRN Administration RECONSTITUTION Sodium Chloride 10 ml 02/26/19 09:00 03/01/19 08:25 Flush - Normal Saline IVF 10 ml Q12HR BAYLEE Administration - Exam General - other findings: morbidly obese. On BiPAP. Heart: RRR, no murmur, no gallops, no rubs, normal peripheral pulses Respiratory: CTAB, no wheezes, no rales, no ronchi, normal chest expansion, no tachypnea, normal percussion Gastrointestinal: soft, non-tender, non-distended, normal bowel sounds, no palpable masses, no hepatomegaly, no splenomegaly, no bruit Extremities: no cyanosis, no clubbing, no edema Skin: normal turgor Musculoskeletal: normal tone, normal strength, no muscle wasting Psychiatric: normal affect, normal behavior, A&O x 3 Hosp A/P (1) MRSA pneumonia Code(s): J15.212 - PNEUMONIA DUE TO METHICILLIN RESISTANT STAPHYLOCOCCUS AUREUS Status: Acute (2) CHIVO (acute kidney injury) Code(s): N17.9 - ACUTE KIDNEY FAILURE, UNSPECIFIED Status: Acute (3) Acute on chronic respiratory failure with hypoxia and hypercapnia Code(s): J96.21 - ACUTE AND CHRONIC RESPIRATORY FAILURE WITH HYPOXIA; J96.22 - ACUTE AND CHRONIC RESPIRATORY FAILURE WITH HYPERCAPNIA Status: Acute (4) Gastric ulcer with hemorrhage Code(s): K25.4 - CHRONIC OR UNSPECIFIED GASTRIC ULCER WITH HEMORRHAGE Status: Acute (5) RSV bronchitis Code(s): J20.5 - ACUTE BRONCHITIS DUE TO RESPIRATORY SYNCYTIAL VIRUS Status: Acute (6) Respiratory failure requiring intubation Code(s): J96.90 - RESPIRATORY FAILURE, UNSP, UNSP W HYPOXIA OR HYPERCAPNIA Status: Acute (7) Acute on chronic systolic (congestive) heart failure Code(s): I50.23 - ACUTE ON CHRONIC SYSTOLIC (CONGESTIVE) HEART FAILURE Status : Acute (8) DM2 (diabetes mellitus, type 2) Status: Acute (9) Dyslipidemia Code(s): E78.5 - HYPERLIPIDEMIA, UNSPECIFIED Status: Chronic (10) HTN (hypertension) Code(s): I10 - ESSENTIAL (PRIMARY) HYPERTENSION Status: Chronic (11) Morbid obesity with BMI of 50.0-59.9, adult Code(s): E66.01 - MORBID (SEVERE) OBESITY DUE TO EXCESS CALORIES; Z68.43 - BODY MASS INDEX (BMI) 50.0-59.9, ADULT Status: Chronic (12) KAREEM (obstructive sleep apnea) Code(s): G47.33 - OBSTRUCTIVE SLEEP APNEA (ADULT) (PEDIATRIC) Status: Suspected (13) Anemia Code(s): D64.9 - ANEMIA, UNSPECIFIED Status: Acute - Plan RSV bronchitis, MRSA pneumonia with acute on chronic hypoxic and hypercapneic resp failure with vent dependence. Treating underlying infections. Pulm following. Extubated to BiPAP. Enlarged RV supports chronicity of the resp failure. GFR has returned to baseline.
[2019-03-01] MEDS ORDERED: Acetaminophen 650 MG Suppository PR PRN (19:12)
[2019-03-01] MEDS: Sodium Chloride 0.9% (PF) 10 ML VIAL FS PRN (20:31)
[2019-03-01] MEDS: Vancomycin 1.5 GRAM/300 ML BAG 1.5 GM in Premix Bag 1 BAG IVPB SCH (20:42)
[2019-03-02] MEDS: Insulin Regular 300 UNITS/3 ML VIAL SC PRN ×2 (01:16→16:45)
[2019-03-02] MEDS ORDERED: Metoprolol Tartrate 5 MG/5 ML VIAL ONE ×2 (06:13→18:41)
[2019-03-02] MEDS: Dextrose 5% in Water 1,000 ML IV SCH ×3 (12:36→19:29)
[2019-03-02] MEDS: Meropenem 2 GM, Admixture Fee 1 EACH in Sodium Chloride 0.9% 100 ML IVPB SCH ×3 (12:37→21:26)
[2019-03-02] MEDS: Carvedilol 6.25 MG TAB PO SCH ×2 (12:38→20:57)
[2019-03-02] MEDS: Vancomycin 1.5 GRAM/300 ML BAG 1.5 GM in Premix Bag 1 BAG IVPB SCH ×2 (12:38→21:15)
[2019-03-02] MEDS: Pantoprazole 40 MG VIAL IVP SCH ×2 (12:38→21:15)
[2019-03-02 14:20] LABS: Mean Corpuscular HGB CONC 31.3 g/dL (32.0-36.0); Mean Corpuscular Hemoglobin 27.7 pg (27.0-31.0); Mean Corpuscular Volume 88.5 fL (78.0-98.0); Platelet Count 230 thou/uL (130-400); RBC Distribution Width 14.3 % (11.5-14.5); Red Blood Cell (RBC) Count 3.23 mill/uL (4.70-6.10); White Blood Cell (WBC) Count 14.8 thou/uL (4.8-10.8)
[2019-03-02 14:45] LABS: Band 8 % (5-11); Eosinophils 1 % (0-10); Lymphocytes 9 % (21-51); MDiff Complete? YES; Monocytes 5 % (0-10); Neutrophil 77 % (42-75); Ovalocytes SLIGHT = 2-5 cells (100X) (0-1/hpf); Platelet Morphology Comment Appears Adequate; Polychromasia SLIGHT = 2-3 cells (100X) (0-2/hpf)
--- NOTE | 2019-03-02 16:57 | PRG ---
DATE OF SERVICE: 03/02/2019 SERVICE: Pulmonary Medicine. INTERVAL HISTORY: Much to my delight, the patient remains extubated. That being said, he got a little agitated last night. He is allowed to have sips of water with some pressure protocol. Outside of that, he is strictly n.p.o. Otherwise, there has been no change to his condition. He was able to sit up very weakly on the side of the bed with some assistance. He was also able to tolerate break off BiPAP for about 3 hours today. He got a little increasingly confused. His saturations started to fall off. He was appropriately returned to BiPAP. PHYSICAL EXAMINATION: VITAL SIGNS: Afebrile, currently with a T-max of 99.9, pulse 124, blood pressure 158/102, respirations 27, saturations 95%, currently on 2 L nasal cannula. GENERAL: The patient is awake and alert, in no apparent distress. LUNGS: Decent air entry. No prolonged expiratory phase or crackles are appreciated. HEART: Normal rate, regular. ABDOMEN: Soft, nontender, nondistended. Bowel sounds are positive. MUSCULOSKELETAL: No cyanosis or clubbing. There is no pitting in the bilateral lower extremities. NEUROLOGIC: Grossly nonfocal. LABORATORY DATA: WBC 14.8, hemoglobin 9.0, and platelets 230,000. Band count has dropped to 8% on top of 77% neutrophils. Coag-negative Staphylococcus is growing in 1/2 blood cultures. Sputum is growing MRSA. Urine culture is negative to date. ASSESSMENT: 1. Acute on chronic hypoxic and hypercapnic respiratory failure. 2. Acute bronchitis secondary to RSV. 3. Healthcare-associated pneumonia secondary to methicillin-resistant Staphylococcus aureus, status post 5 days of antibiotics. 4. Acute on chronic systolic and diastolic heart failure. 5. Acute blood loss anemia secondary to peptic ulcer disease. 6. Obesity hypoventilation syndrome with morbid obesity. 7. Acute kidney injury on chronic kidney disease 3. 8. Hypernatremia. DISCUSSION AND PLAN: We will continue giving him breaks off the BiPAP 3 times daily and increase as tolerated. He will need to continue using noninvasive ventilation at night. I will give him a dose of Haldol in the evening to see if we can encourage him to remain calm during the evening hours. Basic metabolic profile; magnesium and phosphorus will be repeated tomorrow morning. Otherwise, supportive measures will be continued. Job ID: [id number] [facility]
[2019-03-02] MEDS ORDERED: Metoprolol Tartrate 5 MG/5 ML VIAL IVP PRN (18:42)
[2019-03-02 18:57] LABS: Anion Gap 12 mmol/L (10-20); BUN (Urea Nitrogen) 31 mg/dL (8.9-20.6); Calc. Creatinine Clearance 240 mL/min (70-130); Calcium 8.5 mg/dL (7.8-10.44); Carbon Dioxide 30 mmol/L (22-29); Chloride 110 mmol/L (98-107); Estimated GFR-MDRD 83; Glucose 181 mg/dL (70-105); Magnesium 1.6 mg/dL (1.6-2.6); Potassium 3.5 mmol/L (3.5-5.1); Sodium 148 mmol/L (136-145)
[2019-03-02 18:58] LABS: Phosphorus 2.5 mg/dL (2.3-4.7)
--- NOTE | 2019-03-02 20:29 | PDOC.HOSPP ---
- Subjective Subjective: Has had confusion noted by the nurses. He is difficult to understand, but indicates he is frustrated that he is debilitated and can't stand. - Objective Vital Signs & Weight: Vital Signs (12 hours) Temp Pulse Pulse Pulse Resp BP BP 03/02/19 18:35 128 H 34 H 03/02/19 16:00 99.9 F H 03/02/19 13:56 118 H 03/02/19 13:54 120 H 25 H 03/02/19 13:45 124 H 122 H 155/106 H 133/90 Pulse Ox Pulse Ox Pulse Ox 03/02/19 18:35 98 03/02/19 16:00 03/02/19 13:56 03/02/19 13:54 99 03/02/19 13:45 94 L 95 Weight Admit Weight 429 lb 14.422 oz Weight 429 lb 14.422 oz Most Recent Monitor Data Heart Rate from ECG 111 NIBP 129/90 NIBP BP-Mean 103 Respiration from ECG 32 SpO2 98 I&O: 03/01/19 03/02/19 03/03/19 06:59 06:59 06:59 Intake Total 2241 1483 1614 Output Total 3520 3390 670 Balance -6119 -0064 944 Result Diagrams: 03/02/19 04:45 03/02/19 07:00 Additional Labs: Accuchecks 03/02/19 03/02/19 03/02/19 16:07 11:33 08:55 POC Glucose 209 H 170 H 178 H 03/02/19 03/02/19 03/01/19 05:53 01:10 20:30 POC Glucose 172 H 170 H 200 H Hospitalist ROS - Medication Medications: Active Medications Generic Name Dose Route Start Last Admin Trade Name Freq PRN Reason Stop Dose Admin Acetaminophen 650 mg 02/14/19 16:33 03/01/19 09:33 Tylenol PO 650 mg Q4H PRN Administration Headache/Fever/Mild Pain (1-3) Albuterol/Ipratropium 3 ml 02/21/19 19:00 03/02/19 18:35 Duoneb NEB 3 ml [id number] BAYLEE Administration Carvedilol 12.5 mg 02/21/19 21:00 03/02/19 12:38 Coreg PO Not Given BID BAYLEE Hydralazine HCl 5 mg 03/01/19 05:42 12/03/19 06:33 Apresoline SLOW IVP 5 mg Q6H PRN Administration SBP Greater Than 180 Meropenem 2 gm/ Miscellaneous 100 mls @ 200 mls/hr 02/25/19 22:00 03/02/19 13 :09 Medication 1 each/ Sodium IVPB 100 mls Chloride Q8HR BAYLEE Administration Vancomycin HCl 1.5 gm/ Device 300 mls @ 200 mls/hr 03/01/19 21:00 03/02/19 12 :38 IVPB Not Given Q12HR BAYLEE Dextrose/Water 1,000 mls @ 100 mls/hr 03/01/19 09:15 03/02/19 19:29 D5w IV 1,000 mls .Q10H BAYLEE Administration Insulin Human Regular 0 units 02/26/19 16:48 03/02/19 16:45 Humulin R SC 6 units .AGGRESSIVE SLIDING PRN Administration AGGRESSIVE SLIDING SCALE Protocol Metoprolol Tartrate 5 mg 02/21/19 18:13 03/01/19 23:33 Lopressor IVP 5 mg Q6H PRN Administration SBP Greater Than 170 Ondansetron HCl 4 mg 02/14/19 18:05 02/26/19 02:24 Zofran IVP 4 mg Q6H PRN Administration Nausea/Vomiting Pantoprazole Sodium 40 mg 02/21/19 21:00 03/02/19 12:38 Protonix IVP Not Given Q12HR BAYLEE Sodium Chloride 10 ml 02/21/19 13:18 03/01/19 20:31 Normal Saline Pf FS 10 ml PRN PRN Administration RECONSTITUTION Sodium Chloride 10 ml 02/26/19 09:00 03/02/19 12:38 Flush - Normal Saline IVF Not Given Q12HR [facility] - Exam General Appearance: NAD, awake alert General - other findings: morbidly obese. Bipap Heart: RRR, no murmur, no gallops, no rubs, normal peripheral pulses Heart - other findings: Tachycardic Respiratory - other findings: Some wheezes, greater on left Gastrointestinal: soft, non-tender, non-distended, normal bowel sounds, no palpable masses, no hepatomegaly, no splenomegaly, no bruit Extremities: no cyanosis, no clubbing, no edema Skin: normal turgor Musculoskeletal: normal tone, normal strength, no muscle wasting Psychiatric: somnolent Hosp A/P (1) MRSA pneumonia Code(s): J15.212 - PNEUMONIA DUE TO METHICILLIN RESISTANT STAPHYLOCOCCUS AUREUS Status: Acute (2) CHIVO (acute kidney injury) Code(s): N17.9 - ACUTE KIDNEY FAILURE, UNSPECIFIED Status: Acute (3) Acute on chronic respiratory failure with hypoxia and hypercapnia Code(s): J96.21 - ACUTE AND CHRONIC RESPIRATORY FAILURE WITH HYPOXIA; J96.22 - ACUTE AND CHRONIC RESPIRATORY FAILURE WITH HYPERCAPNIA Status: Acute (4) Gastric ulcer with hemorrhage Code(s): K25.4 - CHRONIC OR UNSPECIFIED GASTRIC ULCER WITH HEMORRHAGE Status: Acute (5) RSV bronchitis Code(s): J20.5 - ACUTE BRONCHITIS DUE TO RESPIRATORY SYNCYTIAL VIRUS Status: Acute (6) Respiratory failure requiring intubation Code(s): J96.90 - RESPIRATORY FAILURE, UNSP, UNSP W HYPOXIA OR HYPERCAPNIA Status: Acute (7) Acute on chronic systolic (congestive) heart failure Code(s): I50.23 - ACUTE ON CHRONIC SYSTOLIC (CONGESTIVE) HEART FAILURE Status : Acute (8) DM2 (diabetes mellitus, type 2) Status: Acute (9) Dyslipidemia Code(s): E78.5 - HYPERLIPIDEMIA, UNSPECIFIED Status: Chronic (10) HTN (hypertension) Code(s): I10 - ESSENTIAL (PRIMARY) HYPERTENSION Status: Chronic (11) Morbid obesity with BMI of 50.0-59.9, adult Code(s): E66.01 - MORBID (SEVERE) OBESITY DUE TO EXCESS CALORIES; Z68.43 - BODY MASS INDEX (BMI) 50.0-59.9, ADULT Status: Chronic (12) KAREEM (obstructive sleep apnea) Code(s): G47.33 - OBSTRUCTIVE SLEEP APNEA (ADULT) (PEDIATRIC) Status: Suspected (13) Hypomagnesemia Code(s): E83.42 - HYPOMAGNESEMIA Status: Acute (14) Acute blood loss anemia Code(s): D62 - ACUTE POSTHEMORRHAGIC ANEMIA Status: Acute (15) Hypernatremia Code(s): E87.0 - HYPEROSMOLALITY AND HYPERNATREMIA Status: Acute (16) Acute metabolic encephalopathy Code(s): G93.41 - METABOLIC ENCEPHALOPATHY Status: Acute - Plan RSV bronchitis, MRSA pneumonia with acute on chronic hypoxic and hypercapneic resp failure with vent dependence. Treating underlying infections. Pulm following. Extubated to BiPAP. GFR has returned to baseline. Persistent tachycardia Pulm working diligently to keep him extubated. Reintubation would necessitate trach vanc/meropenem D5 ordered for hypernatremia. Anticoag held due to GI bleed. Did not have SCD's due to severe LE edema. Edema resolved. Start SCD's.
[2019-03-02 20:42] LABS: Actual Bicarbonate (HCO3a) 33.2 mEq/L (22-28); Base Excess (BEa) 6.7 mEq/L (-2.0 to +3.0); CO2 Tension 58.9 mmHg (35.0-45.0); Carboxyhemoglobin (COHb) 2.2 gm% (0.0-3.0); Hemoglobin (Hb) 9.9 g/dL (14.0-18.0); O2 Tension (PaO2) 61.9 mmHg (80.0-100.0); Potassium - ABG Lab 3.44 mmol/L (3.70-5.30); pH, Arterial 7.37 (7.35-7.45)
[2019-03-02] MEDS: Sodium Chloride 0.9% (PF) 10 ML VIAL FS PRN (21:15)
[2019-03-02 22:20] LABS: ALV-art Gradient 78.375 (0-20); Puncture Site RRA
[2019-03-03 04:26] LABS: #Basophils 0.1 thou/uL (0.0-0.2); #Eosinphils 0.2 thou/uL (0.0-0.7); #Lymphocytes 1.6 thou/uL (1.20-3.40); #Monocytes 0.9 thou/uL (0.11-0.59); #Neutrophils 10.5 thou/uL (1.40-6.50); %Basophils 0.4 % (0.0-1.0); %Eosinophils 1.5 % (0.0-10.0); %Lymphocytes 11.8 % (21.0-51.0); %Monocytes 6.8 % (0.0-10.0); %Neutrophils 79.5 % (42.0-75.0); Hemoglobin 8.8 g/dL (14.0-18.0); Mean Corpuscular HGB CONC 31.3 g/dL (32.0-36.0); Mean Corpuscular Hemoglobin 27.9 pg (27.0-31.0); Mean Corpuscular Volume 89.2 fL (78.0-98.0); Platelet Count 227 thou/uL (130-400); RBC Distribution Width 14.1 % (11.5-14.5); Red Blood Cell (RBC) Count 3.16 mill/uL (4.70-6.10); White Blood Cell (WBC) Count 13.2 thou/uL (4.8-10.8)
[2019-03-03 04:46] LABS: Phosphorus 2.3 mg/dL (2.3-4.7)
[2019-03-03 04:48] LABS: Anion Gap 11 mmol/L (10-20); BUN (Urea Nitrogen) 25 mg/dL (8.9-20.6); Calc. Creatinine Clearance 259 mL/min (70-130); Calcium 8.5 mg/dL (7.8-10.44); Carbon Dioxide 30 mmol/L (22-29); Chloride 110 mmol/L (98-107); Estimated GFR-MDRD Greater than 90; Glucose 153 mg/dL (70-105); Magnesium 1.5 mg/dL (1.6-2.6); Potassium 3.4 mmol/L (3.5-5.1); Sodium 148 mmol/L (136-145)
[2019-03-03] MEDS: Meropenem 2 GM, Admixture Fee 1 EACH in Sodium Chloride 0.9% 100 ML IVPB SCH ×3 (07:36→22:33)
[2019-03-03] MEDS ORDERED: Magnesium Sulfate 4 GM in Sodium Chloride 0.9% 250 ML 250 ML IVPB SCH (08:15)
[2019-03-03] MEDS: Potassium Chloride 40 MEQ in Sodium Chloride 0.9% 250 ML 250 ML IVPB SCH ×2 (09:45→17:59)
[2019-03-03] MEDS: Carvedilol 6.25 MG TAB PO SCH ×2 (09:49→19:59)
[2019-03-03] MEDS: Pantoprazole 40 MG VIAL IVP SCH ×2 (09:50→19:59)
[2019-03-03] MEDS: Vancomycin 1.5 GRAM/300 ML BAG 1.5 GM in Premix Bag 1 BAG IVPB SCH ×2 (09:52→21:11)
[2019-03-03] MEDS: Dextrose 5% in Water 1,000 ML IV SCH (15:05)
--- NOTE | 2019-03-03 17:02 | PDOC.HOSPP ---
- Subjective Subjective: More awake today. He continues to be very frustrated by he debility. Says he has to get out of here. He reports that having the television on is making him hallucinate. Nurse reported he had some agitation last night. Has been confused today. - Objective Vital Signs & Weight: Vital Signs (12 hours) Temp Pulse Resp BP Pulse Ox 03/03/19 16:00 99.2 F 03/03/19 12:57 107 H 29 H 99 03/03/19 12:00 99.2 F 03/03/19 09:49 158/97 H 03/03/19 08:00 94 L 03/03/19 07:57 139 H 03/03/19 07:55 143 H 27 H 95 03/03/19 07:00 99.5 F Weight Admit Weight 429 lb 14.422 oz Weight 429 lb 14.422 oz Most Recent Monitor Data Heart Rate from ECG 107 NIBP 142/93 NIBP BP-Mean 109 Respiration from ECG 23 SpO2 98 I&O: 03/02/19 03/03/19 03/04/19 06:59 06:59 06:59 Intake Total 1483 3152 850 Output Total 3390 1950 735 Balance -1907 1202 115 Result Diagrams: 03/03/19 04:18 03/03/19 04:18 Additional Labs: Accuchecks 03/03/19 03/03/19 03/02/19 16:04 10:34 21:48 POC Glucose 147 H 147 H 175 H Hospitalist ROS - Medication Medications: Active Medications Generic Name Dose Route Start Last Admin Trade Name Freq PRN Reason Stop Dose Admin Acetaminophen 650 mg 02/14/19 16:33 03/01/19 09:33 Tylenol PO 650 mg Q4H PRN Administration Headache/Fever/Mild Pain (1-3) Acetaminophen 650 mg 03/01/19 19:12 03/02/19 21:15 Tylenol NH 650 mg Q6H PRN Administration Mild Pain (1-3)/FEVER Albuterol/Ipratropium 3 ml 02/21/19 19:00 03/03/19 12:57 Duoneb NEB 3 ml [id number] BAYLEE Administration Carvedilol 12.5 mg 02/21/19 21:00 03/03/19 09:49 Coreg PO 12.5 mg BID BAYLEE Administration Hydralazine HCl 5 mg 03/01/19 05:42 03/01/19 06:33 Apresoline SLOW IVP 5 mg Q6H PRN Administration SBP Greater Than 180 Meropenem 2 gm/ Miscellaneous 100 mls @ 200 mls/hr 02/25/19 22:00 03/03/19 15 :34 Medication 1 each/ Sodium IVPB 100 mls Chloride Q8HR BAYLEE Administration Vancomycin HCl 1.5 gm/ Device 300 mls @ 200 mls/hr 03/01/19 21:00 03/03/19 09 :52 IVPB 300 mls Q12HR BAYLEE Administration Dextrose/Water 1,000 mls @ 100 mls/hr 03/01/19 09:15 03/03/19 15:05 D5w IV 1,000 mls .Q10H BAYLEE Administration Potassium Chloride 40 meq/ 270 mls @ 67.5 mls/hr 03/03/19 09:00 03/03/19 09: 45 Sodium Chloride IVPB 03/03/19 16:59 270 mls Q4H BAYLEE Administration Insulin Human Regular 0 units 02/26/19 16:48 03/02/19 16:45 Humulin R SC 6 units .AGGRESSIVE SLIDING PRN Administration AGGRESSIVE SLIDING SCALE Protocol Metoprolol Tartrate 5 mg 02/21/19 18:13 03/01/19 23:33 Lopressor IVP 5 mg Q6H PRN Administration SBP Greater Than 170 Ondansetron HCl 4 mg 02/14/19 18:05 02/26/19 02:24 Zofran IVP 4 mg Q6H PRN Administration Nausea/Vomiting Pantoprazole Sodium 40 mg 02/21/19 21:00 03/03/19 09:50 Protonix IVP 40 mg Q12HR BAYLEE Administration Sodium Chloride 10 ml 02/21/19 13:18 03/02/19 21:15 Normal Saline Pf FS 10 ml PRN PRN Administration RECONSTITUTION Sodium Chloride 10 ml 02/26/19 09:00 03/03/19 09:51 Flush - Normal Saline IVF 10 ml Q12HR BAYLEE Administration - Exam General Appearance: NAD, awake alert General - other findings: Morbidly obese. Hypophonia. Heart: RRR, no murmur, no gallops, no rubs, normal peripheral pulses Respiratory: CTAB, no wheezes, no rales, no ronchi, normal chest expansion, no tachypnea, normal percussion Gastrointestinal: soft, non-tender, non-distended, normal bowel sounds, no palpable masses, no hepatomegaly, no splenomegaly, no bruit Skin: normal turgor Psychiatric: flat affect Hosp A/P (1) Acute on chronic respiratory failure with hypoxia and hypercapnia Code(s): J96.21 - ACUTE AND CHRONIC RESPIRATORY FAILURE WITH HYPOXIA; J96.22 - ACUTE AND CHRONIC RESPIRATORY FAILURE WITH HYPERCAPNIA Status: Acute (2) MRSA pneumonia Code(s): J15.212 - PNEUMONIA DUE TO METHICILLIN RESISTANT STAPHYLOCOCCUS AUREUS Status: Acute (3) RSV bronchitis Code(s): J20.5 - ACUTE BRONCHITIS DUE TO RESPIRATORY SYNCYTIAL VIRUS Status: Acute (4) CHIVO (acute kidney injury) Code(s): N17.9 - ACUTE KIDNEY FAILURE, UNSPECIFIED Status: Acute (5) Gastric ulcer with hemorrhage Code(s): K25.4 - CHRONIC OR UNSPECIFIED GASTRIC ULCER WITH HEMORRHAGE Status: Acute (6) Respiratory failure requiring intubation Code(s): J96.90 - RESPIRATORY FAILURE, UNSP, UNSP W HYPOXIA OR HYPERCAPNIA Status: Acute (7) Acute on chronic systolic (congestive) heart failure Code(s): I50.23 - ACUTE ON CHRONIC SYSTOLIC (CONGESTIVE) HEART FAILURE Status : Acute (8) DM2 (diabetes mellitus, type 2) Status: Acute (9) Dyslipidemia Code(s): E78.5 - HYPERLIPIDEMIA, UNSPECIFIED Status: Chronic (10) HTN (hypertension) Code(s): I10 - ESSENTIAL (PRIMARY) HYPERTENSION Status: Chronic (11) Morbid obesity with BMI of 50.0-59.9, adult Code(s): E66.01 - MORBID (SEVERE) OBESITY DUE TO EXCESS CALORIES; Z68.43 - BODY MASS INDEX (BMI) 50.0-59.9, ADULT Status: Chronic (12) KAREEM (obstructive sleep apnea) Code(s): G47.33 - OBSTRUCTIVE SLEEP APNEA (ADULT) (PEDIATRIC) Status: Suspected (13) Hypomagnesemia Code(s): E83.42 - HYPOMAGNESEMIA Status: Acute (14) Acute blood loss anemia Code(s): D62 - ACUTE POSTHEMORRHAGIC ANEMIA Status: Acute (15) Hypernatremia Code(s): E87.0 - HYPEROSMOLALITY AND HYPERNATREMIA Status: Acute (16) Acute metabolic encephalopathy Code(s): G93.41 - METABOLIC ENCEPHALOPATHY Status: Acute (17) Hypoventilation associated with obesity syndrome Code(s): E66.2 - MORBID (SEVERE) OBESITY WITH ALVEOLAR HYPOVENTILATION Status : Acute - Plan RSV bronchitis, MRSA pneumonia with acute on chronic hypoxic and hypercapneic resp failure. He was high risk of chronic vent dependence due to hypoventilation of obesity syndrome. Extubated and weaned down to [place] oxygen. Treating underlying infections. Pulm following. GFR has returned to baseline. Persistent tachycardia Pulm working diligently to keep him extubated. vanc/meropenem D5 ordered for hypernatremia. Anticoag held due to GI bleed. SCD's
[2019-03-03] MEDS ORDERED: Potassium Chloride 40 MEQ in Sodium Chloride 0.9% 250 ML 250 ML IVPB SCH (17:45)
[2019-03-03] MEDS: Sodium Chloride 0.9% (PF) 10 ML VIAL FS PRN (19:59)
[2019-03-03] MEDS: Insulin Regular 300 UNITS/3 ML VIAL SC PRN (20:39)
--- NOTE | 2019-03-03 21:32 | HP ---
SERVICE: Pulmonary Medicine. INTERVAL HISTORY: The patient is doing fine from respiratory standpoint. Breathing comfortably. He is on BiPAP currently. He had some desaturation while sleeping on BiPAP last night. As such, he was put on a little bit of oxygen. Otherwise, there has been no interval change to his condition. Currently, he is awake and alert. There has been no interval change to his condition. PHYSICAL EXAMINATION: VITAL SIGNS: Afebrile, pulse 107, blood pressure 169/111, respirations 18, and saturation 96%, currently on BiPAP. GENERAL: The patient is awake and alert, in no apparent distress. LUNGS: Decent air entry. No prolonged expiratory phase or wheezing is appreciated. HEART: Normal rate, regular. ABDOMEN: Soft, nontender, nondistended. Bowel sounds are positive. MUSCULOSKELETAL: No cyanosis or clubbing. No pitting in the bilateral lower extremities. NEUROLOGIC: Grossly nonfocal. LABORATORY DATA: WBC 13.2, hemoglobin 8.8, platelets 227,000. Sodium 148 and downtrending, potassium 3.4. Chloride 110, stable. Basic metabolic profile is unremarkable. Magnesium 1.5, phosphorus 2.3. MRSA is growing out of the sputum. ASSESSMENT: 1. Acute on chronic hypoxic and hypercapnic respiratory failure. 2. Acute bronchitis secondary to RSV, resolved. 3. Healthcare-associated pneumonia secondary to methicillin-resistant Staphylococcus aureus, status post 6 days of antibiotics. 4. Acute on chronic systolic and diastolic heart failure. 5. Acute blood loss anemia secondary to peptic ulcer disease. 6. Obesity hypoventilation syndrome with morbid obesity. 7. Acute kidney injury, resolved. 8. Hypernatremia, improving. DISCUSSION AND PLAN: We will continue supportive care and BiPAP breaks 3 times daily and increase as tolerated. Pulmonary/Critical Care will continue to follow along while the patient remains in this location. Once he can tolerate more robust breaks, I will consider him for transition to the floor. We will watch his in's and out's closely. If he is significantly elevated, intermittent doses of Lasix will be considered. Job ID: [id number]
[2019-03-04] MEDS: Insulin Regular 300 UNITS/3 ML VIAL SC PRN ×3 (04:13→16:46)
[2019-03-04 05:12] LABS: Anion Gap 13 mmol/L (10-20); BUN (Urea Nitrogen) 21 mg/dL (8.9-20.6); Calc. Creatinine Clearance 271 mL/min (70-130); Calcium 8.5 mg/dL (7.8-10.44); Carbon Dioxide 26 mmol/L (22-29); Chloride 113 mmol/L (98-107); Estimated GFR-MDRD Greater than 90; Glucose 163 mg/dL (70-105); Magnesium 1.7 mg/dL (1.6-2.6); Potassium 4.8 mmol/L (3.5-5.1); Sodium 147 mmol/L (136-145)
[2019-03-04 05:16] LABS: Band 4 % (5-11); Eosinophils 2 % (0-10); Hemoglobin 9.4 g/dL (14.0-18.0); Lymphocytes 9 % (21-51); MDiff Complete? YES; Mean Corpuscular HGB CONC 32.5 g/dL (32.0-36.0); Mean Corpuscular Hemoglobin 28.7 pg (27.0-31.0); Mean Corpuscular Volume 88.4 fL (78.0-98.0); Mean Platelet Volume 11.1 fL (7.4-10.4); Monocytes 6 % (0-10); Neutrophil 78 % (42-75); Platelet Count 178 thou/uL (130-400); RBC Distribution Width 14.4 % (11.5-14.5); Red Blood Cell (RBC) Count 3.28 mill/uL (4.70-6.10); White Blood Cell (WBC) Count 15.3 thou/uL (4.8-10.8)
[2019-03-04] MEDS: Dextrose 5% in Water 1,000 ML IV SCH ×2 (06:02→17:10)
[2019-03-04] MEDS: Meropenem 2 GM, Admixture Fee 1 EACH in Sodium Chloride 0.9% 100 ML IVPB SCH (06:03)
[2019-03-04] MEDS: Furosemide 20 MG/2 ML VIAL SLOW IVP SCH (06:03)
--- NOTE | 2019-03-04 08:17 | PRG ---
DATE OF SERVICE: 03/04/2019 SUBJECTIVE: The patient is seen and examined at the bedside. He is on nasal cannula. He is quite comatose this morning. He does not look like he wants to talk to me. He received some 20 mg of Lasix this morning, as he was just suctioned. OBJECTIVE: HEENT: Sclerae nonicteric. Conjunctivae, pinkish. LUNGS: Wheezing and crackles bilaterally, mild to moderate. ABDOMEN: Obese, soft, nontender, nondistended. EXTREMITIES: No clubbing, cyanosis. I would say there is some generalized edema, at least 1+ upper and lower extremities and abdomen. NEUROLOGICAL: As I mentioned above, he is quite comatose this morning, and not willing to cooperate with me. LABORATORY DATA: White count of 15.3, hemoglobin of 9.4, hematocrit 29.0, platelet count is 178,000. Sodium of 147, potassium 4.8, chloride 113, CO2 of 26, BUN 21, glucose ranging from 141 to 170, calcium 8.5, magnesium 1.7. Microbiology, no new reports. IMPRESSION: 1. Acute on chronic respiratory failure with hypoxia and hypercapnia. The patient desaturated this morning. He was given Lasix and was suctioned and currently, he is on 4 L of O2 by nasal cannula. His pulse oximetry is above 95%. 2. Methicillin-resistant Staphylococcus aureus pneumonia. 3. Respiratory syncytial virus bronchitis. 4. Acute kidney injury. 5. Gastric ulcer with hemorrhage. 6. Respiratory failure, requiring intubation. 7. Acute on chronic systolic heart failure. 8. Diabetes mellitus type 2, relatively well controlled on aggressive sliding scale. 9. Dyslipidemia. 10. Hypertension. 11. Morbid obesity with body mass index of more than a 50. 12. Obstructive sleep apnea. 13. Hypernatremia, on D5 water at 100 mL/hour. 14. Acute metabolic encephalopathy. 15. Hypoventilation associated with obesity syndrome. PLAN: Continue vancomycin and meropenem. Continue D5 water. Continue Accu-Cheks every 6 hours with aggressive sliding scale. Continue close observation since the patient has some episodes of desaturations secondary to probably secretions. Suctioning p.r.n. Continue DuoNeb. Continue DVT prophylaxis with SCDs. Job ID: [id number]
[2019-03-04] MEDS: Carvedilol 6.25 MG TAB PO SCH ×2 (08:40→19:53)
[2019-03-04] MEDS: Vancomycin 1.5 GRAM/300 ML BAG 1.5 GM in Premix Bag 1 BAG IVPB SCH ×2 (08:42→19:52)
[2019-03-04] MEDS: Pantoprazole 40 MG VIAL IVP SCH ×2 (08:44→19:53)
[2019-03-04] MEDS ORDERED: Magnesium Sulfate 4 GM in Sodium Chloride 0.9% 250 ML 250 ML IVPB SCH (12:00)
--- NOTE | 2019-03-04 12:12 | PRG ---
DATE OF SERVICE: 03/04/2019 SERVICE: Pulmonary Medicine. INTERVAL HISTORY: The patient is doing great from respiratory standpoint. He denies any current chest discomfort or shortness of breath. He is breathing comfortably. Otherwise, there has been no interval change in his condition. At night, he is encephalopathic, becomes a little bit while. During the daytime, he has been excessively sleepy. He is delirious. He has been having some hallucinations. PHYSICAL EXAMINATION: VITAL SIGNS: Afebrile; pulse 108; blood pressure 136/74; respirations 23; saturation 95%, currently on room air. GENERAL: The patient is awake, alert, in no apparent distress. LUNGS: Decent air entry. Rhonchi are present. There is a slightly prolonged expiratory phase, but I do not appreciate any wheezing. HEART: Normal rate and regular. ABDOMEN: Soft, nontender, nondistended. Bowel sounds are positive. MUSCULOSKELETAL: No cyanosis or clubbing. There is trace to 1+ pitting in the bilateral lower extremities. NEUROLOGIC: Grossly nonfocal. LABORATORY DATA: WBC 15.3, hemoglobin 9.4, platelets 178,000 and stable. Band count is only 4%. Sodium is gently downtrending to 147, chloride 113, and roughly stable. Basic metabolic profile is otherwise unremarkable. Magnesium is 1.7. MRSA is growing from the sputum on the . Blood cultures x2 are unremarkable. Urine culture is also unremarkable. ASSESSMENT: 1. Acute on chronic hypoxic and hypercapnic respiratory failure. 2. Acute bronchitis secondary to respiratory syncytial virus, resolved. 3. Healthcare-associated pneumonia secondary to methicillin-resistant Staphylococcus aureus, status post 7 days of antibiotic. 4. Acute on chronic systolic and diastolic heart failure. 5. Acute blood loss anemia secondary to peptic ulcer disease. 6. Obesity hypoventilation syndrome with morbid obesity. 7. Acute kidney injury, resolved. 8. Hypernatremia, improving. DISCUSSION AND PLAN: We will continue supportive care through time. In another 24 hours, if he is not able to swallow more robustly, we will need to consider putting a Dobhoff tube down to provide some nutrition. Magnesium will be replaced. I will give the patient a laboratory holiday tomorrow morning. Pulmonary/Critical Care will follow along. Job ID: [id number]
[2019-03-04] MEDS: Sodium Chloride 0.9% (PF) 10 ML VIAL FS PRN (19:53)
[2019-03-04] MEDS ORDERED: Haloperidol Lactate 5 MG/ML VIAL IM SCH (21:00)
[2019-03-04 22:43] LABS: Actual Bicarbonate (HCO3a) 35.8 mEq/L (22-28); Base Excess (BEa) 6.7 mEq/L (-2.0 to +3.0); Calcium, Ionized 1.21 mmol/L (1.12-1.30); Carboxyhemoglobin (COHb) 1.3 gm% (0.0-3.0); Hemoglobin (Hb) 9.3 g/dL (14.0-18.0); Potassium - ABG Lab 4.08 mmol/L (3.70-5.30)
[2019-03-04 23:06] LABS: CO2 Tension 84.4 mmHg (35.0-45.0); O2 Tension (PaO2) 55.9 mmHg (80.0-100.0); Puncture Site R RADIAL; pH, Arterial 7.25 (7.35-7.45)
[2019-03-05] MEDS: Dextrose 5% in Water 1,000 ML IV SCH ×2 (04:47→17:46)
[2019-03-05] MEDS: Furosemide 20 MG/2 ML VIAL SLOW IVP SCH (04:57)
[2019-03-05 08:36] LABS: Vancomycin, Trough 19.4 ug/mL
[2019-03-05] MEDS: Carvedilol 6.25 MG TAB PO SCH ×2 (09:50→20:06)
[2019-03-05] MEDS: Pantoprazole 40 MG VIAL IVP SCH ×2 (09:50→20:06)
[2019-03-05] MEDS: Vancomycin 1.5 GRAM/300 ML BAG 1.5 GM in Premix Bag 1 BAG IVPB SCH (09:50)
--- NOTE | 2019-03-05 15:07 | PRG ---
DATE OF SERVICE: 03/05/2019 SERVICE: Pulmonary medicine. INTERVAL HISTORY: Overnight, the patient got increasingly obtunded. We ended up putting him back on his BiPAP. We modified his FiO2 to maintain him with oxygen saturations between 86% and 90%. This morning, he is cool, calm, and collected. He is breathing comfortably. His strength is improving. There has been no interval change to his condition, otherwise however. Speech saw him and indicates that his swallow has come along beautifully. PHYSICAL EXAMINATION: VITAL SIGNS: Afebrile. Pulse 97, blood pressure 165/113, respirations 12, saturation 99% on BiPAP with 27% FiO2. GENERAL: The patient is awake and alert today. No prolonged expiratory phase or wheezing is appreciated. HEART: Normal rate. Regular. ABDOMEN: Soft, nontender, nondistended. Bowel sounds are positive. MUSCULOSKELETAL: No cyanosis or clubbing. There is no pitting in the bilateral lower extremities. NEUROLOGIC: Grossly nonfocal. LABORATORY DATA: PH 7.25, pCO2 of 84, PO2 of 56. This corresponding to a saturation of 86%. ASSESSMENT: 1. Acute on chronic hypoxic and hypercapnic respiratory failure. 2. Acute bronchitis secondary to respiratory syncytial virus. 3. Healthcare-associated pneumonia secondary to methicillin-resistant Staphylococcus aureus, status post full course of antibiotic. 4. Acute on chronic systolic and diastolic heart failure. 5. Acute blood loss anemia secondary to peptic ulcer bleed. 6. Obesity hypoventilation syndrome with morbid obesity. 7. Acute kidney injury, resolved. 8. Hypernatremia, improving. DISCUSSION AND PLAN: I will repeat basic metabolic profile and CBC, and Mag and phos tomorrow morning. We will continue to replace as tolerated. We will give him breaks off BiPAP as long as he can tolerate them. If he sleeps for any reason whatsoever, he is to wear the BiPAP. Pulmonary/Critical Care will continue to follow along while he remains inhouse. Job ID: [id number]
[2019-03-05 15:12] LABS: Band 21 % (5-11); Hemoglobin 8.2 g/dL (14.0-18.0); Hypochromia SLIGHT = 6-15 cells (100X) (0-5/hpf); Lymphocytes 9 % (21-51); MDiff Complete? YES; Mean Corpuscular HGB CONC 32.5 g/dL (32.0-36.0); Mean Corpuscular Hemoglobin 28.4 pg (27.0-31.0); Mean Corpuscular Volume 87.4 fL (78.0-98.0); Mean Platelet Volume 10.5 fL (7.4-10.4); Monocytes 7 % (0-10); Neutrophil 60 % (42-75); Platelet Count 186 thou/uL (130-400); Platelet Morphology Comment Appears Adequate; Polychromasia SLIGHT = 2-3 cells (100X) (0-2/hpf); RBC Distribution Width 14.2 % (11.5-14.5); Reactive Lymphocytes 3 % (0-10); Red Blood Cell (RBC) Count 2.88 mill/uL (4.70-6.10); Target Cells SLIGHT = 2-5 cells (100X) (0-1/hpf); White Blood Cell (WBC) Count 10.5 thou/uL (4.8-10.8)
--- NOTE | 2019-03-05 15:12 | PRG ---
DATE OF SERVICE: 03/05/2019 SUBJECTIVE: The patient is seen and examined at the bedside. He is improved since yesterday. He is able to talk to me, and he makes he just finished his swallowing evaluation. OBJECTIVE: VITAL SIGNS: Blood pressure is 149/92, pulse is 105, respirations 17, O2 saturation is 97% on 3 L by nasal cannula. GENERAL: He is very obese man. His head is atraumatic and normocephalic. Sclerae are nonicteric. Conjunctivae are pinkish. NECK: Supple, obese. LUNGS: Breath sounds diminished at both bases. HEART: S1 and S2, normal. ABDOMEN: Very obese, soft, and nontender. Bowel sounds are present. EXTREMITIES: 1 to 2+ peripheral edema, nonpitting. NEUROLOGIC: He follows my commands. He moves his all 4 extremities with some limitations secondary to the size of his limbs. LABORATORY DATA: Showed glycemia ranging between 134 to 169. IMPRESSION: 1. Acute on chronic respiratory failure with hypoxia and hypercapnia. He is on nasal cannula 3 L, seems to be doing quite well. 2. Methicillin-resistant Staphylococcus aureus pneumonia. 3. Respiratory syncytial, virus bronchitis. 4. Acute kidney injury. 5. Gastric ulcer with hemorrhage. 6. Respiratory failure, requiring intubation. 7. Acute on chronic systolic heart failure. 8. Diabetes mellitus type 2, relatively well controlled with aggressive sliding scale. 9. Dyslipidemia. 10. Hypertension. 11. Morbid obesity with body mass index more than 50. 12. Obstructive sleep apnea. 13. Hypernatremia. 14. Acute metabolic encephalopathy with obesity syndrome. PLAN: Plan is to continue his current regimen, which includes aggressive sliding scale, Accu-Cheks, pantoprazole IV piggyback every 12 hours. DuoNebs every 6 hours, scheduled plus p.r.n. as needed, Coreg 12.5 mg twice a day continue that is 100 mL/hour. Obtain BMP and CBC. His urine output is 4315 for the last 24 hours and the intake was 2800, so he is -15/14 mL. We will continue Lasix and we will continue his PT and I am waiting for the final report from speech therapies regarding his swallowing testing. Job ID: [id number]
[2019-03-05 16:43] LABS: Anion Gap 12 mmol/L (10-20); BUN (Urea Nitrogen) 18 mg/dL (8.9-20.6); Calc. Creatinine Clearance 308 mL/min (70-130); Calcium 8.3 mg/dL (7.8-10.44); Carbon Dioxide 29 mmol/L (22-29); Chloride 108 mmol/L (98-107); Estimated GFR-MDRD Greater than 90; Glucose 139 mg/dL (70-105); Potassium 3.9 mmol/L (3.5-5.1); Sodium 145 mmol/L (136-145)
[2019-03-05] MEDS ORDERED: Haloperidol Lactate 5 MG/ML VIAL IM SCH (21:00)
[2019-03-06] MEDS: Dextrose 5% in Water 1,000 ML IV SCH ×3 (02:28→18:12)
[2019-03-06 05:58] LABS: #Basophils 0.1 thou/uL (0.0-0.2); #Eosinphils 0.2 thou/uL (0.0-0.7); #Lymphocytes 1.2 thou/uL (1.20-3.40); #Monocytes 0.7 thou/uL (0.11-0.59); %Basophils 0.6 % (0.0-1.0); %Eosinophils 2.7 % (0.0-10.0); %Lymphocytes 14.8 % (21.0-51.0); %Monocytes 8.1 % (0.0-10.0); %Neutrophils 73.8 % (42.0-75.0); Hemoglobin 8.4 g/dL (14.0-18.0); Mean Corpuscular HGB CONC 31.1 g/dL (32.0-36.0); Mean Corpuscular Hemoglobin 27.7 pg (27.0-31.0); Mean Corpuscular Volume 89.1 fL (78.0-98.0); Mean Platelet Volume 9.6 fL (7.4-10.4); Platelet Count 230 thou/uL (130-400); RBC Distribution Width 14.1 % (11.5-14.5); Red Blood Cell (RBC) Count 3.04 mill/uL (4.70-6.10); White Blood Cell (WBC) Count 8.1 thou/uL (4.8-10.8)
[2019-03-06] MEDS: Furosemide 20 MG/2 ML VIAL SLOW IVP SCH (05:58)
[2019-03-06 06:24] LABS: Anion Gap 9 mmol/L (10-20); BUN (Urea Nitrogen) 16 mg/dL (8.9-20.6); Calc. Creatinine Clearance 298 mL/min (70-130); Calcium 8.6 mg/dL (7.8-10.44); Carbon Dioxide 34 mmol/L (22-29); Chloride 104 mmol/L (98-107); Estimated GFR-MDRD Greater than 90; Glucose 141 mg/dL (70-105); Magnesium 1.6 mg/dL (1.6-2.6); Potassium 3.4 mmol/L (3.5-5.1); Sodium 144 mmol/L (136-145)
[2019-03-06 07:08] LABS: Phosphorus 2.8 mg/dL (2.3-4.7)
[2019-03-06] MEDS ORDERED: Potassium Chloride 20 MEQ TAB PO SCH ×2 (07:15→13:00)
[2019-03-06] MEDS: Pantoprazole 40 MG VIAL IVP SCH ×2 (08:26→20:46)
[2019-03-06] MEDS: Carvedilol 6.25 MG TAB PO SCH ×2 (08:26→20:46)
[2019-03-06] MEDS: Insulin Regular 300 UNITS/3 ML VIAL SC PRN ×2 (08:57→11:42)
--- NOTE | 2019-03-06 10:17 | PRG ---
DATE OF SERVICE: 03/06/2019 SUBJECTIVE: The patient is seen and examined at the bedside. He would like to get out of his geriatric bed. Today, he ate half of his breakfast. He seems to be doing significantly better. His mental condition improved to the point that he makes sense and he is able to converse. OBJECTIVE: VITAL SIGNS: Blood pressure is 126/65, pulse is 97, respirations are 17, O2 saturation is 100% on 2 L by nasal cannula. HEENT: His head is atraumatic and normocephalic. Sclerae are nonicteric. Oral mucosa is moist. NECK: Supple, obese. LUNGS: Breath sounds diminished at both bases. HEART: S1 and S2 normal. No S3. No S4. ABDOMEN: Obese, soft, nontender. EXTREMITIES: No clubbing or cyanosis. There is nonpitting edema approximately 1 to 2+. NEUROLOGICAL: He follows my commands. He moves his all 4 extremities, and there are no motor deficits. LABORATORY DATA: Labs showed white count of 8.1, hemoglobin 8.4, hematocrit 27.1, platelet count 230,000. Sodium 144, potassium 3.4, chloride 104, CO2 of 34, BUN 16, creatinine 0.98. Glycemia is ranging from 129 to 151, phosphorus 2.8, magnesium 1.6, and calcium 8.6. IMPRESSION: 1. Acute on chronic respiratory failure with hypoxia and hypercapnia, doing well on nasal cannula. 2. Methicillin-resistant Staphylococcus aureus pneumonia. 3. Respiratory syncytial virus bronchitis. 4. Acute kidney injury, resolved. 5. Gastric ulcer with hemorrhage. 6. Respiratory failure, status post mechanical ventilation. 7. Acute on chronic systolic heart failure. 8. Diabetes mellitus type 2, well controlled. 9. Dyslipidemia. 10. Hypertension. 11. Morbid obesity with body mass index more than 50. 12. Obstructive sleep apnea. 13. Hypernatremia, improved with IV fluids. We are going to cut back on his fluids to 75 mL/h. 14. Acute metabolic encephalopathy with obesity syndrome, resolved. PLAN: If it is okay with Pulmonary, we are going to get him out from this bed to the chair and start mobilizing him. He will remain in intensive care unit for additional 24 hours to be observed for hypoxia, and he should be able to be transferred to the floor in the next probably 24 to 48 hours. Job ID: [id number]
[2019-03-06] MEDS ORDERED: Magnesium Sulfate 4 GM in Sodium Chloride 0.9% 250 ML 250 ML IVPB SCH (13:00)
--- NOTE | 2019-03-06 13:12 | PRG ---
DATE OF SERVICE: 03/06/2019 SERVICE: Pulmonary Medicine. INTERVAL HISTORY: The patient is doing really quite remarkable from a respiratory standpoint. He is breathing comfortably. Denies any current chest discomfort, nausea, vomiting, fevers, or chills. Otherwise, there has been no interval change to his condition. He is actually tolerating p.o. IV fluids have been turned down a little bit. PHYSICAL EXAMINATION: VITAL SIGNS: Afebrile, pulse 96, blood pressure 129/75, respirations 24, saturation 99%, currently on 2 L nasal cannula. GENERAL: The patient is awake and alert, in no apparent distress. LUNGS: Decent air entry with no prolonged expiratory phase or wheezing present. HEART: Normal rate, regular. ABDOMEN: Soft, nontender, nondistended. Bowel sounds are positive. MUSCULOSKELETAL: No cyanosis or clubbing. There is no pitting in the bilateral lower extremities. NEUROLOGIC: Grossly nonfocal. LABORATORY DATA: WBC 8.1, hemoglobin 8.4, and platelets 230,000. Potassium 3.4. Basic metabolic profile is otherwise unremarkable. Magnesium 1.6, phosphorus 2.8. Sodium is gently downtrending to 144. Urinalysis is unremarkable. Vancomycin trough 19.4. Sputum was previously growing MRSA. ASSESSMENT: 1. Acute on chronic hypoxic and hypercapnic respiratory failure. 2. Acute bronchitis secondary to respiratory syncytial virus, resolved. 3. Healthcare-associated pneumonia secondary to methicillin-resistant Staphylococcus aureus, resolved. 4. Acute on chronic systolic and diastolic heart failure. 5. Acute blood loss anemia secondary to peptic ulcer disease. 6. Obesity hypoventilation syndrome with morbid obesity. 7. Hypernatremia, resolved. DISCUSSION AND PLAN: The patient is doing great from respiratory standpoint. He is stable for transition out of the ICU to the [facility] provided that he has the strength to get out of bed into a chair today. If he is sleeping for absolutely any reason, BiPAP is mandatory. Job ID: [id number]
[2019-03-07 05:57] LABS: Anion Gap 13 mmol/L (10-20); BUN (Urea Nitrogen) 16 mg/dL (8.9-20.6); Calc. Creatinine Clearance 315 mL/min (70-130); Calcium 8.3 mg/dL (7.8-10.44); Carbon Dioxide 28 mmol/L (22-29); Chloride 105 mmol/L (98-107); Estimated GFR-MDRD Greater than 90; Glucose 124 mg/dL (70-105); Potassium 4.9 mmol/L (3.5-5.1); Sodium 141 mmol/L (136-145)
[2019-03-07 07:00] LABS: #Eosinphils 0.2 thou/uL (0.0-0.7); #Lymphocytes 1.2 thou/uL (1.20-3.40); #Monocytes 0.6 thou/uL (0.11-0.59); #Neutrophils 4.7 thou/uL (1.40-6.50); %Basophils 0.4 % (0.0-1.0); %Eosinophils 3.5 % (0.0-10.0); %Lymphocytes 17.9 % (21.0-51.0); %Monocytes 8.9 % (0.0-10.0); %Neutrophils 69.3 % (42.0-75.0); Mean Corpuscular HGB CONC 31.4 g/dL (32.0-36.0); Mean Corpuscular Hemoglobin 27.5 pg (27.0-31.0); Mean Corpuscular Volume 87.6 fL (78.0-98.0); Mean Platelet Volume 9.8 fL (7.4-10.4); Platelet Count 212 thou/uL (130-400); RBC Distribution Width 14.1 % (11.5-14.5); Red Blood Cell (RBC) Count 2.89 mill/uL (4.70-6.10); White Blood Cell (WBC) Count 6.8 thou/uL (4.8-10.8)
[2019-03-07] MEDS: Carvedilol 6.25 MG TAB PO SCH ×2 (08:36→20:02)
[2019-03-07] MEDS: Pantoprazole 40 MG VIAL IVP SCH (08:36)
[2019-03-07] MEDS: Dextrose 5% in Water 1,000 ML IV SCH (11:15)
--- NOTE | 2019-03-07 15:55 | PRG ---
DATE OF SERVICE: 03/07/2019 SERVICE: Pulmonary Medicine. INTERVAL HISTORY: The patient is doing very well from a respiratory standpoint. Today I see him, was sitting up in bed. He is yet to get out of bed. Physical therapy did not work with him through the weekend. PHYSICAL EXAMINATION: VITAL SIGNS: T-max 99.9. Pulse 97, blood pressure 136/89, respirations 21, and saturation 94% on 1 L nasal cannula. GENERAL: The patient is awake and alert, in no apparent distress. LUNGS: Wonderful air entry. No prolonged expiratory phase or wheezing is appreciated. There is no rhonchi or crackles appreciated. HEART: Normal rate and regular. ABDOMEN: Soft, nontender, nondistended. Bowel sounds are positive. MUSCULOSKELETAL: No cyanosis or clubbing. Trace pitting is present in bilateral lower extremities. NEUROLOGIC: Grossly nonfocal. LABORATORY DATA: WBC 6.8, hemoglobin 8.4, platelets 212,000 and roughly stable. Sodium 141, has returned to normal limits. Basic metabolic profile is otherwise unremarkable. Potassium 4.9. Urinalysis is unremarkable. Vancomycin trough 19.4. Sputum is growing MRSA. ASSESSMENT: 1. Acute on chronic hypoxic and hypercapnic respiratory failure. 2. Acute bronchitis secondary to respiratory syncytial virus, resolved. 3. Healthcare-associated pneumonia secondary to methicillin-resistant Staph aureus, status post full course of antibiotic. 4. Acute on chronic systolic and diastolic heart failure. 5. Acute blood loss anemia secondary to peptic ulcer disease. 6. Obesity hypoventilation syndrome with morbid obesity. 7. Hypernatremia, resolved. DISCUSSION AND PLAN: IV fluids will be completely interrupted. We will continue mobilization efforts through time. I will actually give him a laboratory holiday tomorrow, and I think he is stable for transition out of the ICU. His barrier to leaving this hospital is deconditioning. As soon as he is strong enough for discharge home, this can be considered. As such, we will get him out of bed and movement to a chair 3 times daily, and aggressively work with Physical Therapy. Job ID: [id number]
[2019-03-07] MEDS: Mometasone/Formoterol 120 PUFF INHALER INH SCH (18:44)
--- NOTE | 2019-03-07 19:14 | PDOC.HOSPP ---
- Subjective Encounter Date: 03/07/19 Encounter Time: 13:29 Subjective: 33 y/o morbidly obese male with KAREEM on CPAP, DM, chronic systolic HF admitted with worsening cough and SOB associated with fever, nausea and vomiting. treated with respiratory support for RSV bronchitis and respiratory failure with hypoxia with improvement. hospital course was complicated by hematemesis for which he had EGD which showed bleeding gastric ulcer. Feeling better. Now on BIPAP at nights. ambulating with PT. - Objective Vital Signs & Weight: Vital Signs (12 hours) Temp Pulse Resp BP BP Pulse Ox Pulse Ox 03/07/19 16:00 98.9 F 03/07/19 13:50 97 21 H 94 L 03/07/19 12:00 99.1 F 03/07/19 10:15 129/79 87 L 03/07/19 08:36 149/99 H 03/07/19 08:00 99.7 F H 03/07/19 07:34 100 03/07/19 07:13 100 03/07/19 07:11 97 20 100 Pulse Ox 03/07/19 16:00 03/07/19 13:50 03/07/19 12:00 03/07/19 10:15 92 L 03/07/19 08:36 03/07/19 08:00 03/07/19 07:34 03/07/19 07:13 03/07/19 07:11 Weight Admit Weight 429 lb 14.422 oz Weight 429 lb 14.422 oz Most Recent Monitor Data Heart Rate from ECG 103 NIBP 148/96 NIBP BP-Mean 113 Respiration from ECG 20 SpO2 95 I&O: 03/06/19 03/07/19 03/08/19 06:59 06:59 06:59 Intake Total 2354 3041 1606 Output Total 2305 2165 650 Balance 49 876 956 Result Diagrams: 03/07/19 06:59 03/07/19 05:26 Additional Labs: Accuchecks 03/07/19 03/07/19 03/06/19 17:17 11:22 20:49 POC Glucose 143 H 146 H 149 H Hospitalist ROS - Medication Medications: Active Medications Generic Name Dose Route Start Last Admin Trade Name Freq PRN Reason Stop Dose Admin Acetaminophen 650 mg 02/14/19 16:33 03/01/19 09:33 Tylenol PO 650 mg Q4H PRN Administration Headache/Fever/Mild Pain (1-3) Acetaminophen 650 mg 03/01/19 19:12 03/02/19 21:15 Tylenol MS 650 mg Q6H PRN Administration Mild Pain (1-3)/FEVER Carvedilol 12.5 mg 02/21/19 21:00 03/07/19 08:36 Coreg PO 12.5 mg BID BAYLEE Administration Hydralazine HCl 5 mg 03/01/19 05:42 03/01/19 06:33 Apresoline SLOW IVP 5 mg Q6H PRN Administration SBP Greater Than 180 Insulin Human Regular 0 units 02/26/19 16:48 03/06/19 11:42 Humulin R SC 3 units .AGGRESSIVE SLIDING PRN Administration AGGRESSIVE SLIDING SCALE Protocol Mometasone Furoate/Formoterol Fumar 2 puff 03/07/19 18:30 03/07/19 18:44 Dulera 200 Mcg/5 Mcg Inhaler INH Not Given BID-RT BAYLEE Ondansetron HCl 4 mg 02/14/19 18:05 02/26/19 02:24 Zofran IVP 4 mg Q6H PRN Administration Nausea/Vomiting Sodium Chloride 10 ml 02/26/19 09:00 03/07/19 08:37 Flush - Normal Saline IVF 10 ml Q12HR BAYLEE Administration - Exam General Appearance: awake alert General - other findings: morbidly obese Eye: anicteric sclera ENT: normocephalic atraumatic, moist mucosa Neck: supple, symmetric Heart: RRR Respiratory: no wheezes, no ronchi, normal chest expansion Respiratory - other findings: fair air entry bilaterally. decreased at the bases Gastrointestinal: soft, non-tender, non-distended, normal bowel sounds Gastrointestinal - other findings: morbidly obese Extremities: no cyanosis Neurological: cranial nerve grossly intact, no focal deficits Musculoskeletal: generalized weakness Psychiatric: A&O x 3 Hosp A/P (1) CHIVO (acute kidney injury) Code(s): N17.9 - ACUTE KIDNEY FAILURE, UNSPECIFIED Status: Acute (2) Acute blood loss anemia Code(s): D62 - ACUTE POSTHEMORRHAGIC ANEMIA Status: Acute (3) Acute metabolic encephalopathy Code(s): G93.41 - METABOLIC ENCEPHALOPATHY Status: Acute (4) Acute on chronic respiratory failure with hypoxia and hypercapnia Code(s): J96.21 - ACUTE AND CHRONIC RESPIRATORY FAILURE WITH HYPOXIA; J96.22 - ACUTE AND CHRONIC RESPIRATORY FAILURE WITH HYPERCAPNIA Status: Acute (5) Gastric ulcer with hemorrhage Code(s): K25.4 - CHRONIC OR UNSPECIFIED GASTRIC ULCER WITH HEMORRHAGE Status: Acute (6) Hypernatremia Code(s): E87.0 - HYPEROSMOLALITY AND HYPERNATREMIA Status: Acute (7) Hypoventilation associated with obesity syndrome Code(s): E66.2 - MORBID (SEVERE) OBESITY WITH ALVEOLAR HYPOVENTILATION Status : Acute (8) MRSA pneumonia Code(s): J15.212 - PNEUMONIA DUE TO METHICILLIN RESISTANT STAPHYLOCOCCUS AUREUS Status: Acute (9) RSV bronchitis Code(s): J20.5 - ACUTE BRONCHITIS DUE TO RESPIRATORY SYNCYTIAL VIRUS Status: Acute (10) Acute on chronic systolic (congestive) heart failure Code(s): I50.23 - ACUTE ON CHRONIC SYSTOLIC (CONGESTIVE) HEART FAILURE Status : Acute (11) DM2 (diabetes mellitus, type 2) Status: Acute (12) Hypomagnesemia Code(s): E83.42 - HYPOMAGNESEMIA Status: Acute (13) Morbid obesity with BMI of 50.0-59.9, adult Code(s): E66.01 - MORBID (SEVERE) OBESITY DUE TO EXCESS CALORIES; Z68.43 - BODY MASS INDEX (BMI) 50.0-59.9, ADULT Status: Chronic (14) KAREEM (obstructive sleep apnea) Code(s): G47.33 - OBSTRUCTIVE SLEEP APNEA (ADULT) (PEDIATRIC) Status: Suspected - Plan Adjust insulin therapy to get adequate glycemic control. BIPAP at nights. PT/OT to continue. Continue other treatments.
[2019-03-08] MEDS: Mometasone/Formoterol 120 PUFF INHALER INH SCH ×2 (07:39→18:44)
[2019-03-08] MEDS: Carvedilol 6.25 MG TAB PO SCH ×2 (08:28→22:03)
--- NOTE | 2019-03-08 15:48 | PDOC.HOSPP ---
- Subjective Subjective: stressed and wanting to go home - Objective Vital Signs & Weight: Vital Signs (12 hours) Temp Pulse Pulse Pulse Resp BP BP 03/08/19 12:00 99.2 F 03/08/19 08:30 110 H 112 H 160/91 H 03/08/19 08:28 160/91 H 03/08/19 08:00 98.8 F 03/08/19 07:42 99 03/08/19 07:39 88 18 03/08/19 07:34 03/08/19 04:00 98.7 F BP Pulse Ox 03/08/19 12:00 03/08/19 08:30 113/90 03/08/19 08:28 03/08/19 08:00 03/08/19 07:42 03/08/19 07:39 95 03/08/19 07:34 97 03/08/19 04:00 Weight Admit Weight 429 lb 14.422 oz Weight 429 lb 14.422 oz Most Recent Monitor Data Heart Rate from ECG 92 NIBP 149/79 NIBP BP-Mean 102 Respiration from ECG 18 SpO2 91 I&O: 03/07/19 03/08/19 03/09/19 06:59 06:59 06:59 Intake Total 3041 1997 720 Output Total 2165 1270 370 Balance 876 727 350 Result Diagrams: 03/07/19 06:59 03/07/19 05:26 Additional Labs: Accuchecks 03/08/19 03/08/19 03/07/19 12:08 05:43 20:03 POC Glucose 111 H 110 142 H 03/07/19 17:17 POC Glucose 143 H Hospitalist ROS - Medication Medications: Active Medications Generic Name Dose Route Start Last Admin Trade Name Freq PRN Reason Stop Dose Admin Acetaminophen 650 mg 02/14/19 16:33 03/01/19 09:33 Tylenol PO 650 mg Q4H PRN Administration Headache/Fever/Mild Pain (1-3) Acetaminophen 650 mg 03/01/19 19:12 03/02/19 21:15 Tylenol NE 650 mg Q6H PRN Administration Mild Pain (1-3)/FEVER Carvedilol 12.5 mg 02/21/19 21:00 03/08/19 08:28 Coreg PO 12.5 mg BID BAYLEE Administration Hydralazine HCl 5 mg 03/01/19 05:42 03/01/19 06:33 Apresoline SLOW IVP 5 mg Q6H PRN Administration SBP Greater Than 180 Insulin Human Regular 0 units 02/26/19 16:48 03/06/19 11:42 Humulin R SC 3 units .AGGRESSIVE SLIDING PRN Administration AGGRESSIVE SLIDING SCALE Protocol Mometasone Furoate/Formoterol Fumar 2 puff 03/07/19 18:30 03/08/19 07:39 Dulera 200 Mcg/5 Mcg Inhaler INH 2 puff BID-RT BAYLEE Administration Ondansetron HCl 4 mg 02/14/19 18:05 02/26/19 02:24 Zofran IVP 4 mg Q6H PRN Administration Nausea/Vomiting Pantoprazole Sodium 40 mg 03/07/19 21:00 03/08/19 08:28 Protonix PO 40 mg BID BAYLEE Administration Sodium Chloride 10 ml 02/26/19 09:00 03/08/19 08:29 Flush - Normal Saline IVF 10 ml Q12HR BAYLEE Administration - Exam General Appearance: NAD Eye: PERRL Neck: supple Heart: RRR, no murmur Respiratory: CTAB (difficult to fully assess due to his body habitus.) Gastrointestinal: soft, non-tender Neurological: cranial nerve grossly intact, normal sensation to touch Hosp A/P - Plan (1) CHIVO (acute kidney injury) Code(s): N17.9 - ACUTE KIDNEY FAILURE, UNSPECIFIED Status: Acute (2) Acute blood loss anemia Code(s): D62 - ACUTE POSTHEMORRHAGIC ANEMIA Status: Acute (3) Acute metabolic encephalopathy Code(s): G93.41 - METABOLIC ENCEPHALOPATHY Status: Acute (4) Acute on chronic respiratory failure with hypoxia and hypercapnia Code(s): J96.21 - ACUTE AND CHRONIC RESPIRATORY FAILURE WITH HYPOXIA; J96.22 - ACUTE AND CHRONIC RESPIRATORY FAILURE WITH HYPERCAPNIA Status: Acute (5) Gastric ulcer with hemorrhage Code(s): K25.4 - CHRONIC OR UNSPECIFIED GASTRIC ULCER WITH HEMORRHAGE Status: Acute (6) Hypernatremia Code(s): E87.0 - HYPEROSMOLALITY AND HYPERNATREMIA Status: Acute (7) Hypoventilation associated with obesity syndrome Code(s): E66.2 - MORBID (SEVERE) OBESITY WITH ALVEOLAR HYPOVENTILATION Status : Acute (8) MRSA pneumonia Code(s): J15.212 - PNEUMONIA DUE TO METHICILLIN RESISTANT STAPHYLOCOCCUS AUREUS Status: Acute (9) RSV bronchitis Code(s): J20.5 - ACUTE BRONCHITIS DUE TO RESPIRATORY SYNCYTIAL VIRUS Status: Acute (10) Acute on chronic systolic (congestive) heart failure Code(s): I50.23 - ACUTE ON CHRONIC SYSTOLIC (CONGESTIVE) HEART FAILURE Status : Acute (11) DM2 (diabetes mellitus, type 2) Status: Acute (12) Hypomagnesemia Code(s): E83.42 - HYPOMAGNESEMIA Status: Acute (13) Morbid obesity with BMI of 50.0-59.9, adult Code(s): E66.01 - MORBID (SEVERE) OBESITY DUE TO EXCESS CALORIES; Z68.43 - BODY MASS INDEX (BMI) 50.0-59.9, ADULT Status: Chronic (14) KAREEM (obstructive sleep apnea) Code(s): G47.33 - OBSTRUCTIVE SLEEP APNEA (ADULT) (PEDIATRIC) Status: Suspected - Plan 03/07 Adjust insulin therapy to get adequate glycemic control. BIPAP at nights. PT/OT to continue. Continue other treatments. plan for 03/08 seems to be improving, still has a cough productive of clear to yellow sputum encourage mobility continue same management
[2019-03-09] MEDS: Mometasone/Formoterol 120 PUFF INHALER INH SCH ×2 (06:57→18:50)
[2019-03-09] MEDS: Carvedilol 6.25 MG TAB PO SCH ×2 (09:46→21:53)
--- NOTE | 2019-03-09 13:05 | PRG ---
DATE OF SERVICE: 03/09/2019 SERVICE: Pulmonary Medicine. INTERVAL HISTORY: The patient is doing outstanding from Respiratory standpoint. Yesterday, he stood with physical therapy for the first time since he has been here for 23 days. On standing, he was wobbly. He got weak in the knees and had to sit back down. That being said, this is clear progress. He denies any fevers or chills. There has been no interval change to his condition otherwise. PHYSICAL EXAMINATION: VITAL SIGNS: Afebrile, pulse 98, blood pressure 160/95, respirations 21, and saturation 94%, currently on 3 L nasal cannula. GENERAL: The patient is awake and alert, in no apparent distress. LUNGS: Decent air entry. No crackles or rhonchi appreciated. There is no prolonged expiratory phase. HEART: Normal rate and regular. ABDOMEN: Soft, nontender, and nondistended. Bowel sounds are positive. MUSCULOSKELETAL: No cyanosis or clubbing. There is trace pitting in the bilateral lower extremities. NEUROLOGIC: Grossly nonfocal. ASSESSMENT: 1. Acute on chronic hypoxic and hypercapnic respiratory failure. 2. Acute bronchitis, secondary to respiratory syncytial virus, resolved. 3. Healthcare-associated pneumonia, secondary to methicillin-resistant Staphylococcus aureus, status post full course of antibiotic. 4. Acute on chronic systolic and diastolic heart failure. 5. Acute blood loss anemia, secondary to peptic ulcer disease. 6. Obesity hypoventilation syndrome with morbid obesity. DISCUSSION AND PLAN: At this point, the barrier to getting this patient out of the hospital is his weakness. We will continue aggressive mobilization efforts, and have him work with physical therapy on a daily basis. I have encouraged him to do bed exercises during the daytime. If he is sleeping, he requires BiPAP. We will wean oxygen away as tolerated. As soon as he is strong enough to go home safely, he can be discharged from the hospital. I would like to get him to a [facility] facility or a rehab center, but this is going to prove challenging given that he is unfunded. Job ID: [id number]
--- NOTE | 2019-03-09 15:34 | PDOC.HOSPP ---
- Subjective Subjective: Not able to do much activity. - Objective Vital Signs & Weight: Vital Signs (12 hours) Temp Pulse Resp BP Pulse Ox 03/09/19 15:27 98.4 F 03/09/19 11:06 97.2 F L 03/09/19 09:46 161/93 H 03/09/19 08:00 99 03/09/19 07:25 99.4 F 03/09/19 06:59 97 03/09/19 06:57 98 24 H 97 Weight Admit Weight 429 lb 14.422 oz Weight 429 lb 14.422 oz Most Recent Monitor Data Heart Rate from ECG 94 NIBP 128/94 NIBP BP-Mean 105 Respiration from ECG 22 SpO2 99 I&O: 03/08/19 03/09/19 03/10/19 06:59 06:59 06:59 Intake Total 1996 1079 Output Total 1270 1320 Balance 727 -240 Result Diagrams: 03/07/19 06:59 03/07/19 05:26 Additional Labs: Accuchecks 03/09/19 03/09/19 03/08/19 10:40 06:21 20:16 POC Glucose 160 H 116 H 132 H Hospitalist ROS - Medication Medications: Active Medications Generic Name Dose Route Start Last Admin Trade Name Freq PRN Reason Stop Dose Admin Acetaminophen 650 mg 02/14/19 16:33 03/01/19 09:33 Tylenol PO 650 mg Q4H PRN Administration Headache/Fever/Mild Pain (1-3) Acetaminophen 650 mg 03/01/19 19:12 03/02/19 21:15 Tylenol MT 650 mg Q6H PRN Administration Mild Pain (1-3)/FEVER Carvedilol 12.5 mg 02/21/19 21:00 03/09/19 09:46 Coreg PO 12.5 mg BID BAYLEE Administration Hydralazine HCl 5 mg 03/01/19 05:42 03/01/19 06:33 Apresoline SLOW IVP 5 mg Q6H PRN Administration SBP Greater Than 180 Insulin Human Regular 0 units 02/26/19 16:48 03/06/19 11:42 Humulin R SC 3 units .AGGRESSIVE SLIDING PRN Administration AGGRESSIVE SLIDING SCALE Protocol Mometasone Furoate/Formoterol Fumar 2 puff 03/07/19 18:30 03/09/19 06:57 Dulera 200 Mcg/5 Mcg Inhaler INH 2 puff BID-RT BAYLEE Administration Ondansetron HCl 4 mg 02/14/19 18:05 02/26/19 02:24 Zofran IVP 4 mg Q6H PRN Administration Nausea/Vomiting Pantoprazole Sodium 40 mg 03/07/19 21:00 03/09/19 09:47 Protonix PO 40 mg BID BAYLEE Administration Sodium Chloride 10 ml 02/26/19 09:00 03/09/19 09:47 Flush - Normal Saline IVF 10 ml Q12HR BAYLEE Administration - Exam General Appearance: NAD Eye: PERRL ENT: normocephalic atraumatic Neck: supple Heart: RRR Respiratory: CTAB, no wheezes Gastrointestinal: soft, non-tender Extremities: 1+ LE edema Hosp A/P - Plan (1) CHIVO (acute kidney injury) Code(s): N17.9 - ACUTE KIDNEY FAILURE, UNSPECIFIED Status: Acute (2) Acute blood loss anemia Code(s): D62 - ACUTE POSTHEMORRHAGIC ANEMIA Status: Acute (3) Acute metabolic encephalopathy Code(s): G93.41 - METABOLIC ENCEPHALOPATHY Status: Acute (4) Acute on chronic respiratory failure with hypoxia and hypercapnia Code(s): J96.21 - ACUTE AND CHRONIC RESPIRATORY FAILURE WITH HYPOXIA; J96.22 - ACUTE AND CHRONIC RESPIRATORY FAILURE WITH HYPERCAPNIA Status: Acute (5) Gastric ulcer with hemorrhage Code(s): K25.4 - CHRONIC OR UNSPECIFIED GASTRIC ULCER WITH HEMORRHAGE Status: Acute (6) Hypernatremia Code(s): E87.0 - HYPEROSMOLALITY AND HYPERNATREMIA Status: Acute (7) Hypoventilation associated with obesity syndrome Code(s): E66.2 - MORBID (SEVERE) OBESITY WITH ALVEOLAR HYPOVENTILATION Status : Acute (8) MRSA pneumonia Code(s): J15.212 - PNEUMONIA DUE TO METHICILLIN RESISTANT STAPHYLOCOCCUS AUREUS Status: Acute (9) RSV bronchitis Code(s): J20.5 - ACUTE BRONCHITIS DUE TO RESPIRATORY SYNCYTIAL VIRUS Status: Acute (10) Acute on chronic systolic (congestive) heart failure Code(s): I50.23 - ACUTE ON CHRONIC SYSTOLIC (CONGESTIVE) HEART FAILURE Status : Acute (11) DM2 (diabetes mellitus, type 2) Status: Acute (12) Hypomagnesemia Code(s): E83.42 - HYPOMAGNESEMIA Status: Acute (13) Morbid obesity with BMI of 50.0-59.9, adult Code(s): E66.01 - MORBID (SEVERE) OBESITY DUE TO EXCESS CALORIES; Z68.43 - BODY MASS INDEX (BMI) 50.0-59.9, ADULT Status: Chronic (14) KAREEM (obstructive sleep apnea) Code(s): G47.33 - OBSTRUCTIVE SLEEP APNEA (ADULT) (PEDIATRIC) Status: Suspected - Plan 03/07 Adjust insulin therapy to get adequate glycemic control. BIPAP at nights. PT/OT to continue. Continue other treatments. plan for 03/08 seems to be improving, still has a cough productive of clear to yellow sputum encourage mobility continue same management plan for 03/09 awaiting him to be more mobile will recheck his labs in am.
[2019-03-10 05:27] LABS: #Eosinphils 0.2 thou/uL (0.0-0.7); #Monocytes 0.6 thou/uL (0.11-0.59); #Neutrophils 4.3 thou/uL (1.40-6.50); %Basophils 0.8 % (0.0-1.0); %Eosinophils 2.6 % (0.0-10.0); %Lymphocytes 15.9 % (21.0-51.0); %Monocytes 9.3 % (0.0-10.0); %Neutrophils 71.5 % (42.0-75.0); Hemoglobin 8.6 g/dL (14.0-18.0); Mean Corpuscular HGB CONC 32.1 g/dL (32.0-36.0); Mean Corpuscular Hemoglobin 27.7 pg (27.0-31.0); Mean Corpuscular Volume 86.1 fL (78.0-98.0); Mean Platelet Volume 9.3 fL (7.4-10.4); Platelet Count 217 thou/uL (130-400); RBC Distribution Width 13.7 % (11.5-14.5); Red Blood Cell (RBC) Count 3.11 mill/uL (4.70-6.10)
[2019-03-10 05:48] LABS: Anion Gap 12 mmol/L (10-20); BUN (Urea Nitrogen) 12 mg/dL (8.9-20.6); Calc. Creatinine Clearance 308 mL/min (70-130); Calcium 8.4 mg/dL (7.8-10.44); Carbon Dioxide 31 mmol/L (22-29); Chloride 99 mmol/L (98-107); Estimated GFR-MDRD Greater than 90; Glucose 121 mg/dL (70-105); Potassium 3.6 mmol/L (3.5-5.1); Sodium 138 mmol/L (136-145)
[2019-03-10] MEDS: Mometasone/Formoterol 120 PUFF INHALER INH SCH ×2 (06:44→18:30)
[2019-03-10] MEDS: Carvedilol 6.25 MG TAB PO SCH ×2 (08:35→21:22)
[2019-03-10] MEDS ORDERED: Potassium Chloride 20 MEQ TAB PO SCH (18:15)
--- NOTE | 2019-03-10 18:41 | PRG ---
DATE OF SERVICE: 03/10/2019 SERVICE: Pulmonary Medicine. INTERVAL HISTORY: The patient is doing really well from respiratory standpoint. Breathing comfortably. He has no complaints of chest discomfort. His strength is improving a little bit, but he is only getting physical therapy once daily if that. Otherwise, there has been no interval change to his condition. PHYSICAL EXAMINATION: VITAL SIGNS: Afebrile, pulse 103, blood pressure 140/89, respirations 24, and saturation 100% on 0.5 L nasal cannula. GENERAL: The patient is awake and alert, in no apparent distress. LUNGS: Excellent air entry. No crackles or rhonchi appreciated. HEART: Normal rate and regular. ABDOMEN: Soft, nontender, and nondistended. Bowel sounds are positive. MUSCULOSKELETAL: No cyanosis or clubbing. There is no pitting in the bilateral lower extremities. NEUROLOGIC: Grossly nonfocal. LABORATORY DATA: WBC 6.0, hemoglobin 8.6, platelets 217. Basic metabolic profile is completely unremarkable otherwise. His potassium is 3.6. ASSESSMENT: 1. Acute on chronic hypoxic and hypercapnic respiratory failure, resolved. 2. Acute bronchitis secondary to respiratory syncytial virus, resolved. 3. Healthcare-associated pneumonia secondary to methicillin-resistant Staphylococcus aureus, resolved. 4. Acute on chronic systolic and diastolic heart failure, resolved to baseline. 5. Acute blood loss anemia secondary to peptic ulcer disease, stable. 6. Obesity hypoventilation syndrome with morbid obesity. DISCUSSION AND PLAN: At this point, the patient has returned to his usual state of health except for his critical care weakness. When he is strong enough to go home, he can be discharged. I will give him a dose of potassium today, but from my perspective, there is no need for further lab draws through time unless he deteriorates. Pulmonary will follow, but only intermittently. If we can arrange for auto BiPAP in the outpatient setting, we will try, but since he is unfunded, there is absolutely no way that we are going to be able to get him to a polysomnogram. Job ID: [id number]
[2019-03-11] MEDS: Mometasone/Formoterol 120 PUFF INHALER INH SCH ×2 (07:12→18:15)
[2019-03-11] MEDS: Carvedilol 6.25 MG TAB PO SCH ×2 (08:43→20:29)
--- NOTE | 2019-03-11 15:11 | PRG ---
DATE OF SERVICE: 03/11/2019 SERVICE: Pulmonary Medicine. INTERVAL HISTORY: The patient is doing outstanding from respiratory standpoint. He is breathing comfortably. Today, he was stood up with physical therapy. He was actually able to walk in place very gingerly. He was a 2-person assist today. That being said, he is much stronger today than he was just 2 days ago. There has been no interval change to his condition otherwise. PHYSICAL EXAMINATION: VITAL SIGNS: Afebrile, pulse 93, blood pressure 113/76, respirations 19, saturation 96%, currently on 1 L nasal cannula. GENERAL: The patient is awake and alert, in no apparent distress. LUNGS: Good air entry bilaterally. There is no prolonged expiratory phase or wheezing present. HEART: Normal rate, regular. ABDOMEN: Soft, nontender, and nondistended. Bowel sounds are positive. MUSCULOSKELETAL: No cyanosis or clubbing. There is trace pitting in the bilateral lower extremities. NEUROLOGIC: Grossly nonfocal. ASSESSMENT: 1. [id number] hypoxic and hypercapnic respiratory failure, resolved. 2. Acute bronchitis secondary to respiratory syncytial virus, resolved. 3. Healthcare-associated pneumonia secondary to methicillin-resistant Staphylococcus aureus, resolved. 4. Nociw-me-iyuygrx systolic and diastolic heart failure, resolved. 5. Acute blood loss anemia secondary to peptic ulcer disease, stable. 6. Obesity hypoventilation syndrome with morbid obesity. 7. Deconditioning. DISCUSSION AND PLAN: This patient will not be safe to go home until he demonstrates improved strength and can move his own weight around. Unfortunately, he is unfunded, so a rehabilitation facility is not an option. His medical conditions have come to a close, though he is at high risk of bounce back at this point because of his underlying weakness. I would recommend holding onto him through the weekend and work him on his conditioning. I provided him with a prescription for an autotitrating BiPAP to see whether or not he can get set up with this device at home. I would like for him to follow up with me on discharge from the hospital within 2 to 3 months, and he will bring his machine in with him, so I can make certain that it is treating him correctly. Pulmonary/Critical Care will continue to follow while the patient remains in-house, intermittently. At this point, he is stable for transition to the floor provided that he uses his BiPAP at night and any time he takes a nap. Job ID: [id number]
--- NOTE | 2019-03-11 16:19 | PDOC.HOSPP ---
- Objective Vital Signs & Weight: Vital Signs (12 hours) Temp Pulse Pulse BP BP BP Pulse Ox 03/11/19 15:22 98.2 F 03/11/19 14:45 103 H 88 143/87 H 113/76 03/11/19 11:18 97.6 F 03/11/19 09:41 101 H 103 H 123/78 135/75 03/11/19 08:43 163/99 H 03/11/19 08:00 95 03/11/19 07:11 97.9 F Pulse Ox Pulse Ox 03/11/19 15:22 03/11/19 14:45 93 L 95 03/11/19 11:18 03/11/19 09:41 96 99 03/11/19 08:43 03/11/19 08:00 03/11/19 07:11 Weight Admit Weight 429 lb 14.422 oz Weight 429 lb 14.422 oz Most Recent Monitor Data Heart Rate from ECG 93 NIBP 113/76 NIBP BP-Mean 88 Respiration from ECG 19 SpO2 96 I&O: 03/10/19 03/11/19 03/12/19 06:59 06:59 06:59 Intake Total 900 Output Total 700 Balance 200 Result Diagrams: 03/10/19 05:17 03/10/19 05:17 Additional Labs: Accuchecks 03/11/19 03/11/19 03/10/19 10:36 06:12 20:09 POC Glucose 154 H 144 H 175 H 03/10/19 16:17 POC Glucose 192 H Hospitalist ROS - Medication Medications: Active Medications Generic Name Dose Route Start Last Admin Trade Name Freq PRN Reason Stop Dose Admin Acetaminophen 650 mg 02/14/19 16:33 03/01/19 09:33 Tylenol PO 650 mg Q4H PRN Administration Headache/Fever/Mild Pain (1-3) Acetaminophen 650 mg 03/01/19 19:12 03/02/19 21:[address] 650 mg Q6H PRN Administration Mild Pain (1-3)/FEVER Carvedilol 12.5 mg 02/21/19 21:00 03/11/19 08:43 Coreg PO 12.5 mg BID BAYLEE Administration Hydralazine HCl 5 mg 03/01/19 05:42 03/01/19 06:33 Apresoline SLOW IVP 5 mg Q6H PRN Administration SBP Greater Than 180 Insulin Human Regular 0 units 02/26/19 16:48 03/06/19 11:42 Humulin R SC 3 units .AGGRESSIVE SLIDING PRN Administration AGGRESSIVE SLIDING SCALE Protocol Mometasone Furoate/Formoterol Fumar 2 puff 03/07/19 18:30 03/11/19 07:12 Dulera 200 Mcg/5 Mcg Inhaler INH 2 puff BID-RT BAYLEE Administration Ondansetron HCl 4 mg 02/14/19 18:05 02/26/19 02:24 Zofran IVP 4 mg Q6H PRN Administration Nausea/Vomiting Pantoprazole Sodium 40 mg 03/07/19 21:00 03/11/19 08:43 Protonix PO 40 mg BID BAYLEE Administration Sodium Chloride 10 ml 02/26/19 09:00 03/11/19 08:43 Flush - Normal Saline IVF 10 ml Q12HR BAYLEE Administration Hosp A/P - Plan (1) CHIVO (acute kidney injury) Code(s): N17.9 - ACUTE KIDNEY FAILURE, UNSPECIFIED Status: Acute (2) Acute blood loss anemia Code(s): D62 - ACUTE POSTHEMORRHAGIC ANEMIA Status: Acute (3) Acute metabolic encephalopathy Code(s): G93.41 - METABOLIC ENCEPHALOPATHY Status: Acute (4) Acute on chronic respiratory failure with hypoxia and hypercapnia Code(s): J96.21 - ACUTE AND CHRONIC RESPIRATORY FAILURE WITH HYPOXIA; J96.22 - ACUTE AND CHRONIC RESPIRATORY FAILURE WITH HYPERCAPNIA Status: Acute (5) Gastric ulcer with hemorrhage Code(s): K25.4 - CHRONIC OR UNSPECIFIED GASTRIC ULCER WITH HEMORRHAGE Status: Acute (6) Hypernatremia Code(s): E87.0 - HYPEROSMOLALITY AND HYPERNATREMIA Status: Acute (7) Hypoventilation associated with obesity syndrome Code(s): E66.2 - MORBID (SEVERE) OBESITY WITH ALVEOLAR HYPOVENTILATION Status : Acute (8) MRSA pneumonia Code(s): J15.212 - PNEUMONIA DUE TO METHICILLIN RESISTANT STAPHYLOCOCCUS AUREUS Status: Acute (9) RSV bronchitis Code(s): J20.5 - ACUTE BRONCHITIS DUE TO RESPIRATORY SYNCYTIAL VIRUS Status: Acute (10) Acute on chronic systolic (congestive) heart failure Code(s): I50.23 - ACUTE ON CHRONIC SYSTOLIC (CONGESTIVE) HEART FAILURE Status : Acute (11) DM2 (diabetes mellitus, type 2) Status: Acute (12) Hypomagnesemia Code(s): E83.42 - HYPOMAGNESEMIA Status: Acute (13) Morbid obesity with BMI of 50.0-59.9, adult Code(s): E66.01 - MORBID (SEVERE) OBESITY DUE TO EXCESS CALORIES; Z68.43 - BODY MASS INDEX (BMI) 50.0-59.9, ADULT Status: Chronic (14) KAREEM (obstructive sleep apnea) Code(s): G47.33 - OBSTRUCTIVE SLEEP APNEA (ADULT) (PEDIATRIC) Status: Suspected - Plan 03/07 Adjust insulin therapy to get adequate glycemic control. BIPAP at nights. PT/OT to continue. Continue other treatments. plan for 03/08 seems to be improving, still has a cough productive of clear to yellow sputum encourage mobility continue same management plan for 03/09 awaiting him to be more mobile will recheck his labs in am. plan for today 03/11 progressing well, and will be transferred to floor. as per pulmonary he can possibly go home as long as he uses his CPAP ( patient does have a CPAP machine at home ). He also need to get stronger; he appears to be doing better today as he was able to transfer to a chair. He is unfunded so placing him is a challenge.
[2019-03-12] MEDS: Mometasone/Formoterol 120 PUFF INHALER INH SCH ×2 (07:22→19:50)
[2019-03-12] MEDS: Carvedilol 6.25 MG TAB PO SCH ×2 (07:38→21:13)
--- NOTE | 2019-03-12 11:18 | PRG ---
DATE OF SERVICE: 03/12/2019 SUBJECTIVE: German is a morbidly obese gentleman. Denies any pain or discomfort. OBJECTIVE: VITAL SIGNS: Saturations are 94% on 2 L, temperature 97, pulse 103, and blood pressure 131/74. CHEST: Decreased breath sounds. No wheezing. CARDIAC: Normal S1 and S2. No gallops. ABDOMEN: No masses. IMPRESSION: Respiratory failure, hypoventilation syndrome, pneumonia, and urinary tract infection. PLAN: He needs aggressive PT. Primary to discontinue his Rodriguez catheter. In the meantime, continue neb treatments, supportive care, and nocturnal CPAP. We will follow. Job ID: [id number]
--- NOTE | 2019-03-12 15:34 | PDOC.HOSPP ---
- Subjective Subjective: Seen and examined. Significantly improve from when I saw him roughly 2 weeks ago. Patient breathing well on low-flow nasal cannula. Patient talking in full sentences. Tells me that he used the bedside commode with physical therapist on both arms. Patient improving on maximal medical therapy. - Objective Vital Signs & Weight: Vital Signs (12 hours) Temp Pulse Resp BP BP Pulse Ox 03/12/19 12:00 99.1 F 97 18 123/73 95 03/12/19 08:50 94 L 03/12/19 08:45 97.9 F 103 H 18 131/74 94 L 03/12/19 07:38 119/78 03/12/19 07:24 98 03/12/19 07:22 98.6 F 97 16 98 03/12/19 03:52 93 20 95 Weight Admit Weight 429 lb 14.422 oz Weight 429 lb 14.422 oz Most Recent Monitor Data Heart Rate from ECG 96 NIBP 119/78 NIBP BP-Mean 91 Respiration from ECG 16 SpO2 98 I&O: 03/11/19 03/12/19 03/13/19 06:59 06:59 06:59 Intake Total 900 300 Output Total 700 1250 Balance 200 -950 Result Diagrams: 03/10/19 05:17 03/10/19 05:17 Additional Labs: Accuchecks 03/12/19 03/12/19 03/11/19 11:57 06:11 20:11 POC Glucose 134 H 115 H 171 H 03/11/19 16:39 POC Glucose 160 H Radiology Reviewed by me: Yes Hospitalist ROS - Review of Systems All other systems reviewed; all pertinent +/- noted in HPI/Subj - Medication Medications: Active Medications Generic Name Dose Route Start Last Admin Trade Name Freq PRN Reason Stop Dose Admin Acetaminophen 650 mg 02/14/19 16:33 03/01/19 09:33 Tylenol PO 650 mg Q4H PRN Administration Headache/Fever/Mild Pain (1-3) Acetaminophen 650 mg 03/01/19 19:12 03/02/19 21:15 Tylenol [place] 650 mg Q6H PRN Administration Mild Pain (1-3)/FEVER Carvedilol 12.5 mg 02/21/19 21:00 03/12/19 07:38 Coreg PO 12.5 mg BID BAYLEE Administration Hydralazine HCl 5 mg 03/01/19 05:42 03/01/19 06:33 Apresoline SLOW IVP 5 mg Q6H PRN Administration SBP Greater Than 180 Insulin Human Regular 0 units 02/26/19 16:48 03/06/19 11:42 Humulin R SC 3 units .AGGRESSIVE SLIDING PRN Administration AGGRESSIVE SLIDING SCALE Protocol Mometasone Furoate/Formoterol Fumar 2 puff 03/07/19 18:30 03/12/19 07:22 Dulera 200 Mcg/5 Mcg Inhaler INH 2 puff BID-RT BAYLEE Administration Ondansetron HCl 4 mg 02/14/19 18:05 02/26/19 02:24 Zofran IVP 4 mg Q6H PRN Administration Nausea/Vomiting Pantoprazole Sodium 40 mg 03/07/19 21:00 03/12/19 07:38 Protonix PO 40 mg BID BAYLEE Administration Sodium Chloride 10 ml 02/26/19 09:00 03/12/19 07:38 Flush - Normal Saline IVF 10 ml Q12HR BAYLEE Administration - Exam General Appearance: NAD, awake alert Eye: PERRL, anicteric sclera ENT: normocephalic atraumatic, moist mucosa Neck: supple, symmetric, no lymphadenopathy Heart: RRR, no murmur, no gallops, no rubs, normal peripheral pulses Respiratory: no rales, no ronchi, normal chest expansion, no tachypnea, wheezes (Faint. Faint breath sounds secondary to body habitus) Gastrointestinal: soft, non-tender, non-distended, no guarding, no rigidity Extremities: no clubbing, no edema Skin: no lesions, no rashes Neurological: cranial nerve grossly intact, no focal deficits Musculoskeletal: generalized weakness Psychiatric: normal affect, A&O x 3 Hosp A/P (1) Gastric ulcer with hemorrhage Code(s): K25.4 - CHRONIC OR UNSPECIFIED GASTRIC ULCER WITH HEMORRHAGE Status: Acute (2) Acute respiratory failure Code(s): J96.00 - ACUTE RESPIRATORY FAILURE, UNSP W HYPOXIA OR HYPERCAPNIA Status: Acute (3) Acute on chronic systolic (congestive) heart failure Code(s): I50.23 - ACUTE ON CHRONIC SYSTOLIC (CONGESTIVE) HEART FAILURE Status : Acute (4) DM2 (diabetes mellitus, type 2) Status: Acute (5) Elevated troponin Code(s): R74.8 - ABNORMAL LEVELS OF OTHER SERUM ENZYMES Status: Acute (6) HTN (hypertension) Code(s): I10 - ESSENTIAL (PRIMARY) HYPERTENSION Status: Chronic (7) Morbid obesity with BMI of 50.0-59.9, adult Code(s): E66.01 - MORBID (SEVERE) OBESITY DUE TO EXCESS CALORIES; Z68.43 - BODY MASS INDEX (BMI) 50.0-59.9, ADULT Status: Chronic (8) KAREEM (obstructive sleep apnea) Code(s): G47.33 - OBSTRUCTIVE SLEEP APNEA (ADULT) (PEDIATRIC) Status: Suspected - Plan Plan: Medical unit pulmonology/critical-care consultation, recommendations appreciated gastroenterology consultation, recommendations appreciated nephrology consultation, recommendations appreciated Improving on maximum medical therapy Limiting factor keeping patient hospitalized at this time is his physical strength PPI Blood sugar control - increase sliding scale blood pressure control DVT prophylaxis with SCDs no anticoagulation/antiplatelet in the setting of recent G.I. bleeding Disposition: Stable for lower level of care, CM to assist with D/c planning
--- NOTE | 2019-03-12 19:55 | EKG ---
Test Reason : Blood Pressure : / mmHG Vent. Rate : 124 BPM Atrial Rate : 124 BPM P-R Int : 170 ms QRS Dur : 096 ms QT Int : 296 ms P-R-T Axes : 054 136 039 degrees QTc Int : 425 ms Sinus tachycardia Possible Left atrial enlargement Right axis deviation Abnormal ECG Confirmed by MARITZA STRONG ([id number]), assistant editor LUIS ENRIQUE THOMAS ([id number]) on 03/12/2019 7:55:24 PM Referred By: Confirmed By:MARITZA STRONG
[2019-03-12] MEDS: Acetaminophen 325 MG TAB PO PRN (23:05)
[2019-03-12 23:32] LABS: Bilirubin Negative (Negative); Blood, Urine 2+ (Negative); Clarity Turbid (Clear); Glucose, Urine (Dipstick) Normal (Negative); Leukocyte 500 Leu/uL (Negative); Mucous/LPF 1+ LPF (<2+); Nitrite Negative (Negative); Protein, Urine (Dipstick) 300 mg/dL (Neg-Trace); RBC/HPF Greater than 50 HPF (0-3); Renal Epithelial 0-3 HPF (None Seen); Squamous Epithelial 0-3 HPF (0-3); Urobilinogen Normal mg/dL (Less than 2); WBC/HPF Greater than 50 HPF (0-3); Yeast-Budding 2+ HPF (None Seen)
[2019-03-12 23:36] LABS: Bacteria/HPF 1+ HPF (None Seen)
[2019-03-12 23:37] LABS: Yeast-Hyphae 2+ HPF (None Seen)
[2019-03-12 23:39] LABS: Urine Culture Reflex Yes Yes
[2019-03-13] MEDS: Carvedilol 6.25 MG TAB PO SCH ×2 (09:09→20:50)
[2019-03-13] MEDS ORDERED: Morphine 4 MG/ML VIAL SLOW IVP PRN (10:17)
[2019-03-13] MEDS: Mometasone/Formoterol 120 PUFF INHALER INH SCH ×2 (11:37→19:52)
--- NOTE | 2019-03-13 12:11 | PRG ---
DATE OF SERVICE: 03/13/2019 SUBJECTIVE: This morning, he said he walked 20 feet yesterday. OBJECTIVE: VITAL SIGNS: Temperature 97, pulse 80, respirations 20, saturations are 98%, blood pressure . GENERAL: Denies any pain or difficulty breathing. CHEST: No wheezing or crackles. CARDIAC: Normal S1 and S2. No gallops. ABDOMEN: No masses. ASSESSMENT: 1. Morbidly obese, sleep apnea, hypoventilation syndrome. 2. Pneumonia with urinary tract infection. PLAN: Continue PT, supportive care. We will follow. Job ID: [id number]
--- NOTE | 2019-03-13 15:23 | PDOC.HOSPP ---
- Subjective Subjective: Seen and examined. Discuss case with the patient and recommended removal of Feliciano catheter. Patient breathing well on low-flow nasal cannula. Patient continues to work with his physical strength and exercise tolerance. All questions answered in detail. Patient's significant other at bedside. - Objective Vital Signs & Weight: Vital Signs (12 hours) Temp Pulse Resp BP BP Pulse Ox 03/13/19 12:47 97.9 F 93 20 132/87 93 L 03/13/19 11:38 94 L 03/13/19 11:37 92 16 03/13/19 09:10 98 03/13/19 08:01 97.8 F 83 20 127/79 98 03/13/19 05:25 86 12 122/74 100 03/13/19 05:04 88 Weight Admit Weight 429 lb 14.422 oz Weight 429 lb 14.422 oz Most Recent Monitor Data Heart Rate from ECG 96 NIBP 119/78 NIBP BP-Mean 91 Respiration from ECG 16 SpO2 98 I&O: 03/12/19 03/13/19 03/14/19 06:59 06:59 06:59 Intake Total 300 1030 Output Total 1250 1450 200 Balance -950 -420 -200 Result Diagrams: 03/10/19 05:17 03/10/19 05:17 Additional Labs: Accuchecks 03/13/19 03/13/19 03/12/19 12:09 05:24 21:05 POC Glucose 150 H 124 H 129 H 03/12/19 16:26 POC Glucose 162 H Radiology Reviewed by me: Yes Hospitalist ROS - Review of Systems All other systems reviewed; all pertinent +/- noted in HPI/Subj - Medication Medications: Active Medications Generic Name Dose Route Start Last Admin Trade Name Freq PRN Reason Stop Dose Admin Acetaminophen 650 mg 02/14/19 16:33 03/12/19 23:05 Tylenol PO 650 mg Q4H PRN Administration Headache/Fever/Mild Pain (1-3) Acetaminophen 650 mg 03/01/19 19:12 03/02/19 21:15 Tylenol [place] 650 mg Q6H PRN Administration Mild Pain (1-3)/FEVER Carvedilol 12.5 mg 02/21/19 21:00 03/13/19 09:09 Coreg PO 12.5 mg BID BAYLEE Administration Hydralazine HCl 5 mg 03/01/19 05:42 03/01/19 06:33 Apresoline SLOW IVP 5 mg Q6H PRN Administration SBP Greater Than 180 Insulin Human Regular 0 units 02/26/19 16:48 03/06/19 11:42 Humulin R SC 3 units .AGGRESSIVE SLIDING PRN Administration AGGRESSIVE SLIDING SCALE Protocol Mometasone Furoate/Formoterol Fumar 2 puff 03/07/19 18:30 03/13/19 11:37 Dulera 200 Mcg/5 Mcg Inhaler INH 2 puff BID-RT BAYLEE Administration Ondansetron HCl 4 mg 02/14/19 18:05 02/26/19 02:24 Zofran IVP 4 mg Q6H PRN Administration Nausea/Vomiting Pantoprazole Sodium 40 mg 03/07/19 21:00 03/13/19 09:09 Protonix PO 40 mg BID BAYLEE Administration Sodium Chloride 10 ml 02/26/19 09:00 03/13/19 09:09 Flush - Normal Saline IVF 10 ml Q12HR BAYLEE Administration - Exam General Appearance: NAD Eye: anicteric sclera ENT: no oropharyngeal lesions, moist mucosa Neck: symmetric, no thyromegaly Heart: RRR, no murmur, no gallops, no rubs Respiratory: CTAB, no wheezes, no rales, no tachypnea Respiratory - other findings: Deminished breath sounds secondary to body habitus Gastrointestinal: soft, no guarding, no rigidity Extremities: 2+ LE edema Skin: no lesions, no rashes Neurological: cranial nerve grossly intact Musculoskeletal: no muscle wasting Psychiatric: normal affect, normal behavior, A&O x 3 Hosp A/P (1) Gastric ulcer with hemorrhage Code(s): K25.4 - CHRONIC OR UNSPECIFIED GASTRIC ULCER WITH HEMORRHAGE Status: Acute (2) Acute respiratory failure Code(s): J96.00 - ACUTE RESPIRATORY FAILURE, UNSP W HYPOXIA OR HYPERCAPNIA Status: Acute (3) Acute on chronic systolic (congestive) heart failure Code(s): I50.23 - ACUTE ON CHRONIC SYSTOLIC (CONGESTIVE) HEART FAILURE Status : Acute (4) DM2 (diabetes mellitus, type 2) Status: Acute (5) Elevated troponin Code(s): R74.8 - ABNORMAL LEVELS OF OTHER SERUM ENZYMES Status: Acute (6) HTN (hypertension) Code(s): I10 - ESSENTIAL (PRIMARY) HYPERTENSION Status: Chronic (7) Morbid obesity with BMI of 50.0-59.9, adult Code(s): E66.01 - MORBID (SEVERE) OBESITY DUE TO EXCESS CALORIES; Z68.43 - BODY MASS INDEX (BMI) 50.0-59.9, ADULT Status: Chronic (8) KAREEM (obstructive sleep apnea) Code(s): G47.33 - OBSTRUCTIVE SLEEP APNEA (ADULT) (PEDIATRIC) Status: Suspected - Plan Plan: Medical unit pulmonology/critical-care consultation, recommendations appreciated gastroenterology consultation, recommendations appreciated nephrology consultation, recommendations appreciated D/c feliciano cath Increase mobility and exercise PT/OT eval and treat Improving on maximum medical therapy Limiting factor keeping patient hospitalized at this time is his physical strength PPI Blood sugar control - sliding scale blood pressure control DVT prophylaxis with SCDs no anticoagulation/antiplatelet in the setting of recent G.I. bleeding Disposition: Stable for lower level of care, CM to assist with D/c planning
[2019-03-14] MEDS: Mometasone/Formoterol 120 PUFF INHALER INH SCH ×2 (07:09→19:50)
[2019-03-14] MEDS: Carvedilol 6.25 MG TAB PO SCH ×2 (08:41→21:56)
--- NOTE | 2019-03-14 14:53 | PDOC.HOSPP ---
- Subjective Encounter Date: 03/14/19 Encounter Time: 14:35 Subjective: f/u for acute/chronic resp failure, KAREEM, severe morbid obesity and limited mobility. Feels better overall. Ambulated total 200ft today. - Objective Vital Signs & Weight: Vital Signs (12 hours) Temp Pulse Resp BP BP Pulse Ox 03/14/19 08:41 167/86 H 03/14/19 08:00 98.4 F 95 20 167/86 H 96 Weight Admit Weight 429 lb 14.422 oz Weight 429 lb 14.422 oz Most Recent Monitor Data Heart Rate from ECG 96 NIBP 119/78 NIBP BP-Mean 91 Respiration from ECG 16 SpO2 98 I&O: 03/13/19 03/14/19 03/15/19 06:59 06:59 06:59 Intake Total 1030 1210 Output Total 1450 460 Balance -420 750 Result Diagrams: 03/10/19 05:17 03/10/19 05:17 Additional Labs: Accuchecks 03/14/19 03/14/19 03/13/19 11:54 04:28 20:35 POC Glucose 143 H 127 H 140 H 03/13/19 15:58 POC Glucose 143 H Microbiology 03/12/19 23:40 Urine feliciano catheter Urine Culture - Final Presumptive Emily albicans Hospitalist ROS - Medication Medications: Active Medications Generic Name Dose Route Start Last Admin Trade Name Freq PRN Reason Stop Dose Admin Acetaminophen 650 mg 02/14/19 16:33 03/12/19 23:05 Tylenol PO 650 mg Q4H PRN Administration Headache/Fever/Mild Pain (1-3) Acetaminophen 650 mg 03/01/19 19:12 03/02/19 21:15 Tylenol [place] 650 mg Q6H PRN Administration Mild Pain (1-3)/FEVER Carvedilol 12.5 mg 02/21/19 21:00 03/14/19 08:41 Coreg PO 12.5 mg BID BAYLEE Administration Hydralazine HCl 5 mg 03/01/19 05:42 03/01/19 06:33 Apresoline SLOW IVP 5 mg Q6H PRN Administration SBP Greater Than 180 Insulin Human Regular 0 units 02/26/19 16:48 03/06/19 11:42 Humulin R SC 3 units .AGGRESSIVE SLIDING PRN Administration AGGRESSIVE SLIDING SCALE Protocol Mometasone Furoate/Formoterol Fumar 2 puff 12/09/19 18:30 03/14/19 07:09 Dulera 200 Mcg/5 Mcg Inhaler INH 2 puff BID-RT BAYLEE Administration Ondansetron HCl 4 mg 02/14/19 18:05 02/26/19 02:24 Zofran IVP 4 mg Q6H PRN Administration Nausea/Vomiting Pantoprazole Sodium 40 mg 03/07/19 21:00 03/14/19 08:41 Protonix PO 40 mg BID BAYLEE Administration Sodium Chloride 10 ml 02/26/19 09:00 03/14/19 09:26 Flush - Normal Saline IVF Not Given Q12HR BAYLEE - Exam General Appearance: NAD, awake alert Eye: PERRL, anicteric sclera ENT: normocephalic atraumatic, no oropharyngeal lesions Neck: supple, symmetric, no JVD, no thyromegaly Heart: RRR, no murmur, no gallops, no rubs Respiratory: CTAB, no wheezes, no rales, no ronchi Gastrointestinal: non-tender, normal bowel sounds Gastrointestinal - other findings: obese, landmarks difficult to palpate Extremities: no cyanosis, 1+ LE edema Skin: normal turgor, no lesions Neurological: cranial nerve grossly intact, no new deficit Musculoskeletal: normal tone, generalized weakness Psychiatric: normal affect, A&O x 3 Hosp A/P (1) Acute on chronic respiratory failure with hypoxia and hypercapnia Code(s): J96.21 - ACUTE AND CHRONIC RESPIRATORY FAILURE WITH HYPOXIA; J96.22 - ACUTE AND CHRONIC RESPIRATORY FAILURE WITH HYPERCAPNIA Status: Acute Plan: Continue BiPAP NIMV for sleep/nocturnal use (2) RSV bronchitis Code(s): J20.5 - ACUTE BRONCHITIS DUE TO RESPIRATORY SYNCYTIAL VIRUS Status: Acute Plan: Resolved (3) Gastric ulcer with hemorrhage Code(s): K25.4 - CHRONIC OR UNSPECIFIED GASTRIC ULCER WITH HEMORRHAGE Status: Acute Plan: Resolved, continue PPI (4) Acute on chronic systolic (congestive) heart failure Code(s): I50.23 - ACUTE ON CHRONIC SYSTOLIC (CONGESTIVE) HEART FAILURE Status : Chronic Plan: Stable currently (5) CHIVO (acute kidney injury) Code(s): N17.9 - ACUTE KIDNEY FAILURE, UNSPECIFIED Status: Acute Plan: Resolved (6) Candiduria Code(s): B37.49 - OTHER UROGENITAL CANDIDIASIS Status: Acute Plan: Start Diflucan 100mg po daily - Plan plan discussed w/ family, PT/OT, secondary social studies teacher, respiratory therapy, out of bed/ambulate Continue critical support Continue Coreg 12.5mg BID Hydralazine IV PRN OOB with PT Start Diflucan 100mg po daily Likely home in 48h
[2019-03-14] MEDS ORDERED: Fluconazole 100 MG TAB PO SCH (15:15)
[2019-03-14] MEDS: Ondansetron PF 4 MG/2 ML Vial IVP PRN (19:30)
[2019-03-15] MEDS: Mometasone/Formoterol 120 PUFF INHALER INH SCH ×2 (06:57→21:06)
[2019-03-15] MEDS: Fluconazole 100 MG TAB PO SCH (09:32)
[2019-03-15] MEDS: Carvedilol 6.25 MG TAB PO SCH ×2 (09:32→20:47)
--- NOTE | 2019-03-15 15:02 | PDOC.HOSPP ---
- Subjective Encounter Date: 03/15/19 Encounter Time: 14:45 Subjective: f/u for KAREEM, resp failure off O2 currently. Ambulated approx 300ft total today. Feels better overall. - Objective Vital Signs & Weight: Vital Signs (12 hours) Temp Pulse Resp BP BP Pulse Ox 03/15/19 09:32 134/94 H 03/15/19 08:31 98.6 F 87 20 134/94 H 98 03/15/19 08:30 98 03/15/19 06:57 89 18 95 Weight Admit Weight 429 lb 14.422 oz Weight 429 lb Most Recent Monitor Data Heart Rate from ECG 96 NIBP 119/78 NIBP BP-Mean 91 Respiration from ECG 16 SpO2 98 I&O: 03/14/19 03/15/19 03/16/19 06:59 06:59 06:59 Intake Total 1210 1200 Output Total 460 Balance 750 1200 Result Diagrams: 03/10/19 05:17 03/10/19 05:17 Additional Labs: Accuchecks 03/15/19 03/15/19 03/14/19 11:51 05:03 19:53 POC Glucose 104 109 128 H 03/14/19 16:59 POC Glucose 114 H Microbiology 03/12/19 23:40 Urine feliciano catheter Urine Culture - Final Presumptive Emily albicans 02/25/19 21:53 Urine feliciano catheter Urine Culture - Final NO GROWTH AT 36 HOURS 02/18/19 09:56 Urine feliciano catheter Urine Culture - Final NO GROWTH AT 48 HOURS 02/15/19 06:06 Urine feliciano catheter Urine Culture - Final NO GROWTH AT 36 HOURS 02/14/19 20:10 Nasopharyngeal swab Respiratory Virus Panel (PCR) - Final 02/14/19 16:54 Nasal swab Influenza Types A,B Direct EIA - Final 02/14/19 15:42 Venous blood - Left Arm Blood Culture - Final NO GROWTH IN 5 DAYS 02/14/19 15:34 Venous blood - Right Hand Blood Culture - Final NO GROWTH IN 5 DAYS 02/19/19 09:31 Venous blood - Right Arm Blood Culture - Preliminary NO GROWTH AT 48 HOURS 02/19/19 09:31 Venous blood - Left Hand Blood Culture - Preliminary NO GROWTH AT 48 HOURS Laboratory Tests 02/18/19 02/19/19 02/19/19 05:57 05:00 05:00 WBC 11.1 H Hgb 11.9 L Neutrophils % 78.0 H Neutrophils % (Manual) Sodium 146 H Potassium 5.8 H BUN 71 H Creatinine 2.78 H Phosphorus 5.1 H 02/19/19 02/19/19 02/20/19 05:00 17:47 06:42 WBC Hgb Neutrophils % Neutrophils % (Manual) Sodium 149 H Potassium 4.3 4.2 BUN 81 H Creatinine 3.04 H Phosphorus 5.2 H 4.3 02/20/19 02/21/19 07:23 03:54 WBC 12.3 H Hgb 11.1 L Neutrophils % 77.3 H Neutrophils % (Manual) 81 H Sodium Potassium BUN Creatinine Phosphorus Hospitalist ROS - Medication Medications: Active Medications Generic Name Dose Route Start Last Admin Trade Name Freq PRN Reason Stop Dose Admin Acetaminophen 650 mg 02/14/19 16:33 03/12/19 23:05 Tylenol PO 650 mg Q4H PRN Administration Headache/Fever/Mild Pain (1-3) Acetaminophen 650 mg 03/01/19 19:12 03/02/19 21:15 Tylenol IN 650 mg Q6H PRN Administration Mild Pain (1-3)/FEVER Carvedilol 12.5 mg 02/21/19 21:00 03/15/19 09:32 Coreg PO 12.5 mg BID BAYLEE Administration Fluconazole 100 mg 03/15/19 09:00 03/15/19 09:32 Diflucan PO 100 mg DAILY BAYLEE Administration Hydralazine HCl 5 mg 03/01/19 05:42 03/01/19 06:33 Apresoline SLOW IVP 5 mg Q6H PRN Administration SBP Greater Than 180 Insulin Human Regular 0 units 02/26/19 16:48 03/06/19 11:42 Humulin R SC 3 units .AGGRESSIVE SLIDING PRN Administration AGGRESSIVE SLIDING SCALE Protocol Mometasone Furoate/Formoterol Fumar 2 puff 03/07/19 18:30 03/15/19 06:57 Dulera 200 Mcg/5 Mcg Inhaler INH 2 puff BID-RT BAYLEE Administration Ondansetron HCl 4 mg 02/14/19 18:05 03/14/19 19:30 Zofran IVP 4 mg Q6H PRN Administration Nausea/Vomiting Pantoprazole Sodium 40 mg 03/07/19 21:00 03/15/19 09:32 Protonix PO 40 mg BID BAYLEE Administration Sodium Chloride 10 ml 02/26/19 09:00 03/15/19 09:36 Flush - Normal Saline IVF 10 ml Q12HR BAYLEE Administration - Exam General Appearance: NAD, awake alert Eye: PERRL, anicteric sclera ENT: normocephalic atraumatic, no oropharyngeal lesions Neck: supple, symmetric, no JVD, no thyromegaly Heart: RRR, no murmur, no gallops, no rubs Respiratory: CTAB, no wheezes, no rales, no ronchi Gastrointestinal: soft, non-tender, non-distended, normal bowel sounds, no palpable masses Extremities: no cyanosis, no clubbing, 1+ LE edema Skin: normal turgor, no lesions Neurological: cranial nerve grossly intact, no new deficit Musculoskeletal: normal tone, generalized weakness Psychiatric: normal affect, A&O x 3 Hosp A/P (1) Acute on chronic respiratory failure with hypoxia and hypercapnia Code(s): J96.21 - ACUTE AND CHRONIC RESPIRATORY FAILURE WITH HYPOXIA; J96.22 - ACUTE AND CHRONIC RESPIRATORY FAILURE WITH HYPERCAPNIA Status: Acute Plan: Stable currently, off O2 currently, home CPAP while sleeping (2) Acute on chronic systolic (congestive) heart failure Code(s): I50.23 - ACUTE ON CHRONIC SYSTOLIC (CONGESTIVE) HEART FAILURE Status : Chronic Plan: Last Echo 02/15 with EF 30-40%, repeat Echo today to obtain accurate EF (3) RSV bronchitis Code(s): J20.5 - ACUTE BRONCHITIS DUE TO RESPIRATORY SYNCYTIAL VIRUS Status: Acute Plan: Resolved (4) Gastric ulcer with hemorrhage Code(s): K25.4 - CHRONIC OR UNSPECIFIED GASTRIC ULCER WITH HEMORRHAGE Status: Acute Plan: Resolved (5) CHIVO (acute kidney injury) Code(s): N17.9 - ACUTE KIDNEY FAILURE, UNSPECIFIED Status: Acute Plan: Resolved (6) Candiduria Code(s): B37.49 - OTHER UROGENITAL CANDIDIASIS Status: Acute Plan: Continue Diflucan daily - Plan plan discussed w/ family, PT/OT, marriage and family social worker, respiratory therapy, out of bed/ambulate Continue critical support Continue Coreg 12.5mg BID Hydralazine IV PRN OOB with PT Diflucan 100mg po daily Repeat Echo today Likely home in 24h
[2019-03-15] MEDS ORDERED: Furosemide 40 MG/4 ML VIAL SLOW IVP SCH (17:00)
--- NOTE | 2019-03-15 17:10 | PRG ---
DATE OF SERVICE: 03/15/2019 SERVICE: Pulmonary Medicine. INTERVAL HISTORY: The patient is doing great from respiratory standpoint. His strength is improving a little bit. Today, he was able to walk with the assistance of Physical Therapy to the door in back. He denies any current fevers or chills. There were no overnight events otherwise. PHYSICAL EXAMINATION: VITAL SIGNS: Afebrile, pulse 87, blood pressure is 134/94, respirations 20, saturation 98% on 1 L nasal cannula. GENERAL: The patient is awake and alert, in no apparent distress. LUNGS: Decent air entry without any prolonged expiratory phase or wheezing present. HEART: Normal rate, regular. ABDOMEN: Soft, nontender, nondistended. Bowel sounds are positive. MUSCULOSKELETAL: No cyanosis or clubbing. There is 2+ pitting in the bilateral lower extremities. NEUROLOGIC: Grossly nonfocal. ASSESSMENT: 1. [id number] hypoxic and hypercapnic respiratory failure. 2. Healthcare-associated pneumonia secondary to methicillin-susceptible Staphylococcus aureus, status post full course of therapy. 3. Acute bronchitis secondary to respiratory syncytial virus, resolved. 4. Acute on chronic systolic and diastolic heart failure. 5. Acute blood loss anemia secondary to peptic ulcer disease. 6. Obesity hypoventilation syndrome with morbid obesity. 7. Deconditioning, improving. DISCUSSION AND PLAN: Once again, the patient's volume status is actually creeping upward. I will give him a dose of Lasix today and tomorrow morning. We will repeat laboratories tomorrow morning. Pulmonary/Critical Care will continue to follow along. Job ID: [id number]
[2019-03-15] MEDS: Acetaminophen 325 MG TAB PO PRN (17:31)
[2019-03-16 05:34] LABS: #Basophils 0.1 thou/uL (0.0-0.2); #Eosinphils 0.1 thou/uL (0.0-0.7); #Lymphocytes 1.2 thou/uL (1.20-3.40); #Monocytes 0.5 thou/uL (0.11-0.59); #Neutrophils 2.2 thou/uL (1.40-6.50); %Basophils 1.6 % (0.0-1.0); %Eosinophils 2.7 % (0.0-10.0); %Lymphocytes 28.9 % (21.0-51.0); %Monocytes 13.1 % (0.0-10.0); %Neutrophils 53.7 % (42.0-75.0); Hemoglobin 8.3 g/dL (14.0-18.0); Mean Corpuscular HGB CONC 32.7 g/dL (32.0-36.0); Mean Corpuscular Hemoglobin 27.6 pg (27.0-31.0); Mean Corpuscular Volume 84.5 fL (78.0-98.0); Mean Platelet Volume 9.9 fL (7.4-10.4); Platelet Count 130 thou/uL (130-400); RBC Distribution Width 13.8 % (11.5-14.5); Red Blood Cell (RBC) Count 2.99 mill/uL (4.70-6.10)
[2019-03-16 05:38] LABS: Phosphorus 4.3 mg/dL (2.3-4.7)
[2019-03-16 05:40] LABS: Anion Gap 12 mmol/L (10-20); BUN (Urea Nitrogen) 9 mg/dL (8.9-20.6); Calc. Creatinine Clearance 252 mL/min (70-130); Calcium 7.8 mg/dL (7.8-10.44); Carbon Dioxide 31 mmol/L (22-29); Chloride 98 mmol/L (98-107); Estimated GFR-MDRD 88; Glucose 99 mg/dL (70-105); Potassium 3.2 mmol/L (3.5-5.1); Sodium 138 mmol/L (136-145)
[2019-03-16 05:46] LABS: Magnesium 0.8 mg/dL (1.6-2.6)
[2019-03-16] MEDS ORDERED: Magnesium Sulfate 3 GM in Sodium Chloride 0.9% 100 ML IVPB SCH (06:30)
[2019-03-16] MEDS: Mometasone/Formoterol 120 PUFF INHALER INH SCH ×2 (07:55→18:29)
[2019-03-16] MEDS ORDERED: Magnesium 2 GM/50 ML 2 GM in Premix Bag 1 BAG IVPB SCH (08:15)
[2019-03-16] MEDS ORDERED: Furosemide 40 MG/4 ML VIAL SLOW IVP SCH (09:00)
[2019-03-16] MEDS: Potassium Chloride 20 MEQ TAB PO SCH ×2 (10:20→14:36)
[2019-03-16] MEDS: Carvedilol 6.25 MG TAB PO SCH ×2 (10:20→20:52)
[2019-03-16] MEDS: Fluconazole 100 MG TAB PO SCH (10:20)
[2019-03-16] MEDS ORDERED: Magnesium Oxide 400 MG TAB PO SCH (11:45)
[2019-03-16] MEDS: Insulin Regular 300 UNITS/3 ML VIAL SC PRN (12:09)
--- NOTE | 2019-03-16 15:22 | PRG ---
DATE OF SERVICE: 03/16/2019 SERVICE: Pulmonary Medicine. INTERVAL HISTORY: The patient is doing absolutely outstanding from a strength standpoint. Today, he is actually walking to and from the bathroom multiple times on his own without assistance. He denies any current fevers or chills. There are no significant overnight events. Overall, he is really happy with the progress that he is making as am I. His lower extremity swelling improved overnight, though it is still present. He did have to use the restroom multiple times. PHYSICAL EXAMINATION: VITAL SIGNS: Afebrile, pulse 100, blood pressure 124/88, respirations 18, and saturation 92%, currently on room air. GENERAL: The patient is awake and alert, in no apparent distress. LUNGS: Excellent air entry. There is no prolonged expiratory phase. I do not appreciate any wheezing or crackling today. HEART: Normal rate and regular. ABDOMEN: Soft, nontender, and nondistended. Bowel sounds are positive. MUSCULOSKELETAL: No cyanosis or clubbing. The pitting edema has improved. NEUROLOGIC: Grossly nonfocal. LABORATORY DATA: WBC 4.0, hemoglobin 8.3, and platelets 130,000. Potassium 3.2. Basic metabolic profile is otherwise unremarkable. Magnesium 0.8, has improved to 1.1. Bicarb is 31 and likely at his baseline. ASSESSMENT: 1. Acute hypoxic respiratory failure, resolved. 2. Acute on chronic hypercapnic respiratory failure, resolved to baseline. 3. Healthcare-associated pneumonia secondary to a methicillin-susceptible Staphylococcus aureus, resolved. 4. Acute bronchitis secondary to respiratory syncytial virus, resolved. 5. Acute on chronic systolic and diastolic heart failure. 6. Acute blood loss anemia secondary to peptic ulcer disease, stable. 7. Obesity hypoventilation syndrome with morbid obesity. 8. Deconditioning. DISCUSSION AND PLAN: This patient is ready for discharge from the hospital once it is safe for him to move home from a strength perspective. He already has a home ventilator. Unfortunately, he does not have a full face mask. I provided him with a prescription in order to get that. If for some reason, he cannot get it, he is to notify me immediately. Potassium and magnesium will be replaced today. We will repeat a dose of Lasix tomorrow morning. We will follow intermittently. Job ID: [id number]
[2019-03-16 16:22] VITALS: BMI 56.6
--- NOTE | 2019-03-16 19:36 | PDOC.HOSPP ---
- Subjective Encounter Date: 03/16/19 Encounter Time: 19:30 Subjective: f/u for resp failure, deconditioning and severe KAREEM on BiPAP intermittently and while sleeping. Overall feels good. Ambulated with PT. - Objective Vital Signs & Weight: Vital Signs (12 hours) Temp Pulse Resp BP BP Pulse Ox 03/16/19 18:29 98 16 91 L 03/16/19 17:12 98.3 F 87 20 138/86 92 L 03/16/19 12:46 98.6 F 100 92 H 124/88 20 L 03/16/19 10:20 144/79 H 03/16/19 08:32 92 L 03/16/19 08:27 98.4 F 95 20 144/79 H 96 03/16/19 07:55 92 18 92 L Weight Admit Weight 429 lb 14.422 oz Weight 429 lb Most Recent Monitor Data Heart Rate from ECG 96 NIBP 119/78 NIBP BP-Mean 91 Respiration from ECG 16 SpO2 98 I&O: 03/15/19 03/16/19 03/17/19 06:59 06:59 06:59 Intake Total 1200 1700 Output Total 1000 Balance 1200 700 Result Diagrams: 03/16/19 05:05 03/16/19 05:05 Additional Labs: Accuchecks 03/16/19 03/16/19 03/16/19 16:25 10:59 04:59 POC Glucose 94 179 H 109 03/15/19 19:36 POC Glucose 123 H Microbiology 03/12/19 23:40 Urine feliciano catheter Urine Culture - Final Presumptive Emily albicans 02/18/19 09:56 Urine feliciano catheter Urine Culture - Final NO GROWTH AT 48 HOURS 02/15/19 06:06 Urine feliciano catheter Urine Culture - Final NO GROWTH AT 36 HOURS 02/14/19 20:10 Nasopharyngeal swab Respiratory Virus Panel (PCR) - Final 02/14/19 16:54 Nasal swab Influenza Types A,B Direct EIA - Final 02/14/19 15:42 Venous blood - Left Arm Blood Culture - Final NO GROWTH IN 5 DAYS 02/14/19 15:34 Venous blood - Right Hand Blood Culture - Final NO GROWTH IN 5 DAYS 02/19/19 09:31 Venous blood - Right Arm Blood Culture - Preliminary NO GROWTH AT 48 HOURS 02/19/19 09:31 Venous blood - Left Hand Blood Culture - Preliminary NO GROWTH AT 48 HOURS Laboratory Tests 02/18/19 02/19/19 02/19/19 05:57 05:00 05:00 WBC 11.1 H Hgb 11.9 L Neutrophils % 78.0 H Neutrophils % (Manual) Sodium 146 H Potassium 5.8 H BUN 71 H Creatinine 2.78 H Phosphorus 5.1 H 02/19/19 02/19/19 02/20/19 05:00 17:47 06:42 WBC Hgb Neutrophils % Neutrophils % (Manual) Sodium 149 H Potassium 4.3 4.2 BUN 81 H Creatinine 3.04 H Phosphorus 5.2 H 4.3 02/20/19 02/21/19 07:23 03:54 WBC 12.3 H Hgb 11.1 L Neutrophils % 77.3 H Neutrophils % (Manual) 81 H Sodium Potassium BUN Creatinine Phosphorus Radiology Reviewed by me: Yes (Echo - EF 55%) Hospitalist ROS - Medication Medications: Active Medications Generic Name Dose Route Start Last Admin Trade Name Freq PRN Reason Stop Dose Admin Acetaminophen 650 mg 02/14/19 16:33 03/15/19 17:31 Tylenol PO 650 mg Q4H PRN Administration Headache/Fever/Mild Pain (1-3) Acetaminophen 650 mg 03/01/19 19:12 03/02/19 21:15 Tylenol [place] 650 mg Q6H PRN Administration Mild Pain (1-3)/FEVER Carvedilol 12.5 mg 02/21/19 21:00 03/16/19 10:20 Coreg PO 12.5 mg BID BAYLEE Administration Fluconazole 100 mg 03/15/19 09:00 03/16/19 10:20 Diflucan PO 100 mg DAILY BAYLEE Administration Hydralazine HCl 5 mg 03/01/19 05:42 03/01/19 06:33 Apresoline SLOW IVP 5 mg Q6H PRN Administration SBP Greater Than 180 Insulin Human Regular 0 units 02/26/19 16:48 03/16/19 12:09 Humulin R SC 3 units .AGGRESSIVE SLIDING PRN Administration AGGRESSIVE SLIDING SCALE Protocol Mometasone Furoate/Formoterol Fumar 2 puff 03/07/19 18:30 03/16/19 18:29 Dulera 200 Mcg/5 Mcg Inhaler INH 2 puff BID-RT BAYLEE Administration Ondansetron HCl 4 mg 02/14/19 18:05 03/14/19 19:30 Zofran IVP 4 mg Q6H PRN Administration Nausea/Vomiting Pantoprazole Sodium 40 mg 03/07/19 21:00 03/16/19 10:20 Protonix PO 40 mg BID BAYLEE Administration Sodium Chloride 10 ml 02/26/19 09:00 03/16/19 10:21 Flush - Normal Saline IVF 10 ml Q12HR BAYLEE Administration - Exam General Appearance: NAD, awake alert Eye: PERRL, anicteric sclera ENT: normocephalic atraumatic, no oropharyngeal lesions Neck: supple, symmetric, no JVD, no thyromegaly Heart: RRR, no murmur, no gallops, no rubs, normal peripheral pulses Respiratory: CTAB, no wheezes, no rales, no ronchi Gastrointestinal: soft, non-tender, non-distended, normal bowel sounds Extremities: no cyanosis, no clubbing, 1+ LE edema Skin: normal turgor, no lesions Neurological: cranial nerve grossly intact, no new deficit Musculoskeletal: normal tone, normal strength Psychiatric: normal affect, A&O x 3 Hosp A/P (1) Acute on chronic respiratory failure with hypoxia and hypercapnia Code(s): J96.21 - ACUTE AND CHRONIC RESPIRATORY FAILURE WITH HYPOXIA; J96.22 - ACUTE AND CHRONIC RESPIRATORY FAILURE WITH HYPERCAPNIA Status: Acute Plan: Intermittent/nocturnal BiPAP, stable (2) Acute on chronic systolic (congestive) heart failure Code(s): I50.23 - ACUTE ON CHRONIC SYSTOLIC (CONGESTIVE) HEART FAILURE Status : Chronic Plan: EF 55% on repeat Echo, supportive mgmt, more component of morbid obesity/KAREEM (3) RSV bronchitis Code(s): J20.5 - ACUTE BRONCHITIS DUE TO RESPIRATORY SYNCYTIAL VIRUS Status: Acute Plan: Resolved (4) Gastric ulcer with hemorrhage Code(s): K25.4 - CHRONIC OR UNSPECIFIED GASTRIC ULCER WITH HEMORRHAGE Status: Acute Plan: Resolved (5) CHIVO (acute kidney injury) Code(s): N17.9 - ACUTE KIDNEY FAILURE, UNSPECIFIED Status: Acute (6) Candiduria Code(s): B37.49 - OTHER UROGENITAL CANDIDIASIS Status: Acute Plan: Continue Diflucan another 24h then d/c - Plan continue antibiotics, PT/OT, social services director, respiratory therapy, out of bed/ ambulate Continue critical support Continue Coreg 12.5mg BID Hydralazine IV PRN OOB with PT Diflucan 100mg po daily x 24h then d/c Repeat Echo with EF 55% Likely home in 24h
[2019-03-16] MEDS: Magnesium Oxide 400 MG TAB PO SCH (20:52)
[2019-03-17 06:07] LABS: Anion Gap 10 mmol/L (10-20); BUN (Urea Nitrogen) 9 mg/dL (8.9-20.6); Calc. Creatinine Clearance 239 mL/min (70-130); Calcium 7.8 mg/dL (7.8-10.44); Carbon Dioxide 34 mmol/L (22-29); Chloride 98 mmol/L (98-107); Estimated GFR-MDRD 83; Glucose 97 mg/dL (70-105); Magnesium 1.1 mg/dL (1.6-2.6); Potassium 3.2 mmol/L (3.5-5.1); Sodium 139 mmol/L (136-145)
[2019-03-17] MEDS: Mometasone/Formoterol 120 PUFF INHALER INH SCH (06:47)
[2019-03-17] MEDS: Magnesium Oxide 400 MG TAB PO SCH (08:26)
[2019-03-17] MEDS: Fluconazole 100 MG TAB PO SCH (08:26)
[2019-03-17] MEDS: Carvedilol 6.25 MG TAB PO SCH (08:26)
[2019-03-17] MEDS ORDERED: Magnesium Sulfate 4 GM in Sodium Chloride 0.9% 250 ML 250 ML IVPB SCH (09:00)
[2019-03-17] MEDS: Potassium Chloride 20 MEQ TAB PO SCH ×2 (09:58→13:54)
[2019-03-17 14:29] VITALS: BP 101/71; TEMP 98.3
--- NOTE | 2019-03-18 02:03 | PQF ---
DIDI BALTAZAR CHARLES DO [id number] CLINICAL DOCUMENTATION CLARIFICATION FORM: POST DISCHARGE Addendum to original discharge summary date: ____ Late entry note date: __ DATE: 03/18/19 ATTN: Maurice Pinto Please exercise your independent, professional judgment in responding to the clarification form. Clinical indicators are provided on the bottom of this form for your review Can you please further clarify if Sepsis is ruled in or ruled out? Sepsis [ ] Ruled in diagnosis [ ] Continue to treat [ ] Resolved [ x ] Ruled out diagnosis [ ] Cannot rule out diagnosis [ ] Other diagnosis please specify [ ] Unable to determine In addition, please specify: Present on Admission (POA): [ ] Yes [ x ] No [ ] Unable to determine For continuity of documentation, please document condition throughout progress notes and discharge summary. Thank You. CLINICAL INDICATORS - SIGNS / SYMPTOMS / LABS H and P pg.2- Sepsis. He does meet some criteria of sepsis He has Bandemia. He was pretty tachypneic and he was hypoxic PN 02/15 Dr. Vang- s/p transient hypotension Hospitalist PN 02/15 Dr. Arguello pg.4- sepsis due to RSV Bronchitis PN 02/16 Dr. Lai pg.6- sepsis due to RSV Bronchiolitis Laboratory- WBC15.3H, 13.2 , 14.8, 12.3, 14.4H RISK FACTORS Acute hypoxic respiratory failure-PN 03/16 pg.1 Health associated pneumonia 2/2 MRSA- PN 03/16 Acute bronchitis secondary to RSV- PN 03/16 Acute on chronic systolic and diastolic CHF- PN 03/16 Obesity hypoventilation syndrome with morbid obesity- PN 03/16 pg.1 TREATMENTS Pulmonary Consult 02/14 Dr. Beavers Chest X ray 02/14 IV fluids- JUN 07 Respiratory therapy- H and P pg.1 IV antibiotics- JUN 07 Blood culture- Microbiology (This form is maintained as a part of the permanent medical record) 2014 [employer], [employer]. All Rights Reserved [email or web address] [not provided] MTDD
--- NOTE | 2019-03-18 04:24 | DIS ---
DATE OF ADMISSION: 02/14/2019 DATE OF DISCHARGE: 03/17/2019 DISCHARGE DIAGNOSES: 1. Acute on chronic hypoxic hypercapnic respiratory failure. 2. Acute on chronic congestive heart failure with ejection fraction of 50% to 55%. 3. Morbid obesity. 4. Obstructive sleep apnea requiring BiPAP/CPAP. 5. Respiratory syncytial virus bronchitis, resolved. 6. Gastric ulcer, status post cauterization and epinephrine, stable. 7. Candiduria, resolved. 8. Hypomagnesemia, improved. CONSULTATIONS: 1. Dr. Beavers, Dr. Flores with Pulmonology/Critical Care Service. 2. Dr. Cullen with Nephrology Service. 3. Dr. Arana with GI Service. PERTINENT LABORATORY AND X-RAY FINDINGS: 1. Potassium ranged between 3.2 to 5.8. Creatinine ranged between 0.93 to 3.04. Lactic acid level 1.5. Magnesium level ranged between 0.8 to 2.1. BNP 502. Troponin I ranged between 0.110 to 0.155. TSH 0.87. CBC showed a white blood cell count ranged between 4.0 to 19.0. Hemoglobin ranged between 8.0 to 14.7. Blood cultures x2 dated 02/14/2019, showed no growth at 5 days. Influenza A and B antigen dated 02/14/2019, negative. Respiratory virus panel dated 02/14/2019, positive for respiratory syncytial virus A. 2. Urine culture dated 02/15/2019, showed no growth at 36 hours. Repeat urine culture dated 02/18/2019, showed no growth at 48 hours. Blood culture dated 02/19/2019, positive for coagulase-negative Staphylococcus 1/2 samples likely skin contaminant. 3. Sputum culture dated 02/25/2019, positive for methicillin-resistant Staphylococcus aureus. Repeat blood cultures dated 02/25/2019, positive for coagulase-negative Staphylococcus species, 1/2 samples, likely contaminant. Urine culture dated 02/25/2019, showed no growth at 36 hours. Urine culture dated 03/12/2019, positive for presumptive Emily albicans 50,000 to 75,000 colonies. Portable chest x-ray dated 02/14/2019, showed marked cardiomegaly with vascular prominence. Left lung base obscured. Abdominal radiographs dated 02/14/2019, showed limited study without acute process. 2D transthoracic echocardiogram dated 02/15/2019, showed ejection fraction of 30% to 40%. Suboptimal study with poor echocardiographic windows. EGD dated 02/17/2019, showed a prepyloric stomach, gastric ulceration with active bleeding. Normal esophagus and duodenum noted. 2D transthoracic echocardiogram dated 03/16/2019, showed ejection fraction of 50% to 55%. Mild left atrial enlargement. Mild tricuspid regurgitation. HOSPITAL COURSE: The patient was initially admitted to the intermediate care unit after presenting with acute hypoxic hypercapnic respiratory failure in the context of severe obstructive sleep apnea and morbid obesity. The patient initially was placed on broad-spectrum antibiotic therapy and underwent evaluation for infectious process. The patient received IV Solu-Medrol and bronchodilator therapy in addition to evaluation by the Pulmonology/Critical Care Service. The patient was placed on BiPAP noninvasive mechanical ventilation and monitored for sepsis. The patient was noted with volume overload after initial resuscitation, receiving IV Lasix and general monitoring of fluid status. The patient did require mechanical ventilation and intubation and was monitored by the Critical Care Service during this process. The patient eventually transitioned back to BiPAP noninvasive mechanical ventilation and stabilized in regard to respiratory status. The patient was evaluated due to anemia and concern for GI bleed by the GI Service, undergoing EGD evaluation confirming a deep ulceration in the prepyloric stomach. The patient underwent epinephrine and cauterization of the lesion and was transfused 1 unit of packed red blood cells. Serial hemoglobins through the remainder of the hospital course remained stable. The patient was slow to clinically improve despite aggressive intervention and pulmonary supportive measures. The patient remained on BiPAP noninvasive mechanical ventilation in the critical care unit, eventually transitioning to the intermediate care unit. The patient did eventually transition to work with physical and occupational therapy with slow return to mobilization and mobilization with a rolling walker. The patient eventually transitioned off continuous BiPAP noninvasive mechanical ventilation to nasal cannula and eventual room air. The patient received electrolyte replacement throughout hospital course as well as well as evaluation by the Dietary Services. Initial echocardiogram showed a depressed ejection fraction; however, the study was suboptimal in comprehensive evaluation. Repeat echocardiogram as stated previously showed preserved ejection fraction in the 50% to 55% range. I have examined the patient at the time of discharge and discussed followup instructions. The patient verbalized understanding and agreement, ready for discharge on 03/17/2019. DISCHARGE MEDICATIONS: 1. Coreg 12.5 mg p.o. b.i.d. 2. Magnesium oxide 400 mg p.o. b.i.d. 3. Protonix 40 mg p.o. daily. FOLLOWUP: The patient may follow up with his primary care provider at [facility] on 03/18/2019, at 9:15 a.m. The patient will follow up with Dr. Delano Flores with Pulmonology Service and to call his office for appointment time and date. CONDITION ON DISCHARGE: Stable. ACTIVITY: Ad-wero, rolling walker for ambulation. DIET: Heart healthy. SPECIAL INSTRUCTIONS: Outpatient sleep study for titration of BiPAP noninvasive mechanical ventilation. CODE STATUS: Full. DISPOSITION: To home, 03/17/2019. TIME SPENT: Total time preparing and coordinating discharge, 45 minutes. Job ID: [id number]
[2019-03-18] MEDS ORDERED: FLU VACC QS2019-20(6MOS UP)/PF 60 MCG/0.5 ML SYRINGE IM ONE (09:00)
== END 2019-03-17 14:42 | disposition home or self-care (01) | DRG 207 ==
LOC: ERS 15:31 → CCU 23:34 → IMCU/EMU 03-08 14:35 → T4-B 03-12 08:52
PROVIDERS: ADMIT Internal Medicine; ATTEND Internal Medicine
PROC: 5A1955Z Respiratory Ventilation, Greater than 96 Consecutive Hours (ICD-10-PCS; principal; 2019-02-14)
PROC: 0BH17EZ Insertion of Endotracheal Airway into Trachea, Via Natural or Artificial Opening (ICD-10-PCS; 2019-02-14)
PROC: 5A09357 Assistance with Respiratory Ventilation, Less than 24 Consecutive Hours, Continuous Positive Airway Pressure (ICD-10-PCS; 2019-02-14)
PROC: 0W3P8ZZ Control Bleeding in Gastrointestinal Tract, Via Natural or Artificial Opening Endoscopic (ICD-10-PCS; 2019-02-14)
DX: J96.21 Acute and chronic respiratory failure with hypoxia (principal); I21.A1 Myocardial infarction type 2; I50.43 Acute on chronic combined systolic (congestive) and diastolic (congestive) heart failure; G93.41 Metabolic encephalopathy; J15.212 Pneumonia due to Methicillin resistant Staphylococcus aureus; K25.4 Chronic or unspecified gastric ulcer with hemorrhage; N17.9 Acute kidney failure, unspecified; Z68.43 Body mass index [BMI] 50.0-59.9, adult; E66.2 Morbid (severe) obesity with alveolar hypoventilation; D62 Acute posthemorrhagic anemia; E87.0 Hyperosmolality and hypernatremia; B37.49 Other urogenital candidiasis; E87.3 Alkalosis; I13.0 Hypertensive heart and chronic kidney disease with heart failure and stage 1 through stage 4 chronic kidney disease, or unspecified chronic kidney disease; J96.22 Acute and chronic respiratory failure with hypercapnia; Z51.5 Encounter for palliative care; J20.5 Acute bronchitis due to respiratory syncytial virus; N18.3 Chronic kidney disease, stage 3 (moderate); D63.1 Anemia in chronic kidney disease; E78.5 Hyperlipidemia, unspecified; E11.22 Type 2 diabetes mellitus with diabetic chronic kidney disease; E83.39 Other disorders of phosphorus metabolism; E87.5 Hyperkalemia; E83.42 Hypomagnesemia; Z99.89 Dependence on other enabling machines and devices; Z79.899 Other long term (current) drug therapy
CPT/HCPCS: 31500; 36415; 36416; 36430; 51702; 71045; 74018; 80048; 80053; 80202; 81001; 82550; 82553; 82805; 83605; 83735; 83880; 84100; 84443; 84484; 85025; 86850; 86900; 86901; 87040; 87070; 87077; 87086; 87149; 87186; 87205; 87633; 87804; 90471; 90686; 90732; 93005; 93306; 94003; 94640; 94660; 96361; 96365; 96367; 96374; 99292; C9113; G0008; G0009; J0131; J0171; J0360; J0456; J0696; J1120; J1630; J1650; J1815; J1940; J2060; J2185; J2270; J2405; J2543; J2704; J2920; J3010; J3370; J3475; J3480; J3490; J7050; J7611; J7620; P9016; S0028

== ENCOUNTER 2020-07-19 23:35 | Emergency (ER) | payer SELFPAY ==
[2020-07-20] MEDS ORDERED: Furosemide 40 MG TAB ONE (00:32)
== END 2020-07-20 00:41 | disposition home or self-care (01) ==
LOC: ERS 23:35
DX: I83.028 Varicose veins of left lower extremity with ulcer other part of lower leg (principal); L97.829 Non-pressure chronic ulcer of other part of left lower leg with unspecified severity; L03.116 Cellulitis of left lower limb; I11.0 Hypertensive heart disease with heart failure; I50.9 Heart failure, unspecified; E11.9 Type 2 diabetes mellitus without complications; G47.30 Sleep apnea, unspecified; Z79.899 Other long term (current) drug therapy; E66.9 Obesity, unspecified
CPT/HCPCS: 93005

== ENCOUNTER 2020-07-31 13:04 | Inpatient (IN) | payer SELFPAY ==
[2020-07-31 14:53] LABS: ALT (SGPT) 17 U/L (8-55); AST (SGOT) 21 U/L (5-34); Albumin 3.2 g/dL (3.5-5.0); Alkaline Phosphatase 89 U/L (40-110); Anion Gap 11 mmol/L (10-20); BUN (Urea Nitrogen) 23 mg/dL (8.9-20.6); Bilirubin, Total 0.7 mg/dL (0.2-1.2); Calc. Creatinine Clearance 0 mL/min (70-130); Calcium 8.1 mg/dL (7.8-10.44); Carbon Dioxide 36 mmol/L (22-29); Chloride 98 mmol/L (98-107); Globulin 3.9 g/dL (2.4-3.5); Glucose 181 mg/dL (70-105); Potassium 4.1 mmol/L (3.5-5.1); Protein, Total 7.1 g/dL (6.0-8.3); Sodium 141 mmol/L (136-145)
[2020-07-31 15:07] LABS: #Basophils 0.1 thou/uL (0.0-0.2); #Eosinphils 0.1 thou/uL (0.0-0.7); #Lymphocytes 1.1 thou/uL (1.20-3.40); #Monocytes 0.4 thou/uL (0.11-0.59); #Neutrophils 4.2 thou/uL (1.40-6.50); %Basophils 1.5 % (0.0-1.0); %Eosinophils 0.9 % (0.0-10.0); %Lymphocytes 19.2 % (21.0-51.0); %Monocytes 7.4 % (0.0-10.0); %Neutrophils 71.1 % (42.0-75.0); MDiff Complete? YES; Mean Corpuscular Hemoglobin 23.7 pg (27.0-31.0); Mean Corpuscular Volume 81.8 fL (78.0-98.0); Mean Platelet Volume 10.3 fL (7.4-10.4); Platelet Count 186 thou/uL (130-400); Platelet Morphology Comment Appears Adequate; Polychromasia SLIGHT = 2-3 cells (100X) (0-2/hpf); RBC Distribution Width 15.4 % (11.5-14.5); Red Blood Cell (RBC) Count 5.07 mill/uL (4.70-6.10); White Blood Cell (WBC) Count 5.9 thou/uL (4.8-10.8)
[2020-07-31 15:15] LABS: CKMB 0.9 ng/mL (0-6.6)
[2020-07-31] MEDS ORDERED: Acetaminophen 325 MG TAB PO PRN (16:09)
[2020-07-31] MEDS ORDERED: Ondansetron ODT 4 MG TAB PO PRN (16:09)
[2020-07-31] MEDS ORDERED: hydrALAZINE 20 MG/ML VIAL SLOW IVP PRN (16:17)
[2020-07-31] MEDS ORDERED: HumaLOG 300 UNITS/3 ML VIAL SC PRN (16:18)
[2020-07-31] MEDS ORDERED: Dextrose 50% Abboject 50 ML SYRINGE SLOW IVP PRN (16:18)
[2020-07-31] MEDS ORDERED: Dextrose 5% in Water 1,000 ML IV PRN (16:18)
[2020-07-31] MEDS ORDERED: Furosemide 40 MG/4 ML VIAL ONE (17:01)
[2020-07-31 17:37] LABS: Troponin I 0.024 ng/mL (< 0.028)
[2020-07-31] MEDS: Carvedilol 6.25 MG TAB PO SCH (20:23)
[2020-07-31] MEDS: Atorvastatin Calcium 40 MG TAB PO SCH (20:23)
[2020-07-31 21:52] LABS: SARS-CoV-2 PCR by NAA Not Detected (NotDetected)
[2020-08-01 04:51] LABS: #Basophils 0.1 thou/uL (0.0-0.2); #Eosinphils 0.1 thou/uL (0.0-0.7); #Lymphocytes 1.3 thou/uL (1.20-3.40); #Monocytes 0.5 thou/uL (0.11-0.59); #Neutrophils 3.6 thou/uL (1.40-6.50); %Basophils 1.1 % (0.0-1.0); %Eosinophils 1.6 % (0.0-10.0); %Lymphocytes 23.4 % (21.0-51.0); %Monocytes 8.5 % (0.0-10.0); %Neutrophils 65.3 % (42.0-75.0); Hemoglobin 12.2 g/dL (14.0-18.0); Mean Corpuscular HGB CONC 29.6 g/dL (32.0-36.0); Mean Corpuscular Hemoglobin 24.6 pg (27.0-31.0); Mean Platelet Volume 10.3 fL (7.4-10.4); Platelet Count 184 thou/uL (130-400); RBC Distribution Width 15.2 % (11.5-14.5); Red Blood Cell (RBC) Count 4.96 mill/uL (4.70-6.10); White Blood Cell (WBC) Count 5.5 thou/uL (4.8-10.8)
[2020-08-01 05:09] LABS: ALT (SGPT) 17 U/L (8-55); AST (SGOT) 26 U/L (5-34); Albumin 3.3 g/dL (3.5-5.0); Alkaline Phosphatase 90 U/L (40-110); BUN (Urea Nitrogen) 24 mg/dL (8.9-20.6); Bilirubin, Total 0.7 mg/dL (0.2-1.2); Calc. Creatinine Clearance 161 mL/min (70-130); Calcium 8.1 mg/dL (7.8-10.44); Globulin 4.2 g/dL (2.4-3.5); Glucose 141 mg/dL (70-105); Protein, Total 7.5 g/dL (6.0-8.3)
[2020-08-01 05:21] LABS: Anion Gap 15 mmol/L (10-20); Carbon Dioxide 34 mmol/L (22-29); Chloride 96 mmol/L (98-107); Potassium 4.3 mmol/L (3.5-5.1); Sodium 141 mmol/L (136-145)
[2020-08-01] MEDS: Furosemide 40 MG/4 ML VIAL SLOW IVP SCH ×3 (05:39→18:35)
[2020-08-01] MEDS: Carvedilol 6.25 MG TAB PO SCH ×2 (09:08→20:37)
[2020-08-01] MEDS: Enoxaparin Sodium 40 MG/0.4 ML SYRINGE SC SCH (09:09)
[2020-08-01 14:24] VITALS: BMI 71.8
[2020-08-01] MEDS: hydrALAZINE 25 MG TAB PO SCH (20:36)
[2020-08-01] MEDS: Atorvastatin Calcium 40 MG TAB PO SCH (20:38)
[2020-08-02] MEDS: Furosemide 40 MG/4 ML VIAL SLOW IVP SCH ×4 (01:59→21:02)
[2020-08-02 04:39] LABS: Hemoglobin A1c 7.2 % (4.0-6.0)
[2020-08-02 04:41] LABS: #Eosinphils 0.1 thou/uL (0.0-0.7); #Lymphocytes 1.2 thou/uL (1.20-3.40); #Monocytes 0.7 thou/uL (0.11-0.59); #Neutrophils 4.9 thou/uL (1.40-6.50); %Basophils 0.4 % (0.0-1.0); %Lymphocytes 17.7 % (21.0-51.0); %Monocytes 10.5 % (0.0-10.0); %Neutrophils 70.3 % (42.0-75.0); Hemoglobin 11.1 g/dL (14.0-18.0); Mean Corpuscular HGB CONC 27.3 g/dL (32.0-36.0); Mean Corpuscular Hemoglobin 22.5 pg (27.0-31.0); Mean Corpuscular Volume 82.5 fL (78.0-98.0); Mean Platelet Volume 10.4 fL (7.4-10.4); Platelet Count 176 thou/uL (130-400); RBC Distribution Width 15.3 % (11.5-14.5); Red Blood Cell (RBC) Count 4.95 mill/uL (4.70-6.10)
[2020-08-02 04:54] LABS: Anion Gap 14 mmol/L (10-20); BUN (Urea Nitrogen) 22 mg/dL (8.9-20.6); Calc. Creatinine Clearance 173 mL/min (70-130); Calcium 8.4 mg/dL (7.8-10.44); Carbon Dioxide 33 mmol/L (22-29); Chloride 95 mmol/L (98-107); Glucose 146 mg/dL (70-105); Potassium 4.3 mmol/L (3.5-5.1); Sodium 138 mmol/L (136-145)
[2020-08-02] MEDS: hydrALAZINE 25 MG TAB PO SCH ×2 (07:53→21:01)
[2020-08-02] MEDS: glyBURIDE 5 MG TAB PO SCH ×2 (07:53→16:15)
[2020-08-02] MEDS: Enoxaparin Sodium 40 MG/0.4 ML SYRINGE SC SCH (07:53)
[2020-08-02] MEDS: Carvedilol 25 MG TAB PO SCH ×2 (07:54→16:15)
[2020-08-02] MEDS: Atorvastatin Calcium 40 MG TAB PO SCH (21:01)
[2020-08-03] MEDS: Furosemide 40 MG/4 ML VIAL SLOW IVP SCH ×2 (03:25→08:13)
[2020-08-03 05:55] LABS: BUN (Urea Nitrogen) 22 mg/dL (8.9-20.6); Calc. Creatinine Clearance 170 mL/min (70-130); Calcium 8.2 mg/dL (7.8-10.44); Glucose 93 mg/dL (70-105)
[2020-08-03 06:04] LABS: Anion Gap 16 mmol/L (10-20); Carbon Dioxide 36 mmol/L (22-29); Chloride 93 mmol/L (98-107); Sodium 141 mmol/L (136-145)
[2020-08-03] MEDS: glyBURIDE 5 MG TAB PO SCH (08:13)
[2020-08-03] MEDS: Carvedilol 25 MG TAB PO SCH (08:13)
[2020-08-03] MEDS: Enoxaparin Sodium 40 MG/0.4 ML SYRINGE SC SCH (08:13)
[2020-08-03] MEDS: hydrALAZINE 25 MG TAB PO SCH (08:13)
[2020-08-03 11:28] VITALS: BP 123/55; TEMP 97.9
== END 2020-08-03 15:30 | disposition home or self-care (01) | DRG 291 ==
LOC: ERS 13:04 → OBSVTOIN 16:02 → 2NO 16:02 → INTOOBSV 16:02 → OBSVTOIN 08-01 17:33
PROVIDERS: ADMIT Emergency Medicine; ATTEND Family Medicine
DX: I13.0 Hypertensive heart and chronic kidney disease with heart failure and stage 1 through stage 4 chronic kidney disease, or unspecified chronic kidney disease (principal); I50.43 Acute on chronic combined systolic (congestive) and diastolic (congestive) heart failure; J96.21 Acute and chronic respiratory failure with hypoxia; J96.22 Acute and chronic respiratory failure with hypercapnia; N17.9 Acute kidney failure, unspecified; Z68.45 Body mass index [BMI] 70 or greater, adult; Z20.822 Contact with and (suspected) exposure to COVID-19; I42.0 Dilated cardiomyopathy; E66.01 Morbid (severe) obesity due to excess calories; E11.22 Type 2 diabetes mellitus with diabetic chronic kidney disease; I42.8 Other cardiomyopathies; G47.33 Obstructive sleep apnea (adult) (pediatric); E78.5 Hyperlipidemia, unspecified; Z79.899 Other long term (current) drug therapy
CPT/HCPCS: 36415; 36416; 71045; 80048; 80053; 82553; 83036; 83880; 84484; 85025; 87635; 93005; 93306; 96372; 96374; 96376; 97139; G0378; J1650; J1940; U0003; U0005

== ENCOUNTER 2020-12-14 22:47 | Emergency (ER) | payer SELFPAY | END 2020-12-15 00:21 | disposition left against medical advice (07) | LOC: ERS 22:47 | DX: Z53.21 Procedure and treatment not carried out due to patient leaving prior to being seen by health care provider (principal) ==

== ENCOUNTER 2021-05-09 04:48 | Emergency (ER) | payer BC | END 2021-05-09 05:07 | disposition left against medical advice (07) | LOC: ERS 04:48 | DX: K92.0 Hematemesis (principal) | CPT/HCPCS: 99284 ==

== ENCOUNTER 2021-07-16 19:00 | Outpatient (CLI) | payer BC | END 2021-07-16 19:01 | disposition home or self-care (01) | LOC: SLEEPLAB 19:00 | PROVIDERS: ATTEND Nurse Practitioner Family | DX: G47.33 Obstructive sleep apnea (adult) (pediatric) (principal); G47.10 Hypersomnia, unspecified; J96.11 Chronic respiratory failure with hypoxia; R53.83 Other fatigue; E66.9 Obesity, unspecified; R06.83 Snoring; I10 Essential (primary) hypertension; R09.02 Hypoxemia | CPT/HCPCS: 95811 ==